=== PATIENT | male | born 1950 | race Caucasian/White ===

== ENCOUNTER 2016-06-07 09:53 | Day surgery (SDC) | payer MEDICARE ==
[~2016-06-07 09:53] MED LIST: PROPOFOL INJ 200 MG/20 ML VIAL IV ONE
--- NOTE | 2016-06-07 12:15 | Operative Report ---
Operative Report DATE OF SURGERY: 06/07/16 Operative Report: The risks, benefits and alternatives of the procedure including risks of bleeding, perforation requiring surgery are explained to the patient in detail and informed consent is obtained. Patient is taken back to the endoscopy suite and propofol is administered. Timeout is called. A rectal examination was done which did not reveal any masses, tears or fissures. An Olympus videoscope was inserted into the patient's rectum. Keeping the lumen in site at all times the scope was then gradually advanced all the way to the cecum. The cecum was identified by the usual anatomical landmarks of the ileocecal valve as well as the appendiceal office. Prep was reasonably good. Photo documentations obtained. The scope was then sequentially pulled back via the rest segments of the colon including the ascending colon, hepatic flexure, transverse colon, splenic flexure, descending colon and finally into the rectosigmoid colon. Retroflexion maneuvers performed. PREOPERATIVE DIAGNOSIS: Change of bowel habits, abdominal distention. POSTOPERATIVE DIAGNOSIS: Diverticulosis. Mild right-sided inflammation status post biopsy. Redundant, atonic colon. OPERATION: Colonoscopy with biopsy SURGEON: XIANG GRESHAM ANESTHESIA: LMAC TISSUE REMOVED OR ALTERED: Right colon specimens obtained. COMPLICATIONS: None. ESTIMATED BLOOD LOSS: none. INTRAOPERATIVE FINDINGS: No masses AVMs polyps are noted. Diverticulosis is noted. Internal hemorrhoids are noted. Long redundant, atonic colon. PROCEDURE: Patient tolerated the procedure well. No immediate postprocedure complications are noted. Patient is discharged in good condition. He does have a 2-3 week follow-up to discuss findings. He is instructed to go the emergency room after any further problems or questions. Discharge date 06/07/2016. Discharge diet: Regular. Discharge activity: Regular.
[2016-06-07 12:47] VITALS: BP 148/91
== END 2016-06-07 12:50 | disposition home or self-care (01) ==
LOC: END 09:53
PROVIDERS: ATTEND Internal Medicine Gastroenterology
PROC: 0DBF8ZX Excision of Right Large Intestine, Via Natural or Artificial Opening Endoscopic, Diagnostic (ICD-10-PCS; principal; 2016-06-07 11:00)
DX: K57.30 Diverticulosis of large intestine without perforation or abscess without bleeding (principal); K52.9 Noninfective gastroenteritis and colitis, unspecified; I10 Essential (primary) hypertension; J44.9 Chronic obstructive pulmonary disease, unspecified; M19.90 Unspecified osteoarthritis, unspecified site; I25.10 Atherosclerotic heart disease of native coronary artery without angina pectoris; E78.5 Hyperlipidemia, unspecified; G20 Parkinson's disease; G81.90 Hemiplegia, unspecified affecting unspecified side; Z79.51 Long term (current) use of inhaled steroids; Z79.899 Other long term (current) drug therapy
CPT/HCPCS: 45380; 88305 ×2; J2704; 810

== ENCOUNTER → 2016-07-13 | Outpatient (CLI) | payer MEDICARE | LOC: RAD 10:32 | PROVIDERS: ATTEND Internal Medicine Critical Care Medicine | DX: J45.909 Unspecified asthma, uncomplicated (principal); J44.9 Chronic obstructive pulmonary disease, unspecified; I69.30 Unspecified sequelae of cerebral infarction; G47.33 Obstructive sleep apnea (adult) (pediatric); M19.90 Unspecified osteoarthritis, unspecified site; R05 Cough; Z87.09 Personal history of other diseases of the respiratory system; Z87.898 Personal history of other specified conditions | CPT/HCPCS: 71020 ==

== ENCOUNTER → 2016-07-14 | Outpatient (CLI) | payer MEDICARE ==
[2016-07-14 11:27] LABS: ABSOLUTE BASOPHILS # (AUTO) 0.1 10^3/uL (0.0-0.2); ABSOLUTE EOSINOPHILS # (AUTO) 0.2 10^3/uL (0.0-0.6); ABSOLUTE LYMPHOCYTES (AUTO) 0.7 10^3/uL (0.5-4.7); ABSOLUTE MONOCYTES (AUTO) 0.5 10^3/uL (0.1-1.4); ABSOLUTE NEUT (AUTO) 5.8 10^3/uL (1.7-8.2); BASOPHILS % (AUTO) 0.7 % (0-2); EOSINOPHILS % (AUTO) 2.8 % (0-6); HEMOGLOBIN 11.6 g/dL (13.5-17.0); HGB HCT DIFFERENCE -0.2; LYMPHOCYTES % (AUTO) 9.9 % (13-45); MEAN CORPUSCULAR HGB CONC 33.1 g/dL (32.0-36.0); MEAN CORPUSCULAR VOLUME 88 fl (80-97); MONOCYTES % (AUTO) 6.7 % (3-13); RED BLOOD COUNT 3.99 10^6/uL (4.35-5.55); RED CELL DISTRIBUTION WIDTH 16.6 % (11.5-14.0); SEGMENTED NEUTROPHILS % (AUTO) 79.9 % (42-78); WHITE BLOOD COUNT 7.2 10^3/uL (4.0-10.5)
[2016-07-14 11:54] LABS: ALANINE AMINOTRANSFERASE 19 U/L (21-72); ALBUMIN 3.8 g/dL (3.5-5.0); ALKALINE PHOSPHATASE 149 U/L (38-126); ANION GAP 10 (5-19); ASPARTATE AMINO TRANSFERASE 19 U/L (17-59); BILIRUBIN,TOTAL 0.6 mg/dL (0.2-1.3); BLOOD UREA NITROGEN 11 mg/dL (7-20); CALCIUM 9.1 mg/dL (8.4-10.2); CARBON DIOXIDE 27 mmol/L (22-30); CHLORIDE 101 mmol/L (98-107); GLUCOSE 134 mg/dL (75-110); POTASSIUM 4.4 mmol/L (3.6-5.0); SODIUM 137.5 mmol/L (137-145); TOTAL PROTEIN 6.7 g/dL (6.3-8.2)
== END ==
LOC: LAB 10:51
PROVIDERS: ATTEND Internal Medicine Critical Care Medicine
DX: J45.909 Unspecified asthma, uncomplicated (principal); J98.11 Atelectasis; R05 Cough; J94.1 Fibrothorax; J90 Pleural effusion, not elsewhere classified; I10 Essential (primary) hypertension; Z86.79 Personal history of other diseases of the circulatory system
CPT/HCPCS: 36415; 80053; 85025

== ENCOUNTER → 2016-08-04 | Outpatient (CLI) | payer MEDICARE ==
[2016-08-04 14:37] LABS: ALANINE AMINOTRANSFERASE 13 U/L (21-72); ALBUMIN 3.9 g/dL (3.5-5.0); ALKALINE PHOSPHATASE 147 U/L (38-126); ANION GAP 12 (5-19); ASPARTATE AMINO TRANSFERASE 17 U/L (17-59); BILIRUBIN,TOTAL 0.7 mg/dL (0.2-1.3); BLOOD UREA NITROGEN 12 mg/dL (7-20); CALCIUM 9.2 mg/dL (8.4-10.2); CARBON DIOXIDE 30 mmol/L (22-30); CHLORIDE 97 mmol/L (98-107); CREATININE RESULT 1.11 mg/dL (0.52-1.25); GLUCOSE 139 mg/dL (75-110); POTASSIUM 3.9 mmol/L (3.6-5.0); SODIUM 139.2 mmol/L (137-145); TOTAL PROTEIN 7.1 g/dL (6.3-8.2)
== END ==
LOC: OD 13:07
PROVIDERS: ATTEND Physician Assistant Medical
DX: R06.02 Shortness of breath (principal)
CPT/HCPCS: 36415; 80053; 83880

== ENCOUNTER → 2016-11-15 | Outpatient (CLI) | payer MEDICARE ==
--- NOTE | 2016-11-15 15:24 | RADIOLOGY REPORT (SQ) ---
EXAM DESCRIPTION: CHEST PA/LATERAL COMPLETED DATE/TIME: 11/15/2016 2:59 pm REASON FOR STUDY: SHORTNESS OF BREATH COMPARISON: 07/13/2016 EXAM PARAMETERS: NUMBER OF VIEWS: two views TECHNIQUE: Digital Frontal and Lateral radiographic views of the chest acquired. RADIATION DOSE: NA LIMITATIONS: none FINDINGS: LUNGS AND PLEURA: There is large right retro hilar mass that shows no significant improvem ent compared to the earlier study. There is a small right pleural effusion. MEDIASTINUM AND HILAR STRUCTURES: No masses or contour abnormalities. HEART AND VASCULAR STRUCTURES: Heart normal size. No evidence for failure. BONES: No acute findings. HARDWARE: None in the chest. OTHER: No other significant finding. IMPRESSION: Large mass in the right retro hilar area. Persistent small right pleural effusion. TECHNICAL DOCUMENTATION: JOB ID: [id number] [employer]- All Rights Reserved
[2016-11-15 17:48] LABS: ABSOLUTE EOSINOPHILS # (AUTO) 0.2 10^3/uL (0.0-0.6); ABSOLUTE LYMPHOCYTES (AUTO) 0.8 10^3/uL (0.5-4.7); ABSOLUTE MONOCYTES (AUTO) 0.5 10^3/uL (0.1-1.4); ABSOLUTE NEUT (AUTO) 4.7 10^3/uL (1.7-8.2); BASOPHILS % (AUTO) 0.6 % (0-2); EOSINOPHILS % (AUTO) 2.8 % (0-6); HEMATOCRIT 37.5 % (37.9-51.0); HEMOGLOBIN 12.1 g/dL (13.5-17.0); HGB HCT DIFFERENCE -1.2; LYMPHOCYTES % (AUTO) 13.2 % (13-45); MEAN CORPUSCULAR HEMOGLOBIN 29.9 pg (27.0-33.4); MEAN CORPUSCULAR HGB CONC 32.1 g/dL (32.0-36.0); MEAN CORPUSCULAR VOLUME 93 fl (80-97); MONOCYTES % (AUTO) 7.8 % (3-13); RED BLOOD COUNT 4.04 10^6/uL (4.35-5.55); RED CELL DISTRIBUTION WIDTH 18.1 % (11.5-14.0); SEGMENTED NEUTROPHILS % (AUTO) 75.6 % (42-78); WHITE BLOOD COUNT 6.2 10^3/uL (4.0-10.5)
[2016-11-15 18:01] LABS: ALANINE AMINOTRANSFERASE 22 U/L (21-72); ALBUMIN 4.2 g/dL (3.5-5.0); ALKALINE PHOSPHATASE 158 U/L (38-126); ANION GAP 14 (5-19); ASPARTATE AMINO TRANSFERASE 29 U/L (17-59); BILIRUBIN,DIRECT 0.5 mg/dL (0.0-0.4); BILIRUBIN,TOTAL 0.6 mg/dL (0.2-1.3); BLOOD UREA NITROGEN 19 mg/dL (7-20); CALCIUM 9.1 mg/dL (8.4-10.2); CARBON DIOXIDE 27 mmol/L (22-30); CHLORIDE 98 mmol/L (98-107); CREATININE RESULT 1.15 mg/dL (0.52-1.25); GLUCOSE 156 mg/dL (75-110); POTASSIUM 4.6 mmol/L (3.6-5.0); SODIUM 138.5 mmol/L (137-145); TOTAL PROTEIN 7.5 g/dL (6.3-8.2)
== END ==
LOC: OD 14:30
PROVIDERS: ATTEND Physician Assistant Medical
DX: R06.02 Shortness of breath (principal); R53.83 Other fatigue; J90 Pleural effusion, not elsewhere classified
CPT/HCPCS: 36415; 71020; 80053; 85025

== ENCOUNTER 2017-02-28 21:30 | Emergency (ER) | payer MEDICARE ==
--- NOTE | 2017-02-28 22:57 | RADIOLOGY REPORT (SQ) ---
EXAM DESCRIPTION: KNEE RIGHT 2 VIEWS COMPLETED DATE/TIME: 02/28/2017 10:33 pm REASON FOR STUDY: rt knee/leg pain COMPARISON: 02/05/2014 NUMBER OF VIEWS: Two views. TECHNIQUE: AP and lateral radiographic images acquired of the right knee. LIMITATIONS: None. FINDINGS: MINERALIZATION: Osteopenia. BONES: Comminuted fracture of the proximal tibia. Predominantly transverse but there is a vertical f racture line which appears to extend into the knee joint. Fracture of the proximal fibula. No signi ficant displacement. JOINT: Small effusion. SOFT TISSUES: No soft tissue swelling. No radio-opaque foreign body. OTHER: No other significant finding. IMPRESSION: Comminuted fracture of the proximal tibia with intra-articular extension. Proximal fibu lar fracture. TECHNICAL DOCUMENTATION: JOB ID: [id number] [employer]- All Rights Reserved
--- NOTE | 2017-02-28 23:00 | RADIOLOGY REPORT (SQ) ---
EXAM DESCRIPTION: TIBIA FIBULA RIGHT COMPLETED DATE/TIME: 02/28/2017 10:33 pm REASON FOR STUDY: rt knee/leg pain COMPARISON: None. NUMBER OF VIEWS: Two views. TECHNIQUE: Two radiographic images acquired of the right tibia and fibula to include the knee and an kle in at least one projection. LIMITATIONS: None. FINDINGS: MINERALIZATION: Severe osteopenia. BONES: Fractures of the proximal tibia and fibula previously described. Healed fracture of the dista l tibia and fibula. SOFT TISSUES: No obvious swelling or foreign body. OTHER: No other significant finding. IMPRESSION: Acute fractures of the proximal tibia and fibula. Healed fracture of the distal tibia a nd fibula. TECHNICAL DOCUMENTATION: JOB ID: [id number] [employer]- All Rights Reserved
[2017-02-28] MEDS ORDERED: MORPHINE SULFATE 10 MG/ML INJ IV ONE (23:05)
--- NOTE | 2017-02-28 23:40 | ER Document Report ---
ED General - General Chief Complaint: Leg Injury Stated Complaint: LEG/KNEE INJURY Time Seen by Provider: 02/28/17 22:13 Notes: Patient is a 66-year-old male with a past medical history of a prior CVA and residual right-sided hemiparesis and associated expressive aphasia who presents after having a mechanical fall when trying to stand from his wheelchair. His was trying to assist him in standing and he did fall, "crumpling" his right leg. The patient is normally completely nonambulatory but is able to bear weight on the right lower extremity. He has no history of similar injury in the past. He did not injure any other part of his body during the fall today. He arrives via EMS. Patient is insensate on the right side of his body so he denies any active pain at this time. Nothing improves or worsens his symptoms. TRAVEL OUTSIDE OF THE [place] IN LAST 30 DAYS: No - Related Data Allergies/Adverse Reactions: Iodinated Contrast- Oral and IV Dye Allergy (Verified 06/06/16 15:53) Past Medical History - General Information source: Patient - Social History Smoking Status: Never Smoker Frequency of alcohol use: None Drug Abuse: None Lives with: Spouse/Significant other Family History: Reviewed & Not Pertinent Patient has suicidal ideation: No Patient has homicidal ideation: No - Past Medical History Cardiac Medical History: Reports: Hx Hypercholesterolemia, Hx Hypertension Denies: Hx Coronary Artery Disease, Hx Heart Attack, Hx Heart Murmur Pulmonary Medical History: Reports: Hx COPD, Hx Pneumonia, Hx Sleep Apnea Denies: Hx Asthma, Hx Bronchitis, Hx Respiratory Failure, Hx Tuberculosis Neurological Medical History: Reports: Hx Cerebrovascular Accident - 2005 WEAKER ON RIGHT SIDE, Hx Seizures - LAST ONE 6 MONTHS AGO Endocrine Medical History: Reports: Hx Diabetes Mellitus Type 2 Renal/ Medical History: Reports: Hx Kidney Stones. Denies: Hx Peritoneal Dialysis GI Medical History: Reports: Hx Gastroesophageal Reflux Disease - aspiration. Denies: Hx Hepatitis, Hx Hiatal Hernia, Hx Ulcer Musculoskeltal Medical History: Reports Hx Arthritis Psychiatric Medical History: Reports: Hx Depression Traumatic Medical History: Reports: Hx Fractures - right foot Infectious Medical History: Denies: Hx Hepatitis Past Surgical History: Reports: Hx Abdominal Surgery - PEG tube, Hx Bowel Surgery - cyst on bladder, Hx Orthopedic Surgery - right shoulder. Denies: Hx Open Heart Surgery, Hx Pacemaker - Immunizations Hx Diphtheria, Pertussis, Tetanus Vaccination: Yes Hx Pneumococcal Vaccination: 06/04/11 Review of Systems - Review of Systems Notes: Constitutional: Negative for fever. Eyes: Negative for visual changes. ENT: Negative for facial injury Cardiovascular: Negative for chest injury. Respiratory: Negative for shortness of breath. Gastrointestinal: Negative for abdominal injury. Genitourinary: Negative for genital injury Musculoskeletal: Positive right lower extremity injury Skin: Positive for ecchymosis of the right lower extremity Neurological: Negative for head injury. Physical Exam - Vital signs Vitals: Temp Pulse Resp BP Pulse Ox 98.2 F 127 H 18 143/85 H 100 02/28/17 21:32 02/28/17 21:32 02/28/17 21:32 02/28/17 21:32 02/28/17 21:32 Notes: PHYSICAL EXAMINATION: GENERAL: Appears slightly older than stated age but in no acute distress HEAD: Atraumatic, normocephalic. EYES: Pupils equal round and reactive to light, extraocular movements intact, sclera anicteric, conjunctiva are normal. ENT: nares patent, oropharynx clear without exudates. Moist mucous membranes. NECK: Normal range of motion, supple without lymphadenopathy LUNGS: Breath sounds clear to auscultation bilaterally and equal. No wheezes rales or rhonchi. HEART: Regular tachycardia without murmurs. Strong 2+ DP pulses bilaterally. ABDOMEN: Soft, nontender, normoactive bowel sounds. No guarding, no rebound. No masses appreciated. EXTREMITIES: There is extensive bruising and swelling to the proximal aspect of the distal right lower extremity just below the level of the knee. There are 2 serous filled bulla overlying the area. There is no evidence of skin tenting. The bilateral lower extremity's are the bilateral feet are warm to touch bilaterally NEUROLOGICAL: Right-sided hemiparesis which is baseline. Full range of motion and 5 out of 5 strength both in the upper and lower extremities of the left side. Expressive aphasia. PSYCH: Normal mood, normal affect. SKIN: Warm, Dry, normal turgor, no rashes or lesions noted. Course - Re-evaluation Re-evalutation: 02/28/17 23:39 Patient presents with a proximal tib-fib fracture on the right lower extremity. Patient does not ambulate on this extremity as he is hemiparetic on the right from a stroke in 2004. He did not sustain any additional injuries during today' s fall as it was apparently after attempting to have an assisted stand from the chair he directly "slumped" onto the floor landing directly on the right leg and not hitting anything else. There is obvious ecchymosis and bulla formed over the skin of the proximal right lower extremity without any evidence of skin tenting or tears. Patient has no sensation to the right lower extremity so denies any pain at this time. At this point we do not have any orthopedic surgery available in the emergency department at this hospital so I will consult with an orthopedic surgeon at [place] to see if this patient will require transfer tonight versus outpatient management and posterior splint placement as he is non-ambulatory on this extremity. 03/01/17 00:16 I have discussed this case with the orthopedic surgeon on-call at [facility] Dr. Ponce who recommends based on the absence of significant lateral displacement and that the patient is normally nonweightbearing on this extremity that the patient can be placed in a posterior splint and followed up as an outpatient. I have reviewed extensively the signs and symptoms to suggest compartment syndrome with the patient and his at the bedside and the need for them to return the emergency department immediately should any of these occur. - Vital Signs Vital signs: Temp Pulse Resp BP Pulse Ox 98.2 F 100 20 140/80 H 100 02/28/17 21:32 03/01/17 02:11 03/01/17 02:11 03/01/17 02:11 02/28/17 21:32 - Diagnostic Test Radiology reviewed: Image reviewed, Reports reviewed Radiology results interpreted by me: 03/01/17 03:44 Right tib-fib x-ray: Proximal comminuted tibial and fibular fractures Procedures - Immobilization Right Leg Pre-Proc Neuro Vasc Exam: Normal Immobilizer type: Long leg posterior Performed by: Provider assisted Post-Proc Neuro Vasc Exam: Normal Alignment checked and good: Yes Discharge - Discharge Clinical Impression: Fracture of right tibia and fibula Qualifiers: Encounter type: initial encounter Fracture type: closed Qualified Code(s): S82.201A - Unspecified fracture of shaft of right tibia, initial encounter for closed fracture Condition: Stable Disposition: HOME, SELF-CARE Additional Instructions: Please follow-up with the orthopedic surgeon at your earliest ability. Keep the splint on until you are seen. Return to the emergency department immediately if you develop any other signs that we discussed at the bedside that would suggest that your developing a syndrome called compartment syndrome. This would include discoloration of the foot, loss of warmth of the leg, inability to feel a pulse in the foot, or significant increase in swelling of the leg. If you develop any of these symptoms please return to the emergency department immediately. Prescriptions: Morphine Sulfate [Morphine Ir 15 mg Tablet] 15 mg PO Q4HP PRN #12 tablet PRN Reason: Referrals: CAMILO SALDIVAR MD [Primary Care Provider] - Follow up as needed SUAD RICH MD [ACTIVE STAFF] - Follow up in 3-5 days
[2017-03-01 02:15] VITALS: BP 140/80
== END 2017-03-01 01:43 | disposition home or self-care (01) ==
LOC: ER 21:30
PROC: 2W3LX1Z Immobilization of Right Lower Extremity using Splint (ICD-10-PCS; principal; 2017-02-28)
DX: S82.191A Other fracture of upper end of right tibia, initial encounter for closed fracture (principal); S82.831A Other fracture of upper and lower end of right fibula, initial encounter for closed fracture; W18.39XA Other fall on same level, initial encounter; Y93.89 Activity, other specified; I69.320 Aphasia following cerebral infarction; I69.351 Hemiplegia and hemiparesis following cerebral infarction affecting right dominant side; I10 Essential (primary) hypertension; J44.9 Chronic obstructive pulmonary disease, unspecified; E11.9 Type 2 diabetes mellitus without complications; Z99.3 Dependence on wheelchair; Z91.041 Radiographic dye allergy status
CPT/HCPCS: 99284

== ENCOUNTER → 2017-03-14 | Outpatient (CLI) | payer MEDICAID, MEDICARE ==
--- NOTE | 2017-03-14 16:32 | RADIOLOGY REPORT (SQ) ---
EXAM DESCRIPTION: U/S RETROPERITON (RENAL/AORTA) COMPLETED DATE/TIME: 03/14/2017 3:57 pm REASON FOR STUDY: CKD, UNSPECIFIED N18.9 CHRONIC KIDNEY DISEASE, UNSPECIFIED COMPARISON: 08/17/2015 TECHNIQUE: Dynamic and static grayscale images acquired of the kidneys and bladder and recorded on P ACS. Additional selected color Doppler and spectral images recorded. LIMITATIONS: Patient was in motorized wheelchair. FINDINGS: RIGHT KIDNEY: Normal size, 10.9 cm. Normal echogenicity. No solid or suspicious masses. T here is a 15 mm cyst. There is thinning of cortex. No hydronephrosis. No calcifications. LEFT KIDNEY: Normal size 10.5 cm. Normal echogenicity. No solid or suspicious masses. No hydronephro sis. No calcifications. BLADDER: No masses. OTHER FINDINGS: Note: The contour both kidneys is somewhat lobulated. IMPRESSION: There are chronic changes in the kidneys with no acute abnormality. TECHNICAL DOCUMENTATION: JOB ID: [id number] [employer]- All Rights Reserved
== END ==
LOC: RAD 14:59
PROVIDERS: ATTEND Family Medicine
DX: N18.9 Chronic kidney disease, unspecified (principal)
CPT/HCPCS: 76770

== ENCOUNTER 2017-07-24 15:37 | Day surgery (SDC) | payer MEDICARE ==
[2017-07-24] MEDS ORDERED: NALOXONE HCL INJ/PF 0.4 MG/1 ML SDV ONE (15:57)
[2017-07-24] MEDS ORDERED: MIDAZOLAM 2 MG/2 ML INJ ONE (15:57)
[2017-07-24] MEDS ORDERED: FLUMAZENIL INJ 0.5 MG/5 ML VIAL ONE (15:58)
[2017-07-24] MEDS ORDERED: EPINEPHRINE INJ 1 MG/10 ML DISP.SYRIN ONE (15:58)
[2017-07-24] MEDS ORDERED: GLUCAGON,HUMAN RECOMB 1 MG INJ ONE (15:58)
[2017-07-24] MEDS: FENTANYL CITRATE INJ/PF 100 MCG/2 ML AMPUL ONE ×2 (17:01→17:05)
--- NOTE | 2017-07-24 17:49 | Operative Report ---
Operative Report DATE OF SURGERY: 07/24/17 Operative Report: Pre-op diagnosis: History of colon polyps Post-op diagnosis: 1. Transverse colon polyp 2. Scattered diverticulosis 3. Very redundant colon Surgery: Colonoscopy with polypectomy Medications: Versed 2mg, Fentanyl 100mcg IV push Tissue removed: Colon polyp Procedure: After informed consent obtained from patient, conscious sedation was achieved. A digital rectal examination was performed and this was unremarkable. The colonoscope was inserted into the rectum and advanced to the cecum. The appendiceal orifice and the terminal ileum were both identified. The mucosa was examined into details as the colonoscope was slowly pulled out of the patient. The endoscope was retroflexed in the rectum. Patient tolerated the procedure well. Findings Cecum: Normal Ascending colon: Few diverticuli Transverse colon: 5 mm polyp removed with a cold snare Descending colon: Redundant colon Sigmoid colon: Redundant colon and few diverticuli Rectum: Normal except for internal hemorrhoids Plan: Await pathology OPERATION: .
[2017-07-24 19:03] VITALS: BP 130/82
== END 2017-07-24 19:00 | disposition home or self-care (01) ==
LOC: END 15:37
PROVIDERS: ATTEND Internal Medicine Gastroenterology
DX: Z12.11 Encounter for screening for malignant neoplasm of colon (principal); D12.3 Benign neoplasm of transverse colon; K57.30 Diverticulosis of large intestine without perforation or abscess without bleeding; K64.8 Other hemorrhoids; E11.9 Type 2 diabetes mellitus without complications; D64.9 Anemia, unspecified; I48.91 Unspecified atrial fibrillation; Z86.73 Personal history of transient ischemic attack (TIA), and cerebral infarction without residual deficits
CPT/HCPCS: 45385; 82962; 88305 ×2; J2250; J3010; J0171; J1610; J2310; J3490

== ENCOUNTER 2017-10-18 10:40 | Inpatient (IN) | payer MEDICARE ==
--- NOTE | 2017-10-18 11:12 | ER Document Report ---
ED General - General Chief Complaint: Headache Stated Complaint: HEAD PAIN Time Seen by Provider: 10/18/17 10:59 Mode of Arrival: Wheelchair Information source: Patient, Relative, [facility] Records, Outside Facility Records Cannot obtain history due to: Other Notes: 66-year-old male history of CVA aphasia right-sided paralysis presents from urologist office where she had an episode where he he turned pale got sweaty and passed out. The episode lasts only a few seconds. says that he came back to and he was acting at his baseline. Patient himself denies any complaints shakes yes when asked if he is acting at his baseline and feels okay TRAVEL OUTSIDE OF THE [place] IN LAST 30 DAYS: No - HPI Onset: Just prior to arrival Onset/Duration: Sudden Quality of pain: No pain Severity: Mild Pain Level: Denies Associated symptoms: Other - pt became pale, sweaty, passed out Exacerbated by: Denies Relieved by: Denies Similar symptoms previously: Yes - passed out in the past lasting 15 minutes Recently seen / treated by doctor: Yes - Related Data Allergies/Adverse Reactions: Iodinated Contrast- Oral and IV Dye Allergy (Mild, Verified 10/18/17 11:19) Generalized rash Past Medical History - Social History Smoking Status: Never Smoker Cigarette use (# per day): No Chew tobacco use (# tins/day): No Smoking Education Provided: No Family History: Reviewed & Not Pertinent - Past Medical History Cardiac Medical History: Reports: Hx Hypercholesterolemia, Hx Hypertension Denies: Hx Coronary Artery Disease, Hx Heart Attack, Hx Heart Murmur Pulmonary Medical History: Reports: Hx COPD, Hx Pneumonia, Hx Sleep Apnea Denies: Hx Asthma, Hx Bronchitis, Hx Respiratory Failure, Hx Tuberculosis Neurological Medical History: Reports: Hx Cerebrovascular Accident - 2005 WEAKER ON RIGHT SIDE, Hx Seizures - LAST ONE OVER 1 YR. AGO. Endocrine Medical History: Reports: Hx Diabetes Mellitus Type 2 Renal/ Medical History: Reports: Hx Kidney Stones. Denies: Hx Peritoneal Dialysis GI Medical History: Reports: Hx Gastroesophageal Reflux Disease - aspiration. Denies: Hx Hepatitis, Hx Hiatal Hernia, Hx Pancreatitis, Hx Ulcer Musculoskeltal Medical History: Reports Hx Arthritis Psychiatric Medical History: Reports: Hx Depression Traumatic Medical History: Reports: Hx Fractures - right foot Infectious Medical History: Denies: Hx Hepatitis Past Surgical History: Reports: Hx Abdominal Surgery - PEG tube, Hx Bowel Surgery - cyst on bladder, Hx Orthopedic Surgery - right shoulder. Denies: Hx Open Heart Surgery, Hx Pacemaker - Immunizations Hx Diphtheria, Pertussis, Tetanus Vaccination: Yes Hx Pneumococcal Vaccination: 06/04/11 Review of Systems - Review of Systems Notes: REVIEW OF SYSTEMS: CONSTITUTIONAL : Denies fever, chills, or sweats. Denies recent illness. EENT: Denies eye, ear, throat, or mouth pain or symptoms. Denies nasal or sinus congestion or discharge. Denies throat, tongue, or mouth swelling or difficulty swallowing. CARDIOVASCULAR: Denies chest pain. Denies palpitations or racing or irregular heart beat. Denies ankle edema. RESPIRATORY: Denies cough, cold, or chest congestion. Denies shortness of breath, difficulty breathing, or wheezing. GASTROINTESTINAL: Denies abdominal pain or distention. Denies nausea, vomiting , or diarrhea. Denies blood in vomitus, stools, or per rectum. Denies black, tarry stools. Denies constipation. GENITOURINARY: Denies difficulty urinating, painful urination, burning, frequency, blood in urine, or discharge. MUSCULOSKELETAL: chronic defectis SKIN: Denies rash, lesions or sores. HEMATOLOGIC : Denies easy bruising or bleeding. LYMPHATIC: Denies swollen, enlarged glands. NEUROLOGICAL: hx paralysis PSYCHIATRIC: Denies anxiety or stress. Denies depression, suicidal ideation, or homicidal ideation. ALL OTHER SYSTEMS REVIEWED AND NEGATIVE. Dictation was performed using [employer] voice recognition software PHYSICAL EXAMINATION: GENERAL: Well-appearing, well-nourished and in no acute distress. HEAD: Atraumatic, normocephalic. EYES: Pupils equal round and reactive to light, extraocular movements intact, sclera anicteric, conjunctiva are normal. ENT: Nares patent, oropharynx clear without exudates. Moist mucous membranes. NECK: Normal range of motion, supple without lymphadenopathy LUNGS: Breath sounds clear to auscultation bilaterally and equal. No wheezes rales or rhonchi. HEART: Regular rate and rhythm without murmurs ABDOMEN: Soft, nontender, nondistended abdomen. No guarding, no rebound. No masses appreciated. Musculoskeletal: Normal range of motion, no pitting or edema. No cyanosis. NEUROLOGICAL: chronic right sided deficits PSYCH: Normal mood, normal affect. SKIN: Warm, Dry, normal turgor, no rashes or lesions noted. Physical Exam - Vital signs Vitals: Temp Resp Pulse Ox 98.3 F 14 97 10/18/17 11:02 10/18/17 11:02 10/18/17 11:02 Course - Re-evaluation Re-evalutation: 10/18/17 14:50 Patient had another such episode in the emergency department he did not syncopized but he did become pale diaphoretic, patient appeared to be A. fib and RVR that time but this resolved, Dr. Price was notified, Dr. banks evaluate the patient as well, I will admit to his primary care physician 10/18/17 14:50 - Vital Signs Vital signs: Temp Pulse Resp BP Pulse Ox 98.4 F 20 116/75 95 10/18/17 13:14 10/18/17 13:14 10/18/17 12:31 10/18/17 13:14 - Laboratory Result Diagrams: 10/18/17 11:00 10/18/17 11:00 Laboratory results interpreted by me: 10/18/17 10/18/17 11:00 11:00 WBC 11.7 H RBC 3.93 L Hgb 11.8 L Hct 35.9 L RDW 15.5 H Plt Count 146 L Seg Neuts % (Manual) 83 H Band Neutrophils % 1 L Lymphocytes % (Manual) 8 L Metamyelocytes % 1 H Abs Neuts (Manual) 9.9 H Chloride 97 L BUN 30 H Creatinine 1.65 H Est GFR ( Amer) 51 L Est GFR (Non-Af Amer) 42 L Glucose 153 H Direct Bilirubin 0.6 H ALT 19 L Alkaline Phosphatase 171 H Creatine Kinase 53 L - Diagnostic Test Radiology reviewed: Image reviewed, Reports reviewed Discharge - Discharge Clinical Impression: Syncope and collapse, Atrial fibrillation with rapid ventricular response Condition: Stable Disposition: ADMITTED OBSERVATION Admitting Provider: Albert Unit Admitted: Telemetry
[2017-10-18] MEDS ORDERED: ASPIRIN 81 MG TABLET, CHEWABLE PO ONE (11:14)
--- NOTE | 2017-10-18 11:19 | RADIOLOGY REPORT (SQ) ---
EXAM DESCRIPTION: CT HEAD WITHOUT COMPLETED DATE/TIME: 10/18/2017 11:01 am REASON FOR STUDY: headache, hx of strokes COMPARISON: CT brain 02/16/2014, 03/03/2013 TECHNIQUE: Axial images acquired through the brain without intravenous contrast. Images reviewed wi th bone, brain and subdural windows. Additional sagittal and coronal reconstructions were generated. Images stored on PACS. All CT scanners at this facility use dose modulation, iterative reconstruction, and/or weight based d osing when appropriate to reduce radiation dose to as low as reasonably achievable (ALARA). [facility]: Dose Right [facility]: CareDose [facility]: Dose Right [facility]: Teradose 4D [facility]: [employer] RADIATION DOSE: CT Rad equipment meets quality standard of care and radiation dose reduction techniq ues were employed. CTDIvol: 23.1 mGy. DLP: 522 mGy-cm. mGy. LIMITATIONS: Motion artifact FINDINGS: VENTRICLES: Normal size and contour. CEREBRUM: No CT evidence of acute intracranial hemorrhage, large territory acute ischemic change, mas s effect or midline shift. Patient has a old left frontal craniotomy with encephalomalacia throughout the left frontal lobe. Dy strophic calcification in the left frontal deep periventricular white matter is unchanged from studie s dating back to 2012. Low attenuation is present in the right frontal deep periventricular white matter from chronic small vessel ischemic change, stable. Old lacunar infarct right medial basal ganglia, unchanged. CEREBELLUM: No masses. No hemorrhage. No alteration of density. No evidence for acute infarction. EXTRAAXIAL SPACES: No fluid collections. No masses. ORBITS AND GLOBE: No intra- or extraconal masses. Normal contour of globe without masses. CALVARIUM: Old left frontal craniotomy PARANASAL SINUSES: No fluid or mucosal thickening. SOFT TISSUES: No mass or hematoma. OTHER: No other significant finding. IMPRESSION: No acute findings Old left frontal craniotomy with diffuse encephalomalacia throughout the left frontal lobe. Old lacu halina infarct right medial basal ganglia. Right frontal de periventricular small vessel white matter d isease. EVIDENCE OF ACUTE STROKE: NO. COMMENT: Pertinent findings on the imaging study reported as a CRITICAL RESULT to GEORGETTE HAMM DO at11:03 on 10/18/2017. Category of Critical Result: CT stroke alert Quality ID # [id number]: Final reports with documentation of one or more dose reduction techniques (e.g., Au tomated exposure control, adjustment of the mA and/or kV according to patient size, use of iterative reconstruction technique) TECHNICAL DOCUMENTATION: JOB ID: [id number] [employer]- All Rights Reserved Reading location - IP/workstation name: [facility]
[2017-10-18 11:28] LABS: HEMATOCRIT 35.9 % (37.9-51.0); HEMOGLOBIN 11.8 g/dL (13.5-17.0); MEAN CORPUSCULAR HEMOGLOBIN 30.1 pg (27.0-33.4); MEAN CORPUSCULAR HGB CONC 32.9 g/dL (32.0-36.0); MEAN CORPUSCULAR VOLUME 92 fl (80-97); PLATELET COUNT 146 10^3/uL (150-450); RED BLOOD COUNT 3.93 10^6/uL (4.35-5.55); RED CELL DISTRIBUTION WIDTH 15.5 % (11.5-14.0); WHITE BLOOD COUNT 11.7 10^3/uL (4.0-10.5)
[2017-10-18 11:53] LABS: ABSOLUTE LYMPHOCYTES# (MANUAL) 0.9 10^3/uL (0.5-4.7); ABSOLUTE MONOCYTES # (MANUAL) 0.8 10^3/uL (0.1-1.4); ABSOLUTE NEUTROPHILS# (MANUAL) 9.9 10^3/uL (1.7-8.2); ALANINE AMINOTRANSFERASE 19 U/L (21-72); ALBUMIN 4.1 g/dL (3.5-5.0); ALKALINE PHOSPHATASE 171 U/L (38-126); ANION GAP 16 (5-19); ASPARTATE AMINO TRANSFERASE 20 U/L (17-59); BAND NEUTROPHILS % (MANUAL) 1 % (3-5); BASOPHILS % (MANUAL) 0 % (0-2); BILIRUBIN,DIRECT 0.6 mg/dL (0.0-0.4); BILIRUBIN,TOTAL 0.7 mg/dL (0.2-1.3); BLOOD UREA NITROGEN 30 mg/dL (7-20); CALCIUM 9.1 mg/dL (8.4-10.2); CARBON DIOXIDE 26 mmol/L (22-30); CHLORIDE 97 mmol/L (98-107); CREATINE KINASE 53 U/L (55-170); EOSINOPHILS % (MANUAL) 0 % (0-6); GLUCOSE 153 mg/dL (75-110); LYMPHOCYTES % (MANUAL) 8 % (13-45); METAMYELOCYTES % (MANUAL) 1 % (0); MONOCYTES % (MANUAL) 7 % (3-13); POTASSIUM 3.8 mmol/L (3.6-5.0); SEGMENTED NEUTROPHILS % (MAN) 83 % (42-78); SODIUM 138.7 mmol/L (137-145); TOTAL CELLS COUNTED 100; TOTAL PROTEIN 7.2 g/dL (6.3-8.2)
[2017-10-18 11:54] LABS: ANISOCYTOSIS SLIGHT; OVALOCYTES 1+; PLATELET COMMENT DECREASED; POIKILOCYTOSIS 1+
[2017-10-18 12:05] LABS: CREATINE KINASE MB 0.39 ng/mL (<4.55); TROPONIN I < 0.012 ng/mL
--- NOTE | 2017-10-18 12:14 | RADIOLOGY REPORT (SQ) ---
EXAM DESCRIPTION: CHEST SINGLE VIEW COMPLETED DATE/TIME: 10/18/2017 11:56 am REASON FOR STUDY: syncope COMPARISON: Chest films 05/03/2015, 07/13/2016, 11/15/2016 CT chest 10/06/2011, 11/07/2012, 11/06/2013, 05/18/2015 EXAM PARAMETERS: NUMBER OF VIEWS: One view. TECHNIQUE: Single frontal radiographic view of the chest acquired. RADIATION DOSE: NA LIMITATIONS: None. FINDINGS: LUNGS AND PLEURA: Chronic appearing round atelectasis in the right lower lobe projected ov er the lower right hilum. This is unchanged compared to CT chest exams dating back to 10/06/2011. Chronic blunting right lateral costophrenic sulcus from scarring is stable. Minimal left lateral cos tophrenic sulcus scarring or atelectasis. No acute infiltrates. No new pleural effusions. MEDIASTINUM AND HILAR STRUCTURES: No masses. Contour normal. HEART AND VASCULAR STRUCTURES: Heart normal in size. Normal vasculature. BONES: No acute findings. HARDWARE: None in the chest. OTHER: No other significant finding. IMPRESSION: No acute findings. Stable round atelectasis in the right lower lobe and chronic right pleural thickening. TECHNICAL DOCUMENTATION: JOB ID: [id number] [employer]- All Rights Reserved Reading location - IP/workstation name: [email or web address]
[2017-10-18] MEDS ORDERED: CEFTRIAXONE INJ 1000 MG VIAL IV ONE (12:31)
[2017-10-18] MEDS ORDERED: ONDANSETRON HCL INJ/PF 4 MG/2 ML SDV IV ONE (13:03)
[2017-10-18] MEDS ORDERED: ACETAMINOPHEN 325 MG TABLET PO PRN (13:04)
[2017-10-18] MEDS ORDERED: LEVALBUTEROL HCL NEB 0.63 MG/3 ML AMPUL NEB PRN (13:04)
--- NOTE | 2017-10-18 13:41 | PDOC H&P ---
History of Present Illness Admission Date/PCP: 10/18/17 12:42 CAMILO SALDIVAR MD Patient complains of: Syncopal episode History of Present Illness: MILANA FRANCO is a 66 year old male This is a 66-year-old male with a significant history of the hypertension history of the hyperlipidemia type 2 diabetes mellitus if history of a cerebrovascular accident status post residual weakness with the history of the Parkinson's disorder and a history of seizures disordersAnd a history of the chronic A. fib and chronic urinary tract infections with the history of the urethral stricture went to the urologist office this morningAnd the patient's have a blackout episode according to the patient suddenly looking pale and patient's basically a phasic but according to the looks like his eyes rolled over and he just most likely passing out and for a few seconds and the patient's come back to the normal and the same episode happened again in the emergency department witnessed by the ER physiciansAnd ER physicians thought patients dementia diaphoretic and the patient's heart rate goes up and the patient did not pass out on that episodes in patients was in A. fib with a rapid ventricular response Patient also have a history of nausea and vomiting going on for the last several days and according to the is not eating much for last several days and patient's abdomen is distended compatible normally But I saw the patient in the emergency room patient was alert awake a phasic from the old strokes denied any complain denied any chest pain denied any nausea vomiting but after I left the ER the ER physicians noticed that another episode and when the paster hat lining at 10 the patient then noticed the patient's complaining of nausea at that point Patient's otherwise at this point order the MRI of the brain to rule out any acute strokes which patient have initial CT of the head was negative and the patient have a history of the subarachnoid hemorrhage status post surgery in the past Have a history of the chronic A. fib unable to take the Eliquis due to the high risk for the bleeding and a high risk for the fall and injury Also have a chronic history of the Parkinson's disorder and a seizures and currently follow the neurology as outpatient upcoming appointment on a Sunday As per discussed with the paster hat lining patient have a recently ultrasound for the carotid was done was all normal Patient also have a events monitor was done cardiology office not sure with the result This point we admit the patient in IMCU for further evaluations discussed with the regarding the patient's current condition and all the test reports patients have elevated white counts and elevated kidney functions underlying coronary tract infections we will treat with IV antibiotic Past Medical History Cardiac Medical History: Reports: Atrial Fibrillation, Hyperlipidema, Hypertension Denies: Coronary Artery Disease, Myocardial Infarction, Heart Murmur Pulmonary Medical History: Reports: Chronic Obstructive Pulmonary Disease (COPD) , Pneumonia, Sleep Apnea Denies: Asthma, Bronchitis, Respiratory Failure, Tuberculosis Neurological Medical History: Reports: Ischemic CVA, Seizures - LAST ONE OVER 1 YR. AGO. Neurological History Note: History of the subarachnoid hemorrhage status post surgery Endocrine Medical History: Reports: Diabetes Mellitus Type 2 Renal/ Medical History: Reports: Chronic Kidney Disease GI Medical History: Reports: Gastroesophageal Reflux Disease - aspiration Denies: Hepatitis, Hiatal Hernia Musculoskeltal Medical History: Reports: Arthritis Psychiatric Medical History: Reports: Depression Hematology: Denies: Anemia, Hemophilia, Sickle Cell Disease Past Surgical History Past Surgical History: Reports: Orthopedic Surgery - right shoulder Denies: Pacemaker Social History Information Source: Relative Smoking Status: Never Smoker Frequency of Alcohol Use: None Hx Recreational Drug Use: No Hx Prescription Drug Abuse: No Family History Family History: Reviewed & Not Pertinent Parental Family History Reviewed: Yes Children Family History Reviewed: Yes Sibling(s) Family History Reviewed.: Yes Medication/Allergy Home Medications: Carbidopa/Levodopa [Sinemet 25-100 Mg Tablet] 1 each PO TID 06/12/11 Clonazepam [Klonopin] 0.5 mg PO BID 06/12/11 Metoprolol Tartrate [Lopressor 50 mg Tablet] 25 mg PO BID 06/12/11 Ropinirole HCl [Requip 1 Mg Tablet] 1 mg PO QHS 06/12/11 Doxazosin Mesylate [Cardura Xl] 8 mg PO QHS 08/27/11 Docusate Sodium [Colace 100 mg Capsule] 100 mg PO BID 09/08/11 Cholecalciferol (Vitamin D3) [Vitamin D3 5000 unit Capsule] 50,000 unit PO Q7D 09/27/12 Albuterol Sulfate [Albuterol Sulfate 2.5mg/3 mL] 2.5 mg NEB Q6 PRN 06/10/14 Amlodipine Besylate [Norvasc 5 mg Tablet] 5 mg PO DAILY 06/10/14 Diclofenac Sodium [Voltaren] 100 gm TP QID 06/10/14 Fluticasone Propionate [Flonase Nasal [place] 50 Mcg/[place] 16 gm] 1 spray NASL Q12 06/10/14 Montelukast Sodium [Singulair 10 mg Tablet] 10 mg PO QHS 06/10/14 Oxcarbazepine [Trileptal] 900 mg PO BID 12/25/14 Furosemide [Lasix 40 mg Tablet] 40 mg PO DAILY 07/23/17 Losartan Potassium 25 mg PO DAILY 07/23/17 Lubiprostone [Amitiza 8 Mcg Capsule] 8 mcg PO DAILY 07/23/17 Allergies/Adverse Reactions: Iodinated Contrast- Oral and IV Dye Allergy (Mild, Verified 10/18/17 11:19) Generalized rash Review of Systems All systems: reviewed and no additional remarkable complaints except as stated Physical Exam Vital Signs: Temp Pulse Resp BP Pulse Ox 98.3 F 16 116/75 99 10/18/17 11:02 10/18/17 12:31 10/18/17 12:31 10/18/17 12:31 General appearance: PRESENT: no acute distress Eye exam: PRESENT: PERRLA Mouth exam: PRESENT: dry mucosa Respiratory exam: PRESENT: clear to auscultation анна Cardiovascular exam: PRESENT: +S1, +S2 GI/Abdominal exam: PRESENT: distended, normal bowel sounds, soft Extremities exam: ABSENT: pedal edema Neurological exam: PRESENT: alert, awake, oriented to person, oriented to place , oriented to time, oriented to situation, motor sensory deficit, aphasic Skin exam: PRESENT: dry Results Impressions: Head CT 10/18/17 00:00 IMPRESSION: No acute findings Old left frontal craniotomy with diffuse encephalomalacia throughout the left frontal lobe. Old lacunar infarct right medial basal ganglia. Right frontal de periventricular small vessel white matter disease. EVIDENCE OF ACUTE STROKE: NO. Chest X-Ray 10/18/17 11:14 IMPRESSION: No acute findings. Stable round atelectasis in the right lower lobe and chronic right pleural thickening. Assessment & Plan - Diagnosis (1) Syncope and collapse Is this a current diagnosis for this admission?: Yes Plan: Unclear etiology Patient initial CT head was negative for any acute finding Will get the MRI of the head Also consult the cardiology to rule out any cardiac arrhythmia (2) Urinary tract infection Qualifiers: Urinary tract infection type: catheter-associated UTI Encounter type: initial encounter Is this a current diagnosis for this admission?: Yes Plan: Patient have a chronic catheterize problems due to the urethral stricture and currently see the urologist start the patient on IV antibiotics in the urine for the culture (3) Atrial fibrillation with rapid ventricular response Is this a current diagnosis for this admission?: Yes Plan: Start the patient on a Cardizem follow with the cardiology Patient is a not a candidate for an anticoagulations due to the multiple risk factor bleedings history of the hemorrhage in the past and also history of the frequent fall that all are discussed by the cardiology and myself to the patient 's and understand and do not want to go for that route (4) Seizure disorder Is this a current diagnosis for this admission?: Yes Plan: Continues to current seizures medications patient's currently see outpatients neurology appointment in a Sunday (5) Cerebrovascular disease Is this a current diagnosis for this admission?: Yes Plan: Patient have residual weakness from the old strokes get the MRI of the head for further evaluations (6) Hypertension Qualifiers: Hypertension type: essential hypertension Qualified Code(s): I10 - Essential (primary) hypertension Is this a current diagnosis for this admission?: Yes Plan: Continues to current medications (7) Type 2 diabetes mellitus Qualifiers: Diabetes mellitus retirement insulin use: without retirement use Is this a current diagnosis for this admission?: Yes Plan: Continues a sliding scale (8) Chronic kidney disease Qualifiers: Chronic kidney disease stage: stage 2 (mild) Qualified Code(s): N18.2 - Chronic kidney disease, stage 2 (mild) Is this a current diagnosis for this admission?: Yes Plan: Last creatinine was 1.41 in my office currently to be dehydrated patient also see her Dr. 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 Is this a current diagnosis for this admission?: Yes Plan: Currently patient on carbidopa (11) Nausea & vomiting Qualifiers: Vomiting type: unspecified Vomiting Intractability: non-intractable Qualified Code(s): R11.2 - Nausea with vomiting, unspecified Is this a current diagnosis for this admission?: Yes Plan: Possible underlying gastritis versus ileus with the abdominal distention's will get the CT abdomen and pelvis Consult the GI for further evaluations and put the patient on a Protonix - Time Time Spent: 50 to 70 Minutes Medications reviewed and adjusted accordingly: Yes Anticipated discharge: Home Within: Other - Inpatient Certification Medical Necessity: Need Close Monitoring Due to Risk of Patient Decompensation, Need For IV Fluids, Need for IV Antibiotics Post Hospital Care: D/C Shop Director Documentation - Plan Summary Plan Summary: Admit the patient in IMCU see other MD orders with extensive discussed with the patient's regarding the patient's current condition other coordinate consult
[2017-10-18] MEDS ORDERED: GLUCAGON,HUMAN RECOMB 1 MG INJ IM PRN (14:04)
[2017-10-18] MEDS ORDERED: DEXTROSE 40% GEL 15 GM TUBE PO PRN ×2 (14:04)
[2017-10-18] MEDS ORDERED: DEXTROSE 50%-WATER 25 GM/50 ML DISP.SYRIN IV PRN ×2 (14:04)
[2017-10-18] MEDS ORDERED: INSULIN LISPRO 100 UNIT/ML 3 ML VIAL SUBCUT PRN (14:04)
[2017-10-18] MEDS ORDERED: ZINC GLUCONATE 100 MG PO SCH (15:00)
[2017-10-18] MEDS ORDERED: DOXAZOSIN MESYLATE 8 MG PO SCH (15:00)
--- NOTE | 2017-10-18 15:09 | RADIOLOGY REPORT (SQ) ---
EXAM DESCRIPTION: MRI HEAD WITHOUT COMPLETED DATE/TIME: 10/18/2017 2:31 pm REASON FOR STUDY: tia cva ruleout E03.9 HYPOTHYROIDISM, UNSPECIFIED N39.0 URINARY TRACT INFECTION, SITE NOT SPECIFIED R55 SYNCOPE AND COLLAPSE COMPARISON: CT brain 10/18/2017 TECHNIQUE: Multiplanar imaging includes non-contrasted T1, T2, FLAIR, and diffusion with ADC map seq uences. Images stored on PACS. LIMITATIONS: Patient is kyphotic, some signal dropout over the vertex related to patient positioning . Some pulse sequences are degraded by patient motion artifact FINDINGS: On images without motion artifact, no MR evidence of acute ischemic change, acute intracra nial hemorrhage, mass effect, or midline shift is seen. Old left frontal craniotomy with broad area of left frontal parietal encephalomalacia similar compare d to prior CT exam. Old lacunar infarcts in the right medial basal ganglia, right thalamus, left stephanie. Globes are post cataract surgery. Paranasal sinuses are clear. IMPRESSION: No MR evidence of acute ischemic change, acute intracranial hemorrhage, mass effect or m idline shift. Old left frontal craniotomy with broad area of left frontoparietal encephalomalacia. Small lacunar i nfarcts, chronic appearance in the right medial basal ganglia, right thalamus, and left stephanie. EVIDENCE OF ACUTE STROKE: NO. TECHNICAL DOCUMENTATION: JOB ID: [id number] [employer]- All Rights Reserved Reading location - IP/workstation name: [email or web address]
[2017-10-18] MEDS: NORMAL SALINE 1000 ML 1,000 ML IV PRN (15:52)
[2017-10-18] MEDS: HEPARIN SOD (PORCINE) 5,000 UNIT/ML 1 ML SYRINGE SUBCUT SCH ×2 (15:52→21:27)
--- NOTE | 2017-10-18 16:50 | RADIOLOGY REPORT (SQ) ---
EXAM DESCRIPTION: CT ABD/PELVIS NO ORAL OR IV COMPLETED DATE/TIME: 10/18/2017 4:34 pm REASON FOR STUDY: n/v/uti/renal faiure E03.9 HYPOTHYROIDISM, UNSPECIFIED N39.0 URINARY TRACT INFEC TION, SITE NOT SPECIFIED R55 SYNCOPE AND COLLAPSE COMPARISON: CT chest 10/06/2011 CT abdomen pelvis 06/12/2011, 03/13/2012 Bilateral renal ultrasound 03/14/2017, 08/17/2015 TECHNIQUE: CT scan of the abdomen and pelvis performed without intravenous or oral contrast. Images reviewed with lung, soft tissue, and bone windows. Reconstructed coronal and sagittal MPR images revi ewed. All images stored on PACS. All CT scanners at this facility use dose modulation, iterative reconstruction, and/or weight based d osing when appropriate to reduce radiation dose to as low as reasonably achievable (ALARA). [facility]: Dose Right [facility]: CareDose [facility]: Dose Right [facility]: Teradose 4D [facility]: [employer] RADIATION DOSE: CT Rad equipment meets quality standard of care and radiation dose reduction techniq ues were employed. CTDIvol: 19.0 mGy. DLP: 1105 mGy-cm.mGy. LIMITATIONS: None. FINDINGS: LOWER CHEST: Rounded atelectasis in the right lower lobe with chronic right posterior cost ophrenic sulcus pleural thickening is unchanged from studies dating back to CT chest 10/06/2011. NON-CONTRASTED LIVER, SPLEEN, ADRENALS: Evaluation limited by lack of IV contrast. No identified sign ificant masses. PANCREAS: No masses. No peripancreatic inflammatory changes. GALLBLADDER: No identified stones by CT criteria. No inflammatory changes to suggest cholecystitis. RIGHT KIDNEY AND URETER: 2 cm hemorrhagic cyst right mid-pole kidney similar compared to ultrasound f rom 03/14/2017. Multifocal right renal cortical scarring. No significant calcifications. No hydr onephrosis or hydroureter. LEFT KIDNEY AND URETER: No suspicious masses. Assessment limited by lack of IV contrast. Multifocal left renal cortical scarring. No significant calcifications. No hydronephrosis or hydroureter. AORTA AND RETROPERITONEUM: No aneurysm. No retroperitoneal masses or adenopathy. BOWEL AND PERITONEAL CAVITY: No obvious masses or inflammatory changes. No free fluid. APPENDIX: Not identified. No right lower quadrant inflammatory change PELVIS, BLADDER, AND ABDOMINAL WALL:Mariano catheter drains the bladder. Bilateral fat containing ingu inal hernias. No adenopathy. No free fluid. BONES: Diffuse degenerative changes lumbar spine. Diffuse ankylosis throughout the visualized thorac ic and lumbar spine OTHER: No other significant finding. IMPRESSION: No acute findings COMMENT: Quality ID # [id number]: Final reports with documentation of one or more dose reduction techniques (e.g., Automated exposure control, adjustment of the mA and/or kV according to patient size, use of iterative reconstruction technique) TECHNICAL DOCUMENTATION: JOB ID: [id number] [employer]- All Rights Reserved Reading location - IP/workstation name: [email or web address] [facility]
[2017-10-18 17:01] LABS: CREATINE KINASE MB 0.49 ng/mL (<4.55)
[2017-10-18 17:02] LABS: TROPONIN I < 0.012 ng/mL
--- NOTE | 2017-10-18 17:23 | XCELERA REPORT ---
[address] [address] Transthoracic Echocardiogram Report Name: MILANA FRANCO Age: 66 yrs Gender: Male : 1950 Patient Status: Inpatient Patient Location: [place] [address]^A Study Date: 10/18/2017 02:52 PM Height: 72 in Weight: 219 lb BSA: 2.2 m2 Procedure: A two-dimensional transthoracic echocardiogram with color flow and Doppler was performed. The study was technically difficult with many images being suboptimal in quality. Reason For Study: syncoapl episode / Atrial Fibrillation History: syncoapl episode / Atrial Fibrillation. Ordering Physician: CAMILO SALDIVAR Performed By: Prince Still Interpretation Summary The left ventricle is normal in size. There is normal left ventricular wall thickness. LV EF is 60% Left ventricular systolic function is normal. The left ventricular wall motion is normal. There is no thrombus. There is no ventricular septal defect visualized. The right ventricle is grossly normal size. The left atrial size is normal. The interatrial septum is intact with no evidence for an atrial septal defect. There is no evidence of mitral valve prolapse. There is no vegetation seen on the mitral valve. There is no mitral valve stenosis. There is a mild amount of mitral regurgitation There is no aortic valve stenosis There is no LVOT obstruction. No aortic regurgitation is present. There is no tricuspid stenosis. There is a trace to mild amount of tricuspid regurgitation Right ventricular systolic pressure is normal. RVSP is normal at 25 mm of Hg , with RA mean of 5. There is no pericardial effusion. MMode/2D Measurements & Calculations RVDd: 3.1 cm LVIDd: 4.9 cm FS: 32.6 % Ao root diam: 3.3 cm IVSd: 1.1 cm LVIDs: 3.3 cm EDV(Teich): 112.6 ml LVPWd: 1.1 cm ESV(Teich): 44.1 ml Ao root area: 8.6 cm2 EF(Teich): 60.8 % LA dimension: 3.8 cm Doppler Measurements & Calculations MV E max crissy: MV P1/2t max crissy: Ao V2 max: LV V1 max P.8 cm/sec 130.3 cm/sec 112.1 cm/sec 3.0 mmHg MV P1/2t: 79.2 msec Ao max PG: LV V1 max: 5.0 mmHg 86.8 cm/sec MVA(P1/2t): 2.8 cm2 MV dec slope: 481.9 cm/sec2 MV dec time: 0.14 sec PA V2 max: TR max crissy: 83.9 cm/sec 223.3 cm/sec PA max PG: TR max P.9 mmHg 2.8 mmHg Left Ventricle The left ventricle is normal in size. There is normal left ventricular wall thickness. LV EF is 60%. Left ventricular systolic function is normal. LV diastolic function could not be adequately assessed due to atrial fibrilation. The left ventricular wall motion is normal. There is no thrombus. There is no ventricular septal defect visualized. Right Ventricle The right ventricle is grossly normal size. Atria The right atrium is normal. The left atrial size is normal. The interatrial septum is intact with no evidence for an atrial septal defect. Mitral Valve There is no evidence of mitral valve prolapse. There is no vegetation seen on the mitral valve. There is no mitral valve stenosis. There is a mild amount of mitral regurgitation. Aortic Valve The aortic valve is trileaflet. The aortic valve opens well. There is no aortic valvular vegetation. There is no aortic valve stenosis. There is no LVOT obstruction. No aortic regurgitation is present. Tricuspid Valve There is no tricuspid stenosis. There is a trace to mild amount of tricuspid regurgitation. Right ventricular systolic pressure is normal. RVSP is normal at 25 mm of Hg , with RA mean of 5. Pulmonic Valve There is no pulmonic valvular stenosis. There is no pulmonic valvular regurgitation. Great Vessels The aortic root is normal size. Effusions There is no pericardial effusion. : CAMILO SALDIVAR > Coleen Holden
[2017-10-18] MEDS ORDERED: (PENDING PHARMACY ID) (Clonazepam [Klonopin 0.5 Mg Tablet Rapid Dissolve] 0.5 MG) PO SCH (18:00)
[2017-10-18] MEDS ORDERED: OXCARBAZEPINE 900 MG PO SCH (18:00)
[2017-10-18] MEDS ORDERED: METOPROLOL TARTRATE 50 MG TABLET PO SCH (18:00)
[2017-10-18] MEDS: CARBIDOPA/LEVODOPA 25-100 MG TABLET PO SCH (18:21)
[2017-10-18] MEDS: CLONAZEPAM 1 MG TABLET PO SCH (18:22)
[2017-10-18] MEDS: DOCUSATE SODIUM 100 MG CAPSULE PO SCH (19:24)
--- NOTE | 2017-10-18 19:25 | EKG REPORT ---
SEVERITY:- ABNORMAL ECG - ATRIAL FIBRILLATION NONSPECIFIC INTRAVENTRICULAR CONDUCTION DELAY : Confirmed by: Boby Henley 18-Oct-2017 19:24:29
--- NOTE | 2017-10-18 19:55 | PDOC CONSULTATION ---
Consultation Consult Date: 10/18/17 Attending physician:: CAMILO SALDIVAR Consult reason:: Syncope History of Present Illness Admission Date/PCP: 10/18/17 13:04 CAMILO SALDIVAR MD Patient complains of: Syncope History of Present Illness: Patient is a elderly gentleman with multiple medical problems which are quite significant. Patient has history of chronic right-sided hemiplegia with aphasia and limited mobility. Patient has had syncopal spells. Today he came to the ER because of syncopal spell. Initially he wanted to come to my office but just could not be taken into the office and therefore was directed to the ER. Patient claims that his syncopal spells are preceded by nausea vomiting and some diaphoresis. Apparently he had a similar spell in the ER which was observed by the ER physician. Patient did complete a event monitor which had shown no significant tachycardia but did show a transient bradycardic episode with heart rate of 34 but there was no symptom correlation. Patient was seen in the ER where he looked unwell. He was noted to have a distended stomach and was noted to be vomiting. It was noted that his vitals were okay except for atrial fibrillation with slightly increased heart rate response. I did talk with the ER physician and recommended that the NG tube is putting to decompress the abdomen as patient is at high risk for aspiration. I also talked with Dr. Saldivar. It was felt that patient would be a poor candidate for chronic anticoagulation as benefits are low and risks are high. Past Medical History Cardiac Medical History: Reports: Atrial Fibrillation, Hyperlipidema, Hypertension Denies: Coronary Artery Disease, Myocardial Infarction, Heart Murmur Pulmonary Medical History: Reports: Chronic Obstructive Pulmonary Disease (COPD) , Pneumonia, Sleep Apnea Denies: Asthma, Bronchitis, Respiratory Failure, Tuberculosis Neurological Medical History: Reports: Ischemic CVA, Seizures - LAST ONE OVER 1 YR. AGO. Endocrine Medical History: Reports: Diabetes Mellitus Type 2 Renal/ Medical History: Reports: Chronic Kidney Disease GI Medical History: Reports: Gastroesophageal Reflux Disease - aspiration Denies: Hepatitis, Hiatal Hernia Musculoskeltal Medical History: Reports: Arthritis Psychiatric Medical History: Reports: Depression Hematology: Denies: Anemia, Hemophilia, Sickle Cell Disease Past Surgical History Past Surgical History: Reports: Orthopedic Surgery - right shoulder Denies: Pacemaker Social History Information Source: Patient Smoking Status: Never Smoker Frequency of Alcohol Use: None Hx Recreational Drug Use: No Hx Prescription Drug Abuse: No - Advance Directive Resuscitation Status: Full Code Surrogate healthcare decision maker:: Patient's is the surrogate decision-maker Family History Family History: CAD, Hypertension Parental Family History Reviewed: Yes Children Family History Reviewed: Yes Sibling(s) Family History Reviewed.: Yes Medication/Allergy Home Medications: Carbidopa/Levodopa [Sinemet 25-100 Mg Tablet] 1.5 tab PO BID 06/12/11 Clonazepam [Klonopin] 0.5 mg PO BID 06/12/11 Metoprolol Tartrate [Lopressor 50 mg Tablet] 25 mg PO BID 06/12/11 Ropinirole HCl [Requip 1 Mg Tablet] 1 mg PO QHS 06/12/11 Doxazosin Mesylate [Cardura Xl] 8 mg PO DAILY 08/27/11 Docusate Sodium [Colace 100 mg Capsule] 100 mg PO BID 09/08/11 Albuterol Sulfate [Albuterol Sulfate 2.5mg/3 mL] 1 vial NEB BIDP PRN 06/10/14 Amlodipine Besylate [Norvasc 5 mg Tablet] 5 mg PO DAILY 06/10/14 Montelukast Sodium [Singulair 10 mg Tablet] 10 mg PO QHS 06/10/14 Oxcarbazepine [Trileptal] 900 mg PO BID 12/25/14 Furosemide [Lasix 40 mg Tablet] 40 mg PO DAILY 07/23/17 Losartan Potassium 25 mg PO DAILY 07/23/17 Lubiprostone [Amitiza 8 Mcg Capsule] 8 mcg PO DAILY 07/23/17 Ascorbic Acid [Vitamin C 500 mg Tablet] 500 mg PO DAILY 10/18/17 Furosemide [Lasix 20 mg Tablet] 20 mg PO QAM 10/18/17 Tramadol HCl [Ultram 50 mg Tablet] 50 mg PO BID 10/18/17 Zinc Gluconate [Zinc] 100 mg PO DAILY 10/18/17 Allergies/Adverse Reactions: Iodinated Contrast- Oral and IV Dye Allergy (Mild, Verified 10/18/17 11:19) Generalized rash Review of Systems ROS unobtainable: Due to mental status, Other - Due to patient's aphasia but on direct questioning denies any chest pains. He denies any significant shortness of breath. Patient was noted to have fever with chills about 2 days ago. Physical Exam Vital Signs: Temp Pulse Resp BP Pulse Ox 97.7 F 97 16 153/99 H 100 10/18/17 17:24 10/18/17 17:24 10/18/17 17:24 10/18/17 17:24 10/18/17 17:24 Intake & Output 10/17/17 10/18/17 10/19/17 06:59 06:59 06:59 Intake Total 180 Output Total 700 Balance -520 Weight 115.4 kg Exam: GENERAL: well-nourished and in no acute distress. Patient orientation cannot be checked because of aphasia.. HEAD: Atraumatic, normocephalic. EYES: Pupils equal round and reactive to light, extraocular movements intact, sclera anicteric, conjunctiva are normal. ENT: TMs normal, nares patent, oropharynx clear without exudates. Moist mucous membranes. No oral ulcerations or bleeding gums noted NECK: supple without lymphadenopathy or JVD. Trachea is central. No cervical or axillary lymphadenopathy noted. Carotids are 2+ LUNGS: Breath sounds bibasilar fine crackles at bases. No significant dullness noted. CHEST: Palpation of chest wall shows no significant chest wall tenderness. 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 ABDOMEN: Soft, no significant tenderness appreciated, normoactive bowel sounds. No guarding, no rebound. No rigidity noted . No masses appreciated. EXTREMITIES: Pedal pulses are 1-2+, no calf tenderness noted, 1+ pedal edema noted. No clubbing or cyanosis. NEUROLOGICAL: Patient is alert he is noted to have chronic right-sided hemiparesis with limited speech. PSYCH: Mood and judgment not checked because of aphasia. SKIN: No significant ecchymosis, rash, ulcerations or signs of pruritus noted. MUSCULOSKELETAL EXAM: No significant joint swelling noted. Results Laboratory Results: 10/18/17 10/18/17 16:00 16:00 Creatine Kinase 45 L CK-MB (CK-2) 0.49 Troponin I < 0.012 EKG Comments: Atrial fibrillation with controlled ventricular response. No acute ST-T wave changes are noted. Impressions: Abdomen/Pelvis CT 10/18/17 00:00 IMPRESSION: No acute findings Head CT 10/18/17 00:00 IMPRESSION: No acute findings Old left frontal craniotomy with diffuse encephalomalacia throughout the left frontal lobe. Old lacunar infarct right medial basal ganglia. Right frontal de periventricular small vessel white matter disease. EVIDENCE OF ACUTE STROKE: NO. Chest X-Ray 10/18/17 11:14 IMPRESSION: No acute findings. Stable round atelectasis in the right lower lobe and chronic right pleural thickening. Head MRI 10/18/17 12:50 IMPRESSION: No MR evidence of acute ischemic change, acute intracranial hemorrhage, mass effect or midline shift. Old left frontal craniotomy with broad area of left frontoparietal encephalomalacia. Small lacunar infarcts, chronic appearance in the right medial basal ganglia, right thalamus, and left stephanie. EVIDENCE OF ACUTE STROKE: NO. Assessment & Plan - Diagnosis (1) Atrial fibrillation with rapid ventricular response Is this a current diagnosis for this admission?: Yes (2) Cerebrovascular disease Is this a current diagnosis for this admission?: Yes (3) Chronic kidney disease Qualifiers: Chronic kidney disease stage: stage 2 (mild) Qualified Code(s): N18.2 - Chronic kidney disease, stage 2 (mild) Is this a current diagnosis for this admission?: Yes (4) Hypertension Qualifiers: Hypertension type: essential hypertension Qualified Code(s): I10 - Essential (primary) hypertension Is this a current diagnosis for this admission?: Yes (5) Seizure disorder Is this a current diagnosis for this admission?: Yes (6) Syncope and collapse Is this a current diagnosis for this admission?: Yes (7) Type 2 diabetes mellitus Qualifiers: Diabetes mellitus alf insulin use: without medical office professional instructor use Is this a current diagnosis for this admission?: Yes (8) Urinary tract infection Qualifiers: Urinary tract infection type: catheter-associated UTI Encounter type: initial encounter Is this a current diagnosis for this admission?: Yes - Notes Notes: Patient has numerous medical problems however his presentation is with syncopal spell. He was noted to have episodes of nausea vomiting and diaphoresis. It seems patient could be having vagal episodes leading to transient hypotension and syncope. Heart rate was noted to be satisfactory. A previous event monitor did show some bradycardia, but no symptom correlation was noted. Atrial fibrillation chronic, felt not a candidate for chronic anticoagulation. Hypertension: Would recommend liberal control in this patient. History of cerebrovascular accident: Patient had subarachnoid hemorrhage. Patient not a candidate for chronic anticoagulation. Diabetes: Being adequately managed by ceramic tile installation helper. Chronic kidney disease stable. Urinary tract infection: Continue antibiotic therapy. At this point plan would be to just monitor him for any significant cardiac dysrhythmia. At this point recommend conservative management. Should patient have symptomatic bradycardia then pacemaker placement can be considered. Patient currently being started on low-dose Cardizem drip at 5 mg/h. for episodes of atrial fibrillation with RVR. - Time Time Spent: 30 to 50 Minutes Medications reviewed and adjusted accordingly: Yes
--- NOTE | 2017-10-18 19:56 | Progress Note ---
Provider Note Provider Note: Patient seen in the ER at around 1245. A full consultation note will be dictated. Case discussed with ER physician Dr. Veliz and also Dr. Price
[2017-10-18] MEDS: OXCARBAZEPINE 150 MG TABLET PO SCH (21:25)
[2017-10-18] MEDS: MONTELUKAST SODIUM 10 MG TABLET PO SCH (21:26)
[2017-10-18] MEDS: METOPROLOL TARTRATE 25 MG TABLET PO SCH (21:26)
[2017-10-18] MEDS: PANTOPRAZOLE SODIUM 40 MG VIAL IV SCH (21:27)
[2017-10-18] MEDS: ROPINIROLE HCL 1 MG TABLET PO SCH (21:27)
[2017-10-18 23:50] LABS: CREATINE KINASE MB 0.65 ng/mL (<4.55)
[2017-10-18 23:53] LABS: TROPONIN I < 0.012 ng/mL
[2017-10-19] MEDS: HEPARIN SOD (PORCINE) 5,000 UNIT/ML 1 ML SYRINGE SUBCUT SCH ×3 (05:06→22:14)
[2017-10-19 05:23] LABS: ABSOLUTE EOSINOPHILS # (AUTO) 0.1 10^3/uL (0.0-0.6); ABSOLUTE LYMPHOCYTES (AUTO) 0.7 10^3/uL (0.5-4.7); ABSOLUTE MONOCYTES (AUTO) 0.7 10^3/uL (0.1-1.4); ABSOLUTE NEUT (AUTO) 6.9 10^3/uL (1.7-8.2); BASOPHILS % (AUTO) 0.4 % (0-2); EOSINOPHILS % (AUTO) 1.2 % (0-6); HEMATOCRIT 32.8 % (37.9-51.0); HEMOGLOBIN 11.2 g/dL (13.5-17.0); LYMPHOCYTES % (AUTO) 8.5 % (13-45); MEAN CORPUSCULAR HEMOGLOBIN 30.6 pg (27.0-33.4); MEAN CORPUSCULAR VOLUME 90 fl (80-97); MONOCYTES % (AUTO) 7.8 % (3-13); PLATELET COUNT 152 10^3/uL (150-450); RED BLOOD COUNT 3.64 10^6/uL (4.35-5.55); RED CELL DISTRIBUTION WIDTH 15.1 % (11.5-14.0); SEGMENTED NEUTROPHILS % (AUTO) 82.1 % (42-78); TOTAL CELLS COUNTED % (AUTO) 100 %; WHITE BLOOD COUNT 8.4 10^3/uL (4.0-10.5)
[2017-10-19 05:48] LABS: ALANINE AMINOTRANSFERASE 20 U/L (21-72); ALBUMIN 3.6 g/dL (3.5-5.0); ALKALINE PHOSPHATASE 148 U/L (38-126); ANION GAP 18 (5-19); ASPARTATE AMINO TRANSFERASE 19 U/L (17-59); BILIRUBIN,DIRECT 0.5 mg/dL (0.0-0.4); BILIRUBIN,TOTAL 0.5 mg/dL (0.2-1.3); BLOOD UREA NITROGEN 28 mg/dL (7-20); CALCIUM 8.8 mg/dL (8.4-10.2); CARBON DIOXIDE 24 mmol/L (22-30); CHLORIDE 99 mmol/L (98-107); CREATINE KINASE 33 U/L (55-170); GLUCOSE 132 mg/dL (75-110); POTASSIUM 3.9 mmol/L (3.6-5.0); SODIUM 140.8 mmol/L (137-145); TOTAL PROTEIN 6.7 g/dL (6.3-8.2)
[2017-10-19 05:55] LABS: CREATINE KINASE MB 0.49 ng/mL (<4.55)
[2017-10-19 06:02] LABS: TROPONIN I < 0.012 ng/mL
[2017-10-19] MEDS: NORMAL SALINE 1000 ML 1,000 ML IV PRN ×2 (06:25→22:12)
--- NOTE | 2017-10-19 08:44 | PDOC PROGRESS REPORT ---
Subjective Progress Note for:: 10/19/17 Subjective:: Patient is currently doing much better this morning Since denied any chest pain denied any shortness of the breath Should have no further episodes since yesterday Patient had MRI of the brain was done was all stable no acute findings CT abdomen and pelvis was done was all stable Since seen by the university manager and think possible may be a vasovagal syncopal episode or may be related to some kind of underlying bradycardia but no need for any further intervention at this point Faith scheduled for EGD today Since denied any nausea no vomiting no abdominal pain and no seizures activity overnight Patient's on the bedside discussed with the regarding the all the patient's test reports and the plan Reason For Visit: SYNCOPAL EPISODE Physical Exam Vital Signs: Temp Pulse Resp BP Pulse Ox 98.4 F 58 L 20 128/68 H 99 10/19/17 03:38 10/19/17 03:38 10/19/17 03:38 10/19/17 03:38 10/19/17 03:38 Intake & Output 10/18/17 10/19/17 10/20/17 06:59 06:59 06:59 Intake Total 930 Output Total 1800 Balance -870 Weight 101.9 kg General appearance: PRESENT: no acute distress, well-developed, well-nourished Head exam: PRESENT: atraumatic, normocephalic Eye exam: PRESENT: conjunctiva pink, EOMI, PERRLA. ABSENT: scleral icterus Ear exam: PRESENT: normal external ear exam Mouth exam: PRESENT: moist, tongue midline Neck exam: PRESENT: full ROM. ABSENT: carotid bruit, JVD, lymphadenopathy, thyromegaly Respiratory exam: PRESENT: clear to auscultation анна Cardiovascular exam: PRESENT: RRR. ABSENT: diastolic murmur, rubs, systolic murmur Pulses: PRESENT: normal dorsalis pedis pul, +2 pedal pulses bilateral Vascular exam: PRESENT: normal capillary refill GI/Abdominal exam: PRESENT: normal bowel sounds, soft. ABSENT: distended, guarding, mass, organolmegaly, rebound, tenderness Rectal exam: PRESENT: deferred Extremities exam: ABSENT: pedal edema Neurological exam: PRESENT: alert, awake, oriented to person, oriented to place , oriented to time, oriented to situation, CN II-XII grossly intact, motor sensory deficit Additional comments: From the old stroke with right-sided weaknessPatient is a phasic from the old strokes Psychiatric exam: PRESENT: appropriate affect, normal mood. ABSENT: homicidal ideation, suicidal ideation Skin exam: PRESENT: dry, intact, warm. ABSENT: cyanosis, rash Results Laboratory Results: 10/19/17 05:04 10/19/17 05:04 10/19/17 10/19/17 05:04 05:04 WBC 8.4 RBC 3.64 L Hgb 11.2 L Hct 32.8 L MCV 90 MCH 30.6 MCHC 34.0 RDW 15.1 H Plt Count 152 Seg Neutrophils % 82.1 H Lymphocytes % 8.5 L Monocytes % 7.8 Eosinophils % 1.2 Basophils % 0.4 Absolute Neutrophils 6.9 Absolute Lymphocytes 0.7 Absolute Monocytes 0.7 Absolute Eosinophils 0.1 Absolute Basophils 0.0 Sodium 140.8 Potassium 3.9 Chloride 99 Carbon Dioxide 24 Anion Gap 18 BUN 28 H Creatinine 1.36 H Est GFR ( Amer) > 60 Est GFR (Non-Af Amer) 52 L Glucose 132 H Calcium 8.8 Magnesium 1.8 Total Bilirubin 0.5 AST 19 ALT 20 L Alkaline Phosphatase 148 H Total Protein 6.7 Albumin 3.6 10/18/17 10/18/17 10/18/17 16:00 16:00 22:55 Creatine Kinase 45 L 42 L CK-MB (CK-2) 0.49 Troponin I < 0.012 10/18/17 10/19/17 10/19/17 22:55 05:04 05:04 Creatine Kinase 33 L CK-MB (CK-2) 0.65 0.49 Troponin I < 0.012 < 0.012 Impressions: Abdomen/Pelvis CT 10/18/17 00:00 IMPRESSION: No acute findings Head CT 10/18/17 00:00 IMPRESSION: No acute findings Old left frontal craniotomy with diffuse encephalomalacia throughout the left frontal lobe. Old lacunar infarct right medial basal ganglia. Right frontal de periventricular small vessel white matter disease. EVIDENCE OF ACUTE STROKE: NO. Chest X-Ray 10/18/17 11:14 IMPRESSION: No acute findings. Stable round atelectasis in the right lower lobe and chronic right pleural thickening. Head MRI 10/18/17 12:50 IMPRESSION: No MR evidence of acute ischemic change, acute intracranial hemorrhage, mass effect or midline shift. Old left frontal craniotomy with broad area of left frontoparietal encephalomalacia. Small lacunar infarcts, chronic appearance in the right medial basal ganglia, right thalamus, and left stephanie. EVIDENCE OF ACUTE STROKE: NO. Assessment & Plan - Diagnosis (1) Syncope and collapse Is this a current diagnosis for this admission?: Yes Plan: With unclear etiology possible may be a vasovagal syncopal episode versus nonconvulsive seizures versus underlying some cardiac arrhythmia but currently all stable and no further episodes (2) Urinary tract infection Qualifiers: Urinary tract infection type: catheter-associated UTI Encounter type: initial encounter Is this a current diagnosis for this admission?: Yes Plan: Continues to IV antibiotic will wait for the culture and sensitivity (3) Atrial fibrillation with rapid ventricular response Is this a current diagnosis for this admission?: Yes Plan: Start the patient on a Cardizem follow with the cardiology Patient is a not a candidate for an anticoagulations due to the multiple risk factor bleedings history of the hemorrhage in the past and also history of the frequent fall that all are discussed by the cardiology and myself to the patient 's and understand and do not want to go for that route (4) Seizure disorder Is this a current diagnosis for this admission?: Yes Plan: Continues to current seizures medications patient's currently see outpatients neurology appointment in a Sunday (5) Cerebrovascular disease Is this a current diagnosis for this admission?: Yes Plan: There is no acute sign of any stroke and this admissions with the MRI is negative (6) Hypertension Qualifiers: Hypertension type: essential hypertension Qualified Code(s): I10 - Essential (primary) hypertension Is this a current diagnosis for this admission?: Yes Plan: Continues to current medications (7) Type 2 diabetes mellitus Qualifiers: Diabetes mellitus custodial insulin use: without custodial use Is this a current diagnosis for this admission?: Yes Plan: Continues a sliding scale (8) Chronic kidney disease Qualifiers: Chronic kidney disease stage: stage 2 (mild) Qualified Code(s): N18.2 - Chronic kidney disease, stage 2 (mild) Is this a current diagnosis for this admission?: Yes Plan: Continues IV fluid and currently improving the kidney function (9) History of spontaneous subarachnoid intracranial hemorrhage Is this a current diagnosis for this admission?: Yes (10) 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 Is this a current diagnosis for this admission?: Yes Plan: Currently patient on carbidopa (11) Nausea & vomiting Qualifiers: Vomiting type: unspecified Vomiting Intractability: non-intractable Qualified Code(s): R11.2 - Nausea with vomiting, unspecified Is this a current diagnosis for this admission?: Yes - Time Time Spent with patient: 15-24 minutes Medications reviewed and adjusted accordingly: Yes Anticipated discharge: Home Within: within 24 hours - Inpatient Certification Medical Necessity: Need Close Monitoring Due to Risk of Patient Decompensation, Need For IV Fluids, Need for IV Antibiotics Post Hospital Care: D/C Costume Mistress Documentation - Plan Summary Plan Summary: Patient's currently doing much better discussed with the and the bedside regarding the patient's current conditions all the test reports and the plan and if the patient remains stable hopefully discharge in the next 24 hours
[2017-10-19] MEDS ORDERED: ZINC GLUCONATE 100 MG PO SCH ×2 (10:00)
[2017-10-19] MEDS ORDERED: CEFTRIAXONE 2 GM/D5W RTU 2 GM/50 ML RTUPB IV SCH (10:00)
[2017-10-19] MEDS ORDERED: DOXAZOSIN MESYLATE 8 MG PO SCH (10:00)
[2017-10-19] MEDS: METOPROLOL TARTRATE 25 MG TABLET PO SCH ×2 (10:46→22:14)
[2017-10-19] MEDS: DOCUSATE SODIUM 100 MG CAPSULE PO SCH ×2 (10:46→17:46)
[2017-10-19] MEDS: FUROSEMIDE 40 MG TABLET PO SCH (10:46)
[2017-10-19] MEDS: LUBIPROSTONE 8 MCG CAPSULE PO SCH (10:46)
[2017-10-19] MEDS: ASCORBIC ACID 500 MG TABLET PO SCH (10:46)
[2017-10-19] MEDS: LOSARTAN POTASSIUM 25 MG TABLET PO SCH (10:46)
[2017-10-19] MEDS: AMLODIPINE BESYLATE 5 MG TABLET PO SCH (10:47)
[2017-10-19] MEDS: OXCARBAZEPINE 150 MG TABLET PO SCH ×2 (10:47→22:13)
[2017-10-19] MEDS: CLONAZEPAM 1 MG TABLET PO SCH ×2 (10:48→17:46)
[2017-10-19] MEDS: PANTOPRAZOLE SODIUM 40 MG VIAL IV SCH (10:48)
[2017-10-19] MEDS: CEFTRIAXONE 2 GM/D5W RTU 2 GM/50 ML RTUPB IV SCH (10:48)
[2017-10-19] MEDS: CARBIDOPA/LEVODOPA 25-100 MG TABLET PO SCH ×2 (10:48→17:46)
[2017-10-19] MEDS ORDERED: NALOXONE HCL INJ/PF 0.4 MG/1 ML SDV ONE (15:11)
[2017-10-19] MEDS ORDERED: DIPHENHYDRAMINE HCL 50 MG/ML VIAL ONE (15:11)
[2017-10-19] MEDS ORDERED: ONDANSETRON HCL INJ/PF 4 MG/2 ML SDV ONE (15:11)
[2017-10-19] MEDS ORDERED: GLUCAGON,HUMAN RECOMB 1 MG INJ ONE (15:12)
[2017-10-19] MEDS ORDERED: EPINEPHRINE INJ 1 MG/10 ML DISP.SYRIN ONE (15:12)
[2017-10-19] MEDS ORDERED: FLUMAZENIL INJ 0.5 MG/5 ML VIAL ONE (15:12)
[2017-10-19] MEDS: MIDAZOLAM 2 MG/2 ML INJ ONE ×2 (16:20→16:25)
[2017-10-19] MEDS: FENTANYL CITRATE INJ/PF 100 MCG/2 ML AMPUL ONE ×2 (16:22→16:28)
--- NOTE | 2017-10-19 16:36 | PDOC CONSULTATION ---
Consultation Consult Date: 10/18/17 History of Present Illness Admission Date/PCP: 10/18/17 13:04 CAMILO SALDIVAR MD History of Present Illness: MILANA FRANCO is a 66 year old male patient admitted by Dr. Saldivar on 2017 with change in mental status, nausea, and vomiting. He has been having a poor appetite with some abdominal distention 4 days before the onset of nausea and vomiting. He was evaluated for the change in mental status and nothing significant has been identified. His nausea and vomiting has also improved. According to the he has a bowel movement every day using Amitiza and a stool softener. He had a CAT scan of the abdomen that was unremarkable. His CT of the head was also unremarkable. He does not take any PPI at home and denies heartburn Past Medical History Cardiac Medical History: Reports: Atrial Fibrillation, Hyperlipidema, Hypertension Denies: Coronary Artery Disease, Myocardial Infarction, Heart Murmur Pulmonary Medical History: Reports: Chronic Obstructive Pulmonary Disease (COPD) , Pneumonia, Sleep Apnea Denies: Asthma, Bronchitis, Respiratory Failure, Tuberculosis Neurological Medical History: Reports: Ischemic CVA, Seizures - LAST ONE OVER 1 YR. AGO. Endocrine Medical History: Reports: Diabetes Mellitus Type 2 Renal/ Medical History: Reports: Chronic Kidney Disease GI Medical History: Reports: Gastroesophageal Reflux Disease - aspiration Denies: Hepatitis, Hiatal Hernia Musculoskeltal Medical History: Reports: Arthritis Psychiatric Medical History: Reports: Depression Hematology: Denies: Anemia, Hemophilia, Sickle Cell Disease Past Surgical History Past Surgical History: Reports: Orthopedic Surgery - right shoulder Denies: Pacemaker Social History Smoking Status: Never Smoker Frequency of Alcohol Use: None Hx Recreational Drug Use: No Hx Prescription Drug Abuse: No - Advance Directive Resuscitation Status: Full Code Family History Family History: CAD, Hypertension Parental Family History Reviewed: No Children Family History Reviewed: NA Sibling(s) Family History Reviewed.: NA Medication/Allergy Home Medications: Carbidopa/Levodopa [Sinemet 25-100 Mg Tablet] 1.5 tab PO BID 06/12/11 Clonazepam [Klonopin] 0.5 mg PO BID 06/12/11 Metoprolol Tartrate [Lopressor 50 mg Tablet] 25 mg PO BID 06/12/11 Ropinirole HCl [Requip 1 Mg Tablet] 1 mg PO QHS 06/12/11 Doxazosin Mesylate [Cardura Xl] 8 mg PO DAILY 08/27/11 Docusate Sodium [Colace 100 mg Capsule] 100 mg PO BID 09/08/11 Albuterol Sulfate [Albuterol Sulfate 2.5mg/3 mL] 1 vial NEB BIDP PRN 06/10/14 Amlodipine Besylate [Norvasc 5 mg Tablet] 5 mg PO DAILY 06/10/14 Montelukast Sodium [Singulair 10 mg Tablet] 10 mg PO QHS 06/10/14 Oxcarbazepine [Trileptal] 900 mg PO BID 12/25/14 Furosemide [Lasix 40 mg Tablet] 40 mg PO DAILY 07/23/17 Losartan Potassium 25 mg PO DAILY 07/23/17 Lubiprostone [Amitiza 8 Mcg Capsule] 8 mcg PO DAILY 07/23/17 Ascorbic Acid [Vitamin C 500 mg Tablet] 500 mg PO DAILY 10/18/17 Furosemide [Lasix 20 mg Tablet] 20 mg PO QAM 10/18/17 Tramadol HCl [Ultram 50 mg Tablet] 50 mg PO BID 10/18/17 Zinc Gluconate [Zinc] 100 mg PO DAILY 10/18/17 Allergies/Adverse Reactions: Iodinated Contrast- Oral and IV Dye Allergy (Mild, Verified 10/18/17 11:19) Generalized rash Review of Systems All systems: reviewed and no additional remarkable complaints except as stated Physical Exam Vital Signs: Temp Pulse Resp BP Pulse Ox 98.0 F 87 14 158/97 H 99 10/19/17 12:06 10/19/17 16:25 10/19/17 16:25 10/19/17 16:25 10/19/17 16:25 Intake & Output 10/18/17 10/19/17 10/20/17 06:59 06:59 06:59 Intake Total 930 Output Total 1800 Balance -870 Weight 101.9 kg Exam: General: Patient is alert and looks well. He is obese HEENT: There is no pallor or jaundice. PERRLA. Oropharynx normal Respiratory: No chest deformity. No respiratory distress. Chest wall palpitation was unremarkable. Breath sounds were normal Cardiovascular: Heart sounds 1 and 2 normal with no murmurs. Abdominal: Not distended and obese. Soft and nontender. Liver and spleen not palpable. No ascites demonstrated. Bowel sounds active. Rectal examination was deferred. Extremities: No edema Neurological: Alert and oriented. He has a slow speech. He is normally in a wheelchair Skin: No significant rash Results Laboratory Results: 10/19/17 05:04 10/19/17 05:04 10/19/17 10/19/17 05:04 05:04 WBC 8.4 RBC 3.64 L Hgb 11.2 L Hct 32.8 L MCV 90 MCH 30.6 MCHC 34.0 RDW 15.1 H Plt Count 152 Seg Neutrophils % 82.1 H Lymphocytes % 8.5 L Monocytes % 7.8 Eosinophils % 1.2 Basophils % 0.4 Absolute Neutrophils 6.9 Absolute Lymphocytes 0.7 Absolute Monocytes 0.7 Absolute Eosinophils 0.1 Absolute Basophils 0.0 Sodium 140.8 Potassium 3.9 Chloride 99 Carbon Dioxide 24 Anion Gap 18 BUN 28 H Creatinine 1.36 H Est GFR ( Amer) > 60 Est GFR (Non-Af Amer) 52 L Glucose 132 H Calcium 8.8 Magnesium 1.8 Total Bilirubin 0.5 AST 19 ALT 20 L Alkaline Phosphatase 148 H Total Protein 6.7 Albumin 3.6 10/18/17 10/18/17 10/18/17 16:00 16:00 22:55 Creatine Kinase 45 L 42 L CK-MB (CK-2) 0.49 Troponin I < 0.012 10/18/17 10/19/17 10/19/17 22:55 05:04 05:04 Creatine Kinase 33 L CK-MB (CK-2) 0.65 0.49 Troponin I < 0.012 < 0.012 Impressions: Abdomen/Pelvis CT 10/18/17 00:00 IMPRESSION: No acute findings Head CT 10/18/17 00:00 IMPRESSION: No acute findings Old left frontal craniotomy with diffuse encephalomalacia throughout the left frontal lobe. Old lacunar infarct right medial basal ganglia. Right frontal de periventricular small vessel white matter disease. EVIDENCE OF ACUTE STROKE: NO. Chest X-Ray 10/18/17 11:14 IMPRESSION: No acute findings. Stable round atelectasis in the right lower lobe and chronic right pleural thickening. Head MRI 10/18/17 12:50 IMPRESSION: No MR evidence of acute ischemic change, acute intracranial hemorrhage, mass effect or midline shift. Old left frontal craniotomy with broad area of left frontoparietal encephalomalacia. Small lacunar infarcts, chronic appearance in the right medial basal ganglia, right thalamus, and left stephanie. EVIDENCE OF ACUTE STROKE: NO. Assessment & Plan - Diagnosis (1) Nausea & vomiting Qualifiers: Vomiting type: unspecified Vomiting Intractability: non-intractable Qualified Code(s): R11.2 - Nausea with vomiting, unspecified Is this a current diagnosis for this admission?: Yes Plan: He presented with nausea and vomiting and some bloating. This may all be related to his change in mental status. His LFTs and lipase were normal. His mental status is back to normal and his initial evaluation was unremarkable. He will undergo an EGD to rule out esophagitis, gastritis, or peptic ulcers. (2) Hypertension Qualifiers: Hypertension type: essential hypertension Qualified Code(s): I10 - Essential (primary) hypertension Is this a current diagnosis for this admission?: Yes (3) Syncope and collapse Is this a current diagnosis for this admission?: Yes (4) Type 2 diabetes mellitus Qualifiers: Diabetes mellitus custodial insulin use: without termite control technician use Is this a current diagnosis for this admission?: Yes
--- NOTE | 2017-10-19 16:37 | Operative Report ---
Operative Report DATE OF SURGERY: 10/19/17 Operative Report: Pre-op diagnosis: Nausea and vomiting Post-op diagnosis: Normal EGD Surgery: Esophagogastroduodenoscopy with biopsy Medications: Versed 2mg Fentanyl 100mcg IV push Tissue removed: Antral and gastric body biopsy for pathology Procedure: After informed consent obtained from patient, the throat was sprayed with Hurricane and conscious sedation was achieved. The upper endoscope was inserted into the esophagus under direct vision and advanced into the stomach. The duodenum was entered and examined to the second part. Endoscope was then slowly pulled out of the patient as the mucosa was examined into details. Patient tolerated procedure well. Findings Esophagus: Normal Z-line at: 40 cm Antrum: Normal Body: Normal Fundus: Normal Duodenum first part: Normal Duodenum second part: Normal Plan: Await pathology. OPERATION: .
--- NOTE | 2017-10-19 20:39 | PROGRESS NOTE E ---
Progress Note NAME: MILANA FRANCO : 1950 AGE: 66Y DATE: 10/19/2017 ROOM: 320 SUBJECTIVE: Note that the patient was seen on consult by Dr. Henley at the family request on 10/18/2017. At present the patient is on the monitor. States that he feels much better. Denies any chest pain or discomfort. There is no PND, orthopnea. There is no recurrence of seizures. There is no syncopal episode. There is no dizziness. The monitor shows atrial flutter with chronic ventricular response. As per consultation which I have reviewed it seems that the patient had episodes of bradycardia on his event monitor but there was no clinical correlation with symptoms. Hence the patient's syncope is thought related to vasovagal episode versus bradycardic ventricular response to atrial fibrillation causing syncope. The other diagnosis is possibly seizures. There is no PND, orthopnea. There is no chest pain or discomfort. There is no shortness of breath. There are no new CVA or TIA symptoms. OBJECTIVE: GENERAL: On examination the patient appears to be well-built, but chronically ill. VITAL SIGNS: He is afebrile with a temperature of 98 degrees Fahrenheit, pulse is 95 beats per minute, blood pressure 127/68, respirations 16 per minute, O2 saturations are 97% on room air. HEENT: Head is atraumatic, normocephalic. Eyes: Pupils are equal, round and regular, reactive to light and accommodation. Extraocular movements are normal. ENT is negative. NECK: Supple. There is no JVD. There is no lymphadenopathy. Carotids are equal. There is no bruit. Trachea is central. LUNGS: Clear to auscultation and percussion. HEART: S1, S2 is heard. There is no S3 gallop. There is no S4 gallop. There is a systolic ejection murmur in the aortic area and a pansystolic murmur of mild mitral regurgitation in the mitral area. ABDOMEN: Soft, nontender. There is no hepatosplenomegaly. Bowel sounds are well heard. EXTREMITIES: Pedal pulses are diminished. Femorals are diminished. There are no femoral bruits. There is trace pedal edema bilaterally. There is no cyanosis or clubbing. CENTRAL NERVOUS SYSTEM: The patient has old right-sided hemiparesis and also has some dysarthria. PSYCHIATRIC: The patient's judgment and mood could not be checked because of his speech problem, but he does not appear to be agitated. DIAGNOSTICS: The patient's white count is 8400, hemoglobin is 11.2, hematocrit is 32.8, and the patient's platelet count is 152,000. The patient's sodium is 140.8, potassium 3.9, chloride is 99, CO2 is 24. His BUN is 28, creatinine is 1.36, GFR is reduced at 52 mL. Glucose is 132. Liver function test show low AST of 19, low ALT of 20, slightly elevated alk-phos of 148. His troponin I is negative x2. His albumin is 3.6, total protein is 6.7. IMPRESSION: 1. SYNCOPE, MOST LIKELY SECONDARY TO VAGAL VERSUS BRADYCARDIC RESPONSE VERSUS SEIZURES. 2. ATRIAL FIBRILLATION WITH RAPID VENTRICULAR RESPONSE. At present ventricular response much improved. Note that the patient has severe risk for bleeding from anticoagulation, and hence not a candidate for long-term chronic anticoagulation. 3. 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 HISTORY of HEMORRHAGIC CVA. 4. CHRONIC KIDNEY DISEASE, MILD STAGE 2. 5. HYPERTENSION. 6. SEIZURE DISORDER. 7. TYPE 2 DIABETES MELLITUS. 8. URINARY TRACT INFECTION. RECOMMENDATION: Continue current treatment. Would recommend discontinuing the patient's Cardizem drip. Continue his other current medications which I have reviewed. Discussed with the patient and the patient's . Discussed with the attending physician on the case. TIME SPENT: Note 30 minutes spent on this patient with more than 50% of the time spent on direct patient care. Medical decision making is of moderate complexity. We will sign off since the patient is stable from cardiac point of view. Patient's and patient advised to follow with his airplane inspector, after being discharged DICTATING PHYSICIAN: ERIK JOSEPH M.D. [id number] MIKAELA#: [id number] ID: [id number] JOB#: [id number] ACCT: [id number] cc: > [facility]
[2017-10-19] MEDS: MONTELUKAST SODIUM 10 MG TABLET PO SCH (22:13)
[2017-10-19] MEDS: ROPINIROLE HCL 1 MG TABLET PO SCH (22:14)
[2017-10-20 05:58] LABS: ABSOLUTE EOSINOPHILS # (AUTO) 0.1 10^3/uL (0.0-0.6); ABSOLUTE LYMPHOCYTES (AUTO) 0.9 10^3/uL (0.5-4.7); ABSOLUTE MONOCYTES (AUTO) 0.6 10^3/uL (0.1-1.4); ABSOLUTE NEUT (AUTO) 4.7 10^3/uL (1.7-8.2); BASOPHILS % (AUTO) 0.5 % (0-2); EOSINOPHILS % (AUTO) 1.9 % (0-6); HEMATOCRIT 32.3 % (37.9-51.0); HEMOGLOBIN 10.8 g/dL (13.5-17.0); LYMPHOCYTES % (AUTO) 13.6 % (13-45); MEAN CORPUSCULAR HEMOGLOBIN 30.4 pg (27.0-33.4); MEAN CORPUSCULAR HGB CONC 33.5 g/dL (32.0-36.0); MEAN CORPUSCULAR VOLUME 91 fl (80-97); MONOCYTES % (AUTO) 9.6 % (3-13); PLATELET COUNT 161 10^3/uL (150-450); RED BLOOD COUNT 3.55 10^6/uL (4.35-5.55); RED CELL DISTRIBUTION WIDTH 15.3 % (11.5-14.0); SEGMENTED NEUTROPHILS % (AUTO) 74.4 % (42-78); TOTAL CELLS COUNTED % (AUTO) 100 %; WHITE BLOOD COUNT 6.3 10^3/uL (4.0-10.5)
[2017-10-20] MEDS: HEPARIN SOD (PORCINE) 5,000 UNIT/ML 1 ML SYRINGE SUBCUT SCH (06:08)
[2017-10-20] MEDS: METOPROLOL TARTRATE 25 MG TABLET PO SCH (09:40)
[2017-10-20] MEDS: CLONAZEPAM 1 MG TABLET PO SCH (09:40)
[2017-10-20] MEDS: CARBIDOPA/LEVODOPA 25-100 MG TABLET PO SCH (09:41)
[2017-10-20] MEDS: ASCORBIC ACID 500 MG TABLET PO SCH (09:41)
[2017-10-20] MEDS: LOSARTAN POTASSIUM 25 MG TABLET PO SCH (09:41)
[2017-10-20] MEDS: FUROSEMIDE 40 MG TABLET PO SCH (09:42)
[2017-10-20] MEDS: AMLODIPINE BESYLATE 5 MG TABLET PO SCH (09:42)
[2017-10-20] MEDS: LUBIPROSTONE 8 MCG CAPSULE PO SCH (09:42)
[2017-10-20] MEDS: DOCUSATE SODIUM 100 MG CAPSULE PO SCH (09:42)
[2017-10-20] MEDS: CEFTRIAXONE 2 GM/D5W RTU 2 GM/50 ML RTUPB IV SCH (09:43)
[2017-10-20] MEDS: OXCARBAZEPINE 150 MG TABLET PO SCH (09:43)
--- NOTE | 2017-10-20 10:05 | PDOC DISCHARGE SUMMARY ---
General - Admit/Disc Date/PCP Admission Date/Primary Care Provider: 10/18/17 13:04 CAMILO SALDIVAR MD Discharge Date: 10/20/17 - Discharge Diagnosis (1) Syncope and collapse Is this a current diagnosis for this admission?: Yes Summary: Currently all resolved Unclear etiology May be a possible vasovagal syncopal episode versus nonconvulsive seizures Follow with the cardiology outpatient Have an appointment to see a neurology on Sunday His MRI of the head and all cardiac workup is stable (2) Urinary tract infection Is this a current diagnosis for this admission?: Yes Summary: Continues the p.o. antibiotic the urology next week for the catheter issues (3) Atrial fibrillation with rapid ventricular response Is this a current diagnosis for this admission?: Yes Summary: Patient is a not a candidate for the anticoagulation due to the history of the subarachnoid hemorrhage and a history of the high risk for the fall (4) Seizure disorder Is this a current diagnosis for this admission?: Yes Summary: Currently stable patient of appointment to see a neurology in a Sunday (5) Cerebrovascular disease Is this a current diagnosis for this admission?: Yes Summary: Continues to current medications (6) Hypertension Is this a current diagnosis for this admission?: Yes Summary: Clear all stable (7) Type 2 diabetes mellitus Is this a current diagnosis for this admission?: Yes Summary: Currently on a diet controlled (8) Chronic kidney disease Is this a current diagnosis for this admission?: Yes Summary: Stable patients follow with the Dr. 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 Is this a current diagnosis for this admission?: Yes (11) Nausea & vomiting Is this a current diagnosis for this admission?: Yes Summary: Currently all resolved patient underwent for the endoscopy and all stable - Additional Information Resuscitation Status: Full Code Discharge Diet: Diabetic Discharge Activity: Activity As Tolerated Prescriptions: Cefdinir [Omnicef 300 mg Capsule] 1 cap PO BID #14 capsule Home Medications: Carbidopa/Levodopa [Sinemet 25-100 mg Tablet] 1.5 tab PO BID 06/12/11 Clonazepam [Klonopin 0.5 mg Tablet Rapid Dissolve] 0.5 mg PO BID 06/12/11 Metoprolol Tartrate [Lopressor 50 mg Tablet] 25 mg PO BID 06/12/11 Ropinirole HCl [Requip 1 mg Tablet] 1 mg PO QHS 06/12/11 Doxazosin Mesylate [Cardura Xl] 8 mg PO DAILY 08/27/11 Docusate Sodium [Colace 100 mg Capsule] 100 mg PO BID 09/08/11 Albuterol Sulfate [Albuterol Sulfate 2.5mg/3 mL] 1 vial NEB BIDP PRN 06/10/14 Amlodipine Besylate [Norvasc 5 mg Tablet] 5 mg PO DAILY 06/10/14 Montelukast Sodium [Singulair 10 mg Tablet] 10 mg PO QHS 06/10/14 Oxcarbazepine [Trileptal] 900 mg PO BID 12/25/14 Furosemide [Lasix 40 mg Tablet] 40 mg PO DAILY 07/23/17 Losartan Potassium 25 mg PO DAILY 07/23/17 Lubiprostone [Amitiza 8 Mcg Capsule] 8 mcg PO DAILY 07/23/17 Ascorbic Acid [Vitamin C 500 mg Tablet] 500 mg PO DAILY 10/18/17 Furosemide [Lasix 20 mg Tablet] 20 mg PO QAM 10/18/17 Tramadol HCl [Ultram 50 mg Tablet] 50 mg PO BID 10/18/17 Zinc Gluconate [Zinc] 100 mg PO DAILY 10/18/17 Cefdinir [Omnicef 300 mg Capsule] 1 cap PO BID #14 capsule 10/20/17 History of Present Illness History of Present Illness: MILANA FRANCO is a 66 year old male This is a 66-year-old male with a significant history of the hypertension history of the hyperlipidemia type 2 diabetes mellitus if history of a cerebrovascular accident status post residual weakness with the history of the Parkinson's disorder and a history of seizures disordersAnd a history of the chronic A. fib and chronic urinary tract infections with the history of the urethral stricture went to the urologist office this morningAnd the patient's have a blackout episode according to the patient suddenly looking pale and patient's basically a phasic but according to the looks like his eyes rolled over and he just most likely passing out and for a few seconds and the patient's come back to the normal and the same episode happened again in the emergency department witnessed by the ER physiciansAnd ER physicians thought patients dementia diaphoretic and the patient's heart rate goes up and the patient did not pass out on that episodes in patients was in A. fib with a rapid ventricular response Patient also have a history of nausea and vomiting going on for the last several days and according to the is not eating much for last several days and patient's abdomen is distended compatible normally But I saw the patient in the emergency room patient was alert awake a phasic from the old strokes denied any complain denied any chest pain denied any nausea vomiting but after I left the ER the ER physicians noticed that another episode and when the field service analyst at 10 the patient then noticed the patient's complaining of nausea at that point Patient's otherwise at this point order the MRI of the brain to rule out any acute strokes which patient have initial CT of the head was negative and the patient have a history of the subarachnoid hemorrhage status post surgery in the past Have a history of the chronic A. fib unable to take the Eliquis due to the high risk for the bleeding and a high risk for the fall and injury Also have a chronic history of the Parkinson's disorder and a seizures and currently follow the neurology as outpatient upcoming appointment on a Sunday As per discussed with the field service analyst patient have a recently ultrasound for the carotid was done was all normal Patient also have a events monitor was done cardiology office not sure with the result This point we admit the patient in [facility] for further evaluations discussed with the regarding the patient's current condition and all the test reports patients have elevated white counts and elevated kidney functions underlying coronary tract infections we will treat with IV antibiotic Hospital Course Hospital Course: This is a 66-year-old male's as medical problem about came with a syncopal episode and patient was admitting in the hospital For the MRI of the head which is negative for any acute finding Patient also have a some nausea vomiting and underwent for the endoscopy which is negative for any acute finding Since seen by the cardiology and seen by the lead assistant manager Patients also found urinary tract infections with the treated with IV antibiotic and discharged with the p.o. antibiotic Patient's otherwise remained stable throughout the hospitalizations no more further episodes His p.o. intake is good Back to the baseline's Patient have a indwelling catheter and patients require self catheterizations so we will keep the catheter in patients follow the urologist on Sunday Patient's expressed to take him home which patients usually stay home and his taking care of him for long time Patient have upcoming appointment to see the neurology in a Sunday to further evaluations for underlying nonconvulsive seizures which patient already and a seizures medications Since follow outpatients cardiology for any heart rate issue and if it continues to be a more episodes possible further evaluate about the pacemaker Physical Exam Vital Signs: Temp Pulse Resp BP Pulse Ox 97.2 F 79 13 150/79 H 100 10/20/17 07:23 10/20/17 07:23 10/20/17 07:23 10/20/17 07:23 10/20/17 07:23 Intake & Output 10/19/17 10/20/17 10/21/17 06:59 06:59 06:59 Intake Total 930 1365 Output Total 1800 1950 Balance -870 -585 Weight 101.9 kg 101.8 kg Physical Exam: pt is a phasic and in the right-sided weakness from the old strokes General appearance: PRESENT: no acute distress, well-developed, well-nourished Head exam: PRESENT: atraumatic, normocephalic Eye exam: PRESENT: conjunctiva pink, EOMI, PERRLA. ABSENT: scleral icterus Ear exam: PRESENT: normal external ear exam Mouth exam: PRESENT: moist, tongue midline Neck exam: PRESENT: full ROM. ABSENT: carotid bruit, JVD, lymphadenopathy, thyromegaly Respiratory exam: PRESENT: clear to auscultation анна Cardiovascular exam: PRESENT: RRR. ABSENT: diastolic murmur, rubs, systolic murmur Pulses: PRESENT: normal dorsalis pedis pul, +2 pedal pulses bilateral Vascular exam: PRESENT: normal capillary refill GI/Abdominal exam: PRESENT: normal bowel sounds, soft. ABSENT: distended, guarding, mass, organolmegaly, rebound, tenderness Rectal exam: PRESENT: deferred Extremities exam: ABSENT: pedal edema Neurological exam: PRESENT: alert, awake, oriented to person, oriented to place , oriented to time, oriented to situation. ABSENT: motor sensory deficit Psychiatric exam: PRESENT: appropriate affect, normal mood. ABSENT: homicidal ideation, suicidal ideation Skin exam: PRESENT: dry, intact, warm. ABSENT: cyanosis, rash Results Laboratory Results: 10/20/17 05:10 10/19/17 05:04 10/20/17 10/20/17 05:10 05:10 WBC 6.3 RBC 3.55 L Hgb 10.8 L Hct 32.3 L MCV 91 MCH 30.4 MCHC 33.5 RDW 15.3 H Plt Count 161 Seg Neutrophils % 74.4 Lymphocytes % 13.6 Monocytes % 9.6 Eosinophils % 1.9 Basophils % 0.5 Absolute Neutrophils 4.7 Absolute Lymphocytes 0.9 Absolute Monocytes 0.6 Absolute Eosinophils 0.1 Absolute Basophils 0.0 Magnesium 1.6 10/18/17 10/18/17 10/18/17 16:00 16:00 22:55 Creatine Kinase 45 L 42 L CK-MB (CK-2) 0.49 Troponin I < 0.012 10/18/17 10/19/17 10/19/17 22:55 05:04 05:04 Creatine Kinase 33 L CK-MB (CK-2) 0.65 0.49 Troponin I < 0.012 < 0.012 Impressions: Abdomen/Pelvis CT 10/18/17 00:00 IMPRESSION: No acute findings Head CT 10/18/17 00:00 IMPRESSION: No acute findings Old left frontal craniotomy with diffuse encephalomalacia throughout the left frontal lobe. Old lacunar infarct right medial basal ganglia. Right frontal de periventricular small vessel white matter disease. EVIDENCE OF ACUTE STROKE: NO. Chest X-Ray 10/18/17 11:14 IMPRESSION: No acute findings. Stable round atelectasis in the right lower lobe and chronic right pleural thickening. Head MRI 10/18/17 12:50 IMPRESSION: No MR evidence of acute ischemic change, acute intracranial hemorrhage, mass effect or midline shift. Old left frontal craniotomy with broad area of left frontoparietal encephalomalacia. Small lacunar infarcts, chronic appearance in the right medial basal ganglia, right thalamus, and left stephanie. EVIDENCE OF ACUTE STROKE: NO. Qualifiers - * PATIENT BEING DISCHARGED WITH ANY OF THE FOLLOWING DIAGNOSIS: No VTE patient discharged on overlapping Therapy?: Yes Plan Time Spent: Greater than 30 Minutes - Patient's discharge home with the stable conditions In office in 1 week Repeat the Chem-7 Follow neurology and cardiology
[2017-10-20 11:44] VITALS: BP 153/99
== END 2017-10-20 12:25 | disposition home or self-care (01) | DRG 312 ==
LOC: ER 10:40 → EH 12:42 → OBSVTOIN 13:04 → 3W 17:08
PROVIDERS: ADMIT Family Medicine; ATTEND Family Medicine
PROC: 0DD68ZX Extraction of Stomach, Via Natural or Artificial Opening Endoscopic, Diagnostic (ICD-10-PCS; principal; 2017-10-19 15:30)
DX: R55 Syncope and collapse (principal); N39.0 Urinary tract infection, site not specified; I69.351 Hemiplegia and hemiparesis following cerebral infarction affecting right dominant side; G40.909 Epilepsy, unspecified, not intractable, without status epilepticus; R51 Headache; E11.22 Type 2 diabetes mellitus with diabetic chronic kidney disease; I12.9 Hypertensive chronic kidney disease with stage 1 through stage 4 chronic kidney disease, or unspecified chronic kidney disease; N18.2 Chronic kidney disease, stage 2 (mild); I69.320 Aphasia following cerebral infarction; E78.00 Pure hypercholesterolemia, unspecified; J44.9 Chronic obstructive pulmonary disease, unspecified; K21.9 Gastro-esophageal reflux disease without esophagitis; I48.2 Chronic atrial fibrillation; G20 Parkinson's disease; Z93.1 Gastrostomy status; Z79.51 Long term (current) use of inhaled steroids; Z79.52 Long term (current) use of systemic steroids; Z79.899 Other long term (current) drug therapy
CPT/HCPCS: 36415; 43239; 51702; 70450; 70551; 71045; 74176; 80053; 82550; 82553; 82962; 83690; 83735; 84443; 84484; 85025; 87040; 87086; 87088; 87186; 88305; 88342; 93005; 93010; 93306; 96361; 96365; 96372; 96375; 99285; A9270 GY; J0171; J0696; J1200; J1610; J1644; J2250; J2310; J2405; J3010; J3490; J7030; S0164

== ENCOUNTER 2017-11-11 11:51 | Inpatient (IN) | payer MEDICARE ==
[2017-11-11] MEDS ORDERED: ASPIRIN 81 MG TABLET, CHEWABLE PO ONE ×3 (12:25→13:21)
[2017-11-11 12:30] LABS: ABSOLUTE EOSINOPHILS # (AUTO) 0.2 10^3/uL (0.0-0.6); ABSOLUTE LYMPHOCYTES (AUTO) 0.9 10^3/uL (0.5-4.7); ABSOLUTE MONOCYTES (AUTO) 0.7 10^3/uL (0.1-1.4); ABSOLUTE NEUT (AUTO) 6.3 10^3/uL (1.7-8.2); BASOPHILS % (AUTO) 0.3 % (0-2); EOSINOPHILS % (AUTO) 2.1 % (0-6); HEMATOCRIT 27.9 % (37.9-51.0); HEMOGLOBIN 9.5 g/dL (13.5-17.0); MEAN CORPUSCULAR HEMOGLOBIN 30.8 pg (27.0-33.4); MEAN CORPUSCULAR HGB CONC 33.9 g/dL (32.0-36.0); MEAN CORPUSCULAR VOLUME 91 fl (80-97); MONOCYTES % (AUTO) 8.3 % (3-13); PLATELET COUNT 137 10^3/uL (150-450); RED BLOOD COUNT 3.07 10^6/uL (4.35-5.55); RED CELL DISTRIBUTION WIDTH 15.9 % (11.5-14.0); SEGMENTED NEUTROPHILS % (AUTO) 78.3 % (42-78); TOTAL CELLS COUNTED % (AUTO) 100 %; WHITE BLOOD COUNT 8.1 10^3/uL (4.0-10.5)
[2017-11-11 12:40] LABS: ALANINE AMINOTRANSFERASE 13 U/L (21-72); ALBUMIN 3.2 g/dL (3.5-5.0); ALKALINE PHOSPHATASE 106 U/L (38-126); ANION GAP 12 (5-19); ASPARTATE AMINO TRANSFERASE 16 U/L (17-59); BILIRUBIN,DIRECT 0.5 mg/dL (0.0-0.4); BILIRUBIN,TOTAL 0.6 mg/dL (0.2-1.3); BLOOD UREA NITROGEN 20 mg/dL (7-20); CALCIUM 8.5 mg/dL (8.4-10.2); CARBON DIOXIDE 26 mmol/L (22-30); CHLORIDE 100 mmol/L (98-107); CREATINE KINASE 33 U/L (55-170); GLUCOSE 138 mg/dL (75-110); POTASSIUM 4.1 mmol/L (3.6-5.0); SODIUM 138.4 mmol/L (137-145)
[2017-11-11 12:49] LABS: CREATINE KINASE MB 0.45 ng/mL (<4.55)
[2017-11-11 12:53] LABS: C-REACTIVE PROTEIN 148.4 mg/L (<10.0)
[2017-11-11 12:55] LABS: TROPONIN I 0.159 ng/mL
--- NOTE | 2017-11-11 13:13 | ER Document Report ---
ED General - General Chief Complaint: Syncope Stated Complaint: POSSIBLE SEIZURE Mode of Arrival: Medic Information source: Patient, POA - Power of Client Support Consultant, [facility] Records TRAVEL OUTSIDE OF THE [place] IN LAST 30 DAYS: No - HPI Notes: 75-year-old male with a past medical history of a fib CVA, aphasia, right-sided paralysis presents today for evaluation of a syncopal event while he was at [employer] approximately 2 hours ago. Per his , the episode only lasted for a few seconds, patient was completely passed out per setting while sitting in. Denies hitting head or any other area of injury. called 911. He returned to baseline after approximately 25 seconds. Patient did eat breakfast this morning without any difficulty. Patient was discharged from the hospital approximately 3 weeks ago for similar event. Dr. Henley from cardiology did evaluate patient per stated that he may need a pacemaker placed at some time in the future but some results from his ECG monitoring is pending with Dr. Henley's office. Is followed by Dr. Vazquez, urologist, for history of urinary retention, recently had Mariano catheter removed 3 days ago. Patient has not been placed on anticoagulant therapy for his A. fib due to his past medical history of a CVA. Denies any nausea or vomiting. Pt just started taking a baby aspirin a couple weeks ago. - Related Data Allergies/Adverse Reactions: Iodinated Contrast- Oral and IV Dye Allergy (Mild, Verified 10/18/17 11:19) Generalized rash Past Medical History - General Information source: Relative, POA - Power of Client Support Consultant, [facility] Records - Social History Smoking Status: Unknown if Ever Smoked Chew tobacco use (# tins/day): No Frequency of alcohol use: None Drug Abuse: None Family History: CAD, Hypertension Patient has suicidal ideation: No Patient has homicidal ideation: No - Past Medical History Cardiac Medical History: Reports: Hx Atrial Fibrillation, Hx Hypercholesterolemia, Hx Hypertension Denies: Hx Coronary Artery Disease, Hx Heart Attack, Hx Heart Murmur Pulmonary Medical History: Reports: Hx COPD, Hx Pneumonia, Hx Sleep Apnea Denies: Hx Asthma, Hx Bronchitis, Hx Respiratory Failure, Hx Tuberculosis Neurological Medical History: Reports: Hx Cerebrovascular Accident - 2005 WEAKER ON RIGHT SIDE, Hx Seizures - LAST ONE OVER 1 YR. AGO. Endocrine Medical History: Reports: Hx Diabetes Mellitus Type 2 Renal/ Medical History: Reports: Hx Kidney Stones. Denies: Hx Peritoneal Dialysis GI Medical History: Reports: Hx Gastroesophageal Reflux Disease - aspiration. Denies: Hx Hepatitis, Hx Hiatal Hernia, Hx Pancreatitis, Hx Ulcer Musculoskeltal Medical History: Reports Hx Arthritis Psychiatric Medical History: Reports: Hx Depression Traumatic Medical History: Reports: Hx Fractures - right foot Infectious Medical History: Denies: Hx Hepatitis Past Surgical History: Reports: Hx Abdominal Surgery - PEG tube, Hx Bowel Surgery - cyst on bladder, Hx Orthopedic Surgery - right shoulder. Denies: Hx Open Heart Surgery, Hx Pacemaker - Immunizations Hx Diphtheria, Pertussis, Tetanus Vaccination: Yes Hx Pneumococcal Vaccination: 06/04/11 Review of Systems - Review of Systems Constitutional: See HPI EENT: No symptoms reported Cardiovascular: See HPI Respiratory: No symptoms reported Gastrointestinal: No symptoms reported Genitourinary: No symptoms reported Male Genitourinary: No symptoms reported Musculoskeletal: No symptoms reported Skin: No symptoms reported Hematologic/Lymphatic: No symptoms reported Neurological/Psychological: See HPI -: Yes All other systems reviewed and negative Physical Exam - Vital signs Vitals: Temp Pulse Resp BP Pulse Ox 98.7 F 95 16 118/75 96 11/11/17 12:00 11/11/17 12:00 11/11/17 12:00 11/11/17 12:00 11/11/17 12:00 - Notes Notes: PHYSICAL EXAMINATION: GENERAL: Well-appearing, well-nourished and in no acute distress. HEAD: Atraumatic, normocephalic. EYES: Pupils equal round and reactive to light, extraocular movements intact, sclera anicteric, conjunctiva are normal. ENT: Nares patent, oropharynx clear without exudates. Moist mucous membranes. NECK: Normal range of motion, supple without lymphadenopathy LUNGS: Breath sounds clear to auscultation bilaterally and equal. No wheezes rales or rhonchi. HEART: Regular rate and rhythm without murmurs ABDOMEN: Soft, nontender, nondistended abdomen. No guarding, no rebound. No masses appreciated. Musculoskeletal: Normal range of motion, no pitting or edema. No cyanosis. NEUROLOGICAL: Chronic right-sided paralysis. Patient able to indicate answer questions by shaking his head yes or now in same the words yes and no. Follows commands. Alert and awake. PERRLA. PSYCH: Normal mood, normal affect. SKIN: Warm, Dry, normal turgor, no rashes or lesions noted. Course - Re-evaluation Re-evalutation: 11/11/17 13:47 66-year-old male presents to the ED via and neck for evaluation of syncope, is at bedside who is his healthcare proxy. Patient appears to be in no distress, is slightly tachycardic, A. fib with intermittent RVR., Heart rates ranging between 98 and 106. Patient is not complaining of any shortness of breath or chest pain. Initial set of troponin came back at 0.159, CMP 2620. Is elevated from 1 month ago and patient's troponin was less than 0.012 when he was admitted. Consulted with Dr. Ravindra Richter, neurologist at [facility] at 1325 regarding patient's troponin. EKG does not have any ST segment elevations or changes from previous EKG, patient is asymptomatic for chest pain , with a history of a subarachnoid stroke that patient is not a candidate for anticoagulation. We will repeat troponin to see if there is an elevation in his troponin since patient is asymptomatic. Consulted with Dr. Richter consulted regarding repeat troponin of 0.138, patient remains asymptomatic, no shortness of breath, vitals are stable. Patient does have a UTI seen on urinalysis. Creatinine 1.38, which is stable from a month ago when patient was admitted. Dr. Anderson advised that patient likely is not having acute myocardial infarct, Dr. Richter felt that tropinion elevation is likely due to the urinary tract infection. We will continue to monitor troponins, advised that there is any elevation to call her back and will accept patient for non- STEMI. Dr. Rocha, covering for Dr. Price, accepted patient to be admitted to medical floor for evaluation further evaluation of elevated troponins, UTI's CHF, and syncopal events to the medical service. - Vital Signs Vital signs: Temp Pulse Resp BP Pulse Ox 98.1 F 104 H 17 157/88 H 100 11/11/17 17:57 11/11/17 17:57 11/11/17 17:57 11/11/17 17:57 11/11/17 17:57 - Laboratory Result Diagrams: 11/11/17 11:25 11/11/17 11:25 Laboratory results interpreted by me: 11/11/17 11/11/17 11/11/17 11:25 11:25 11:25 RBC 3.07 L Hgb 9.5 L Hct 27.9 L RDW 15.9 H Plt Count 137 L Seg Neutrophils % 78.3 H Lymphocytes % 11.0 L Creatinine 1.38 H Est GFR (Non-Af Amer) 51 L Glucose 138 H Direct Bilirubin 0.5 H AST 16 L ALT 13 L Creatine Kinase 33 L C-Reactive Protein 148.4 H NT-Pro-B Natriuret Pep 2620 H Total Protein 6.0 L Albumin 3.2 L Urine Protein Urine Blood Ur Leukocyte Esterase 11/11/17 13:47 RBC Hgb Hct RDW Plt Count Seg Neutrophils % Lymphocytes % Creatinine Est GFR (Non-Af Amer) Glucose Direct Bilirubin AST ALT Creatine Kinase C-Reactive Protein NT-Pro-B Natriuret Pep Total Protein Albumin Urine Protein 100 H Urine Blood MODERATE H Ur Leukocyte Esterase LARGE H Discharge - Discharge Clinical Impression: UTI (urinary tract infection), Syncope and collapse, Atrial fibrillation with rapid ventricular response, Hypertension, Cerebrovascular disease Condition: Stable Disposition: ADMITTED INPATIENT Admitting Provider: Josefina Unit Admitted: Telemetry
--- NOTE | 2017-11-11 13:17 | RADIOLOGY REPORT (SQ) ---
EXAM DESCRIPTION: CHEST SINGLE VIEW COMPLETED DATE/TIME: 11/11/2017 12:43 pm REASON FOR STUDY: syncope, a fib COMPARISON: 10/18/2017. FINDINGS: Single-view chest AP portable upright. Chronic scar and blunting in the right costophrenic angle. Masslike abnormal tissue in the right lower lobe medially. This has previously been described as rou nd atelectasis and looks chronic. No new infiltrates are detected. Stable cardiomediastinal silhouette. IMPRESSION: Stable chest. TECHNICAL DOCUMENTATION: JOB ID: [id number] Reading location - IP/workstation name: [email or web address]
[2017-11-11 14:08] LABS: AMORPHOUS SEDIMENT,URINE TRACE /HPF; APPEARANCE,URINE CLOUDY; BILIRUBIN,URINE NEGATIVE (NEGATIVE); COLOR,URINE YELLOW; GLUCOSE, URINE NEGATIVE (NEGATIVE); KETONES,URINE NEGATIVE (NEGATIVE); LEUKOCYTE ESTERASE,URINE LARGE (NEGATIVE); NITRITE,URINE NEGATIVE (NEGATIVE); PROTEIN,URINE 100 mg/dL (NEGATIVE); URINE SPECIFIC GRAVITY 1.009; UROBILINOGEN,URINE NEGATIVE mg/dL (<2.0)
[2017-11-11] MEDS ORDERED: VANCOMYCIN HCL INJ 1000 MG VIAL IV ONE (15:40)
[2017-11-11] MEDS ORDERED: ALBUTEROL SULFATE HFA (90 MCG/PUFF) 200 PUFF/8.5 GM MDI IH PRN (17:26)
[2017-11-11] MEDS ORDERED: CLONAZEPAM 1 MG TABLET PO ONE (18:30)
[2017-11-11] MEDS ORDERED: DOXAZOSIN MESYLATE 4 MG TABLET PO ONE (18:30)
[2017-11-11] MEDS ORDERED: ROPINIROLE HCL 1 MG TABLET PO ONE (19:00)
[2017-11-11] MEDS ORDERED: LOSARTAN POTASSIUM 25 MG TABLET PO ONE (19:00)
[2017-11-11] MEDS ORDERED: LUBIPROSTONE 8 MCG CAPSULE PO ONE (19:00)
[2017-11-11] MEDS ORDERED: FUROSEMIDE 40 MG TABLET PO ONE (19:00)
[2017-11-11] MEDS ORDERED: CARBIDOPA/LEVODOPA 25-100 MG TABLET PO ONE (19:00)
[2017-11-11] MEDS ORDERED: ASCORBIC ACID 500 MG TABLET PO ONE (19:00)
[2017-11-11] MEDS ORDERED: METOPROLOL TARTRATE 25 MG TABLET PO ONE (19:00)
[2017-11-11] MEDS ORDERED: TRAMADOL HCL 50 MG TABLET PO ONE (19:00)
[2017-11-11] MEDS ORDERED: OXCARBAZEPINE 150 MG TABLET PO ONE (19:00)
[2017-11-11] MEDS ORDERED: DOCUSATE SODIUM 100 MG CAPSULE PO ONE (19:00)
[2017-11-11] MEDS: MONTELUKAST SODIUM 10 MG TABLET PO SCH (20:57)
[2017-11-12 05:59] LABS: HEMATOCRIT 24.8 % (37.9-51.0); HEMOGLOBIN 8.5 g/dL (13.5-17.0); MEAN CORPUSCULAR HEMOGLOBIN 30.9 pg (27.0-33.4); MEAN CORPUSCULAR HGB CONC 34.2 g/dL (32.0-36.0); MEAN CORPUSCULAR VOLUME 90 fl (80-97); PLATELET COUNT 114 10^3/uL (150-450); RED BLOOD COUNT 2.75 10^6/uL (4.35-5.55); RED CELL DISTRIBUTION WIDTH 15.8 % (11.5-14.0)
[2017-11-12 06:18] LABS: ANION GAP 12 (5-19); BLOOD UREA NITROGEN 21 mg/dL (7-20); CALCIUM 8.3 mg/dL (8.4-10.2); CARBON DIOXIDE 26 mmol/L (22-30); CHLORIDE 100 mmol/L (98-107); CREATINE KINASE 25 U/L (55-170); GLUCOSE 129 mg/dL (75-110); POTASSIUM 3.8 mmol/L (3.6-5.0); SODIUM 137.5 mmol/L (137-145)
--- NOTE | 2017-11-12 07:28 | EKG REPORT ---
SEVERITY:- ABNORMAL ECG - ATRIAL FIBRILLATION NONSPECIFIC INTRAVENTRICULAR CONDUCTION DELAY : Confirmed by: Tomasz Whitaker MD 12-Nov-2017 07:27:29
[2017-11-12] MEDS: FUROSEMIDE 40 MG TABLET PO SCH (09:13)
[2017-11-12] MEDS: METOPROLOL TARTRATE 25 MG TABLET PO SCH ×2 (09:13→21:05)
[2017-11-12] MEDS: ASCORBIC ACID 500 MG TABLET PO SCH (09:13)
[2017-11-12] MEDS: CLONAZEPAM 1 MG TABLET PO SCH ×2 (09:14→21:05)
[2017-11-12] MEDS: TRAMADOL HCL 50 MG TABLET PO SCH ×2 (09:14→21:05)
[2017-11-12] MEDS: LOSARTAN POTASSIUM 25 MG TABLET PO SCH (09:14)
[2017-11-12] MEDS: DOXAZOSIN MESYLATE 4 MG TABLET PO SCH (09:14)
[2017-11-12] MEDS: DOCUSATE SODIUM 100 MG CAPSULE PO SCH (09:15)
[2017-11-12] MEDS: ROPINIROLE HCL 1 MG TABLET PO SCH (09:15)
[2017-11-12] MEDS: CARBIDOPA/LEVODOPA 25-100 MG TABLET PO SCH ×2 (09:15→21:05)
[2017-11-12] MEDS: OXCARBAZEPINE 150 MG TABLET PO SCH ×2 (09:16→21:05)
[2017-11-12] MEDS: LUBIPROSTONE 8 MCG CAPSULE PO SCH (09:16)
--- NOTE | 2017-11-12 18:24 | RADIOLOGY REPORT (SQ) ---
EXAM DESCRIPTION: KNEE RIGHT 2 VIEWS COMPLETED DATE/TIME: 11/12/2017 6:13 pm REASON FOR STUDY: right knee swelling COMPARISON: 02/28/2017 NUMBER OF VIEWS: Four views. TECHNIQUE: AP, lateral, and both oblique radiographic images acquired of the right knee. LIMITATIONS: None. FINDINGS: MINERALIZATION: Normal. BONES: There is an oblique comminuted fracture of the distal femur. There appears to be a fracture c omponent extending obliquely through the lateral femoral condyle to the intercondylar notch. There i s an old fracture of the proximal tibia. JOINT: No effusion. SOFT TISSUES: No soft tissue swelling. No radio-opaque foreign body. OTHER: No other significant finding. IMPRESSION: Comminuted fracture of the proximal femur with the lateral condyle has a definable fragm ent. TECHNICAL DOCUMENTATION: JOB ID: [id number] CSR- All Rights Reserved Reading location - IP/workstation name: [email or web address]
[2017-11-12] MEDS ORDERED: LEVOFLOXACIN 500 MG TABLET PO SCH (19:00)
--- NOTE | 2017-11-12 20:47 | PDOC H&P ---
History of Present Illness Admission Date/PCP: 11/12/17 13:21 CAMILO SALDIVAR MD History of Present Illness: MILANA FRANCO is a 66 year old male,He was brought to the emergency room by his for evaluation of his syncope episode while at [employer]. He has a history of CVA with residual right-sided paralysis, history of subarachnoid hemorrhage, chronic atrial fibrillation not a candidate for anticoagulation because of history of subarachnoid hemorrhage. He was recently admitted and discharged from this hospital on 10/20/2017 for evaluation of syncope spells. The stated that he has had this episode multiple times since the last few months, he also have swelling of the right knee. Initially knee was done and it showed comminuted fracture of distal femur of the right knee, consultation will be requested orthopedic. In the emergency room he was found to have elevated troponin, this has been trending down not sure if this represent non- ST NC or just a leak from cardiac muscles. He also follow with Dr. Henley, cardiology, patient poor historian he has expressive dysphasia most of the history is from the spouse Past Medical History Cardiac Medical History: Reports: Atrial Fibrillation, Hyperlipidema, Hypertension Pulmonary Medical History: Reports: Chronic Obstructive Pulmonary Disease (COPD) , Pneumonia, Sleep Apnea Neurological Medical History: Reports: Seizures - LAST ONE OVER 1 YR. AGO. Endocrine Medical History: Reports: Diabetes Mellitus Type 2 Renal/ Medical History: Reports: Chronic Kidney Disease GI Medical History: Reports: Gastroesophageal Reflux Disease - aspiration Musculoskeltal Medical History: Reports: Arthritis Psychiatric Medical History: Reports: Depression Traumatic Medical History: Denies: None, Gunshot Wound, Pneumothorax, Stab Wound, Traumatic Brain Injury , Other Past Surgical History Past Surgical History: Reports: Orthopedic Surgery - right shoulder Social History Smoking Status: Unknown if Ever Smoked Frequency of Alcohol Use: None Hx Recreational Drug Use: No Hx Prescription Drug Abuse: No - Advance Directive Resuscitation Status: Do Not Resuscitate Family History Family History: CAD, Hypertension Parental Family History Reviewed: Yes Children Family History Reviewed: Yes Sibling(s) Family History Reviewed.: Yes Medication/Allergy Home Medications: Albuterol Sulfate [Proair HFA Inhalation Aerosol 8.5 gm MDI] 2 puff IH Q4HP PRN 11/11/17 Ascorbic Acid [Vitamin C 500 mg Tablet] 500 mg PO DAILY 11/11/17 Carbidopa/Levodopa [Sinemet 25-100 mg Tablet] 1.5 tab PO Q12 11/11/17 Clonazepam [Klonopin] 0.5 mg PO Q12 11/11/17 Docusate Sodium [Colace 100 mg Capsule] 100 mg PO DAILY 11/11/17 Doxazosin Mesylate [Cardura] 8 mg PO DAILY 11/11/17 Ergocalciferol (Vitamin D2) [Drisdol 50,000 unit (1.25MG) Capsule] 50,000 unit PO WE@1000 11/11/17 Furosemide [Lasix 40 mg Tablet] 40 mg PO QAM 11/11/17 Losartan Potassium [Cozaar 25 mg Tablet] 25 mg PO DAILY 11/11/17 Lubiprostone [Amitiza 8 Mcg Capsule] 8 mcg PO DAILY 11/11/17 Metoprolol Tartrate [Lopressor 25 mg Tablet] 25 mg PO Q12 11/11/17 Montelukast Sodium [Singulair 10 mg Tablet] 10 mg PO QPM 11/11/17 Oxcarbazepine [Trileptal] 900 mg PO Q12 11/11/17 Ropinirole HCl [Requip] 1 mg PO DAILY 11/11/17 Tramadol HCl [Ultram 50 mg Tablet] 50 mg PO Q12 11/11/17 Allergies/Adverse Reactions: Iodinated Contrast- Oral and IV Dye Allergy (Mild, Verified 10/18/17 11:19) Generalized rash Review of Systems ROS unobtainable: Other - He has expressive dysphasia Physical Exam Vital Signs: Temp Pulse Resp BP Pulse Ox 98.0 F 130 H 18 106/55 L 96 11/12/17 19:24 11/12/17 19:00 11/12/17 19:24 11/12/17 19:24 11/12/17 19:24 Intake & Output 11/11/17 11/12/17 11/13/17 06:59 06:59 06:59 Intake Total 497 Output Total 100 Balance 397 General appearance: PRESENT: no acute distress Head exam: PRESENT: atraumatic, normocephalic Eye exam: PRESENT: conjunctiva pink, EOMI, PERRLA Ear exam: PRESENT: normal external ear exam Mouth exam: PRESENT: moist, tongue midline Neck exam: PRESENT: full ROM Cardiovascular exam: PRESENT: RRR, +S1, +S2 Vascular exam: PRESENT: normal capillary refill GI/Abdominal exam: PRESENT: normal bowel sounds, soft Rectal exam: PRESENT: deferred Extremities exam: PRESENT: joint swelling - There is swelling of the right knee tender to touch Neurological exam: PRESENT: alert, motor sensory deficit - There is right-sided paralysis/Hemiplegia Skin exam: PRESENT: dry, intact, warm Results Impressions: Chest X-Ray 11/11/17 12:19 IMPRESSION: Stable chest. Knee X-Ray 11/12/17 00:00 IMPRESSION: Comminuted fracture of the proximal femur with the lateral condyle has a definable fragment. Assessment & Plan - Diagnosis (1) Syncope and collapse Is this a current diagnosis for this admission?: Yes Plan: History of recurrent syncope, evaluated in the past (2) Closed comminuted supracondylar fracture of right femur Qualifiers: Encounter type: initial encounter Qualified Code(s): S72.451A - Displaced supracondylar fracture without intracondylar extension of lower end of right femur, initial encounter for closed fracture Is this a current diagnosis for this admission?: Yes (3) Hemiplegia affecting right dominant side Qualifiers: Hemiplegia type: unspecified type Hemiplegia etiology: late effect of cerebrovascular disease Cerebrovascular disease type: nontraumatic subarachnoid hemorrhage Qualified Code(s): I69.051 - Hemiplegia and hemiparesis following nontraumatic subarachnoid hemorrhage affecting right dominant side Is this a current diagnosis for this admission?: Yes (4) Chronic kidney disease, stage 3 Is this a current diagnosis for this admission?: Yes (5) Elevated troponin Is this a current diagnosis for this admission?: Yes Plan: The differential diagnosis includes non-ST NC, leak, noncardiac causes (6) History of spontaneous subarachnoid intracranial hemorrhage Is this a current diagnosis for this admission?: Yes
[2017-11-12] MEDS: MONTELUKAST SODIUM 10 MG TABLET PO SCH (21:05)
[2017-11-13 05:15] LABS: HEMATOCRIT 25.3 % (37.9-51.0); HEMOGLOBIN 8.8 g/dL (13.5-17.0); MEAN CORPUSCULAR HEMOGLOBIN 31.2 pg (27.0-33.4); MEAN CORPUSCULAR HGB CONC 34.9 g/dL (32.0-36.0); MEAN CORPUSCULAR VOLUME 90 fl (80-97); PLATELET COUNT 118 10^3/uL (150-450); RED BLOOD COUNT 2.83 10^6/uL (4.35-5.55); RED CELL DISTRIBUTION WIDTH 15.4 % (11.5-14.0); WHITE BLOOD COUNT 6.3 10^3/uL (4.0-10.5)
[2017-11-13 05:40] LABS: ANION GAP 8 (5-19); BLOOD UREA NITROGEN 19 mg/dL (7-20); CALCIUM 8.5 mg/dL (8.4-10.2); CARBON DIOXIDE 29 mmol/L (22-30); CHLORIDE 101 mmol/L (98-107); GLUCOSE 132 mg/dL (75-110); POTASSIUM 4.1 mmol/L (3.6-5.0); SODIUM 137.7 mmol/L (137-145)
[2017-11-13] MEDS ORDERED: HYDROCODONE/ACETAMINOPHEN 5-325 MG TABLET PO PRN (08:40)
[2017-11-13] MEDS: FUROSEMIDE 40 MG TABLET PO SCH (09:45)
[2017-11-13] MEDS: DOCUSATE SODIUM 100 MG CAPSULE PO SCH (09:46)
[2017-11-13] MEDS: TRAMADOL HCL 50 MG TABLET PO SCH ×2 (09:46→21:51)
[2017-11-13] MEDS: METOPROLOL TARTRATE 25 MG TABLET PO SCH ×2 (09:46→21:50)
[2017-11-13] MEDS: LOSARTAN POTASSIUM 25 MG TABLET PO SCH (09:46)
[2017-11-13] MEDS: DOXAZOSIN MESYLATE 4 MG TABLET PO SCH (09:46)
[2017-11-13] MEDS: ROPINIROLE HCL 1 MG TABLET PO SCH (09:47)
[2017-11-13] MEDS: ASCORBIC ACID 500 MG TABLET PO SCH (09:47)
[2017-11-13] MEDS: CARBIDOPA/LEVODOPA 25-100 MG TABLET PO SCH ×2 (09:47→21:51)
[2017-11-13] MEDS: LUBIPROSTONE 8 MCG CAPSULE PO SCH (09:48)
[2017-11-13] MEDS: OXCARBAZEPINE 150 MG TABLET PO SCH ×2 (09:48→21:50)
[2017-11-13] MEDS: CLONAZEPAM 1 MG TABLET PO SCH ×2 (09:50→21:51)
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
[2017-11-13] MEDS ORDERED: CEFTRIAXONE SODIUM 1,000 MG in DEXTROSE 5%-WATER 50 ML IV SCH (19:00)
[2017-11-13] MEDS ORDERED: CEFTRIAXONE 1 GM/D5W RTU 1 GM/50 ML RTUPB IV SCH (19:00)
--- NOTE | 2017-11-13 19:05 | PDOC CONSULTATION ---
Consultation Consult Date: 11/13/17 Attending physician:: QUINCY DAMON Consult reason:: Syncope History of Present Illness Admission Date/PCP: 11/12/17 13:21 CAIMLO SALDIVAR MD Patient complains of: Syncope History of Present Illness: MILANA FRANCO is a 66 year old male,He was brought to the emergency room by his for evaluation of his syncope episode while at [facility]. He has a history of CVA with residual right-sided paralysis, history of subarachnoid hemorrhage, chronic atrial fibrillation not a candidate for anticoagulation because of history of subarachnoid hemorrhage. He was recently admitted and discharged from this hospital on 10/20/2017 for evaluation of syncope spells. The stated that he has had this episode multiple times since the last few months, he also have swelling of the right knee. Initially knee was done and it showed comminuted fracture of distal femur of the right knee, consultation will be requested orthopedic. In the emergency room he was found to have elevated troponin, this has been trending down not sure if this represent non- [place] or just a leak from cardiac muscles. He also follow with Dr. Henley, cardiology, patient poor historian he has expressive dysphasia most of the history is from the spouse. This history obtained by the primary care attending/covering attending was reviewed and confirmed. The syncopal spell happened in [facility]. Patient was sitting in the [facility] with his legs stretched out. Patient's noted patient to be somewhat unresponsive. He was noted to be very pale and diaphoretic. EMS came in. Apparently he was passed out for approximately a few minutes. There was no loss of bladder or bowel activity this time. There was no evidence of seizure activity. Patient has history of chronic atrial fibrillation. Past Medical History Cardiac Medical History: Reports: Atrial Fibrillation, Hyperlipidema, Hypertension Denies: Coronary Artery Disease, Myocardial Infarction, Heart Murmur Pulmonary Medical History: Reports: Chronic Obstructive Pulmonary Disease (COPD) , Pneumonia, Sleep Apnea Denies: Asthma, Bronchitis, Respiratory Failure, Tuberculosis Neurological Medical History: Reports: Seizures - LAST ONE OVER 1 YR. AGO. Endocrine Medical History: Reports: Diabetes Mellitus Type 2 Renal/ Medical History: Reports: Chronic Kidney Disease GI Medical History: Reports: Gastroesophageal Reflux Disease - aspiration Denies: Hepatitis, Hiatal Hernia Musculoskeltal Medical History: Reports: Arthritis Psychiatric Medical History: Reports: Depression Traumatic Medical History: Denies: None, Gunshot Wound, Pneumothorax, Stab Wound, Traumatic Brain Injury , Other Hematology: Denies: Anemia, Sickle Cell Disease Past Surgical History Past Surgical History: Reports: Orthopedic Surgery - right shoulder Denies: Pacemaker Social History Information Source: Patient Smoking Status: Unknown if Ever Smoked Frequency of Alcohol Use: None Hx Recreational Drug Use: No Hx Prescription Drug Abuse: No - [facility] Directive Resuscitation Status: Do Not Resuscitate Family History Family History: CAD, Hypertension Parental Family History Reviewed: Yes Children Family History Reviewed: Yes Sibling(s) Family History Reviewed.: Yes Medication/Allergy Home Medications: Albuterol Sulfate [Proair HFA Inhalation Aerosol 8.5 gm MDI] 2 puff IH Q4HP PRN 11/11/17 Ascorbic Acid [Vitamin C 500 mg Tablet] 500 mg PO DAILY 11/11/17 Carbidopa/Levodopa [Sinemet 25-100 mg Tablet] 1.5 tab PO Q12 11/11/17 Clonazepam [Klonopin] 0.5 mg PO Q12 11/11/17 Docusate Sodium [Colace 100 mg Capsule] 100 mg PO DAILY 11/11/17 Doxazosin Mesylate [Cardura] 8 mg PO DAILY 11/11/17 Ergocalciferol (Vitamin D2) [Drisdol 50,000 unit (1.25MG) Capsule] 50,000 unit PO WE@1000 11/11/17 Furosemide [Lasix 40 mg Tablet] 40 mg PO QAM 11/11/17 Losartan Potassium [Cozaar 25 mg Tablet] 25 mg PO DAILY 11/11/17 Lubiprostone [Amitiza 8 Mcg Capsule] 8 mcg PO DAILY 11/11/17 Metoprolol Tartrate [Lopressor 25 mg Tablet] 25 mg PO Q12 11/11/17 Montelukast Sodium [Singulair 10 mg Tablet] 10 mg PO QPM 11/11/17 Oxcarbazepine [Trileptal] 900 mg PO Q12 11/11/17 Ropinirole HCl [Requip] 1 mg PO DAILY 11/11/17 Tramadol HCl [Ultram 50 mg Tablet] 50 mg PO Q12 11/11/17 Allergies/Adverse Reactions: Iodinated Contrast- Oral and IV Dye Allergy (Mild, Verified 10/18/17 11:19) Generalized rash Review of Systems ROS unobtainable: Other - History of prior stroke and aphasia Physical Exam Vital Signs: Temp Pulse Resp BP Pulse Ox 98.2 F 70 20 122/76 100 11/13/17 16:01 11/13/17 16:01 11/13/17 16:01 11/13/17 16:01 11/13/17 16:01 Intake & Output 11/12/17 11/13/17 11/14/17 06:59 06:59 06:59 Intake Total 754 705 Output Total 1100 500 Balance -346 205 Weight 104.2 kg Exam: GENERAL: well-nourished and in no acute distress. Patient orientation cannot be checked because of aphasia.. HEAD: Atraumatic, normocephalic. EYES: Pupils equal round and reactive to light, extraocular movements intact, sclera anicteric, conjunctiva are normal. ENT: TMs normal, nares patent, oropharynx clear without exudates. Moist mucous membranes. No oral ulcerations or bleeding gums noted NECK: supple without lymphadenopathy or JVD. Trachea is central. No cervical or axillary lymphadenopathy noted. Carotids are 2+ LUNGS: Breath sounds bibasilar fine crackles at bases. No significant dullness noted. CHEST: Palpation of chest wall shows no significant chest wall tenderness. 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 ABDOMEN: Soft, no significant tenderness appreciated, normoactive bowel sounds. No guarding, no rebound. No rigidity noted . No masses appreciated. EXTREMITIES: Pedal pulses are 1-2+, no calf tenderness noted, 1+ pedal edema noted. No clubbing or cyanosis. NEUROLOGICAL: Patient is alert he is noted to have chronic right-sided hemiparesis with limited speech. PSYCH: Mood and judgment not checked because of aphasia. SKIN: No significant ecchymosis, rash, ulcerations or signs of pruritus noted. MUSCULOSKELETAL EXAM: No significant joint swelling noted. Results Laboratory Results: 11/13/17 04:22 11/13/17 04:22 11/13/17 11/13/17 04:22 04:22 WBC 6.3 RBC 2.83 L Hgb 8.8 L Hct 25.3 L MCV 90 MCH 31.2 MCHC 34.9 RDW 15.4 H Plt Count 118 L Sodium 137.7 Potassium 4.1 Chloride 101 Carbon Dioxide 29 Anion Gap 8 BUN 19 Creatinine 1.30 H Est GFR ( Amer) > 60 Est GFR (Non-Af Amer) 55 L Glucose 132 H Calcium 8.5 EKG Comments: Telemetry strips reviewed shows atrial fibrillation with controlled ventricular response. Impressions: Chest X-Ray 11/11/17 12:19 IMPRESSION: Stable chest. Knee X-Ray 11/12/17 00:00 IMPRESSION: Comminuted fracture of the proximal femur with the lateral condyle has a definable fragment. Assessment & Plan - Diagnosis (1) Syncope and collapse Is this a current diagnosis for this admission?: Yes (2) Elevated troponin Is this a current diagnosis for this admission?: Yes (3) Atrial fibrillation with rapid ventricular response Is this a current diagnosis for this admission?: Yes (4) Cerebrovascular disease Is this a current diagnosis for this admission?: Yes (5) Chronic kidney disease, stage 3 Is this a current diagnosis for this admission?: Yes (6) Hypertension Qualifiers: Hypertension type: essential hypertension Is this a current diagnosis for this admission?: Yes (7) Urinary tract infection Qualifiers: Urinary tract infection type: site unspecified Is this a current diagnosis for this admission?: Yes (8) Seizure disorder Is this a current diagnosis for this admission?: Yes (9) Type 2 diabetes mellitus Qualifiers: Diabetes mellitus longterm insulin use: without longterm use Diabetes mellitus complication status: with unspecified complications Qualified Code(s) : E11.8 - Type 2 diabetes mellitus with unspecified complications Is this a current diagnosis for this admission?: Yes - Notes Notes: Syncope: The cause is undetermined at this time. There could be multiple differential diagnosis. This includes cardiac arrhythmia in this patient's age group, hypotension secondary to orthostasis, seizure disorder, hypoglycemia et cetera. Both marlys and tachyarrhythmias are possible. Patient will benefit from cardiac monitoring during this admission. May need to consider outpatient cardiac monitoring using mobile cardiac monitoring and evaluation advisor if clinically indicated. Based on history, most likely vasovagal however could well be seizure disorder. At this point will stop doxazosin and switch patient to Flomax. May consider adding finasteride. Also consider stopping carbidopa levodopa combination which can cause instability in blood pressure. Elevated troponin I: Most likely related to syncope. Patient had no significant EKG changes. Also because of patient's significant comorbid diagnosis, patient would not be a candidate for any aggressive ischemia evaluation in the absence of significant symptoms. Chronic kidney disease: Currently is stable. Hypertension: Blood pressure under satisfactory control. Urinary tract infection: Continue antibiotic therapy. Diabetes: This is under expectant management of Dr. Damon. Atrial fibrillation: Heart rate is reasonably well controlled. Continue to observe patient for any tachycardia or bradycardia. - Time Time Spent: 30 to 50 Minutes - CODE STATUS was discussed, patient remains DNR. Surrogate decision-maker patient's . Multiple medical problems were addressed. More than 50% of the time spent coordinating care, discussing management plans with involved caregivers. Management plans discussed with involved personnels. Medical decision making was of moderate to high complexity , patient's has multiple comorbidities. Medications reviewed and adjusted accordingly: Yes
[2017-11-13] MEDS ORDERED: TAMSULOSIN HCL 0.4 MG CAP.SR.24H PO ONE (19:30)
[2017-11-13] MEDS: MONTELUKAST SODIUM 10 MG TABLET PO SCH (21:50)
--- NOTE | 2017-11-13 22:47 | PDOC PROGRESS REPORT ---
Subjective Progress Note for:: 11/13/17 Subjective:: Patient seen by the bedside he has E. coli UTI, E. coli resistant to Levaquin, Levaquin discontinued, seen by cardiology today Reason For Visit: SYNCOPE,POSITIVE TROPONINS Physical Exam Vital Signs: Temp Pulse Resp BP Pulse Ox 98.5 F 69 20 124/74 100 11/13/17 19:39 11/13/17 19:39 11/13/17 19:39 11/13/17 19:39 11/13/17 19:39 Intake & Output 11/12/17 11/13/17 11/14/17 06:59 06:59 06:59 Intake Total 754 1142 Output Total 1100 700 Balance -346 442 Weight 104.2 kg General appearance: PRESENT: no acute distress Eye exam: PRESENT: PERRLA Respiratory exam: PRESENT: clear to auscultation анна Cardiovascular exam: PRESENT: +S1, +S2 GI/Abdominal exam: PRESENT: soft Neurological exam: PRESENT: alert, other - Right-sided paralysis Results Laboratory Results: 11/13/17 04:22 11/13/17 04:22 11/13/17 11/13/17 04:22 04:22 WBC 6.3 RBC 2.83 L Hgb 8.8 L Hct 25.3 L MCV 90 MCH 31.2 MCHC 34.9 RDW 15.4 H Plt Count 118 L Sodium 137.7 Potassium 4.1 Chloride 101 Carbon Dioxide 29 Anion Gap 8 BUN 19 Creatinine 1.30 H Est GFR ( Amer) > 60 Est GFR (Non-Af Amer) 55 L Glucose 132 H Calcium 8.5 Impressions: Chest X-Ray 11/11/17 12:19 IMPRESSION: Stable chest. Knee X-Ray 11/12/17 00:00 IMPRESSION: Comminuted fracture of the proximal femur with the lateral condyle has a definable fragment. Assessment & Plan - Diagnosis (1) Syncope and collapse Is this a current diagnosis for this admission?: Yes (2) Closed comminuted supracondylar fracture of right femur Qualifiers: Encounter type: initial encounter Qualified Code(s): S72.451A - Displaced supracondylar fracture without intracondylar extension of lower end of right femur, initial encounter for closed fracture Is this a current diagnosis for this admission?: Yes (3) Hemiplegia affecting right dominant side Qualifiers: Hemiplegia type: unspecified type Hemiplegia etiology: late effect of cerebrovascular disease Cerebrovascular disease type: nontraumatic subarachnoid hemorrhage Qualified Code(s): I69.051 - Hemiplegia and hemiparesis following nontraumatic subarachnoid hemorrhage affecting right dominant side Is this a current diagnosis for this admission?: Yes (4) Chronic kidney disease, stage 3 Is this a current diagnosis for this admission?: Yes (5) Elevated troponin Is this a current diagnosis for this admission?: Yes (6) History of spontaneous subarachnoid intracranial hemorrhage Is this a current diagnosis for this admission?: Yes (7) Urinary tract infection, E. coli Is this a current diagnosis for this admission?: Yes Plan: Discontinue Levaquin bacteria is resistant to the antibiotic start IV Rocephin
[2017-11-14 05:13] LABS: HEMATOCRIT 25.5 % (37.9-51.0); HEMOGLOBIN 8.7 g/dL (13.5-17.0); MEAN CORPUSCULAR HEMOGLOBIN 30.9 pg (27.0-33.4); MEAN CORPUSCULAR HGB CONC 34.3 g/dL (32.0-36.0); MEAN CORPUSCULAR VOLUME 90 fl (80-97); PLATELET COUNT 122 10^3/uL (150-450); RED BLOOD COUNT 2.83 10^6/uL (4.35-5.55); RED CELL DISTRIBUTION WIDTH 15.5 % (11.5-14.0); WHITE BLOOD COUNT 5.7 10^3/uL (4.0-10.5)
[2017-11-14 05:41] LABS: ANION GAP 14 (5-19); BLOOD UREA NITROGEN 18 mg/dL (7-20); CALCIUM 8.8 mg/dL (8.4-10.2); CARBON DIOXIDE 28 mmol/L (22-30); CHLORIDE 100 mmol/L (98-107); GLUCOSE 134 mg/dL (75-110); POTASSIUM 4.2 mmol/L (3.6-5.0); SODIUM 141.9 mmol/L (137-145)
--- NOTE | 2017-11-14 09:19 | PDOC PROGRESS REPORT ---
Subjective Progress Note for:: 11/14/17 Subjective:: Patient seems to be doing better with better. Pt is denying any chest arm or neck discomfort. Patient denying any PND, orthopnea. Patient denied any sustained palpitations, dizziness, syncope, near syncope. Patient denying any fever chills. Patient denying any other significant discomfort. Patient does have history of fractures in the right lower extremity and is in some constant discomfort from that. Patient is maintaining atrial fibrillation. Heart rate seems reasonably controlled. Review of systems: Rest review of systems negative. Medications: Medications have been reviewed. Reason For Visit: SYNCOPE,POSITIVE TROPONINS Physical Exam Vital Signs: Temp Pulse Resp BP Pulse Ox 97.7 F 80 20 124/79 97 11/14/17 07:25 11/14/17 07:25 11/14/17 07:25 11/14/17 07:25 11/14/17 07:25 Intake & Output 11/13/17 11/14/17 11/15/17 06:59 06:59 06:59 Intake Total 754 1389 Output Total 1100 1450 Balance -346 -61 Weight 104.2 kg 103.7 kg Exam: GENERAL: well-nourished and in no acute distress. Patient orientation cannot be checked because of aphasia.. HEAD: Atraumatic, normocephalic. EYES: Pupils equal round and reactive to light, extraocular movements intact, sclera anicteric, conjunctiva are normal. ENT: TMs normal, nares patent, oropharynx clear without exudates. Moist mucous membranes. No oral ulcerations or bleeding gums noted NECK: supple without lymphadenopathy or JVD. Trachea is central. No cervical or axillary lymphadenopathy noted. Carotids are 2+ LUNGS: Breath sounds bibasilar fine crackles at bases. No significant dullness noted. CHEST: Palpation of chest wall shows no significant chest wall tenderness. 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 ABDOMEN: Soft, no significant tenderness appreciated, normoactive bowel sounds. No guarding, no rebound. No rigidity noted . No masses appreciated. EXTREMITIES: Pedal pulses are 1-2+, no calf tenderness noted, 1+ pedal edema noted. No clubbing or cyanosis. NEUROLOGICAL: Patient is alert he is noted to have chronic right-sided hemiparesis with limited speech. PSYCH: Mood and judgment not checked because of aphasia. SKIN: No significant ecchymosis, rash, ulcerations or signs of pruritus noted. MUSCULOSKELETAL EXAM: No significant joint swelling noted. Results Laboratory Results: 11/14/17 04:15 11/14/17 04:15 11/14/17 11/14/17 04:15 04:15 WBC 5.7 RBC 2.83 L Hgb 8.7 L Hct 25.5 L MCV 90 MCH 30.9 MCHC 34.3 RDW 15.5 H Plt Count 122 L Sodium 141.9 Potassium 4.2 Chloride 100 Carbon Dioxide 28 Anion Gap 14 BUN 18 Creatinine 1.15 Est GFR ( Amer) > 60 Est GFR (Non-Af Amer) > 60 Glucose 134 H Calcium 8.8 EKG Comments: Shows atrial fibrillation with intermittent rapid ventricular response but reasonably well controlled Impressions: Chest X-Ray 11/11/17 12:19 IMPRESSION: Stable chest. Knee X-Ray 11/12/17 00:00 IMPRESSION: Comminuted fracture of the proximal femur with the lateral condyle has a definable fragment. Assessment & Plan - Diagnosis (1) Syncope and collapse Is this a current diagnosis for this admission?: Yes (2) Elevated troponin Is this a current diagnosis for this admission?: Yes (3) Atrial fibrillation with rapid ventricular response Is this a current diagnosis for this admission?: Yes (4) Cerebrovascular disease Is this a current diagnosis for this admission?: Yes (5) Chronic kidney disease, stage 3 Is this a current diagnosis for this admission?: Yes (6) Hypertension Qualifiers: Hypertension type: essential hypertension Qualified Code(s): I10 - Essential (primary) hypertension Is this a current diagnosis for this admission?: Yes (7) Urinary tract infection Qualifiers: Urinary tract infection type: site unspecified Is this a current diagnosis for this admission?: Yes (8) Seizure disorder Is this a current diagnosis for this admission?: Yes (9) Type 2 diabetes mellitus Qualifiers: Diabetes mellitus nursing home insulin use: without ad terminal makeup operator use Diabetes mellitus complication status: with unspecified complications Qualified Code(s) : E11.8 - Type 2 diabetes mellitus with unspecified complications Is this a current diagnosis for this admission?: Yes - Notes Notes: Syncope and collapse: Seems most consistent with vasovagal/neurocardiogenic syncope. Have switched patient from doxazosin to Flomax which might help. May consider Midodrin therapy if needed. Elevated troponin I: Most likely related to syncope with resultant hypotension rather than ACS. EKG is not showing any acute ST-T wave changes. Atrial fibrillation with rapid ventricular response: Could consider increasing metoprolol a slight bit and may be does it 3 times a day if tartrate is used. There are relative contraindication to chronic Coumadin therapy in this patient and chronic anticoagulation as well. Chronic kidney disease: Currently stable. Hypertension: Blood pressure under reasonable control UTI: This is being managed by hospitalist. Seizure disorder: In the differential diagnosis of syncope. Diabetes: Currently expertly managed by gas pit worker. CODE STATUS : was discussed , patient remains DO NOT RESUSCITATE. Surrogate decision-maker unchanged. Multiple medical problems were addressed. - Time Time with patient: Greater than 35 minutes - More than 50% of the time spent coordinating care, discussing management plans with involved caregivers. Management plans discussed with involved personnels. Medical decision making was of moderate to high complexity, patient's has multiple comorbidities. Medications reviewed and adjusted accordingly: Yes
[2017-11-14] MEDS: FUROSEMIDE 40 MG TABLET PO SCH (09:37)
[2017-11-14] MEDS: ASCORBIC ACID 500 MG TABLET PO SCH (09:38)
[2017-11-14] MEDS: CARBIDOPA/LEVODOPA 25-100 MG TABLET PO SCH (09:38)
[2017-11-14] MEDS: TRAMADOL HCL 50 MG TABLET PO SCH (09:39)
[2017-11-14] MEDS: LUBIPROSTONE 8 MCG CAPSULE PO SCH (09:39)
[2017-11-14] MEDS: METOPROLOL TARTRATE 25 MG TABLET PO SCH (09:39)
[2017-11-14] MEDS: ROPINIROLE HCL 1 MG TABLET PO SCH (09:39)
[2017-11-14] MEDS: CLONAZEPAM 1 MG TABLET PO SCH (09:39)
[2017-11-14] MEDS: DOCUSATE SODIUM 100 MG CAPSULE PO SCH (09:40)
[2017-11-14] MEDS: OXCARBAZEPINE 150 MG TABLET PO SCH (09:40)
[2017-11-14] MEDS: LOSARTAN POTASSIUM 25 MG TABLET PO SCH (09:40)
[2017-11-14] MEDS ORDERED: ERGOCALCIFEROL (VITAMIN D2) 50000 UNIT (1.25 MG) CAPSULE PO SCH (10:00)
--- NOTE | 2017-11-14 16:23 | PDOC DISCHARGE SUMMARY ---
General - Admit/Disc Date/PCP Admission Date/Primary Care Provider: 11/12/17 13:21 CAMILO SALDIVAR MD Discharge Date: 11/14/17 - Discharge Diagnosis (1) Syncope and collapse Is this a current diagnosis for this admission?: Yes (2) Closed comminuted supracondylar fracture of right femur Is this a current diagnosis for this admission?: Yes (3) Hemiplegia affecting right dominant side Is this a current diagnosis for this admission?: Yes (4) Chronic kidney disease, stage 3 Is this a current diagnosis for this admission?: Yes (5) Elevated troponin Is this a current diagnosis for this admission?: Yes (6) History of spontaneous subarachnoid intracranial hemorrhage Is this a current diagnosis for this admission?: Yes (7) Urinary tract infection, E. coli Is this a current diagnosis for this admission?: Yes - Additional Information Resuscitation Status: Do Not Resuscitate Prescriptions: Amox Tr/Potassium Clavulanate [Augmentin 875-125 mg Tablet] 1 tab PO BID #20 tablet Tamsulosin HCl [Flomax 0.4 mg Cap.sr] 0.4 mg PO PCSUPPER #90 cap.sr.24h Home Medications: Albuterol Sulfate [Proair HFA Inhalation Aerosol 8.5 gm MDI] 2 puff IH Q4HP PRN 11/11/17 Ascorbic Acid [Vitamin C 500 mg Tablet] 500 mg PO DAILY 11/11/17 Carbidopa/Levodopa [Sinemet 25-100 mg Tablet] 1.5 tab PO Q12 11/11/17 Clonazepam [Klonopin] 0.5 mg PO Q12 11/11/17 Docusate Sodium [Colace 100 mg Capsule] 100 mg PO DAILY 11/11/17 Ergocalciferol (Vitamin D2) [Drisdol 50,000 unit (1.25MG) Capsule] 50,000 unit PO WE@1000 11/11/17 Furosemide [Lasix 40 mg Tablet] 40 mg PO QAM 11/11/17 Losartan Potassium [Cozaar 25 mg Tablet] 25 mg PO DAILY 11/11/17 Lubiprostone [Amitiza 8 Mcg Capsule] 8 mcg PO DAILY 11/11/17 Metoprolol Tartrate [Lopressor 25 mg Tablet] 25 mg PO Q12 11/11/17 Montelukast Sodium [Singulair 10 mg Tablet] 10 mg PO QPM 11/11/17 Oxcarbazepine [Trileptal] 900 mg PO Q12 11/11/17 Ropinirole HCl [Requip] 1 mg PO DAILY 11/11/17 Tramadol HCl [Ultram 50 mg Tablet] 50 mg PO Q12 11/11/17 Amox Tr/Potassium Clavulanate [Augmentin 875-125 mg Tablet] 1 tab PO BID #20 tablet 11/14/17 Tamsulosin HCl [Flomax 0.4 mg Cap.sr] 0.4 mg PO PCSUPPER #90 cap.sr.24h History of Present Illness History of Present Illness: MILANA FRANCO is a 66 year old male,He was brought to the emergency room by his for evaluation of his syncope episode while at [employer]. He has a history of CVA with residual right-sided paralysis, history of subarachnoid hemorrhage, chronic atrial fibrillation not a candidate for anticoagulation because of history of subarachnoid hemorrhage. He was recently admitted and discharged from this hospital on 10/20/2017 for evaluation of syncope spells. The stated that he has had this episode multiple times since the last few months, he also have swelling of the right knee. Initially knee was done and it showed comminuted fracture of distal femur of the right knee, consultation will be requested orthopedic. In the emergency room he was found to have elevated troponin, this has been trending down not sure if this represent non- ST [place] or just a leak from cardiac muscles. He also follow with Dr. Henley, cardiology, patient poor historian he has expressive dysphasia most of the history is from the spouse Hospital Course Hospital Course: Patient was admitted for the management of syncope, is sustained fracture of the right distal femur in the supracondylar segment. He had elevated troponin, he was seen by Dr. Henley cardiology, it was felt that the elevated troponin is not from acute coronary syndrome most likely related to syncope and low blood pressure. He was seen by orthopedic the consensus was that he does not need surgical correction of the fracture femur, he has a history of CVA with right- sided paralysis, is not ambulatory, he has expressive dysphasia. Hospital course was complicated by UTI, he was initially empirically treated with IV Levaquin, the urine culture grew E. coli resistant to Levaquin but sensitive to cephalosporins and beta-lactam he was treated with IV Rocephin. He was seen today by Dr. Henley, it was felt that he could be discharged home today patient have some form of urologic abnormalities, he follows with urology from talking to his he has had multiple urologic procedures done including cystoscopy, the said she straight catheterizes him about twice a day, this may explain the reason for the recurrent UTI Physical Exam Vital Signs: Temp Pulse Resp BP Pulse Ox 97.7 F 80 20 124/79 97 11/14/17 07:25 11/14/17 07:25 11/14/17 07:25 11/14/17 07:25 11/14/17 07:25 Intake & Output 11/13/17 11/14/17 11/15/17 06:59 06:59 06:59 Intake Total 754 1389 459 Output Total 1100 1450 800 Balance -346 -61 -341 Weight 104.2 kg 103.7 kg General appearance: PRESENT: no acute distress Eye exam: PRESENT: PERRLA Cardiovascular exam: PRESENT: +S1, +S2 GI/Abdominal exam: PRESENT: soft Neurological exam: PRESENT: alert, motor sensory deficit - Right sided hemiplegia Results Laboratory Results: 11/14/17 04:15 11/14/17 04:15 11/14/17 11/14/17 04:15 04:15 WBC 5.7 RBC 2.83 L Hgb 8.7 L Hct 25.5 L MCV 90 MCH 30.9 MCHC 34.3 RDW 15.5 H Plt Count 122 L Sodium 141.9 Potassium 4.2 Chloride 100 Carbon Dioxide 28 Anion Gap 14 BUN 18 Creatinine 1.15 Est GFR ( Amer) > 60 Est GFR (Non-Af Amer) > 60 Glucose 134 H Calcium 8.8 Impressions: Chest X-Ray 11/11/17 12:19 IMPRESSION: Stable chest. Knee X-Ray 11/12/17 00:00 IMPRESSION: Comminuted fracture of the proximal femur with the lateral condyle has a definable fragment. Qualifiers - * PATIENT BEING DISCHARGED WITH ANY OF THE FOLLOWING DIAGNOSIS: No
[2017-11-14 16:52] VITALS: BP 118/75
[2017-11-14] MEDS ORDERED: TAMSULOSIN HCL 0.4 MG CAP.SR.24H PO SCH (18:00)
== END 2017-11-14 17:19 | disposition home or self-care (01) | DRG 312 ==
LOC: ER 11:51 → INTOOBSV 15:45 → EH 15:45 → 3N 17:20 → OBSVTOIN 11-12 13:21
PROVIDERS: ADMIT Internal Medicine; ATTEND Family Medicine
DX: R55 Syncope and collapse (principal); S72.451A Displaced supracondylar fracture without intracondylar extension of lower end of right femur, initial encounter for closed fracture; N39.0 Urinary tract infection, site not specified; I69.351 Hemiplegia and hemiparesis following cerebral infarction affecting right dominant side; I48.2 Chronic atrial fibrillation; E78.00 Pure hypercholesterolemia, unspecified; J44.9 Chronic obstructive pulmonary disease, unspecified; K21.9 Gastro-esophageal reflux disease without esophagitis; G40.909 Epilepsy, unspecified, not intractable, without status epilepticus; E11.22 Type 2 diabetes mellitus with diabetic chronic kidney disease; I12.9 Hypertensive chronic kidney disease with stage 1 through stage 4 chronic kidney disease, or unspecified chronic kidney disease; N18.3 Chronic kidney disease, stage 3 (moderate); R79.89 Other specified abnormal findings of blood chemistry; I69.321 Dysphasia following cerebral infarction; B96.20 Unspecified Escherichia coli [E. coli] as the cause of diseases classified elsewhere
CPT/HCPCS: 36415; 51702; 71045; 80048; 80053; 81001; 82550; 82553; 83735; 83880; 84484; 85025; 85027; 86140; 87040; 87077; 87086; 87088; 87186; 93005; 93010; 99285; A9270 GY; G0378; J0696; J3370; J3490; L1830

== ENCOUNTER → 2017-12-04 | Outpatient (CLI) | payer MEDICARE ==
[2017-12-04 14:17] LABS: ABSOLUTE EOSINOPHILS # (AUTO) 0.2 10^3/uL (0.0-0.6); ABSOLUTE LYMPHOCYTES (AUTO) 0.9 10^3/uL (0.5-4.7); ABSOLUTE MONOCYTES (AUTO) 0.4 10^3/uL (0.1-1.4); ABSOLUTE NEUT (AUTO) 5.2 10^3/uL (1.7-8.2); BASOPHILS % (AUTO) 0.6 % (0-2); EOSINOPHILS % (AUTO) 2.7 % (0-6); HEMOGLOBIN 10.9 g/dL (13.5-17.0); LYMPHOCYTES % (AUTO) 13.8 % (13-45); MEAN CORPUSCULAR HEMOGLOBIN 29.8 pg (27.0-33.4); MEAN CORPUSCULAR HGB CONC 33.2 g/dL (32.0-36.0); MEAN CORPUSCULAR VOLUME 90 fl (80-97); MONOCYTES % (AUTO) 5.8 % (3-13); PLATELET COUNT 226 10^3/uL (150-450); RED BLOOD COUNT 3.67 10^6/uL (4.35-5.55); RED CELL DISTRIBUTION WIDTH 15.8 % (11.5-14.0); SEGMENTED NEUTROPHILS % (AUTO) 77.1 % (42-78); TOTAL CELLS COUNTED % (AUTO) 100 %; WHITE BLOOD COUNT 6.8 10^3/uL (4.0-10.5)
[2017-12-04 14:36] LABS: ALANINE AMINOTRANSFERASE < 6 U/L (21-72); ALBUMIN 3.7 g/dL (3.5-5.0); ALKALINE PHOSPHATASE 180 U/L (38-126); ANION GAP 14 (5-19); ASPARTATE AMINO TRANSFERASE 15 U/L (17-59); BILIRUBIN,DIRECT 0.5 mg/dL (0.0-0.4); BILIRUBIN,TOTAL 0.5 mg/dL (0.2-1.3); BLOOD UREA NITROGEN 16 mg/dL (7-20); CALCIUM 8.9 mg/dL (8.4-10.2); CARBON DIOXIDE 30 mmol/L (22-30); CHLORIDE 99 mmol/L (98-107); GLUCOSE 142 mg/dL (75-110); POTASSIUM 3.8 mmol/L (3.6-5.0); SODIUM 142.5 mmol/L (137-145); TOTAL PROTEIN 6.7 g/dL (6.3-8.2)
[2017-12-06 10:35] LABS: APPEARANCE,URINE CLEAR; BILIRUBIN,URINE NEGATIVE (NEGATIVE); COLOR,URINE YELLOW; GLUCOSE, URINE NEGATIVE (NEGATIVE); KETONES,URINE NEGATIVE (NEGATIVE); LEUKOCYTE ESTERASE,URINE TRACE (NEGATIVE); NITRITE,URINE NEGATIVE (NEGATIVE); PROTEIN,URINE 100 mg/dL (NEGATIVE); URINE SPECIFIC GRAVITY 1.013
== END ==
LOC: OD 12:56
PROVIDERS: ATTEND Internal Medicine Nephrology
DX: I12.9 Hypertensive chronic kidney disease with stage 1 through stage 4 chronic kidney disease, or unspecified chronic kidney disease (principal); N18.3 Chronic kidney disease, stage 3 (moderate)
CPT/HCPCS: 36415; 80053; 81001; 85025

== ENCOUNTER → 2017-12-21 | Outpatient (CLI) | payer MEDICAID, MEDICARE ==
--- NOTE | 2017-12-21 14:50 | WOMENS IMAGING REPORT ---
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 TECHNIQUE: Dual-Energy X-ray Absorptiometry (DEXA) of the left Forearm. LIMITATIONS: None. FINDINGS: FOREARM: The bone mineral density (BMD) measured in the left forearm correlates with a T-score of -3.3 which i s osteoporotic as defined by the World Health Organization. IMPRESSION: Left Forearm bone density osteoporotic COMMENT: The World Health Organization defines low BMD as follows: T-score: Normal: Greater than -1.0 Osteopenia: Between -1.0 and -2.5 Osteoporosis: Less than -2.5 without fractures Established osteoporosis: Less than -2.5 with fractures In general, you may wish to consider: Diagnosis Treatment Follow-up DEXA Normal BMD Prevention 2-3 years Osteopenia Prevention/Therapy 1-2 years Osteoporosis Therapy Yearly TECHNICAL DOCUMENTATION: JOB ID: [id number] [employer]- All Rights Reserved Reading location - IP/workstation name: [facility]
== END ==
LOC: WI 13:11
PROVIDERS: ATTEND Orthopaedic Surgery
DX: M81.0 Age-related osteoporosis without current pathological fracture (principal)
CPT/HCPCS: 77080

== ENCOUNTER 2018-02-23 11:18 | Inpatient (IN) | payer MEDICARE ==
[2018-02-23 13:04] LABS: APPEARANCE,URINE CLOUDY; BILIRUBIN,URINE NEGATIVE (NEGATIVE); COLOR,URINE AMBER; GLUCOSE, URINE NEGATIVE (NEGATIVE); KETONES,URINE NEGATIVE (NEGATIVE); LEUKOCYTE ESTERASE,URINE LARGE (NEGATIVE); NITRITE,URINE NEGATIVE (NEGATIVE); PROTEIN,URINE 100 mg/dL (NEGATIVE); URINE SPECIFIC GRAVITY 1.011; UROBILINOGEN,URINE NEGATIVE mg/dL (<2.0)
--- NOTE | 2018-02-23 13:23 | RADIOLOGY REPORT (SQ) ---
EXAM DESCRIPTION: PELVIS AP COMPLETED DATE/TIME: 02/23/2018 1:13 pm REASON FOR STUDY: SUPRAPUBIC CATH REPLACEMENT COMPARISON: None. NUMBER OF VIEWS: One view TECHNIQUE: AP Pelvis image acquired after administration of 30 mL of diluted Omnipaque 300. LIMITATIONS: None. FINDINGS: Suprapubic catheter. There is contrast filling of the bladder with no evidence of extrava sation. No significant radiographic findings. IMPRESSION: SUPRAPUBIC CATHETER IN THE BLADDER. CONTRAST FILLS THE BLADDER WITH NO EVIDENCE OF EXTR AVASATION. TECHNICAL DOCUMENTATION: JOB ID: [id number] [employer]- All Rights Reserved Reading location - IP/workstation name: [email or web address]
[2018-02-23 13:29] LABS: ANION GAP 10 (5-19); BLOOD UREA NITROGEN 22 mg/dL (7-20); CALCIUM 8.9 mg/dL (8.4-10.2); CARBON DIOXIDE 33 mmol/L (22-30); CHLORIDE 95 mmol/L (98-107); GLUCOSE 145 mg/dL (75-110); SODIUM 137.6 mmol/L (137-145)
[2018-02-23] MEDS ORDERED: POTASSI CL 40 MEQ/NS 1L 1,000 ML IV ONE (13:43)
[2018-02-23] MEDS ORDERED: POTASSIUM CHLORIDE 10 MEQ CAPSULE.ER PO ONE (13:44)
[2018-02-23] MEDS ORDERED: CEFTRIAXONE 1 GM/D5W RTU 1 GM/50 ML RTUPB IV ONE (13:46)
[2018-02-23 13:51] LABS: POTASSIUM 2.4 mmol/L (3.6-5.0)
[2018-02-23 13:58] LABS: ABSOLUTE BASOPHILS # (AUTO) 0.1 10^3/uL (0.0-0.2); ABSOLUTE EOSINOPHILS # (AUTO) 0.2 10^3/uL (0.0-0.6); ABSOLUTE LYMPHOCYTES (AUTO) 0.8 10^3/uL (0.5-4.7); ABSOLUTE MONOCYTES (AUTO) 0.5 10^3/uL (0.1-1.4); ABSOLUTE NEUT (AUTO) 6.7 10^3/uL (1.7-8.2); BASOPHILS % (AUTO) 0.8 % (0-2); HEMATOCRIT 38.5 % (37.9-51.0); HEMOGLOBIN 13.1 g/dL (13.5-17.0); LYMPHOCYTES % (AUTO) 10.2 % (13-45); MEAN CORPUSCULAR HEMOGLOBIN 29.4 pg (27.0-33.4); MEAN CORPUSCULAR HGB CONC 34.1 g/dL (32.0-36.0); MEAN CORPUSCULAR VOLUME 86 fl (80-97); MONOCYTES % (AUTO) 5.9 % (3-13); PLATELET COUNT 179 10^3/uL (150-450); RED BLOOD COUNT 4.47 10^6/uL (4.35-5.55); RED CELL DISTRIBUTION WIDTH 16.1 % (11.5-14.0); SEGMENTED NEUTROPHILS % (AUTO) 81.1 % (42-78); TOTAL CELLS COUNTED % (AUTO) 100 %; WHITE BLOOD COUNT 8.2 10^3/uL (4.0-10.5)
[2018-02-23] MEDS ORDERED: CEFTRIAXONE INJ 1000 MG VIAL ONE (14:02)
[2018-02-23] MEDS ORDERED: POTASSI CL 20 MEQ/50 ML RIDER 20 MEQ/50 ML RTUPB IV SCH (14:15)
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
[2018-02-23] MEDS ORDERED: POTASSIUM CHLORIDE 20 MEQ/15 ML UDCUP PO ONE (14:28)
[2018-02-23] MEDS: POTASSI CL 20 MEQ/50 ML RIDER 20 MEQ/50 ML RTUPB IV SCH ×2 (14:38→17:13)
[2018-02-23] MEDS ORDERED: NORMAL SALINE 1000 ML 500 ML IV ONE (17:29)
[2018-02-23] MEDS ORDERED: POTASSI CL 20 MEQ/1/2NS 1L 20 MEQ/1,000 ML RTUINJ IV PRN (19:43)
[2018-02-23] MEDS ORDERED: ACETAMINOPHEN 325 MG TABLET PO PRN (19:43)
[2018-02-23] MEDS ORDERED: TAMSULOSIN HCL 0.4 MG CAP.SR.24H PO ONE (21:00)
[2018-02-23] MEDS ORDERED: MONTELUKAST SODIUM 10 MG TABLET PO ONE (21:00)
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
[2018-02-23] MEDS ORDERED: MONTELUKAST SODIUM 10 MG TABLET ONE (22:02)
[2018-02-23] MEDS ORDERED: CARBIDOPA/LEVODOPA 25-100 MG TABLET ONE (22:03)
[2018-02-23] MEDS: FAMOTIDINE 20 MG TABLET PO SCH (22:05)
[2018-02-23] MEDS: CLONAZEPAM 1 MG TABLET PO SCH (22:06)
[2018-02-23] MEDS: TRAMADOL HCL 50 MG TABLET PO SCH (22:06)
[2018-02-23] MEDS: METOPROLOL TARTRATE 25 MG TABLET PO SCH (22:07)
[2018-02-23] MEDS: HEPARIN SOD (PORCINE) 5,000 UNIT/ML 1 ML SYRINGE SUBCUT SCH (22:07)
[2018-02-23] MEDS: CARBIDOPA/LEVODOPA 25-100 MG TABLET PO SCH (22:30)
[2018-02-23] MEDS: OXCARBAZEPINE 150 MG TABLET PO SCH (22:31)
[2018-02-24] MEDS: HEPARIN SOD (PORCINE) 5,000 UNIT/ML 1 ML SYRINGE SUBCUT SCH ×2 (05:44→14:34)
[2018-02-24 07:38] LABS: ABSOLUTE BASOPHILS # (AUTO) 0.1 10^3/uL (0.0-0.2); ABSOLUTE EOSINOPHILS # (AUTO) 0.2 10^3/uL (0.0-0.6); ABSOLUTE LYMPHOCYTES (AUTO) 1.7 10^3/uL (0.5-4.7); ABSOLUTE MONOCYTES (AUTO) 0.5 10^3/uL (0.1-1.4); ABSOLUTE NEUT (AUTO) 5.9 10^3/uL (1.7-8.2); BASOPHILS % (AUTO) 0.7 % (0-2); EOSINOPHILS % (AUTO) 2.7 % (0-6); HEMATOCRIT 39.4 % (37.9-51.0); HEMOGLOBIN 13.3 g/dL (13.5-17.0); LYMPHOCYTES % (AUTO) 19.9 % (13-45); MEAN CORPUSCULAR HEMOGLOBIN 29.6 pg (27.0-33.4); MEAN CORPUSCULAR HGB CONC 33.7 g/dL (32.0-36.0); MEAN CORPUSCULAR VOLUME 88 fl (80-97); MONOCYTES % (AUTO) 6.3 % (3-13); PLATELET COUNT 157 10^3/uL (150-450); RED BLOOD COUNT 4.48 10^6/uL (4.35-5.55); RED CELL DISTRIBUTION WIDTH 16.1 % (11.5-14.0); SEGMENTED NEUTROPHILS % (AUTO) 70.4 % (42-78); TOTAL CELLS COUNTED % (AUTO) 100 %; WHITE BLOOD COUNT 8.5 10^3/uL (4.0-10.5)
[2018-02-24 08:00] LABS: ANION GAP 15 (5-19); BLOOD UREA NITROGEN 19 mg/dL (7-20); CARBON DIOXIDE 24 mmol/L (22-30); CHLORIDE 100 mmol/L (98-107); GLUCOSE 132 mg/dL (75-110); POTASSIUM 3.1 mmol/L (3.6-5.0); SODIUM 139.2 mmol/L (137-145)
[2018-02-24] MEDS ORDERED: ALBUTEROL SULFATE 0.083% NEB 2.5 MG/3 ML AMPUL NEB PRN (08:04)
[2018-02-24] MEDS ORDERED: DOCUSATE SODIUM 100 MG CAPSULE PO SCH ×2 (10:00)
[2018-02-24] MEDS ORDERED: LOSARTAN POTASSIUM 25 MG TABLET PO SCH (10:00)
[2018-02-24] MEDS ORDERED: ROPINIROLE HCL 1 MG TABLET PO SCH (10:00)
[2018-02-24] MEDS: CARBIDOPA/LEVODOPA 25-100 MG TABLET PO SCH (10:40)
[2018-02-24] MEDS: CLONAZEPAM 1 MG TABLET PO SCH (10:42)
[2018-02-24] MEDS: TRAMADOL HCL 50 MG TABLET PO SCH (10:43)
[2018-02-24] MEDS: METOPROLOL TARTRATE 25 MG TABLET PO SCH (10:44)
[2018-02-24] MEDS: FAMOTIDINE 20 MG TABLET PO SCH (10:44)
[2018-02-24] MEDS ORDERED: POTASSIUM CHLORIDE 10 MEQ CAPSULE.ER PO ONE (10:45)
[2018-02-24] MEDS: OXCARBAZEPINE 150 MG TABLET PO SCH (11:04)
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
[2018-02-24 15:15] VITALS: BP 117/73
[2018-02-24] MEDS ORDERED: POTASSIUM CHLORIDE 10 MEQ CAPSULE.ER PO SCH (17:00)
[2018-02-24] MEDS ORDERED: MONTELUKAST SODIUM 10 MG TABLET PO SCH (18:00)
[2018-02-24] MEDS ORDERED: TAMSULOSIN HCL 0.4 MG CAP.SR.24H PO SCH (18:00)
== END 2018-02-24 16:00 | disposition home or self-care (01) | DRG 699 ==
LOC: ER 11:18 → OBSVTOIN 18:30 → EH 18:30 → 4N 02-24 01:15
PROVIDERS: ADMIT Emergency Medicine; ATTEND Emergency Medicine
PROC: 0T2BX0Z Change Drainage Device in Bladder, External Approach (ICD-10-PCS; principal; 2018-02-23)
PROC: 3E0F73Z Introduction of Anti-inflammatory into Respiratory Tract, Via Natural or Artificial Opening (ICD-10-PCS; 2018-02-24)
DX: T83.010A Breakdown (mechanical) of cystostomy catheter, initial encounter (principal); N30.01 Acute cystitis with hematuria; E87.6 Hypokalemia; K52.9 Noninfective gastroenteritis and colitis, unspecified; I12.9 Hypertensive chronic kidney disease with stage 1 through stage 4 chronic kidney disease, or unspecified chronic kidney disease; N18.9 Chronic kidney disease, unspecified; G20 Parkinson's disease; Y84.6 Urinary catheterization as the cause of abnormal reaction of the patient, or of later complication, without mention of misadventure at the time of the procedure; I48.91 Unspecified atrial fibrillation; E78.00 Pure hypercholesterolemia, unspecified; G47.30 Sleep apnea, unspecified; K21.9 Gastro-esophageal reflux disease without esophagitis; M19.90 Unspecified osteoarthritis, unspecified site; F32.9 Major depressive disorder, single episode, unspecified; E11.22 Type 2 diabetes mellitus with diabetic chronic kidney disease; J44.9 Chronic obstructive pulmonary disease, unspecified; N28.9 Disorder of kidney and ureter, unspecified; I69.969 Other paralytic syndrome following unspecified cerebrovascular disease affecting unspecified side; Z99.3 Dependence on wheelchair; Z79.899 Other long term (current) drug therapy; Z87.891 Personal history of nicotine dependence; Z91.041 Radiographic dye allergy status; Z82.49 Family history of ischemic heart disease and other diseases of the circulatory system
CPT/HCPCS: 36415; 51702; 72170; 80048; 81001; 83735; 85025; 87040; 87070; 87077; 87086; 87088; 87186; 87205; 87493; 96361; 96365; 96366; 99285; C1758; J0696; J1644; J3480; J3490

== ENCOUNTER → 2018-03-01 | Outpatient (CLI) | payer MEDICARE ==
[2018-03-01 16:35] LABS: ABSOLUTE BASOPHILS # (AUTO) 0.1 10^3/uL (0.0-0.2); ABSOLUTE EOSINOPHILS # (AUTO) 0.2 10^3/uL (0.0-0.6); ABSOLUTE LYMPHOCYTES (AUTO) 1.1 10^3/uL (0.5-4.7); ABSOLUTE MONOCYTES (AUTO) 0.4 10^3/uL (0.1-1.4); ABSOLUTE NEUT (AUTO) 6.8 10^3/uL (1.7-8.2); BASOPHILS % (AUTO) 0.9 % (0-2); HEMATOCRIT 40.2 % (37.9-51.0); HEMOGLOBIN 13.7 g/dL (13.5-17.0); LYMPHOCYTES % (AUTO) 12.5 % (13-45); MEAN CORPUSCULAR HEMOGLOBIN 29.8 pg (27.0-33.4); MEAN CORPUSCULAR HGB CONC 34.1 g/dL (32.0-36.0); MEAN CORPUSCULAR VOLUME 87 fl (80-97); MONOCYTES % (AUTO) 5.1 % (3-13); PLATELET COUNT 202 10^3/uL (150-450); RED CELL DISTRIBUTION WIDTH 16.1 % (11.5-14.0); SEGMENTED NEUTROPHILS % (AUTO) 79.5 % (42-78); TOTAL CELLS COUNTED % (AUTO) 100 %; WHITE BLOOD COUNT 8.5 10^3/uL (4.0-10.5)
[2018-03-01 19:25] LABS: ANION GAP 12 (5-19); BLOOD UREA NITROGEN 13 mg/dL (7-20); CARBON DIOXIDE 26 mmol/L (22-30); CHLORIDE 101 mmol/L (98-107); GLUCOSE 145 mg/dL (75-110); POTASSIUM 3.9 mmol/L (3.6-5.0); SODIUM 138.6 mmol/L (137-145)
== END ==
LOC: OD 14:45
PROVIDERS: ATTEND Family Medicine
DX: R19.7 Diarrhea, unspecified (principal)
CPT/HCPCS: 36415; 80048; 85025

== ENCOUNTER 2018-03-08 18:32 | Emergency (ER) | payer MEDICARE ==
[2018-03-08 18:40] VITALS: BP 143/84
--- NOTE | 2018-03-08 19:30 | ER Document Report ---
ED Medical Screen (RME) - General Chief Complaint: Abnormal Lab Results Stated Complaint: ABNORMAL LABS Time Seen by Provider: 03/08/18 19:20 Notes: 67-year-old male patient had lab work done today showing a potassium of 5.6 and was told to come to the emergency room. He had potassium tablets this morning prior to lab work being done, but has had none since then. He has not eaten any bananas today. He was in the hospital last week and had low potassium, so potassium supplementation was started. He does continue to have the diarrhea that he had for the past week or more. He had a negative C. difficile test a few days ago. An EKG done today does not show tall or peaked T waves. I have greeted and performed a rapid initial assessment of this patient. A comprehensive ED assessment and evaluation of the patient, analysis of test results and completion of the medical decision making process will be conducted by additional ED providers. TRAVEL OUTSIDE OF THE [place] IN LAST 30 DAYS: No - Related Data Allergies/Adverse Reactions: Iodinated Contrast- Oral and IV Dye Allergy (Mild, Verified 02/23/18 11:20) Generalized rash Past Medical History - General Information source: Patient, [facility] Records - Social History Cigarette use (# per day): No Chew tobacco use (# tins/day): No Frequency of alcohol use: None Drug Abuse: None Lives with: Family Family history: Reviewed & Not Pertinent - Past Medical History Cardiac Medical History: Reports: Hx Atrial Fibrillation, Hx Hypercholesterolemia, Hx Hypertension Pulmonary Medical History: Reports: Hx COPD, Hx Pneumonia, Hx Sleep Apnea Neurological Medical History: Reports: Hx Cerebrovascular Accident - 2005 WEAKER ON RIGHT SIDE, Hx Seizures - LAST ONE OVER 1 YR. AGO. Endocrine Medical History: Reports: Hx Diabetes Mellitus Type 2 Renal/ Medical History: Reports: Hx Kidney Stones GI Medical History: Reports: Hx Gastroesophageal Reflux Disease - aspiration Musculoskeltal Medical History: Reports Hx Arthritis Psychiatric Medical History: Reports: Hx Depression Traumatic Medical History: Reports: Hx Fractures - right foot Past Surgical History: Reports: Hx Abdominal Surgery - PEG tube, Hx Bowel Surgery - cyst on bladder, Hx Orthopedic Surgery - right shoulder - Immunizations Hx Diphtheria, Pertussis, Tetanus Vaccination: Yes Influenza Administration Date for 03/2017 - 08/2017 Season: 04/04/17 Review of Systems - Review of Systems Constitutional: No symptoms reported EENT: No symptoms reported Cardiovascular: No symptoms reported Respiratory: No symptoms reported Gastrointestinal: Diarrhea Genitourinary: Other - Mariano catheter Musculoskeletal: No symptoms reported Skin: No symptoms reported Hematologic/Lymphatic: No symptoms reported Neurological/Psychological: Paralysis - Right-sided weakness following CVA Physical Exam - Vital signs Vitals: Temp Pulse Resp BP Pulse Ox 97.8 F 79 18 143/84 H 96 03/08/18 18:38 10 18:38 03/08/18 18:38 03/08/18 18:38 03/08/18 18:38 Interpretation: Normal - General General appearance: Appears well, Alert In distress: None - HEENT Head: Normocephalic, Atraumatic Eyes: Normal Pupils: PERRL - Respiratory Respiratory status: No respiratory distress - Cardiovascular Rhythm: Regular - Abdominal Inspection: Obese Bowel sounds: Normal Tenderness: Nontender - Back Back: Normal - Extremities General upper extremity: Other - Right-sided weakness General lower extremity: Other - Right-sided weakness - Neurological Neuro grossly intact: No - Right-sided weakness secondary to old CVA - Psychological Associated symptoms: Normal affect, Normal mood - Skin Skin Temperature: Warm Skin Moisture: Dry Skin Color: Normal Course - Vital Signs Vital signs: Temp Pulse Resp BP Pulse Ox 97.8 F 79 18 143/84 H 96 03/08/18 18:38 03/08/18 18:38 03/08/18 18:38 03/08/18 18:38 03/08/18 18:38 - Laboratory Result Diagrams: 03/08/18 19:49 Laboratory results interpreted by me: 03/08/18 19:49 Potassium 5.1 H BUN 23 H Creatinine 1.35 H Est GFR (Non-Af Amer) 53 L Glucose 147 H - EKG Interpretation by Wy EKG shows normal: [place], Intervals, QRS Complexes, ST-T Waves Rate: Tachycardia - 116 Rhythm: A.Fib [place]/QRS: IVCD Doctor's Discharge - Discharge Clinical Impression: Hyperkalemia, Dehydration Condition: Stable Disposition: HOME, SELF-CARE Additional Instructions: Stop taking your potassium supplements for now. Drink a lot more water when you get home. Follow-up with Dr. Saldivar on Sunday to repeat your lab work. RETURN TO THE EMERGENCY ROOM IF ANY NEW OR WORSENING SYMPTOMS. Referrals: CAMILO SALDIVAR MD [Primary Care Provider] - 03/11/18
[2018-03-08 20:11] LABS: ANION GAP 14 (5-19); BLOOD UREA NITROGEN 23 mg/dL (7-20); CALCIUM 9.3 mg/dL (8.4-10.2); CARBON DIOXIDE 23 mmol/L (22-30); CHLORIDE 101 mmol/L (98-107); GLUCOSE 147 mg/dL (75-110); POTASSIUM 5.1 mmol/L (3.6-5.0); SODIUM 137.6 mmol/L (137-145)
--- NOTE | 2018-03-08 20:33 | ER Document Report ---
ED Medical Screen (RME) - General Chief Complaint: Abnormal Lab Results Stated Complaint: ABNORMAL LABS Time Seen by Provider: 03/08/18 19:20 TRAVEL OUTSIDE OF THE [place] IN LAST 30 DAYS: No - Related Data Allergies/Adverse Reactions: Iodinated Contrast- Oral and IV Dye Allergy (Mild, Verified 02/23/18 11:20) Generalized rash Past Medical History - Past Medical History Cardiac Medical History: Reports: Hx Atrial Fibrillation, Hx Hypercholesterolemia, Hx Hypertension Denies: Hx Coronary Artery Disease, Hx Heart Attack, Hx Heart Murmur Pulmonary Medical History: Reports: Hx COPD, Hx Pneumonia, Hx Sleep Apnea Denies: Hx Asthma, Hx Bronchitis, Hx Respiratory Failure, Hx Tuberculosis Neurological Medical History: Reports: Hx Cerebrovascular Accident - 2005 WEAKER ON RIGHT SIDE, Hx Seizures - LAST ONE OVER 1 YR. AGO. Endocrine Medical History: Reports: Hx Diabetes Mellitus Type 2 Renal/ Medical History: Reports: Hx Kidney Stones. Denies: Hx Peritoneal Dialysis GI Medical History: Reports: Hx Gastroesophageal Reflux Disease - aspiration. Denies: Hx Hepatitis, Hx Hiatal Hernia, Hx Pancreatitis, Hx Ulcer Musculoskeltal Medical History: Reports Hx Arthritis Psychiatric Medical History: Reports: Hx Depression Traumatic Medical History: Reports: Hx Fractures - right foot. Denies: Hx Gunshot Wound, Hx Pneumothorax, Hx Traumatic Brain Injury Infectious Medical History: Denies: Hx Hepatitis Past Surgical History: Reports: Hx Abdominal Surgery - PEG tube, Hx Bowel Surgery - cyst on bladder, Hx Orthopedic Surgery - right shoulder. Denies: Hx Open Heart Surgery, Hx Pacemaker - Immunizations Hx Diphtheria, Pertussis, Tetanus Vaccination: Yes Influenza Administration Date for 03/2017 - 08/2017 Season: 04/04/17 Physical Exam - Vital signs Vitals: Temp Pulse Resp BP Pulse Ox 97.8 F 79 18 143/84 H 96 03/08/18 18:38 03/08/18 18:38 03/08/18 18:38 03/08/18 18:38 03/08/18 18:38 Course - Vital Signs Vital signs: Temp Pulse Resp BP Pulse Ox 97.8 F 79 18 143/84 H 96 03/08/18 18:38 03/08/18 18:38 03/08/18 18:38 03/08/18 18:38 03/08/18 18:38 - Laboratory Result Diagrams: 03/08/18 19:49 Laboratory results interpreted by me: 03/08/18 19:49 Potassium 5.1 H BUN 23 H Creatinine 1.35 H Est GFR (Non-Af Amer) 53 L Glucose 147 H Doctor's Discharge - Discharge Referrals: CAMILO SALDIVAR MD [Primary Care Provider] - Follow up as needed
--- NOTE | 2018-03-09 19:21 | EKG REPORT ---
SEVERITY:- ABNORMAL ECG - ATRIAL FIBRILLATION NONSPECIFIC INTRAVENTRICULAR CONDUCTION DELAY : Confirmed by: Boby Henley 09-Mar-2018 19:20:06
== END 2018-03-08 20:38 | disposition home or self-care (01) ==
LOC: ER 18:32
DX: E87.5 Hyperkalemia (principal); E86.0 Dehydration; R00.0 Tachycardia, unspecified; R19.7 Diarrhea, unspecified; I48.91 Unspecified atrial fibrillation; E11.9 Type 2 diabetes mellitus without complications; I10 Essential (primary) hypertension; J44.9 Chronic obstructive pulmonary disease, unspecified; I69.351 Hemiplegia and hemiparesis following cerebral infarction affecting right dominant side; Z91.041 Radiographic dye allergy status
CPT/HCPCS: 36415; 80048; 93005; 93010; 99283

== ENCOUNTER → 2018-03-08 | Outpatient (CLI) | payer MEDICARE ==
[2018-03-08 15:19] LABS: ANION GAP 12 (5-19); BLOOD UREA NITROGEN 21 mg/dL (7-20); CALCIUM 9.3 mg/dL (8.4-10.2); CARBON DIOXIDE 20 mmol/L (22-30); CHLORIDE 105 mmol/L (98-107); GLUCOSE 139 mg/dL (75-110); POTASSIUM 5.6 mmol/L (3.6-5.0); SODIUM 136.9 mmol/L (137-145)
== END ==
LOC: OD 12:45
PROVIDERS: ATTEND Family Medicine
DX: R19.7 Diarrhea, unspecified (principal)
CPT/HCPCS: 36415; 80048

== ENCOUNTER 2018-03-10 12:43 | Inpatient (IN) | payer MEDICARE ==
[2018-03-10 13:06] LABS: ABSOLUTE EOSINOPHILS # (AUTO) 0.3 10^3/uL (0.0-0.6); ABSOLUTE LYMPHOCYTES (AUTO) 2.7 10^3/uL (0.5-4.7); ABSOLUTE MONOCYTES (AUTO) 0.8 10^3/uL (0.1-1.4); BASOPHILS % (AUTO) 0.4 % (0-2); EOSINOPHILS % (AUTO) 2.2 % (0-6); HEMATOCRIT 37.9 % (37.9-51.0); HEMOGLOBIN 12.5 g/dL (13.5-17.0); LYMPHOCYTES % (AUTO) 21.1 % (13-45); MEAN CORPUSCULAR HEMOGLOBIN 29.2 pg (27.0-33.4); MEAN CORPUSCULAR HGB CONC 33.1 g/dL (32.0-36.0); MEAN CORPUSCULAR VOLUME 88 fl (80-97); PLATELET COUNT 232 10^3/uL (150-450); RED CELL DISTRIBUTION WIDTH 16.4 % (11.5-14.0); SEGMENTED NEUTROPHILS % (AUTO) 70.3 % (42-78); TOTAL CELLS COUNTED % (AUTO) 100 %; WHITE BLOOD COUNT 12.8 10^3/uL (4.0-10.5)
--- NOTE | 2018-03-10 13:17 | RADIOLOGY REPORT (SQ) ---
EXAM DESCRIPTION: CHEST SINGLE VIEW COMPLETED DATE/TIME: 03/10/2018 1:08 pm REASON FOR STUDY: Altered mental status COMPARISON: 11/11/2017 and earlier EXAM PARAMETERS: NUMBER OF VIEWS: One view. TECHNIQUE: Single frontal radiographic view of the chest acquired. RADIATION DOSE: NA LIMITATIONS: None. FINDINGS: LUNGS AND PLEURA: No opacities, masses or pneumothorax. No pleural effusion. MEDIASTINUM AND HILAR STRUCTURES: Unchanged right or deviation of the trachea. No masses. Contour n ormal. HEART AND VASCULAR STRUCTURES: Cardiac silhouette is unchanged in size. Normal vasculature. BONES: No acute findings. HARDWARE: None in the chest. OTHER: No other significant finding. IMPRESSION: NO ACUTE RADIOGRAPHIC FINDING IN THE CHEST. TECHNICAL DOCUMENTATION: JOB ID: [id number] [employer]- All Rights Reserved Reading location - IP/workstation name: [email or web address]
[2018-03-10 13:30] LABS: ALANINE AMINOTRANSFERASE < 6 U/L (21-72); ALBUMIN 3.9 g/dL (3.5-5.0); ALKALINE PHOSPHATASE 133 U/L (38-126); ANION GAP 11 (5-19); ASPARTATE AMINO TRANSFERASE 36 U/L (17-59); BILIRUBIN,DIRECT 0.6 mg/dL (0.0-0.4); BILIRUBIN,TOTAL 0.8 mg/dL (0.2-1.3); BLOOD UREA NITROGEN 24 mg/dL (7-20); CALCIUM 8.9 mg/dL (8.4-10.2); CARBON DIOXIDE 24 mmol/L (22-30); CHLORIDE 100 mmol/L (98-107); CREATINE KINASE 23 U/L (55-170); GLUCOSE 162 mg/dL (75-110); POTASSIUM 4.4 mmol/L (3.6-5.0); SODIUM 134.7 mmol/L (137-145); TOTAL PROTEIN 7.4 g/dL (6.3-8.2)
[2018-03-10 13:42] LABS: CREATINE KINASE MB 0.59 ng/mL (<4.55)
[2018-03-10 13:44] LABS: TROPONIN I < 0.012 ng/mL
[2018-03-10 15:10] LABS: AMORPHOUS SEDIMENT,URINE TRACE /HPF; APPEARANCE,URINE SLIGHTLY-CLOUDY; BILIRUBIN,URINE NEGATIVE (NEGATIVE); COLOR,URINE YELLOW; GLUCOSE, URINE NEGATIVE (NEGATIVE); KETONES,URINE NEGATIVE (NEGATIVE); LEUKOCYTE ESTERASE,URINE LARGE (NEGATIVE); NITRITE,URINE NEGATIVE (NEGATIVE); PROTEIN,URINE 30 mg/dL (NEGATIVE); URINE SPECIFIC GRAVITY 1.011; UROBILINOGEN,URINE NEGATIVE mg/dL (<2.0)
--- NOTE | 2018-03-10 15:59 | RADIOLOGY REPORT (SQ) ---
EXAM DESCRIPTION: CT HEAD WITHOUT COMPLETED DATE/TIME: 03/10/2018 3:30 pm REASON FOR STUDY: Altered mental status, Hx stroke, right arm weakness COMPARISON: 10/18/2017 and earlier TECHNIQUE: Axial images acquired through the brain without intravenous contrast. Images reviewed wi th bone, brain and subdural windows. Additional sagittal and coronal reconstructions were generated. Images stored on PACS. All CT scanners at this facility use dose modulation, iterative reconstruction, and/or weight based d osing when appropriate to reduce radiation dose to as low as reasonably achievable (ALARA). [facility]: Dose Right [facility]: CareDose [facility]: Dose Right [facility]: Teradose 4D [facility]: [employer] RADIATION DOSE: CT Rad equipment meets quality standard of care and radiation dose reduction techniq ues were employed. CTDIvol: 23.1 - 53.2 mGy. DLP: 1660 mGy-cm. mGy. LIMITATIONS: None. FINDINGS: VENTRICLES: Prominent ventricles secondary to involutional atrophy. Unchanged ex vacuo di latation of the frontal horn of the left lateral ventricle. CEREBRUM: No masses. No hemorrhage. No midline shift. No evidence for acute infarction. Unchanged appearance of encephalomalacia of the left frontal lobe with an internal focus of calcification. Ext ensive additional scattered supratentorial hypodensities. Chronic lacunar infarct of the right basal ganglia. CEREBELLUM: No masses. No hemorrhage. No alteration of density. No evidence for acute infarction. EXTRAAXIAL SPACES: No fluid collections. No masses. ORBITS AND GLOBE: No intra- or extraconal masses. Normal contour of globe without masses. CALVARIUM: Postsurgical changes of the anterior left calvarium. PARANASAL SINUSES: No fluid or mucosal thickening. SOFT TISSUES: No mass or hematoma. OTHER: No other significant finding. IMPRESSION: 1. No acute intracranial findings. 2. Unchanged chronic findings as above. EVIDENCE OF ACUTE STROKE: NO. COMMENT: Quality ID # [id number]: Final reports with documentation of one or more dose reduction techniques (e.g., Automated exposure control, adjustment of the mA and/or kV according to patient size, use of iterative reconstruction technique) TECHNICAL DOCUMENTATION: JOB ID: [id number] [employer]- All Rights Reserved Reading location - IP/workstation name: [email or web address]
--- NOTE | 2018-03-10 16:32 | ER Document Report ---
ED General - General Chief Complaint: Altered Mental Status Stated Complaint: ALTERED MENTAL STATUS Time Seen by Provider: 03/10/18 14:49 Notes: Patient was brought to the emergency department by his after having become unresponsive. Patient has a history of a severe stroke in 2004 which left him with right sided paralysis and limited speech ability. He has been running low and then high potassium level that his primary care doctor has been trying to address. Still, patient was his usual normal self this morning. They got ready and went to druze. While sitting in druze, patient's noted that he began to become pale and drooling and then on the way home, in the car, he became unresponsive. Instead of taking him inside, she came to the emergency department. Patient arrived here with his head slumped and not responding to stimuli. He was warm to the touch and had a pulse at the radial artery. says that he has been having diarrhea for the past 3 weeks. No nausea or vomiting. Has not had any fever. TRAVEL OUTSIDE OF THE [place] IN LAST 30 DAYS: No - Related Data Allergies/Adverse Reactions: Iodinated Contrast- Oral and IV Dye Allergy (Mild, Verified 02/23/18 11:20) Generalized rash Past Medical History - Social History Smoking Status: Unknown if Ever Smoked Family History: Reviewed & Not Pertinent, CAD, Hypertension Patient has suicidal ideation: No Patient has homicidal ideation: No - Past Medical History Cardiac Medical History: Reports: Hx Atrial Fibrillation, Hx Hypercholesterolemia, Hx Hypertension Pulmonary Medical History: Reports: Hx COPD, Hx Pneumonia, Hx Sleep Apnea Neurological Medical History: Reports: Hx Cerebrovascular Accident - 2004 WEAKER ON RIGHT SIDE, Hx Seizures - LAST ONE OVER 1 YR. AGO.. Denies: None, Hx Migraine, Other Endocrine Medical History: Reports: Hx Diabetes Mellitus Type 2 Renal/ Medical History: Reports: Hx Kidney Stones. Denies: Hx Peritoneal Dialysis GI Medical History: Reports: Hx Gastroesophageal Reflux Disease - aspiration. Denies: Hx Hepatitis, Hx Hiatal Hernia, Hx Pancreatitis, Hx Ulcer Musculoskeletal Medical History: Reports Hx Arthritis Psychiatric Medical History: Reports: Hx Depression Traumatic Medical History: Reports: Hx Fractures - right foot. Denies: Hx Gunshot Wound, Hx Pneumothorax, Hx Traumatic Brain Injury Infectious Medical History: Denies: Hx Hepatitis Past Surgical History: Reports: Hx Abdominal Surgery - PEG tube-past, Hx Bowel Surgery - cyst on bladder, Hx Orthopedic Surgery - right shoulder. Denies: Hx Open Heart Surgery, Hx Pacemaker - Immunizations Hx Diphtheria, Pertussis, Tetanus Vaccination: Yes Hx Pneumococcal Vaccination: 06/04/11 Review of Systems - Review of Systems Notes: REVIEW OF SYSTEMS: Per CONSTITUTIONAL : Denies fever. EENT: Denies eye, ear, nose or mouth or throat pain or other symptoms. CARDIOVASCULAR: Denies chest pain. RESPIRATORY: Denies cough, chest congestion, or shortness of breath. GASTROINTESTINAL: Denies abdominal pain or nausea, vomiting, or diarrhea. GENITOURINARY: Denies difficulty or painful urinating, urinary frequency, blood in urine. MUSCULOSKELETAL: Denies back or neck pain. Denies joint pain or swelling. SKIN: Denies rash or skin lesions. NEUROLOGICAL: See HPI. ALL OTHER SYSTEMS REVIEWED AND NEGATIVE. -: Yes ROS unobtainable due to patient's medical condition - Patient is unable to answer questions or follow commands. Physical Exam - Vital signs Vitals: Resp Pulse Ox 19 98 03/10/18 12:44 03/10/18 12:44 Interpretation: Normal Notes: PHYSICAL EXAMINATION: GENERAL: Initially, slumped in his wheelchair with his head down and not responsive. Skin is warm to the touch. Good radial pulse at the wrist. HEAD: Atraumatic, normocephalic. EYES: Pupils equal round and reactive to light, extraocular movements intact. ENT: oropharynx clear without exudates. Moist mucous membranes. NECK: Normal range of motion, supple. LUNGS: Breath sounds clear and equal bilaterally. HEART: Regular rate and rhythm without murmurs. ABDOMEN: Soft, nontender. No guarding or rebound. No masses. BACK: No tenderness throughout entire back. EXTREMITIES: Normal range of motion without pain. NEUROLOGICAL: Limited speech, wheelchair confined . Right-sided weakness. PSYCH: Normal mood, normal affect. SKIN: Warm, dry, no rashes. Course - Re-evaluation Re-evalutation: 03/10/18 16:33 Patient remains back to normal. He awakens when spoken to. does not have concerns of anything ongoing. I got a CT scan which does not show any evidence of any acute stroke, just chronic changes. 03/10/18 16:[address] Gupta, gas station cashier for this patient's primary care provider, and patient will be admitted for observation to telemetry. - Vital Signs Vital signs: Temp Pulse Resp BP Pulse Ox 97.4 F 15 138/77 H 99 03/10/18 13:00 03/10/18 16:01 03/10/18 16:01 03/10/18 16:01 - Laboratory Result Diagrams: 03/10/18 12:45 03/10/18 12:45 Laboratory results interpreted by me: 03/10/18 03/10/18 03/10/18 12:45 12:45 14:21 WBC 12.8 H RBC 4.30 L Hgb 12.5 L RDW 16.4 H Absolute Neutrophils 9.0 H Sodium 134.7 L BUN 24 H Creatinine 1.58 H Est GFR ( Amer) 53 L Est GFR (Non-Af Amer) 44 L Glucose 162 H Direct Bilirubin 0.6 H ALT < 6 L Alkaline Phosphatase 133 H Creatine Kinase 23 L Urine Protein 30 H Ur Leukocyte Esterase LARGE H Urine Ascorbic Acid 40 H - EKG Interpretation by Me Rate: Normal Rhythm: A.Fib Discharge - Discharge Clinical Impression: Syncope Condition: Stable Disposition: ADMITTED OBSERVATION Admitting Provider: [facility] Unit Admitted: Telemetry Referrals: CAMILO SALDIVAR MD [Primary Care Provider] - Follow up as needed
--- NOTE | 2018-03-10 18:49 | EKG REPORT ---
SEVERITY:- ABNORMAL ECG - ATRIAL FIBRILLATION NONSPECIFIC INTRAVENTRICULAR CONDUCTION DELAY : Confirmed by: Boby Henley 10-Mar-2018 18:48:52
--- NOTE | 2018-03-10 19:41 | PDOC H&P ---
History of Present Illness Admission Date/PCP: 03/10/18 16:45 CAMILO SALDIVAR MD History of Present Illness: MILANA FRANCO is a 67 year old male he has multiple comorbid conditions, he was brought to the emergency room by his for evaluation of loss of consciousness, he has a history of CVA with right-sided paralysis and dysphasia , he recently has had hypokalemia that was persistent most likely from diarrhea that has been ongoing. The said they went to the conf[facility] this morning she noticed that he was pale looking and on the way back on his head slumped and lost consciousness and had episode of twitching almost like a clonic tonic contraction. In the emergency room CT head was done there was no acute pathology, he had MRI of the brain on 10/18/2017 that showed old left frontal craniotomy with broad area of left frontoparietal encephalomalacia, he has a history of atrial fibrillation, and also seizure disorder, when I saw him on the floor this evening he was awake he has indwelling suprapubic catheter no reasonable history could be obtained from this patient because of his dysphasia from the stroke, he has residual expressive dysphasia from the CVA. Past Medical History Cardiac Medical History: Reports: Atrial Fibrillation, Hyperlipidema, Hypertension Pulmonary Medical History: Reports: Chronic Obstructive Pulmonary Disease (COPD) , Pneumonia, Sleep Apnea Neurological Medical History: Reports: Seizures - LAST ONE OVER 1 YR. AGO. Endocrine Medical History: Reports: Diabetes Mellitus Type 2 GI Medical History: Reports: Gastroesophageal Reflux Disease - aspiration Musculoskeltal Medical History: Reports: Arthritis Psychiatric Medical History: Reports: Depression Past Surgical History Past Surgical History: Reports: Orthopedic Surgery - right shoulder Social History Smoking Status: Unknown if Ever Smoked Frequency of Alcohol Use: None Hx Recreational Drug Use: No Hx Prescription Drug Abuse: No Family History Family History: Reviewed & Not Pertinent, CAD, Hypertension Parental Family History Reviewed: Yes Children Family History Reviewed: Yes Sibling(s) Family History Reviewed.: Yes Medication/Allergy Home Medications: Carbidopa/Levodopa [Sinemet 25-100 mg Tablet] 1 tab PO TID 02/24/18 Clonazepam [Klonopin] 0.5 mg PO Q12 02/24/18 Doxazosin Mesylate [Cardura] 8 mg PO DAILY 02/24/18 Furosemide [Lasix 20 mg Tablet] 20 mg PO QHS 02/24/18 Furosemide [Lasix 40 mg Tablet] 40 mg PO TID 02/24/18 Hydrocodone/Acetaminophen [Hydrocodone-Acetamin 5-325 mg] 1 tab PO Q6HP PRN Losartan Potassium [Cozaar 25 mg Tablet] 25 mg PO DAILY 02/24/18 Metoprolol Tartrate [Lopressor 25 mg Tablet] 25 mg PO Q12 02/24/18 Montelukast Sodium [Singulair 10 mg Tablet] 10 mg PO QPM 02/24/18 Oxcarbazepine [Trileptal] 600 mg PO Q8 02/24/18 Oxycodone HCl/Acetaminophen [Endocet 5-325 Tablet] 1 tab PO Q12HP PRN 02/24/18 Potassium Chloride 20 meq PO MEALS 30 Days #90 tablet.er 02/24/18 Ropinirole HCl [Requip] 1 mg PO QHS 02/24/18 Tamsulosin HCl [Flomax 0.4 mg Cap.sr] 0.4 mg PO ACSUPPER 02/24/18 Allergies/Adverse Reactions: Iodinated Contrast- Oral and IV Dye Allergy (Mild, Verified 02/23/18 11:20) Generalized rash Review of Systems ROS unobtainable: Due to mental status Physical Exam Vital Signs: Temp Pulse Resp BP Pulse Ox 97.4 F 15 145/88 H 80 L 03/10/18 13:00 03/10/18 18:01 03/10/18 18:01 03/10/18 18:01 General appearance: PRESENT: no acute distress Eye exam: PRESENT: PERRLA Ear exam: PRESENT: normal external ear exam Neck exam: PRESENT: full ROM Cardiovascular exam: PRESENT: irregular rhythm, RRR, +S1, +S2 Vascular exam: PRESENT: normal capillary refill GI/Abdominal exam: PRESENT: other - Suprapubic catheter Rectal exam: PRESENT: deferred Neurological exam: PRESENT: alert, motor sensory deficit - There is right-sided paralysis/hemiplegia Results Impressions: Chest X-Ray 03/10/18 00:00 IMPRESSION: NO ACUTE RADIOGRAPHIC FINDING IN THE CHEST. Head CT 03/10/18 15:07 IMPRESSION: 1. No acute intracranial findings. 2. Unchanged chronic findings as above. EVIDENCE OF ACUTE STROKE: NO. Assessment & Plan - Diagnosis (1) Epilepsy Qualifiers: Epilepsy type: unspecified Intractability: not intractable Status epilepticus: without status epilepticus Qualified Code(s): G40.909 - Epilepsy , unspecified, not intractable, without status epilepticus Is this a current diagnosis for this admission?: Yes Plan: He has a history of epilepsy, the symptoms described is consistent with seizure disorder, currently on antiseizure medication, we gave a loading dose of Dilantin (2) Chronic kidney disease, stage 3 Is this a current diagnosis for this admission?: Yes (3) Hemiplegia affecting right dominant side Qualifiers: Hemiplegia type: unspecified type Hemiplegia etiology: late effect of cerebrovascular disease Cerebrovascular disease type: nontraumatic subarachnoid hemorrhage Qualified Code(s): I69.051 - Hemiplegia and hemiparesis following nontraumatic subarachnoid hemorrhage affecting right dominant side
[2018-03-10] MEDS ORDERED: ACETAMINOPHEN 325 MG TABLET PO PRN (19:48)
[2018-03-10] MEDS ORDERED: PHENYTOIN SODIUM INJ/PF 250 MG/5 ML SDV IV ONE (20:00)
[2018-03-10] MEDS ORDERED: TAMSULOSIN HCL 0.4 MG CAP.SR.24H PO ONE ×2 (20:05→23:00)
[2018-03-10] MEDS ORDERED: MONTELUKAST SODIUM 10 MG TABLET PO ONE ×2 (20:05→23:00)
[2018-03-10] MEDS ORDERED: ONDANSETRON HCL INJ/PF 4 MG/2 ML SDV ONE (21:18)
[2018-03-10] MEDS ORDERED: ONDANSETRON HCL INJ/PF 4 MG/2 ML SDV IV ONE ×2 (21:30→22:10)
[2018-03-10] MEDS ORDERED: ROPINIROLE HCL 1 MG TABLET ONE (22:41)
[2018-03-10] MEDS ORDERED: FLUTICASONE NASAL SPRAY 50 MCG/SPRY 120 SPRAY/16 GM ONE (22:41)
[2018-03-10] MEDS: FLUTICASONE NASAL SPRAY 50 MCG/SPRY 120 SPRAY/16 GM NASL SCH (22:49)
[2018-03-10] MEDS: CARBIDOPA/LEVODOPA 25-100 MG TABLET PO SCH (22:50)
[2018-03-10] MEDS: ROPINIROLE HCL 1 MG TABLET PO SCH (22:50)
[2018-03-10] MEDS: OXCARBAZEPINE 150 MG TABLET PO SCH (22:50)
[2018-03-10] MEDS: METOPROLOL TARTRATE 25 MG TABLET PO SCH (22:54)
[2018-03-10] MEDS: CLONAZEPAM 1 MG TABLET PO SCH (22:55)
[2018-03-11 06:36] LABS: ABSOLUTE EOSINOPHILS # (AUTO) 0.1 10^3/uL (0.0-0.6); ABSOLUTE LYMPHOCYTES (AUTO) 1.2 10^3/uL (0.5-4.7); ABSOLUTE MONOCYTES (AUTO) 0.5 10^3/uL (0.1-1.4); ABSOLUTE NEUT (AUTO) 6.3 10^3/uL (1.7-8.2); BASOPHILS % (AUTO) 0.5 % (0-2); EOSINOPHILS % (AUTO) 1.8 % (0-6); HEMATOCRIT 35.2 % (37.9-51.0); MEAN CORPUSCULAR HEMOGLOBIN 29.8 pg (27.0-33.4); MEAN CORPUSCULAR HGB CONC 34.1 g/dL (32.0-36.0); MEAN CORPUSCULAR VOLUME 88 fl (80-97); MONOCYTES % (AUTO) 6.1 % (3-13); PLATELET COUNT 178 10^3/uL (150-450); RED BLOOD COUNT 4.03 10^6/uL (4.35-5.55); RED CELL DISTRIBUTION WIDTH 16.2 % (11.5-14.0); SEGMENTED NEUTROPHILS % (AUTO) 76.6 % (42-78); TOTAL CELLS COUNTED % (AUTO) 100 %; WHITE BLOOD COUNT 8.2 10^3/uL (4.0-10.5)
[2018-03-11 07:20] LABS: ANION GAP 13 (5-19); BLOOD UREA NITROGEN 23 mg/dL (7-20); CALCIUM 9.2 mg/dL (8.4-10.2); CARBON DIOXIDE 23 mmol/L (22-30); CHLORIDE 102 mmol/L (98-107); GLUCOSE 116 mg/dL (75-110); POTASSIUM 4.6 mmol/L (3.6-5.0); SODIUM 137.7 mmol/L (137-145)
[2018-03-11] MEDS: FLUTICASONE NASAL SPRAY 50 MCG/SPRY 120 SPRAY/16 GM NASL SCH ×2 (10:40→21:41)
[2018-03-11] MEDS: CARBIDOPA/LEVODOPA 25-100 MG TABLET PO SCH ×2 (10:42→21:41)
[2018-03-11] MEDS: FUROSEMIDE 40 MG TABLET PO SCH (10:43)
[2018-03-11] MEDS: METOPROLOL TARTRATE 25 MG TABLET PO SCH ×2 (10:44→21:43)
[2018-03-11] MEDS: CLONAZEPAM 1 MG TABLET PO SCH ×2 (10:44→21:40)
[2018-03-11] MEDS: LOSARTAN POTASSIUM 25 MG TABLET PO SCH (10:44)
[2018-03-11] MEDS: OXCARBAZEPINE 150 MG TABLET PO SCH ×2 (10:45→21:44)
[2018-03-11] MEDS: ENOXAPARIN SODIUM INJ 40 MG/0.4 ML DISP.SYRIN SUBCUT SCH (10:46)
--- NOTE | 2018-03-11 10:47 | Physician Advisory Note ---
Physician Advisor ProgressNote .: Pursuant to the plan for [facility], I have reviewed the medical record for this patient. Physician Advisor Statement: Very nice documentation of Rt dominant hemiplegia. Please consider documenting, if you agree: 1. "Acute hyponatremia, suspect due to " 2. "Acute Kidney Injury/ARF, likely due to ____; baseline Cr = ___" (1.06? 1.1-1.2?, or ...) 3. Does pt have "Chronic diastolic CHF", or what is underlying dx requiring Lasix? (ECHO earlier this yr = nl EF, ? diast fn, Afib, tr-mild MR/TR) 4. Medical necessity justification - please state each day the reasons pt not appropriate for d/c that day. STatus: Medicare pt, in hosp care x 1MN so far. Attending expecting 2nd MN. Cr not back to baseline yet. Appropriate to change to Inpatient status. Thanks! CK
--- NOTE | 2018-03-11 13:16 | PDOC PROGRESS REPORT ---
Subjective Progress Note for:: 03/11/18 Subjective:: This is a 59-year-old male with the multiple medical problems basically came because syncopal type episodes not sure about seizures activity versus something else patient initial CT of the head was all negative Patient was recently admitted for the same reason Also see outpatients cardiology Dr. Henley and patient also see outpatient neurology Patient is currently denied any chest pain denied any shortness of the breath Recently have a suprapubic catheter in place follow currently urology Patient recently have on and off diarrhea which currently getting better and the patient has since developed C. difficile is also negative Patient's potassium is also stable Reason For Visit: SEIZURE,PERSISTENT HYPOKALEMIA Physical Exam Vital Signs: Temp Pulse Resp BP Pulse Ox 98.2 F 64 16 105/64 100 03/11/18 11:36 03/11/18 11:36 03/11/18 11:36 03/11/18 11:36 03/11/18 11:36 Intake & Output 03/10/18 03/11/18 03/12/18 06:59 06:59 06:59 Intake Total 0 Output Total 300 Balance -300 Weight 85.2 kg General appearance: PRESENT: no acute distress, well-developed, well-nourished Head exam: PRESENT: atraumatic, normocephalic Eye exam: PRESENT: conjunctiva pink, EOMI, PERRLA. ABSENT: scleral icterus Ear exam: PRESENT: normal external ear exam Mouth exam: PRESENT: moist, tongue midline Neck exam: PRESENT: full ROM. ABSENT: carotid bruit, JVD, lymphadenopathy, thyromegaly Respiratory exam: PRESENT: clear to auscultation анна Cardiovascular exam: PRESENT: RRR. ABSENT: diastolic murmur, rubs, systolic murmur Pulses: PRESENT: normal dorsalis pedis pul, +2 pedal pulses bilateral Vascular exam: PRESENT: normal capillary refill GI/Abdominal exam: PRESENT: normal bowel sounds, soft. ABSENT: distended, guarding, mass, organolmegaly, rebound, tenderness Rectal exam: PRESENT: deferred Extremities exam: ABSENT: pedal edema Neurological exam: PRESENT: alert, awake, oriented to person, oriented to place. ABSENT: motor sensory deficit Psychiatric exam: PRESENT: appropriate affect, normal mood. ABSENT: homicidal ideation, suicidal ideation Skin exam: PRESENT: dry, intact, warm. ABSENT: cyanosis, rash Results Laboratory Results: 03/11/18 05:45 03/11/18 05:45 03/11/18 03/11/18 05:45 05:45 WBC 8.2 RBC 4.03 L Hgb 12.0 L Hct 35.2 L MCV 88 MCH 29.8 MCHC 34.1 RDW 16.2 H Plt Count 178 Seg Neutrophils % 76.6 Lymphocytes % 15.0 Monocytes % 6.1 Eosinophils % 1.8 Basophils % 0.5 Absolute Neutrophils 6.3 Absolute Lymphocytes 1.2 Absolute Monocytes 0.5 Absolute Eosinophils 0.1 Absolute Basophils 0.0 Sodium 137.7 Potassium 4.6 Chloride 102 Carbon Dioxide 23 Anion Gap 13 BUN 23 H Creatinine 1.35 H Est GFR ( Amer) > 60 Est GFR (Non-Af Amer) 53 L Glucose 116 H Calcium 9.2 Impressions: Chest X-Ray 03/10/18 00:00 IMPRESSION: NO ACUTE RADIOGRAPHIC FINDING IN THE CHEST. Head CT 03/10/18 15:07 IMPRESSION: 1. No acute intracranial findings. 2. Unchanged chronic findings as above. EVIDENCE OF ACUTE STROKE: NO. Assessment & Plan - Diagnosis (1) Syncope Qualifiers: Syncope type: unspecified Qualified Code(s): R55 - Syncope and collapse Is this a current diagnosis for this admission?: Yes Plan: Unclear etiology will get the MRI of the head Patients follow outpatients neurology Already seen by the cardiology workup done (2) Seizure Is this a current diagnosis for this admission?: Yes Plan: Current medications (3) Cerebrovascular disease Is this a current diagnosis for this admission?: Yes (4) Chronic kidney disease Qualifiers: Chronic kidney disease stage: stage 2 (mild) Qualified Code(s): N18.2 - Chronic kidney disease, stage 2 (mild) Is this a current diagnosis for this admission?: Yes (5) Hemiplegia affecting right dominant side Qualifiers: Hemiplegia type: unspecified type Hemiplegia etiology: late effect of cerebrovascular disease Cerebrovascular disease type: nontraumatic subarachnoid hemorrhage Qualified Code(s): I69.051 - Hemiplegia and hemiparesis following nontraumatic subarachnoid hemorrhage affecting right dominant side Is this a current diagnosis for this admission?: Yes (6) Hypertension Qualifiers: Hypertension type: essential hypertension Qualified Code(s): I10 - Essential (primary) hypertension Is this a current diagnosis for this admission?: Yes (7) Type 2 diabetes mellitus Qualifiers: Diabetes mellitus terminal press operator insulin use: without terminal press operator use Diabetes mellitus complication status: with unspecified complications Qualified Code(s) : E11.8 - Type 2 diabetes mellitus with unspecified complications Is this a current diagnosis for this admission?: Yes - Time Time Spent with patient: 25-34 minutes Medications reviewed and adjusted accordingly: Yes Anticipated discharge: Home Within: within 24 hours - Inpatient Certification Medical Necessity: Need Close Monitoring Due to Risk of Patient Decompensation Post Hospital Care: D/C [facility] Landscape Architect Documentation - Plan Summary Plan Summary: Will get the MRI of the head and also culture urineDiscussed with the at the bedside regarding the patient's current condition and suggest to follow outpatients neurologyNo neurologist available in the hospital
--- NOTE | 2018-03-11 14:57 | RADIOLOGY REPORT (SQ) ---
EXAM DESCRIPTION: MRI HEAD WITHOUT COMPLETED DATE/TIME: 03/11/2018 2:37 pm REASON FOR STUDY: syncoap episode D50.8 OTHER IRON DEFICIENCY ANEMIAS N39.0 URINARY TRACT INFECTI ON, SITE NOT SPECIFIED COMPARISON: MRI brain 10/18/2017 CT brain 03/10/2018 TECHNIQUE: Multiplanar imaging includes non-contrasted T1, T2, FLAIR, and diffusion with ADC map seq uences. Images stored on PACS. LIMITATIONS: Patient would not fit in the head and neck coil. Flex coil was used for imaging. Isac on artifact. FINDINGS: Diffusion-weighted images are degraded by heterogeneous field strength and motion. No amy ss acute infarct on diffusion-weighted images. Patient has had an old left frontal craniotomy with a broad area of encephalomalacia in the left fron howie lobe, 6 by 4.5 cm in size. There is extensive chronic small vessel ischemic change in the hemispheric white matter and mid stephanie. Lacunar infarcts in the left stephanie and right basal ganglia. Globes post cataract surgery. Paranasal sinuses, mastoid air cells grossly clear. IMPRESSION: Limited study. Extensive chronic ischemic change. No acute findings. EVIDENCE OF ACUTE STROKE: NO. TECHNICAL DOCUMENTATION: JOB ID: [id number] [employer]- All Rights Reserved Reading location - IP/workstation name: [email or web address]
[2018-03-11] MEDS ORDERED: TAMSULOSIN HCL 0.4 MG CAP.SR.24H PO SCH (16:00)
[2018-03-11] MEDS ORDERED: MONTELUKAST SODIUM 10 MG TABLET PO SCH (18:00)
[2018-03-11] MEDS: ROPINIROLE HCL 1 MG TABLET PO SCH (21:41)
[2018-03-12 04:42] LABS: ABSOLUTE EOSINOPHILS # (AUTO) 0.2 10^3/uL (0.0-0.6); ABSOLUTE LYMPHOCYTES (AUTO) 1.5 10^3/uL (0.5-4.7); ABSOLUTE MONOCYTES (AUTO) 0.6 10^3/uL (0.1-1.4); ABSOLUTE NEUT (AUTO) 5.5 10^3/uL (1.7-8.2); BASOPHILS % (AUTO) 0.5 % (0-2); EOSINOPHILS % (AUTO) 2.1 % (0-6); HEMATOCRIT 33.8 % (37.9-51.0); HEMOGLOBIN 11.7 g/dL (13.5-17.0); LYMPHOCYTES % (AUTO) 19.3 % (13-45); MEAN CORPUSCULAR HEMOGLOBIN 30.2 pg (27.0-33.4); MEAN CORPUSCULAR HGB CONC 34.6 g/dL (32.0-36.0); MEAN CORPUSCULAR VOLUME 87 fl (80-97); MONOCYTES % (AUTO) 7.3 % (3-13); PLATELET COUNT 170 10^3/uL (150-450); RED BLOOD COUNT 3.88 10^6/uL (4.35-5.55); RED CELL DISTRIBUTION WIDTH 16.5 % (11.5-14.0); SEGMENTED NEUTROPHILS % (AUTO) 70.8 % (42-78); TOTAL CELLS COUNTED % (AUTO) 100 %; WHITE BLOOD COUNT 7.8 10^3/uL (4.0-10.5)
[2018-03-12 04:59] LABS: ANION GAP 13 (5-19); BLOOD UREA NITROGEN 23 mg/dL (7-20); CARBON DIOXIDE 23 mmol/L (22-30); CHLORIDE 100 mmol/L (98-107); GLUCOSE 119 mg/dL (75-110); POTASSIUM 4.2 mmol/L (3.6-5.0)
[2018-03-12] MEDS: LOSARTAN POTASSIUM 25 MG TABLET PO SCH (09:32)
[2018-03-12] MEDS: FLUTICASONE NASAL SPRAY 50 MCG/SPRY 120 SPRAY/16 GM NASL SCH (09:32)
[2018-03-12] MEDS: CLONAZEPAM 1 MG TABLET PO SCH (09:32)
[2018-03-12] MEDS: FUROSEMIDE 40 MG TABLET PO SCH (09:33)
[2018-03-12] MEDS: ENOXAPARIN SODIUM INJ 40 MG/0.4 ML DISP.SYRIN SUBCUT SCH (09:34)
[2018-03-12] MEDS: CARBIDOPA/LEVODOPA 25-100 MG TABLET PO SCH (09:34)
[2018-03-12] MEDS: METOPROLOL TARTRATE 25 MG TABLET PO SCH (09:34)
[2018-03-12] MEDS: OXCARBAZEPINE 150 MG TABLET PO SCH (09:35)
[2018-03-12 12:18] VITALS: BP 111/64
--- NOTE | 2018-03-12 13:05 | PDOC DISCHARGE SUMMARY ---
General - Admit/Disc Date/PCP Admission Date/Primary Care Provider: 03/11/18 15:00 CAMILO SALDIVAR MD Discharge Date: 03/12/18 - Discharge Diagnosis (1) Syncope Is this a current diagnosis for this admission?: Yes Summary: Patient MRI of the head is negative cardiac workup is negative patient had extensive cardiac evaluations done by Dr. Henley when the Holter monitor was all stable possible underlying seizures Patient have appointment to see a neurologist next week (2) Seizure Is this a current diagnosis for this admission?: Yes Summary: Continues to current medications stenosis with activity noticed in the hospitals (3) Cerebrovascular disease Is this a current diagnosis for this admission?: Yes Summary: all stable (4) Chronic kidney disease Is this a current diagnosis for this admission?: Yes Summary: Currently all stable patients follow outpatients Dr. Ayala (5) Hemiplegia affecting right dominant side Is this a current diagnosis for this admission?: Yes (6) Hypertension Is this a current diagnosis for this admission?: Yes Summary: Continues current medication (7) Type 2 diabetes mellitus Is this a current diagnosis for this admission?: Yes Summary: Currently well controlled continues to current medication - Additional Information Discharge Diet: Diabetic Discharge Activity: Activity As Tolerated Home Medications: Carbidopa/Levodopa [Sinemet 25-100 mg Tablet] 1.5 tab PO BID 02/24/18 Clonazepam [Klonopin] 0.5 mg PO Q12 02/24/18 Furosemide [Lasix 40 mg Tablet] 60 mg PO DAILY 02/24/18 Losartan Potassium [Cozaar 25 mg Tablet] 25 mg PO DAILY 02/24/18 Metoprolol Tartrate [Lopressor 25 mg Tablet] 25 mg PO Q12 02/24/18 Montelukast Sodium [Singulair 10 mg Tablet] 10 mg PO QPM 02/24/18 Oxcarbazepine [Trileptal] 900 mg PO Q12 02/24/18 Ropinirole HCl [Requip] 1 mg PO QHS 02/24/18 Tamsulosin HCl [Flomax 0.4 mg Cap.sr] 0.4 mg PO ACSUPPER 02/24/18 Fluticasone Propionate [Flonase Nasal Presho 50 Mcg/Presho 16 gm] 1 spray NASL Q12 03/10/18 History of Present Illness History of Present Illness: MILANA FRANCO is a 67 year old male This is a 67-year-old male's with the multiple medical problems as above admitting in the hospital because of a syncopal episode questionable TIA questionable seizures Hospital Course Hospital Course: This is a 67-year-old male with the multiple medical problems as above admitted for the questionable seizures versus TIA versus syncopal episodes patient initial workup was all negative including a CT of the head and blood work and cardiac workup She underwent for the MRI of the head was negative for any acute findings Patient is otherwise doing well back to the baseline stenosis her activity is not is Very extensive discussions with the patient's and the bedside patient already has seen a neurologist as outpatient have appointment next week to see him for further evaluations possible underlying not controlled seizures Also seen by the cardiology Dr. Henley have extensive workup was done is all stable for the syncopal episode Discharge home with a stable condition with home health and following a one- week in office and follow with the cardiology and neurology Physical Exam Vital Signs: Temp Pulse Resp BP Pulse Ox 98.1 F 87 16 111/64 98 03/12/18 12:00 03/12/18 12:00 03/12/18 12:00 03/12/18 12:00 03/12/18 12:00 Intake & Output 03/11/18 03/12/18 03/13/18 06:59 06:59 06:59 Intake Total 695 Output Total 1000 Balance -305 Weight 86.4 kg General appearance: PRESENT: no acute distress Eye exam: PRESENT: PERRLA Mouth exam: PRESENT: neck supple Respiratory exam: PRESENT: clear to auscultation анна Cardiovascular exam: PRESENT: +S1, +S2 GI/Abdominal exam: PRESENT: normal bowel sounds, soft Additonal comments: Suprapubic catheter is intact Extremities exam: ABSENT: pedal edema Musculoskeletal exam: PRESENT: deformity Neurological exam: PRESENT: alert, awake, oriented to person, oriented to place Psychiatric exam: PRESENT: anxious Skin exam: PRESENT: dry Results Laboratory Results: 03/12/18 04:27 03/12/18 04:27 03/12/18 03/12/18 04:27 04:27 WBC 7.8 RBC 3.88 L Hgb 11.7 L Hct 33.8 L MCV 87 MCH 30.2 MCHC 34.6 RDW 16.5 H Plt Count 170 Seg Neutrophils % 70.8 Lymphocytes % 19.3 Monocytes % 7.3 Eosinophils % 2.1 Basophils % 0.5 Absolute Neutrophils 5.5 Absolute Lymphocytes 1.5 Absolute Monocytes 0.6 Absolute Eosinophils 0.2 Absolute Basophils 0.0 Sodium 136.0 L Potassium 4.2 Chloride 100 Carbon Dioxide 23 Anion Gap 13 BUN 23 H Creatinine 1.40 H Est GFR ( Amer) > 60 Est GFR (Non-Af Amer) 50 L Glucose 119 H Calcium 9.0 Impressions: Chest X-Ray 03/10/18 00:00 IMPRESSION: NO ACUTE RADIOGRAPHIC FINDING IN THE CHEST. Head CT 03/10/18 15:07 IMPRESSION: 1. No acute intracranial findings. 2. Unchanged chronic findings as above. EVIDENCE OF ACUTE STROKE: NO. Head MRI 03/11/18 00:00 IMPRESSION: Limited study. Extensive chronic ischemic change. No acute findings. EVIDENCE OF ACUTE STROKE: NO. Qualifiers - * PATIENT BEING DISCHARGED WITH ANY OF THE FOLLOWING DIAGNOSIS: No VTE patient discharged on overlapping Therapy?: Yes Plan Time Spent: Greater than 30 Minutes - Discussed with the regarding the patient's all the test reports on the current condition and follow-up outpatient patient otherwise stable discharge home with the [facility]
== END 2018-03-12 14:47 | disposition home health service (06) | DRG 101 ==
LOC: ER 12:43 → EH 16:45 → 5 18:41 → OBSVTOIN 03-11 15:00
PROVIDERS: ADMIT Internal Medicine; ATTEND Family Medicine
DX: G40.909 Epilepsy, unspecified, not intractable, without status epilepticus (principal); I69.351 Hemiplegia and hemiparesis following cerebral infarction affecting right dominant side; R55 Syncope and collapse; I48.91 Unspecified atrial fibrillation; I12.9 Hypertensive chronic kidney disease with stage 1 through stage 4 chronic kidney disease, or unspecified chronic kidney disease; E78.5 Hyperlipidemia, unspecified; N18.3 Chronic kidney disease, stage 3 (moderate); E11.22 Type 2 diabetes mellitus with diabetic chronic kidney disease; J44.9 Chronic obstructive pulmonary disease, unspecified; K21.9 Gastro-esophageal reflux disease without esophagitis; M19.90 Unspecified osteoarthritis, unspecified site; F32.9 Major depressive disorder, single episode, unspecified; Z23 Encounter for immunization; I69.321 Dysphasia following cerebral infarction; Z82.49 Family history of ischemic heart disease and other diseases of the circulatory system; Z79.899 Other long term (current) drug therapy; Z91.041 Radiographic dye allergy status
CPT/HCPCS: 36415; 70450; 70551; 71045; 80048; 80053; 80183; 81001; 82550; 82553; 82962; 84484; 85025; 87040; 87086; 87088; 87186; 90471; 90686; 93005; 93010; 96374; 96375; 99285; G0008; G0378; J1165; J1650; J2405; J3490

== ENCOUNTER → 2018-04-08 | Outpatient (CLI) | payer MEDICARE ==
[2018-04-08 14:06] LABS: HEMATOCRIT 33.5 % (37.9-51.0); HEMOGLOBIN 11.8 g/dL (13.5-17.0); MEAN CORPUSCULAR HEMOGLOBIN 31.6 pg (27.0-33.4); MEAN CORPUSCULAR HGB CONC 35.3 g/dL (32.0-36.0); MEAN CORPUSCULAR VOLUME 90 fl (80-97); PLATELET COUNT 199 10^3/uL (150-450); RED BLOOD COUNT 3.74 10^6/uL (4.35-5.55); RED CELL DISTRIBUTION WIDTH 16.8 % (11.5-14.0); WHITE BLOOD COUNT 6.6 10^3/uL (4.0-10.5)
[2018-04-08 14:20] LABS: AMORPHOUS SEDIMENT,URINE TRACE /HPF; APPEARANCE,URINE CLOUDY; BILIRUBIN,URINE NEGATIVE (NEGATIVE); COLOR,URINE YELLOW; GLUCOSE, URINE NEGATIVE (NEGATIVE); KETONES,URINE NEGATIVE (NEGATIVE); LEUKOCYTE ESTERASE,URINE LARGE (NEGATIVE); NITRITE,URINE NEGATIVE (NEGATIVE); PROTEIN,URINE 100 mg/dL (NEGATIVE); URINE SPECIFIC GRAVITY 1.011
[2018-04-08 14:33] LABS: ANION GAP 16 (5-19); BLOOD UREA NITROGEN 13 mg/dL (7-20); CALCIUM 8.9 mg/dL (8.4-10.2); CARBON DIOXIDE 28 mmol/L (22-30); CHLORIDE 97 mmol/L (98-107); GLUCOSE 133 mg/dL (75-110); POTASSIUM 3.2 mmol/L (3.6-5.0); SODIUM 140.7 mmol/L (137-145)
== END ==
LOC: OD 13:16
PROVIDERS: ATTEND Internal Medicine Nephrology
DX: I63.9 Cerebral infarction, unspecified (principal); N18.3 Chronic kidney disease, stage 3 (moderate); D64.9 Anemia, unspecified
CPT/HCPCS: 36415; 80048; 81001; 85027

== ENCOUNTER → 2018-04-30 | Outpatient (CLI) | payer MEDICARE ==
[2018-04-30 12:57] LABS: ANION GAP 13 (5-19); BLOOD UREA NITROGEN 22 mg/dL (7-20); CALCIUM 9.3 mg/dL (8.4-10.2); CARBON DIOXIDE 27 mmol/L (22-30); CHLORIDE 101 mmol/L (98-107); GLUCOSE 132 mg/dL (75-110); POTASSIUM 4.1 mmol/L (3.6-5.0)
== END ==
LOC: OD 11:52
PROVIDERS: ATTEND Internal Medicine Nephrology
DX: I12.9 Hypertensive chronic kidney disease with stage 1 through stage 4 chronic kidney disease, or unspecified chronic kidney disease (principal); N18.3 Chronic kidney disease, stage 3 (moderate); N39.0 Urinary tract infection, site not specified
CPT/HCPCS: 36415; 80048; 83735

== ENCOUNTER → 2018-09-09 | Outpatient (CLI) | payer MEDICARE ==
[2018-09-09 13:45] LABS: HEMATOCRIT 33.6 % (37.9-51.0); HEMOGLOBIN 11.4 g/dL (13.5-17.0); MEAN CORPUSCULAR HGB CONC 33.8 g/dL (32.0-36.0); MEAN CORPUSCULAR VOLUME 89 fl (80-97); PLATELET COUNT 215 10^3/uL (150-450); RED BLOOD COUNT 3.78 10^6/uL (4.35-5.55); RED CELL DISTRIBUTION WIDTH 14.7 % (11.5-14.0); WHITE BLOOD COUNT 9.9 10^3/uL (4.0-10.5)
[2018-09-09 14:09] LABS: ANION GAP 12 (5-19); BLOOD UREA NITROGEN 25 mg/dL (7-20); CALCIUM 9.3 mg/dL (8.4-10.2); CARBON DIOXIDE 24 mmol/L (22-30); CHLORIDE 105 mmol/L (98-107); GLUCOSE 111 mg/dL (75-110); POTASSIUM 3.9 mmol/L (3.6-5.0); SODIUM 140.6 mmol/L (137-145)
== END ==
LOC: OD 13:03
PROVIDERS: ATTEND Internal Medicine Nephrology
DX: I12.9 Hypertensive chronic kidney disease with stage 1 through stage 4 chronic kidney disease, or unspecified chronic kidney disease (principal); N18.3 Chronic kidney disease, stage 3 (moderate); E87.5 Hyperkalemia
CPT/HCPCS: 36415; 80048; 83735; 85027

== ENCOUNTER → 2018-12-11 | Outpatient (CLI) | payer MEDICARE ==
[2018-12-11 14:04] LABS: HEMOGLOBIN 11.4 g/dL (13.5-17.0); MEAN CORPUSCULAR HEMOGLOBIN 29.3 pg (27.0-33.4); MEAN CORPUSCULAR HGB CONC 33.7 g/dL (32.0-36.0); MEAN CORPUSCULAR VOLUME 87 fl (80-97); PLATELET COUNT 177 10^3/uL (150-450); RED CELL DISTRIBUTION WIDTH 16.3 % (11.5-14.0); WHITE BLOOD COUNT 4.9 10^3/uL (4.0-10.5)
[2018-12-11 14:31] LABS: ANION GAP 12 (5-19); BLOOD UREA NITROGEN 22 mg/dL (7-20); CALCIUM 8.5 mg/dL (8.4-10.2); CARBON DIOXIDE 19 mmol/L (22-30); CHLORIDE 108 mmol/L (98-107); GLUCOSE 199 mg/dL (75-110); POTASSIUM 3.5 mmol/L (3.6-5.0)
== END ==
LOC: OD 13:15
PROVIDERS: ATTEND Internal Medicine Nephrology
DX: I12.9 Hypertensive chronic kidney disease with stage 1 through stage 4 chronic kidney disease, or unspecified chronic kidney disease (principal); N18.3 Chronic kidney disease, stage 3 (moderate); E87.5 Hyperkalemia
CPT/HCPCS: 36415; 80048; 83735; 85027

== ENCOUNTER 2019-01-26 20:16 | Inpatient (IN) | payer MEDICARE ==
--- NOTE | 2019-01-26 20:38 | ER Document Report ---
ED Medical Screen (RME) - General Chief Complaint: Abdominal Swelling Stated Complaint: ABDOMINAL SWELLING Time Seen by Provider: 01/26/19 20:30 Primary Care Provider: Angeles PRABHAKAR MD [Primary Care Provider] - Follow up as needed Mode of Arrival: Wheelchair Information source: Relative Notes: 68-year-old male presented to ED for complaint of abdominal pain and distention all day that is now developed in the back pain. states that he has decreased kidney function and is now seeing a insurance consultant. He has a suprapubic catheter. He has a history of kidney problems A. fib of brain bleed stroke COPD sleep apnea and diabetes. He also has high blood pressure and cholesterol. He has had a brain surgery for brain bleed and a rotator cuff surgery. She states she had diarrhea for several months. states he has been confused and a problem with her short-term memory since his stroke. I have greeted and performed a rapid initial assessment of this patient. A comprehensive ED assessment and evaluation of the patient, analysis of test results and completion of medical decision making process will be conducted by an additional ED providers. TRAVEL OUTSIDE OF THE [place] IN LAST 30 DAYS: No - Related Data Allergies/Adverse Reactions: Iodinated Contrast Media Allergy (Mild, Verified 02/23/18 11:20) Generalized rash Past Medical History - Social History Frequency of alcohol use: None Drug Abuse: None Family history: Reviewed & Not Pertinent - Past Medical History Cardiac Medical History: Reports: Hx Atrial Fibrillation, Hx Hypercholesterolemia, Hx Hypertension Denies: Hx Coronary Artery Disease, Hx Heart Attack, Hx Heart Murmur Pulmonary Medical History: Reports: Hx COPD, Hx Pneumonia, Hx Sleep Apnea Denies: Hx Asthma, Hx Bronchitis, Hx Respiratory Failure, Hx Tuberculosis Neurological Medical History: Reports: Hx Cerebrovascular Accident - 2005 WEAKER ON RIGHT SIDE, Hx Seizures - LAST ONE OVER 1 YR. AGO.. Denies: Hx Migraine Endocrine Medical History: Reports: Hx Diabetes Mellitus Type 2 Renal/ Medical History: Reports: Hx Kidney Stones. Denies: Hx Peritoneal Dialysis GI Medical History: Reports: Hx Gastroesophageal Reflux Disease - aspiration. Denies: Hx Hepatitis, Hx Hiatal Hernia, Hx Pancreatitis, Hx Ulcer Musculoskeltal Medical History: Reports Hx Arthritis, Denies Hx Systemic Lupus Erythematosus Psychiatric Medical History: Reports: Hx Depression Traumatic Medical History: Reports: Hx Fractures - right foot. Denies: Hx Gunshot Wound, Hx Pneumothorax, Hx Traumatic Brain Injury Infectious Medical History: Denies: Hx Hepatitis Past Surgical History: Reports: Hx Abdominal Surgery - PEG tube-past, Hx Bowel Surgery - cyst on bladder, Hx Orthopedic Surgery - right shoulder. Denies: Hx Open Heart Surgery, Hx Pacemaker - Immunizations Hx Diphtheria, Pertussis, Tetanus Vaccination: Yes History of Influenza Vaccine for 03/2017 - 08/2017 Season: No Influenza Administration Date for 03/2017 - 08/2017 Season: 04/04/17 Physical Exam - Vital signs Vitals: Temp Pulse Resp BP Pulse Ox 98.1 F 68 20 155/83 H 97 01/26/19 20:21 01/26/19 20:21 01/26/19 20:21 01/26/19 20:21 01/26/19 20:21 Course - Vital Signs Vital signs: Temp Pulse Resp BP Pulse Ox 98.1 F 68 20 155/83 H 97 01/26/19 20:21 01/26/19 20:21 01/26/19 20:21 01/26/19 20:21 01/26/19 20:21 Doctor's Discharge - Discharge Referrals: Angeles PRABHAKAR MD [Primary Care Provider] - Follow up as needed
[2019-01-26 21:06] LABS: ABSOLUTE EOSINOPHILS # (AUTO) 0.3 10^3/uL (0.0-0.6); ABSOLUTE LYMPHOCYTES (AUTO) 1.1 10^3/uL (0.5-4.7); ABSOLUTE MONOCYTES (AUTO) 0.8 10^3/uL (0.1-1.4); ABSOLUTE NEUT (AUTO) 8.2 10^3/uL (1.7-8.2); BASOPHILS % (AUTO) 0.4 % (0-2); EOSINOPHILS % (AUTO) 2.4 % (0-6); HEMATOCRIT 37.8 % (37.9-51.0); HEMOGLOBIN 12.6 g/dL (13.5-17.0); MEAN CORPUSCULAR HEMOGLOBIN 29.5 pg (27.0-33.4); MEAN CORPUSCULAR HGB CONC 33.3 g/dL (32.0-36.0); MEAN CORPUSCULAR VOLUME 89 fl (80-97); MONOCYTES % (AUTO) 7.4 % (3-13); PLATELET COUNT 194 10^3/uL (150-450); RED BLOOD COUNT 4.26 10^6/uL (4.35-5.55); RED CELL DISTRIBUTION WIDTH 16.2 % (11.5-14.0); SEGMENTED NEUTROPHILS % (AUTO) 78.8 % (42-78); TOTAL CELLS COUNTED % (AUTO) 100 %; WHITE BLOOD COUNT 10.4 10^3/uL (4.0-10.5)
[2019-01-26] MEDS ORDERED: ONDANSETRON HCL INJ/PF 4 MG/2 ML SDV IV ONE (21:10)
--- NOTE | 2019-01-26 21:13 | ER Document Report ---
ED GI/ - General Chief Complaint: Abdominal Swelling Stated Complaint: ABDOMINAL SWELLING Time Seen by Provider: 01/26/19 20:30 Mode of Arrival: Wheelchair Notes: Patient is a 68-year-old male that comes emergency department for chief complaint of abdominal pain and swelling. Is also had only loose bowel movements over the past couple of days. Not movements are nonbloody, he reported nausea but denies vomiting, he has not had any fevers. He was complaining of pain in his back earlier but not now. No chest pain, no other complaints. 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 Patient uses motorized wheelchair to get around, he is not ambulatory at all. No other abdominal surgeries reported. is at bedside and gives most of the history. TRAVEL OUTSIDE OF THE [place] IN LAST 30 DAYS: No - Related Data Allergies/Adverse Reactions: Iodinated Contrast Media Allergy (Mild, Verified 02/23/18 11:20) Generalized rash Past Medical History - General Information source: Relative - Social History Smoking Status: Never Smoker Frequency of alcohol use: None Drug Abuse: None Lives with: Spouse/Significant other Family History: Reviewed & Not Pertinent, CAD, Hypertension Patient has suicidal ideation: No Patient has homicidal ideation: No - Past Medical History Cardiac Medical History: Reports: Hx Atrial Fibrillation, Hx Hypercholesterolemia, Hx Hypertension Denies: Hx Coronary Artery Disease, Hx Heart Attack, Hx Heart Murmur Pulmonary Medical History: Reports: Hx COPD, Hx Pneumonia, Hx Sleep Apnea Denies: Hx Asthma, Hx Bronchitis, Hx Respiratory Failure, Hx Tuberculosis Neurological Medical History: Reports: Hx Cerebrovascular Accident - 2005 WEAKER ON RIGHT SIDE, Hx Seizures - LAST ONE OVER 1 YR. AGO.. Denies: Hx Migraine Endocrine Medical History: Reports: Hx Diabetes Mellitus Type 2 Renal/ Medical History: Reports: Hx Kidney Stones. Denies: Hx Peritoneal Dialysis GI Medical History: Reports: Hx Gastroesophageal Reflux Disease - aspiration. Denies: Hx Hepatitis, Hx Hiatal Hernia, Hx Pancreatitis, Hx Ulcer Musculoskeletal Medical History: Reports Hx Arthritis, Denies Hx Systemic Lupus Erythematosus Psychiatric Medical History: Reports: Hx Depression Traumatic Medical History: Reports: Hx Fractures - right foot. Denies: Hx Gunshot Wound, Hx Pneumothorax, Hx Traumatic Brain Injury Infectious Medical History: Denies: Hx Hepatitis Past Surgical History: Reports: Hx Abdominal Surgery - PEG tube-past, Hx Bowel Surgery - cyst on bladder, Hx Orthopedic Surgery - right shoulder. Denies: Hx Open Heart Surgery, Hx Pacemaker - Immunizations Hx Diphtheria, Pertussis, Tetanus Vaccination: Yes Hx Pneumococcal Vaccination: 06/04/11 Review of Systems - Review of Systems Constitutional: No symptoms reported EENT: No symptoms reported Cardiovascular: No symptoms reported Respiratory: No symptoms reported Gastrointestinal: See HPI Genitourinary: No symptoms reported Male Genitourinary: No symptoms reported Musculoskeletal: No symptoms reported Skin: No symptoms reported Hematologic/Lymphatic: No symptoms reported Neurological/Psychological: No symptoms reported Physical Exam - Vital signs Vitals: Temp Pulse Resp BP Pulse Ox 98.1 F 68 20 155/83 H 97 01/26/19 20:21 01/26/19 20:21 01/26/19 20:21 01/26/19 20:21 01/26/19 20:21 - Notes Notes: GENERAL: Alert, interacts well. No acute distress. Patient is nonverbal. HEAD: Normocephalic, atraumatic. EYES: Pupils equal, round, and reactive to light. Extraocular movements intact. ENT: Oral mucosa moist, tongue midline. Oropharynx unremarkable. Airway patent. NECK: Full range of motion. Supple. Trachea midline. LUNGS: Clear to auscultation bilaterally, no wheezes, rales, or rhonchi. No respiratory distress. HEART: Regular rate and rhythm. No murmur ABDOMEN: Extremely distended abdomen which is firm but not notably tender. There is minimal generalized tenderness over the abdomen. A few distant bowel sounds present. Suprapubic catheter in place without any obvious surrounding infection or complication. GENITOURINARY: No swelling, tenderness, or signs of infection. EXTREMITIES: No edema, normal radial and dorsalis pedis pulses bilaterally. No cyanosis. BACK: no cervical, thoracic, lumbar midline tenderness. Marked weakness of the right side which is reportedly chronic. NEUROLOGICAL: Alert and cooperative but nonverbal. SKIN: Warm, dry, normal turgor. No rashes or lesions noted. Course - Re-evaluation Re-evalutation: Patient does not appear to be in distress, however his abdomen is very impressively distended. His abdomen is firm but not rigid. There is only mild generalized tenderness over the area. He is still smiling and well-appearing. Patient is nonverbal. In order to obtain a urine sample because of his abdominal and flank pain is suprapubic catheter was replaced, new urine is still pending. Urine coming out of the new catheter is clear. This was done without incident. CBC nonspecific. Chemistry shows some elevation in creatinine and some hypokalemia, patient frequently has hypokalemia per previous records. He was given IV fluids. CAT scan has much more concerning, shows evidence of sigmoid volvulus. I immediately called general surgeon, Dr. Conway. Dr. Conway evaluated patient at bedside in the CAT scan, he will be performing rigid sigmoidoscopy for decompression of the bowel. He will be performing this at bedside. Afterwards patient will be admitted to the surgical service. P atient and family state agreement with plan. Dr. Blue request patient be given additional IV fluid bolus and potassium. I also placed Rocephin coverage of urine and urine culture was placed. - Vital Signs Vital signs: Temp Pulse Resp BP Pulse Ox 98.0 F 77 17 165/66 H 95 01/27/19 02:21 01/27/19 02:21 01/27/19 02:21 01/27/19 02:21 01/27/19 02:21 - Laboratory Result Diagrams: 01/26/19 21:00 01/26/19 21:00 Laboratory results interpreted by me: 01/26/19 01/26/19 01/27/19 21:00 21:00 00:30 RBC 4.26 L Hgb 12.6 L Hct 37.8 L RDW 16.2 H Lymph % (Auto) 11.0 L Seg Neutrophils % 78.8 H Potassium 3.2 L BUN 21 H Creatinine 1.89 H Est GFR ( Amer) 43 L Est GFR (MDRD) Non-Af 36 L Glucose 128 H AST 15 L Urine Protein >=500 H Urine Blood LARGE H Urine Nitrite POSITIVE H Ur Leukocyte Esterase LARGE H Discharge - Discharge Clinical Impression: Volvulus of sigmoid colon, Abdominal swelling Abdominal pain Qualifiers: Abdominal location: generalized Qualified Code(s): R10.84 - Generalized abdominal pain Condition: Stable Disposition: ADMITTED INPATIENT Admitting Provider: Surgicalist Unit Admitted: Surgical Floor
[2019-01-26 21:23] LABS: ALBUMIN 4.1 g/dL (3.5-5.0); ALKALINE PHOSPHATASE 115 U/L (38-126); ANION GAP 11 (5-19); ASPARTATE AMINO TRANSFERASE 15 U/L (17-59); BILIRUBIN,DIRECT 0.3 mg/dL (0.0-0.4); BILIRUBIN,TOTAL 0.6 mg/dL (0.2-1.3); BLOOD UREA NITROGEN 21 mg/dL (7-20); CALCIUM 8.9 mg/dL (8.4-10.2); CARBON DIOXIDE 27 mmol/L (22-30); CHLORIDE 101 mmol/L (98-107); GLUCOSE 128 mg/dL (75-110); POTASSIUM 3.2 mmol/L (3.6-5.0); TOTAL PROTEIN 6.9 g/dL (6.3-8.2)
[2019-01-26] MEDS ORDERED: NORMAL SALINE 1000 ML 1,000 ML IV ONE (23:00)
--- NOTE | 2019-01-26 23:07 | RADIOLOGY REPORT (SQ) ---
EXAM DESCRIPTION: CT ABDOMEN PELVIS WITHOUT IV CONTRAST COMPLETED DATE/TME: 01/26/2019 22:06 CLINICAL HISTORY: 68 years, Male, sharp flank and abd pain, abd swelling COMPARISON: 10/18/2017 CT TECHNIQUE: 370 Images stored on PACS. All CT scanners at this facility use dose modulation, iterative reconstruction, and/or weight based dosing when appropriate to reduce radiation dose to as low as reasonably achievable (ALARA). [facility]: Dose Right [facility]: CareDose [facility]: Dose Right [facility]: Teradose 4D [facility]: [employer] LIMITATIONS: None. FINDINGS: Limited evaluation of the lung bases shows a small, likely loculated right pleural effusion. Bibasilar pleural thickening. Cardiomegaly. Osseous structures of the abdomen/pelvis are grossly intact. Limited evaluation of the liver, spleen, adrenal glands, pancreas is unremarkable. Bilateral renal cortical thinning and atrophy. Bilateral renal cysts, some of which appear hyperdense. Severe atheromatous change. Contracted gallbladder. There is distention of the sigmoid colon, with a "coffee terrell" shape and narrowing of the distal sigmoid colon. Findings are highly suspicious for sigmoid volvulus. Inflammatory changes near the site of distal narrowing. Large amount of stool in the colon. No free air. Small amount of ascites.. Liquefied stool in the rectal vault. Mariano catheter in urinary bladder.. IMPRESSION: Findings highly suspicious for sigmoid volvulus, as above. Small amount of ascites. No free air. Small right pleural effusion with suspected loculated component. Bibasilar pleural thickening. Cardiomegaly.. TECHNICAL DOCUMENTATION: Quality ID # 436: Final reports with documentation of one or more dose reduction techniques (e.g., Automated exposure control, adjustment of the mA and/or kV according to patient size, use of iterative reconstruction technique) copyright 2010 [employer]- All Rights Reserved
--- NOTE | 2019-01-27 00:39 | PDOC H&P ---
History of Present Illness Admission Date/PCP: CAMILO SALDIVAR MD Patient complains of: Abdominal distention History of Present Illness: MILANA FRANCO is a 68 year old male, with a history of atrial fibrillation on aspirin, stroke in 2004 affecting his right upper and lower extremities as well as his speech and memory, who presents to the emergency room with a 24-hour history of progressive distention of abdominal girth diarrhea and occasional flatus. According to the , the patient is being presenting with progressive distention and abdominal girth since yesterday and this afternoon his abdomen is very tense and distended without pain. He has been passing liquid stools throughout the past 24 hours together with flatus. A CT scan of the abdomen p víctor has been done revealing the presence of a sigmoid volvulus with normal caliber small bowel remaining portion of the colon, very small amount of free fluid in the abdomen no free air. Past Medical History Cardiac Medical History: Reports: Atrial Fibrillation, Hyperlipidema, Hypertension Denies: Coronary Artery Disease, Myocardial Infarction, Heart Murmur Pulmonary Medical History: Reports: Chronic Obstructive Pulmonary Disease (COPD), Pneumonia, Sleep Apnea Denies: Asthma, Bronchitis, Respiratory Failure, Tuberculosis Neurological Medical History: Reports: Seizures - LAST ONE OVER 1 YR. AGO. Denies: Migraine Endocrine Medical History: Reports: Diabetes Mellitus Type 2 GI Medical History: Reports: Gastroesophageal Reflux Disease - aspiration Denies: Hepatitis, Hiatal Hernia Musculoskeltal Medical History: Reports: Arthritis Psychiatric Medical History: Reports: Depression Traumatic Medical History: Denies: Gunshot Wound, Pneumothorax, Traumatic Brain Injury Past Surgical History Past Surgical History: Reports: Orthopedic Surgery - right shoulder Denies: Pacemaker Social History Smoking Status: Never Smoker Frequency of Alcohol Use: None Hx Recreational Drug Use: No Drugs: None Hx Prescription Drug Abuse: No Family History Family History: Reviewed & Not Pertinent, CAD, Hypertension Parental Family History Reviewed: No Children Family History Reviewed: No Sibling(s) Family History Reviewed.: No Medication/Allergy Home Medications: Carbidopa/Levodopa [Sinemet 25-100 mg Tablet] 1.5 tab PO BID 02/24/18 Clonazepam [Klonopin] 0.5 mg PO Q12 02/24/18 Furosemide [Lasix 40 mg Tablet] 60 mg PO DAILY 02/24/18 Losartan Potassium [Cozaar 25 mg Tablet] 25 mg PO DAILY 02/24/18 Metoprolol Tartrate [Lopressor 25 mg Tablet] 25 mg PO Q12 02/24/18 Montelukast Sodium [Singulair 10 mg Tablet] 10 mg PO QPM 02/24/18 Oxcarbazepine [Trileptal] 900 mg PO Q12 02/24/18 Ropinirole HCl [Requip] 1 mg PO QHS 02/24/18 Tamsulosin HCl [Flomax 0.4 mg Cap.sr] 0.4 mg PO ACSUPPER 02/24/18 Fluticasone Propionate [Flonase Nasal Sassafras 50 Mcg/Sassafras 16 gm] 1 spray NASL Q12 03/10/18 Allergies/Adverse Reactions: Iodinated Contrast Media Allergy (Mild, Verified 02/23/18 11:20) Generalized rash Physical Exam Vital Signs: Temp Pulse Resp BP Pulse Ox 98.1 F 68 20 155/83 H 97 01/26/19 20:21 01/26/19 20:21 01/26/19 20:21 01/26/19 20:21 01/26/19 20:21 Intake & Output 01/25/19 01/26/19 01/27/19 06:59 06:59 06:59 Weight 84.232 kg General appearance: PRESENT: no acute distress, thin Head exam: PRESENT: atraumatic, other - Posterior perianal scar as per craniotomy Eye exam: PRESENT: EOMI Mouth exam: PRESENT: moist, neck supple Teeth exam: PRESENT: poor dentation Neck exam: PRESENT: full ROM Respiratory exam: PRESENT: clear to auscultation анна Cardiovascular exam: PRESENT: irregular rhythm GI/Abdominal exam: PRESENT: distended, firm, hypoactive bowel sounds, other - tympanic Rectal exam: PRESENT: deferred Neurological exam: PRESENT: alert, awake, oriented to time, oriented to situation Psychiatric exam: PRESENT: appropriate affect Skin exam: PRESENT: warm Results Laboratory Results: 01/26/19 21:00 01/26/19 21:00 01/26/19 01/26/19 21:00 21:00 WBC 10.4 RBC 4.26 L Hgb 12.6 L Hct 37.8 L MCV 89 MCH 29.5 MCHC 33.3 RDW 16.2 H Plt Count 194 Seg Neutrophils % 78.8 H Sodium 138.6 Potassium 3.2 L Chloride 101 Carbon Dioxide 27 Anion Gap 11 BUN 21 H Creatinine 1.89 H Est GFR ( Amer) 43 L Glucose 128 H Calcium 8.9 Total Bilirubin 0.6 AST 15 L Alkaline Phosphatase 115 Total Protein 6.9 Albumin 4.1 Lipase 37.5 Impressions: Abdomen/Pelvis CT 01/26/19 22:06 IMPRESSION: Findings highly suspicious for sigmoid volvulus, as above. Small amount of ascites. No free air. Small right pleural effusion with suspected loculated component. Bibasilar pleural thickening. Cardiomegaly.. TECHNICAL DOCUMENTATION: Quality ID # 436: Final reports with documentation of one or more dose reduction techniques (e.g., Automated exposure control, adjustment of the mA and/or kV according to patient size, use of iterative reconstruction technique) copyright 2011 [employer]- All Rights Reserved Assessment & Plan - Diagnosis (1) Sigmoid volvulus Is this a current diagnosis for this admission?: Yes - Plan Summary Plan Summary: Assessment: 68-year-old male with atrial fibrillation on aspirin Patient affected by right-sided stroke as well as speech impairment and decreased short-term memory Progressive increase of abdominal girth for the past 24 hours with presence of small amount of diarrhea and flatus CT scan abdomen pelvis is significant for sigmoid volvulus with normal caliber small bowel remaining portion of the colon Blood work reveals normal white blood cell count Elevated BUN and creatinine (21 and 1.8, respectively) significant for prerenal azotemia most likely due to dehydration Plan: Rigid proctosigmoidoscopy in the emergency room to decompress the sigmoid volvulus Rectal tube placement Admission to follow Most likely, the patient will undergo coronary dissection during his hospitalization to prevent recurrence of the sigmoid volvulus Clear liquid diet IVF Hospitalist on consult for medical management Cardiology on consult for preop clearance
[2019-01-27] MEDS ORDERED: NORMAL SALINE 1000 ML 1,000 ML IV PRN (00:41)
[2019-01-27] MEDS ORDERED: ONDANSETRON 4 MG TAB.RAPDIS PO PRN ×2 (00:41→12:30)
[2019-01-27 00:51] LABS: APPEARANCE,URINE SLIGHTLY-CLOUDY; BILIRUBIN,URINE NEGATIVE (NEGATIVE); COLOR,URINE YELLOW; GLUCOSE, URINE NEGATIVE (NEGATIVE); KETONES,URINE NEGATIVE (NEGATIVE); LEUKOCYTE ESTERASE,URINE LARGE (NEGATIVE); NITRITE,URINE POSITIVE (NEGATIVE); PROTEIN,URINE >=500 mg/dL (NEGATIVE); UROBILINOGEN,URINE NEGATIVE mg/dL (<2.0)
[2019-01-27] MEDS ORDERED: NORMAL SALINE 1000 ML 1,000 ML IV ONE (01:22)
[2019-01-27] MEDS ORDERED: CEFTRIAXONE 1 GM/D5W RTU 1 GM/50 ML RTUPB IV ONE (02:06)
[2019-01-27] MEDS: POTASSI CL 20 MEQ/50 ML RIDER 20 MEQ/50 ML RTUPB IV SCH ×2 (03:44→05:54)
[2019-01-27] MEDS ORDERED: METOPROLOL TARTRATE 25 MG TABLET PO ONE (03:45)
[2019-01-27] MEDS ORDERED: CLONAZEPAM 1 MG TABLET PO ONE (03:45)
--- NOTE | 2019-01-27 03:50 | RADIOLOGY REPORT (SQ) ---
CLINICAL HISTORY: f/u sigmoid volvulus decompression, rectal tube in COMPARISON: CT from January 26, 2019. TECHNIQUE: XR ABDOMEN SUPINE AND ERECT WITH CHEST (ABD ACUTE SERIES) 01/27/2019 12:52 AM CDT FINDINGS: There is moderate stool throughout the colon. There are no abnormal radiopaque foreign bodies or abnormal calcifications. Osseous structures are grossly unremarkable. IMPRESSION: Essentially complete resolution
[2019-01-27] MEDS ORDERED: LAMOTRIGINE 100 MG TABLET PO ONE (04:00)
[2019-01-27] MEDS ORDERED: METOPROLOL TARTRATE PF/INJ 5 MG/5 ML SDV IV PRN (05:10)
[2019-01-27] MEDS ORDERED: INSULIN REG, HUMAN 100 UNIT/ML 3 ML VIAL (PYX) SUBCUT PRN (05:10)
[2019-01-27] MEDS ORDERED: HYDRALAZINE HCL INJ/PF 20 MG/1 ML SDV IV PRN (05:10)
--- NOTE | 2019-01-27 05:10 | PDOC CONSULTATION ---
Consultation Consult Date: 01/27/19 Attending physician:: CHI GARLAND Provider Consulted: TIP VAZQUEZ Consult reason:: Multiple medical problems History of Present Illness Admission Date/PCP: 01/27/19 00:42 CAMILO SALDIVAR MD Patient complains of: Abdominal distention History of Present Illness: MILANA FRANCO is a 68 year old male who presented to the emergency room with a 1 day history abdominal distention. The patient communicating through his indicates that he has been experiencing progressive abdominal distention over the last 24 hours. The abdominal distention has been uncomfortable and has been associated with a large volume of flatus being passed and several liquid diarrhea stools also being passed. Despite the passage of flatus and stool patient continues to feel increasingly uncomfortable. The the discomfort is primarily located in the upper abdomen. Patient his relate that he has had similar episodes off and on for a couple of weeks but generally the passage of diarrhea and flatus alleviates the discomfort and he returns to normal without progression such as today. Patient is have not identified any aggravating or ameliorating factors for his abdominal distention. In the ER the patient was found to have a sigmoid volvulus and has been seen and admitted by Dr. Garland who has requested this consultation. Past Medical History Cardiac Medical History: Reports: Atrial Fibrillation, Hyperlipidema, Hypertension Denies: Coronary Artery Disease, Myocardial Infarction, Heart Murmur Pulmonary Medical History: Reports: Chronic Obstructive Pulmonary Disease ( COPD), Pneumonia, Sleep Apnea Denies: Asthma, Bronchitis, Respiratory Failure, Tuberculosis EENT Medical History: Denies: Cataracts, Ears - Hearing aids Neurological Medical History: Reports: Hemorrhagic CVA, Seizures - LAST ONE OVER 1 YR. AGO., Other - Subarachnoid hemorrhage Denies: Ischemic CVA, Migraine Endocrine Medical History: Reports: Diabetes Mellitus Type 2 Denies: Diabetes Mellitus Type 1, Hyperthyroidism, Hypothyroidism Renal/ Medical History: Denies: Chronic Kidney Disease, Nephrolithiasis Malignancy Medical History: Reports: None GI Medical History: Reports: Gastroesophageal Reflux Disease - aspiration Denies: Cirrhosis, Crohn's Disease, Hepatitis, Hiatal Hernia, Ulcerative Colitis Musculoskeltal Medical History: Reports: Arthritis Denies: Gout Skin Medical History: Denies: Eczema, Psoriasis Psychiatric Medical History: Reports: Depression Denies: Alcohol Dependency, Substance Abuse, Tobacco Dependency Traumatic Medical History: Denies: Gunshot Wound, Pneumothorax, Traumatic Brain Injury Hematology: Denies: Anemia, Bleeding Tendencies Infectious Medical History: Reports: None Past Surgical History Past Surgical History: Reports: Orthopedic Surgery - right shoulder Social History Information Source: Patient, Relative Lives with: Spouse/Significant other Smoking Status: Never Smoker Frequency of Alcohol Use: Rare Hx Recreational Drug Use: No Drugs: None Hx Prescription Drug Abuse: No - Advance Directive Resuscitation Status: Full Code Surrogate healthcare decision maker:: Charlotte Franco Family History Family History: CAD, Hypertension. denies: DM, Malignancy Parental Family History Reviewed: Yes Children Family History Reviewed: No Sibling(s) Family History Reviewed.: Yes Medication/Allergy Home Medications: Carbidopa/Levodopa [Sinemet 25-100 mg Tablet] 1.5 tab PO BID 02/24/18 Clonazepam [Klonopin] 0.5 mg PO Q12 02/24/18 Furosemide [Lasix 40 mg Tablet] 60 mg PO DAILY 02/24/18 Losartan Potassium [Cozaar 25 mg Tablet] 25 mg PO DAILY 02/24/18 Metoprolol Tartrate [Lopressor 25 mg Tablet] 25 mg PO Q12 02/24/18 Montelukast Sodium [Singulair 10 mg Tablet] 10 mg PO QPM 02/24/18 Oxcarbazepine [Trileptal] 900 mg PO Q12 02/24/18 Ropinirole HCl [Requip] 1 mg PO QHS 02/24/18 Tamsulosin HCl [Flomax 0.4 mg Cap.sr] 0.4 mg PO ACSUPPER 02/24/18 Fluticasone Propionate [Flonase Nasal Deary 50 Mcg/Deary 16 gm] 1 spray NASL Q12 03/10/18 Allergies/Adverse Reactions: Iodinated Contrast Media Allergy (Mild, Verified 02/23/18 11:20) Generalized rash Review of Systems Constitutional: ABSENT: chills, fever(s) Eyes: ABSENT: visual disturbances, other - Eye pain Ears: ABSENT: hearing changes, other - Ear pain Nose, Mouth, and Throat: ABSENT: mouth pain, sore throat Cardiovascular: ABSENT: chest pain, palpitations Respiratory: ABSENT: cough, dyspnea Gastrointestinal: PRESENT: abdominal pain, diarrhea, other - Increased flatus. ABSENT: constipation, nausea, vomiting Genitourinary: ABSENT: dysuria, hematuria Musculoskeletal: ABSENT: back pain, joint swelling, muscle weakness Integumentary: ABSENT: pruritus, rash Neurological: PRESENT: focal weakness - Chronic right hemiplegia status post CVA. ABSENT: confusion, convulsions, memory loss, syncope Psychiatric: ABSENT: anxiety, depression Endocrine: ABSENT: cold intolerance, heat intolerance Hematologic/Lymphatic: ABSENT: easy bleeding, easy bruising Physical Exam Vital Signs: Temp Pulse Resp BP Pulse Ox 98.0 F 77 17 165/66 H 95 01/27/19 02:21 01/27/19 02:21 01/27/19 02:21 01/27/19 02:21 01/27/19 02:21 Intake & Output 01/25/19 01/26/19 01/27/19 23:59 23:59 23:59 Intake Total 1000 Balance 1000 Weight 84.232 kg General appearance: PRESENT: no acute distress, cooperative Head exam: PRESENT: atraumatic, normocephalic Eye exam: PRESENT: conjunctiva pink. ABSENT: conjunctival injection, scleral icterus Ear exam: PRESENT: normal external ear exam. ABSENT: bleeding, drainage Mouth exam: PRESENT: dry mucosa, neck supple Neck exam: ABSENT: thyromegaly, tracheal deviation Respiratory exam: PRESENT: clear to auscultation анна, symmetrical, unlabored Cardiovascular exam: PRESENT: RRR. ABSENT: clicks, gallop, rubs Pulses: PRESENT: normal radial pulses, normal dorsalis pedis pul Vascular exam: PRESENT: normal capillary refill. ABSENT: pallor GI/Abdominal exam: PRESENT: distended - Moderate gaseous distention with increased tympany percussion, hypoactive bowel sounds, soft, tenderness - Questionable mild tenderness to palpation in the right upper quadrant. Rectal exam: PRESENT: deferred Extremities exam: ABSENT: joint swelling, pedal edema, tenderness Musculoskeletal exam: PRESENT: other - Moderate right hemiplegia noted. ABSENT: deformity, dislocation Neurological exam: PRESENT: alert, oriented to person, oriented to place, orie nted to time, oriented to situation, motor sensory deficit - Moderate right hemiplegia, aphasic - Moderate expressive aphasia. ABSENT: CN II-XII grossly intact - Moderate right hemiplegia Psychiatric exam: PRESENT: appropriate affect, normal mood Skin exam: PRESENT: dry, intact, warm. ABSENT: jaundice, rash, urticaria Results Laboratory Results: 01/26/19 21:00 01/26/19 21:00 01/26/19 01/26/1901/27/19 21:00 21:00 00:30 WBC 10.4 RBC 4.26 L Hgb 12.6 L Hct 37.8 L MCV 89 MCH 29.5 MCHC 33.3 RDW 16.2 H Plt Count 194 Seg Neutrophils % 78.8 H Sodium 138.6 Potassium 3.2 L Chloride 101 Carbon Dioxide 27 Anion Gap 11 BUN 21 H Creatinine 1.89 H Est GFR ( Amer) 43 L Glucose 128 H Calcium 8.9 Total Bilirubin 0.6 AST 15 L Alkaline Phosphatase 115 Total Protein 6.9 Albumin 4.1 Lipase 37.5 Urine Color YELLOW Urine Appearance SLIGHTLY-CLOUDY Urine pH 7.0 Ur Specific [place] 1.010 Urine Protein >=500 H Urine Glucose (UA) NEGATIVE Urine Ketones NEGATIVE Urine Blood LARGE H Urine Nitrite POSITIVE H Ur Leukocyte Esterase LARGE H Urine WBC (Auto) 86 Urine RBC (Auto) >182 Stool for White Cells 01/27/19 00:30 WBC RBC Hgb Hct MCV MCH MCHC RDW Plt Count Seg Neutrophils % Sodium Potassium Chloride Carbon Dioxide Anion Gap BUN Creatinine Est GFR ( Amer) Glucose Calcium Total Bilirubin AST Alkaline Phosphatase Total Protein Albumin Lipase Urine Color Urine Appearance Urine pH Ur Specific [place] Urine Protein Urine Glucose (UA) Urine Ketones Urine Blood Urine Nitrite Ur Leukocyte Esterase Urine WBC (Auto) Urine RBC (Auto) Stool for White Cells NO WBCs SEEN Impressions: Abdomen/Pelvis CT 01/26/19 22:06 IMPRESSION: Findings highly suspicious for sigmoid volvulus, as above. Small amount of ascites. No free air. Small right pleural effusion with suspected loculated component. Bibasilar pleural thickening. Cardiomegaly.. TECHNICAL DOCUMENTATION: Quality ID # 436: Final reports with documentation of one or more dose reduction techniques (e.g., Automated exposure control, adjustment of the mA and/or kV according to patient size, use of iterative reconstruction technique) copyright 2011 [employer]- All Rights Reserved Acute Abdomen Series 01/27/19 00:52 IMPRESSION: Essentially complete resolution Assessment and Plan - Diagnosis (1) Sigmoid volvulus Is this a current diagnosis for this admission?: Yes Plan: Patient's sigmoid volvulus be managed by Dr. Garland. Patient is medically cleared for surgical intervention. (2) Paroxysmal atrial fibrillation Is this a current diagnosis for this admission?: Yes Plan: Patient be monitored throughout his hospital course on telemetry. He will be continued on his usual medications for control of paroxysmal atrial fibrillation and anticoagulation to prevent embolic stroke. (3) Diabetes mellitus type 2 in nonobese Is this a current diagnosis for this admission?: Yes Plan: The patient will be continued on his usual diabetic diet and diabetic medications when he is able to take an oral diet. Before meals and at bedtime Accu-Cheks will be performed with sliding scale insulin used for hyperglycemia and a hypoglycemic protocol in place. Hemoglobin A1c will be obtained to assess the efficacy of his current therapy. (4) Seizure disorder Is this a current diagnosis for this admission?: Yes Plan: The patient will be continued on his usual anticonvulsant medications. Medication levels will be checked as appropriate. (5) Hypertension Qualifiers: Hypertension type: essential hypertension Qualified Code(s): I10 - Essential (primary) hypertension Is this a current diagnosis for this admission?: Yes Plan: Patient will be continued on his usual antihypertensive regimen. His blood pressure be checked frequently throughout his hospital course. If patient is unable to take oral medications IV prn coverage will be provided. (6) Chronic kidney disease, stage 3 Is this a current diagnosis for this admission?: Yes Plan: Patient will be monitored closely for any changes in his renal status. Daily CBCs metabolic profiles and magnesium levels will be obtained. - Time Time Spent with patient: 15-24 minutes Medications reviewed and adjusted accordingly: Yes Anticipated discharge: Home - Inpatient Certification Based on my medical assessment, after consideration of the patient's comorbidities, presenting symptoms, or acuity I expect that the services needed warrant INPATIENT care.: Yes I certify that my determination is in accordance with my understanding of Medicare's requirements for reasonable and necessary INPATIENT services [42 CFR 412.3e].: Yes Medical Necessity: Need Close Monitoring Due to Risk of Patient Decompensation, Need For IV Fluids, Need For Continuous Telemetry Monitoring, Need for Pain Control, Need for Surgery, Risk of Complication if Not Cared For in Hospital
[2019-01-27] MEDS ORDERED: ACETAMINOPHEN 650 MG SUPP.RECT PR PRN (05:16)
[2019-01-27] MEDS: HEPARIN SOD (PORCINE) 5,000 UNIT/ML 1 ML VIAL SUBCUT SCH ×3 (05:45→21:18)
[2019-01-27 06:21] LABS: FREE T3 3.79 pg/mL (2.77-5.27); FREE T4 (FREE THYROXINE) 1.27 ng/dL (0.78-2.19)
--- NOTE | 2019-01-27 07:06 | EKG REPORT ---
SEVERITY:- ABNORMAL ECG - ATRIAL FIBRILLATION, V-RATE 59-97 NONSPECIFIC INTRAVENTRICULAR CONDUCTION DELAY PROLONGED QT. NONSPECIFIC ST-T CHANGES INFERIOR LEADS : Confirmed by: Tomasz Whitaker MD 27-Jan-2019 07:05:46
--- NOTE | 2019-01-27 08:14 | PDOC PROGRESS REPORT ---
Subjective Progress Note for:: 01/27/19 Subjective:: This is a 68-year-old male with multiple medical problem as above admitted for surgical service for the sigmoid volvulus Patient is currently doing well denied any abdominal pain no nausea no vomiting Patient have a rectal tube was placed believe pretty much distention is all resolved today we will wait for the surgical evaluations And have a chronic A. fib currently see a Dr. Henley as outpatient choose to not take any anticoagulations as per cardiology and the patient Patient's otherwise denied any other symptoms Also see Dr. Ayala as outpatient for chronic kidney disease Reason For Visit: SIGMOID VOLVULUS Physical Exam Vital Signs: Temp Pulse Resp BP Pulse Ox 98.0 F 77 17 165/66 H 95 01/27/19 02:25 01/27/19 02:25 01/27/19 02:25 01/27/19 02:25 01/27/19 02:25 Intake & Output 01/26/19 01/27/19 01/28/19 06:59 06:59 06:59 Intake Total 1100 Output Total 600 Balance 500 Weight 89.8 kg General appearance: PRESENT: no acute distress, well-developed, well-nourished Head exam: PRESENT: atraumatic, normocephalic Eye exam: PRESENT: conjunctiva pink, EOMI, PERRLA. ABSENT: scleral icterus Ear exam: PRESENT: normal external ear exam Mouth exam: PRESENT: moist, tongue midline Neck exam: PRESENT: full ROM. ABSENT: carotid bruit, JVD, lymphadenopathy, thyromegaly Cardiovascular exam: PRESENT: RRR. ABSENT: diastolic murmur, rubs, systolic m urmur Pulses: PRESENT: normal dorsalis pedis pul, +2 pedal pulses bilateral Vascular exam: PRESENT: normal capillary refill GI/Abdominal exam: PRESENT: normal bowel sounds, soft. ABSENT: distended, guarding, mass, organolmegaly, rebound, tenderness Rectal exam: PRESENT: deferred Extremities exam: ABSENT: pedal edema Neurological exam: PRESENT: alert, awake, oriented to person, oriented to place, oriented to time. ABSENT: motor sensory deficit Additional comments: Weakness from old stroke is present Psychiatric exam: PRESENT: appropriate affect, normal mood. ABSENT: homicidal ideation, suicidal ideation Skin exam: PRESENT: dry, intact, warm. ABSENT: cyanosis, rash Results Laboratory Results: 01/26/19 21:00 08/25/19 21:00 01/26/19 01/26/19 01/26/19 21:00 21:00 21:00 WBC 10.4 RBC 4.26 L Hgb 12.6 L Hct 37.8 L MCV 89 MCH 29.5 MCHC 33.3 RDW 16.2 H Plt Count 194 Seg Neutrophils % 78.8 H Sodium 138.6 Potassium 3.2 L Chloride 101 Carbon Dioxide 27 Anion Gap 11 BUN 21 H Creatinine 1.89 H Est GFR ( Amer) 43 L Glucose 128 H Calcium 8.9 Total Bilirubin 0.6 AST 15 L Alkaline Phosphatase 115 Total Protein 6.9 Albumin 4.1 Lipase 37.5 Free T4 1.27 Free T3 pg/mL 3.79 Urine Color Urine Appearance Urine pH Ur Specific [place] Urine Protein Urine Glucose (UA) Urine Ketones Urine Blood Urine Nitrite Ur Leukocyte Esterase Urine WBC (Auto) Urine RBC (Auto) Stool for White Cells 01/27/19 01/27/19 00:30 00:30 WBC RBC Hgb Hct MCV MCH MCHC RDW Plt Count Seg Neutrophils % Sodium Potassium Chloride Carbon Dioxide Anion Gap BUN Creatinine Est GFR ( Amer) Glucose Calcium Total Bilirubin AST Alkaline Phosphatase Total Protein Albumin Lipase Free T4 Free T3 pg/mL Urine Color YELLOW Urine Appearance SLIGHTLY-CLOUDY Urine pH 7.0 Ur Specific [place] 1.010 Urine Protein >=500 H Urine Glucose (UA) NEGATIVE Urine Ketones NEGATIVE Urine Blood LARGE H Urine Nitrite POSITIVE H Ur Leukocyte Esterase LARGE H Urine WBC (Auto) 86 Urine RBC (Auto) >182 Stool for White Cells NO WBCs SEEN Impressions: Abdomen/Pelvis CT 01/26/19 22:06 IMPRESSION: Findings highly suspicious for sigmoid volvulus, as above. Small amount of ascites. No free air. Small right pleural effusion with suspected loculated component. Bibasilar pleural thickening. Cardiomegaly.. TECHNICAL DOCUMENTATION: Quality ID # 436: Final reports with documentation of one or more dose reduction techniques (e.g., Automated exposure control, adjustment of the mA and/or kV according to patient size, use of iterative reconstruction technique) copyright 2011 [employer]- All Rights Reserved Acute Abdomen Series 01/27/19 00:52 IMPRESSION: Essentially complete resolution Assessment & Plan - Diagnosis (1) Abdominal swelling Is this a current diagnosis for this admission?: Yes Plan: Currently all resolving (2) Diabetes mellitus type 2 in nonobese Is this a current diagnosis for this admission?: Yes Plan: Continues to sliding scale with [facility] protocol (3) Paroxysmal atrial fibrillation Is this a current diagnosis for this admission?: Yes Plan: Continues to beta-jennifer and aspirin we will consult the cardiology put the patient on the Lovenox (4) Sigmoid volvulus Is this a current diagnosis for this admission?: Yes Plan: Follow-up with the surgery (5) Cerebrovascular disease Is this a current diagnosis for this admission?: Yes Plan: Continues to aspirin and statin (6) Chronic kidney disease, stage 3 Is this a current diagnosis for this admission?: Yes Plan: Continues to IV fluid (7) Epilepsy Qualifiers: Epilepsy type: unspecified Intractability: not intractable Status epilepticus: without status epilepticus Qualified Code(s): G40.909 - Epilepsy, unspecified, not intractable, without status epilepticus Is this a current diagnosis for this admission?: Yes Plan: Continues to seizures medications Patient n.p.o. 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 Is this a current diagnosis for this admission?: Yes (9) Hypertension Qualifiers: Hypertension type: essential hypertension Qualified Code(s): I10 - Essential (primary) hypertension Is this a current diagnosis for this admission?: Yes Plan: Currently all stable (10) Hypokalemia Is this a current diagnosis for this admission?: Yes Plan: Replace the potassiums - Time Time Spent with patient: 25-34 minutes Medications reviewed and adjusted accordingly: Yes Anticipated discharge: Home Within: Other - Plan Summary Plan Summary: Discussed with the on the bedside we will consult the cardiology before the procedure continues to monitor the patient's kidney functions
[2019-01-27 09:24] LABS: ANION GAP 7 (5-19); BLOOD UREA NITROGEN 17 mg/dL (7-20); CARBON DIOXIDE 27 mmol/L (22-30); CHLORIDE 105 mmol/L (98-107); GLUCOSE 111 mg/dL (75-110); POTASSIUM 3.4 mmol/L (3.6-5.0)
--- NOTE | 2019-01-27 09:49 | PDOC PROGRESS REPORT ---
Subjective Progress Note for:: 01/27/19 Subjective:: Patient was admitted with severe abdominal distention due to sigmoid volvulus. Patient is planned to have sigmoid colon resection followed by possible colostomy. I been asked to clear patient's from cardiac standpoint. Patient on questioning denied any chest pain. Patient does not speak but cannot communicate with the patient. at bedside. Patient denies any shortness of breath. Patient has history of atrial fibrillation. Reason For Visit: SIGMOID VOLVULUS Physical Exam Vital Signs: Temp Pulse Resp BP Pulse Ox 98.0 F 77 17 165/66 H 95 01/27/19 02:25 01/27/19 02:25 01/27/19 02:25 01/27/19 02:25 01/27/19 02:25 Intake & Output 01/26/19 01/27/19 01/28/19 06:59 06:59 06:59 Intake Total 1100 Output Total 600 Balance 500 Weight 89.8 kg Exam: GENERAL: well-nourished and in no acute distress. Alert and oriented x3 HEAD: Atraumatic, normocephalic. EYES: LINDSEY, sclera anicteric, conjunctiva are normal. ENT: Moist mucous membranes. No oral ulcerations or bleeding gums noted. No obvious ear, nose or throat abnormalities noted. NECK: supple without lymphadenopathy. Trachea is central. No cervical or axillary lymphadenopathy noted. Carotids are 2+, JVD WNL LUNGS: Breath sounds clear bilaterally. No wheezes rales or rhonchi noted. No significant dullness noted on percussion. CHEST: Palpation of the chest wall shows no significant chest wall tenderness. HEART: [place] [employer], No PSH, 1/6 ELIZA aortic area, 1/6 gutiérrez systolic murmur mitral area, no rubs, no gallops. ABDOMEN: Soft, no significant tenderness appreciated, normoactive bowel sounds. No guarding, no rebound. No rigidity noted . No masses appreciated. EXTREMITIES: Pedal pulses are 1-2+, no calf tenderness noted. No clubbing or cyanosis. negative pedal edema noted NEUROLOGICAL: Findings of previous right hemiplegia and left-sided CVA.. PSYCH: Normal mood, normal affect. Judgment and insight within normal limits. SKIN: No significant ecchymosis, skin is noted to be warm. MUSCULOSKELETAL EXAM: No significant acute joint swelling noted. Results Laboratory Results: 01/26/19 21:00 01/27/19 08:33 01/26/19 01/26/19 01/26/19 21:00 21:00 21:00 WBC 10.4 RBC 4.26 L Hgb 12.6 L Hct 37.8 L MCV 89 MCH 29.5 MCHC 33.3 RDW 16.2 H Plt Count 194 Seg Neutrophils % 78.8 H Sodium 138.6 Potassium 3.2 L Chloride 101 Carbon Dioxide 27 Anion Gap 11 BUN 21 H Creatinine 1.89 H Est GFR ( Amer) 43 L Glucose 128 H Calcium 8.9 Total Bilirubin 0.6 AST 15 L Alkaline Phosphatase 115 Total Protein 6.9 Albumin 4.1 Lipase 37.5 Free T4 1.27 Free T3 pg/mL 3.79 Urine Color Urine Appearance Urine pH Ur Specific [place] Urine Protein Urine Glucose (UA) Urine Ketones Urine Blood Urine Nitrite Ur Leukocyte Esterase Urine WBC (Auto) Urine RBC (Auto) Stool for White Cells 01/27/19 01/27/19 01/27/19 00:30 00:30 08:33 WBC RBC Hgb Hct MCV MCH MCHC RDW Plt Count Seg Neutrophils % Sodium 139.3 Potassium 3.4 L Chloride 105 Carbon Dioxide 27 Anion Gap 7 BUN 17 Creatinine 1.68 H Est GFR ( Amer) 49 L Glucose 111 H Calcium 8.0 L Total Bilirubin AST Alkaline Phosphatase Total Protein Albumin Lipase Free T4 Free T3 pg/mL Urine Color YELLOW Urine Appearance SLIGHTLY-CLOUDY Urine pH 7.0 Ur Specific [place] 1.010 Urine Protein >=500 H Urine Glucose (UA) NEGATIVE Urine Ketones NEGATIVE Urine Blood LARGE H Urine Nitrite POSITIVE H Ur Leukocyte Esterase LARGE H Urine WBC (Auto) 86 Urine RBC (Auto) >182 Stool for White Cells NO WBCs SEEN EKG Comments: Atrial fibrillation without any acute ST-T wave changes. Impressions: Abdomen/Pelvis CT 01/26/19 22:06 IMPRESSION: Findings highly suspicious for sigmoid volvulus, as above. Small amount of ascites. No free air. Small right pleural effusion with suspected loculated component. Bibasilar pleural thickening. Cardiomegaly.. TECHNICAL DOCUMENTATION: Quality ID # 436: Final reports with documentation of one or more dose reduction techniques (e.g., Automated exposure control, adjustment of the mA and/or kV according to patient size, use of iterative reconstruction technique) copyright 2011 [employer]- All Rights Reserved Acute Abdomen Series 01/27/19 00:52 IMPRESSION: Essentially complete resolution Assessment & Plan - Diagnosis (1) Preoperative cardiovascular examination Is this a current diagnosis for this admission?: Yes (2) Sigmoid volvulus Is this a current diagnosis for this admission?: Yes (4) Cerebrovascular disease Is this a current diagnosis for this admission?: Yes (5) Chronic kidney disease Qualifiers: Chronic kidney disease stage: stage 3 (moderate) Qualified Code(s): N18.3 - Chronic kidney disease, stage 3 (moderate) Is this a current diagnosis for this admission?: Yes (6) Hypertension Qualifiers: Hypertension type: essential hypertension Qualified Code(s): I10 - Essential (primary) hypertension Is this a current diagnosis for this admission?: Yes (7) Type 2 diabetes mellitus Qualifiers: Diabetes mellitus snf insulin use: without snf use Diabetes mellitus complication status: with other specified complication Qualified Code(s): E11.69 - Type 2 diabetes mellitus with other specified complication Is this a current diagnosis for this admission?: Yes - Notes Notes: Patient with acute sigmoid volvulus which has been decompressed. Patient in need for surgery. Currently seems stable from cardiac standpoint with atrial fibrillation. Patient does have chronic kidney disease, diabetes, hypertension. At this point, have ordered a echocardiogram. Last echocardiogram approximatel y 1 year ago had shown borderline depressed LVEF but without any significant valvular abnormalities. Feel that there are no contraindication to proceeding with surgery although perioperative risk is somewhat on the higher than average side because of atrial fibrillation, chronic kidney disease, patient being bedbound. Recommend DVT prophylaxis. It seems patient was not on any chronic anticoagula tion because of history of subarachnoid hemorrhage. Could use intravenous Cardizem and or intravenous beta-jennifer for rate control in case patient has elevated heart rate from afib during the perioperative period. Once allowed p.o., all his home medication can be resumed. Patient has multiple other problems which are being well taken care of by the director of primary and are under good control. As usual I thank Dr. Price very much for the kind referral. ADD: 2D Echo now shows normal LVEF, Mild MR and Mild Pulm HTN Discussed with Dr. Barfield. - Time Time with patient: Greater than 35 minutes Medications reviewed and adjusted accordingly: Yes
[2019-01-27] MEDS: FAMOTIDINE INJ/PF 20 MG/2 ML SDV IV SCH ×2 (11:44→21:16)
[2019-01-27] MEDS: METOPROLOL SUCCINATE 25 MG TAB.SR.24H PO SCH ×2 (11:45→21:16)
[2019-01-27] MEDS: LEVETIRACETAM 500 MG/NACL-ISO 500 MG/100 ML RTUPB IV SCH ×2 (11:46→21:28)
[2019-01-27] MEDS ORDERED: POTASSIUM CHLORIDE 20 MEQ/50 ML RTU IV ONE (16:30)
--- NOTE | 2019-01-27 18:04 | PDOC PROGRESS REPORT ---
Subjective Progress Note for:: 01/27/19 Subjective:: Patient seen earlier today; not taking much n.p.o. Mariano catheter, suprapubic, draining; rectal drain minimal output. Reason For Visit: SIGMOID VOLVULUS Physical Exam Vital Signs: Temp Pulse Resp BP Pulse Ox 98.0 F 77 17 165/66 H 95 01/27/19 02:25 01/27/19 02:25 01/27/19 02:25 01/27/19 02:25 01/27/19 02:25 Intake & Output 01/26/19 01/27/19 01/28/19 06:59 06:59 06:59 Intake Total 1100 968 Output Total 600 270 Balance 500 698 Weight 89.8 kg General appearance: PRESENT: no acute distress, other - Patient smiling. GI/Abdominal exam: PRESENT: other - Abdomen is soft, no peritoneal signs no rigidity. Results Laboratory Results: 01/26/19 21:00 01/27/19 08:33 01/26/19 01/26/19 01/26/19 21:00 21:00 21:00 WBC 10.4 RBC 4.26 L Hgb 12.6 L Hct 37.8 L MCV 89 MCH 29.5 MCHC 33.3 RDW 16.2 H Plt Count 194 Seg Neutrophils % 78.8 H Sodium 138.6 Potassium 3.2 L Chloride 101 Carbon Dioxide 27 Anion Gap 11 BUN 21 H Creatinine 1.89 H Est GFR ( Amer) 43 L Glucose 128 H Calcium 8.9 Total Bilirubin 0.6 AST 15 L Alkaline Phosphatase 115 Total Protein 6.9 Albumin 4.1 Lipase 37.5 Free T4 1.27 Free T3 pg/mL 3.79 Urine Color Urine Appearance Urine pH Ur Specific [place] Urine Protein Urine Glucose (UA) Urine Ketones Urine Blood Urine Nitrite Ur Leukocyte Esterase Urine WBC (Auto) Urine RBC (Auto) Stool for White Cells 01/27/19 01/27/19 01/27/19 00:30 00:30 08:33 WBC RBC Hgb Hct MCV MCH MCHC RDW Plt Count Seg Neutrophils % Sodium 139.3 Potassium 3.4 L Chloride 105 Carbon Dioxide 27 Anion Gap 7 BUN 17 Creatinine 1.68 H Est GFR ( Amer) 49 L Glucose 111 H Calcium 8.0 L Total Bilirubin AST Alkaline Phosphatase Total Protein Albumin Lipase Free T4 Free T3 pg/mL Urine Color YELLOW Urine Appearance SLIGHTLY-CLOUDY Urine pH 7.0 Ur Specific [place] 1.010 Urine Protein >=500 H Urine Glucose (UA) NEGATIVE Urine Ketones NEGATIVE Urine Blood LARGE H Urine Nitrite POSITIVE H Ur Leukocyte Esterase LARGE H Urine WBC (Auto) 86 Urine RBC (Auto) >182 Stool for White Cells NO WBCs SEEN Impressions: Abdomen/Pelvis CT 01/26/19 22:06 IMPRESSION: Findings highly suspicious for sigmoid volvulus, as above. Small amount of ascites. No free air. Small right pleural effusion with suspected loculated component. Bibasilar pleural thickening. Cardiomegaly.. TECHNICAL DOCUMENTATION: Quality ID # 436: Final reports with documentation of one or more dose reduction techniques (e.g., Automated exposure control, adjustment of the mA and/or kV according to patient size, use of iterative reconstruction technique) copyright 2011 [employer]- All Rights Reserved Acute Abdomen Series 01/27/19 00:52 IMPRESSION: Essentially complete resolution Assessment & Plan - Diagnosis (1) Sigmoid volvulus Is this a current diagnosis for this admission?: Yes Plan: Impression: Patient clinically improved after endoscopic decompression yesterday. Patient bedridden, and he and who is very attentive, agreed to diverting colostomy in conjunction with sigmoid colectomy which is been discussed by Dr. Wells yesterday and today. Her graph Recommendations: 1. We will keep patient n.p.o., on IV fluids and plan for interval laparoscopic, possible open sigmoid colectomy, diverting colostomy. Risk benefits alternatives of planned procedure explained the patient and his including bleeding, infection, cardiovascular collapse and . 2. I did speak with Dr. Henley, patient's avionics integration engineer who is assessed the situation currently and believes the patient is at mild to moderate risk for perioperative cardiovascular complications. Patient is not on a blood thinner. (2) Parkinson's disease Is this a current diagnosis for this admission?: Yes (3) Bedridden Is this a current diagnosis for this admission?: Yes (4) Cerebrovascular disease Is this a current diagnosis for this admission?: Yes
[2019-01-27] MEDS: LAMOTRIGINE 100 MG TABLET PO SCH (20:30)
[2019-01-27] MEDS: CARBIDOPA/LEVODOPA 25-100 MG TABLET PO SCH (21:16)
[2019-01-27] MEDS: CLONAZEPAM 1 MG TABLET PO SCH (21:16)
[2019-01-27] MEDS: OXYBUTYNIN CHLORIDE 5 MG TABLET PO SCH (21:17)
[2019-01-27] MEDS ORDERED: METOPROLOL TARTRATE 25 MG TABLET PO SCH (22:00)
[2019-01-27] MEDS ORDERED: (PENDING PHARMACY ID) (Clonazepam [Klonopin] 0.5 MG) PO SCH (22:00)
[2019-01-27] MEDS ORDERED: METOPROLOL TARTRATE 50 MG TABLET PO SCH (22:00)
--- NOTE | 2019-01-27 23:30 | XCELERA REPORT ---
[address] [address] Transthoracic Echocardiogram Report Name: MILANA FRANCO Age: 68 yrs Gender: Male : 1950 Patient Status: Inpatient Patient Location: [address] [place], [place] [address]A Study Date: 01/27/2019 09:43 AM Height: 70 in Weight: 197 lb BSA: 2.1 m2 Procedure: A complete two-dimensional transthoracic echocardiogram was performed (2D, M-mode, spectral and color flow Doppler). The study was technically adequate with some images being suboptimal in quality. Reason For Study: preop clearance Ordering Physician: CAMILO SALDIVAR Performed By: Stacy Phoenix Interpretation Summary LV diastolic function could not be adequately assessed due to atrial fibrilation. The left ventricular ejection fraction is normal. The left ventricle is grossly normal size. There is mild concentric left ventricular hypertrophy. Not all wall segments were well visualized. Mild mid anterior septal hypokinesia suspected The right ventricular systolic function is normal. The left atrium is mildly dilated. The right atrium is normal in size There is a mild amount of mitral regurgitation There is no mitral valve stenosis. No aortic regurgitation is present. There is no aortic valve stenosis There is a mild amount of tricuspid regurgitation Best estimated right ventricular systolic pressure is elevated at 30-40mmHg. There is mild pulmonary hypertension by echo The aortic root is not well visualized but is probably normal size. The inferior vena cava was not well visualized Minimal pericardial effusion. MMode/2D Measurements & Calculations RVDd: 3.3 cm LVIDd: 5.4 cm FS: 26.9 % Ao root diam: 3.3 cm IVSd: 1.0 cm LVIDs: 4.0 cm EDV(Teich): 143.8 ml Ao root area: 8.5 cm2 LVPWd: 1.0 cm ESV(Teich): 69.0 ml EF(Teich): 52.0 % Doppler Measurements & Calculations MV E max crissy: MV dec slope: Ao V2 max: LV V1 max P.8 cm/sec 791.1 cm/sec2 117.5 cm/sec 2.7 mmHg MV A max crissy: MV dec time: 0.15 sec Ao max PG: LV V1 max: 46.0 cm/sec 5.5 mmHg 81.4 cm/sec MV E/A: 2.6 PA V2 max: TR max crissy: 92.9 cm/sec 284.9 cm/sec PA max P.5 mmHg TR max P.5 mmHg Left Ventricle The left ventricle is grossly normal size. There is mild concentric left ventricular hypertrophy. The left ventricular ejection fraction is normal. LV diastolic function could not be adequately assessed due to atrial fibrilation. Not all wall segments were well visualized. Mild mid anterior septal hypokinesia suspected. Right Ventricle The right ventricle is grossly normal size. There is normal right ventricular wall thickness. The right ventricular systolic function is normal. Atria The right atrium is normal in size. The left atrium is mildly dilated. Interarterial septum not well visualized and not well dopplered. Cannot comment on ASD/PFO presence. Mitral Valve The mitral valve leaflets are sclerotic, but show no functional abnormalities. There is no mitral valve stenosis. There is a mild amount of mitral regurgitation. Aortic Valve The aortic valve is grossly normal. There is no aortic valve stenosis. No aortic regurgitation is present. Tricuspid Valve The tricuspid valve is not well visualized, but is grossly normal. There is no tricuspid stenosis. There is a mild amount of tricuspid regurgitation. Best estimated right ventricular systolic pressure is elevated at 30-40mmHg. There is mild pulmonary hypertension by echo. Pulmonic Valve The pulmonic valve is not well visualized. Great Vessels The aortic root is not well visualized but is probably normal size. The inferior vena cava was not well visualized. Effusions Minimal pericardial effusion. : CAMILO SALDIVAR > Boby Henley
[2019-01-28] MEDS: HEPARIN SOD (PORCINE) 5,000 UNIT/ML 1 ML VIAL SUBCUT SCH ×3 (05:27→22:17)
[2019-01-28] MEDS: CARBIDOPA/LEVODOPA 25-100 MG TABLET PO SCH ×3 (06:18→22:14)
[2019-01-28] MEDS: LAMOTRIGINE 100 MG TABLET PO SCH ×2 (06:18→18:27)
[2019-01-28] MEDS: NORMAL SALINE 1000 ML 1,000 ML IV PRN (06:22)
[2019-01-28 06:45] LABS: ABSOLUTE EOSINOPHILS # (AUTO) 0.2 10^3/uL (0.0-0.6); ABSOLUTE MONOCYTES (AUTO) 0.4 10^3/uL (0.1-1.4); BASOPHILS % (AUTO) 0.8 % (0-2); EOSINOPHILS % (AUTO) 4.1 % (0-6); HEMATOCRIT 31.2 % (37.9-51.0); HEMOGLOBIN 10.6 g/dL (13.5-17.0); LYMPHOCYTES % (AUTO) 21.6 % (13-45); MEAN CORPUSCULAR HGB CONC 34.1 g/dL (32.0-36.0); MEAN CORPUSCULAR VOLUME 88 fl (80-97); MONOCYTES % (AUTO) 8.2 % (3-13); PLATELET COUNT 127 10^3/uL (150-450); RED BLOOD COUNT 3.55 10^6/uL (4.35-5.55); RED CELL DISTRIBUTION WIDTH 15.8 % (11.5-14.0); SEGMENTED NEUTROPHILS % (AUTO) 65.3 % (42-78); TOTAL CELLS COUNTED % (AUTO) 100 %; WHITE BLOOD COUNT 4.7 10^3/uL (4.0-10.5)
--- NOTE | 2019-01-28 07:00 | EKG REPORT ---
SEVERITY:- ABNORMAL ECG - ATRIAL FIBRILLATION, V-RATE 51-74 NONSPECIFIC INTRAVENTRICULAR CONDUCTION DELAY : Confirmed by: Tomasz Whitaker MD 28-Jan-2019 06:59:08
[2019-01-28 07:09] LABS: ANION GAP 7 (5-19); BLOOD UREA NITROGEN 15 mg/dL (7-20); CALCIUM 8.1 mg/dL (8.4-10.2); CARBON DIOXIDE 27 mmol/L (22-30); CHLORIDE 106 mmol/L (98-107); GLUCOSE 81 mg/dL (75-110); POTASSIUM 3.7 mmol/L (3.6-5.0)
--- NOTE | 2019-01-28 08:16 | PDOC PROGRESS REPORT ---
Subjective Progress Note for:: 01/28/19 Subjective:: Patient is currently doing fair Patient is scheduled for the surgery by the laparoscopic and possible colostomy bagDue to the sigmoid volvulus Patient seen by the toolroom clerk currently stable for the surgery Patient is currently getting IV Keppra and will change the p.o. Lamictal IV and PRN IV medications for the blood pressure and heart rate Discussed with the and the bedside regarding the patient's current conditions low to moderate risk for the surgery due to the multiple medical issues the Understand very well Reason For Visit: SIGMOID VOLVULUS Physical Exam Vital Signs: Temp Pulse Resp BP Pulse Ox 97.5 F 71 17 155/80 H 97 01/27/19 22:00 01/27/19 22:00 01/27/19 22:00 01/27/19 22:00 01/27/19 22:00 Intake & Output 01/27/19 01/28/19 01/29/19 06:59 06:59 06:59 Intake Total 1100 2168 Output Total 600 270 Balance 500 1898 Weight 89.8 kg General appearance: PRESENT: no acute distress, well-developed, well-nourished Head exam: PRESENT: atraumatic, normocephalic Eye exam: PRESENT: conjunctiva pink, EOMI, PERRLA. ABSENT: scleral icterus Ear exam: PRESENT: normal external ear exam Mouth exam: PRESENT: moist, tongue midline Neck exam: PRESENT: full ROM. ABSENT: carotid bruit, JVD, lymphadenopathy, thyromegaly Respiratory exam: PRESENT: clear to auscultation анна Cardiovascular exam: PRESENT: RRR. ABSENT: diastolic murmur, rubs, systolic murmur Pulses: PRESENT: normal dorsalis pedis pul, +2 pedal pulses bilateral Vascular exam: PRESENT: normal capillary refill GI/Abdominal exam: PRESENT: normal bowel sounds, soft. ABSENT: distended, guarding, mass, organolmegaly, rebound, tenderness Rectal exam: PRESENT: deferred Neurological exam: PRESENT: alert, awake, oriented to person. ABSENT: motor sensory deficit Psychiatric exam: PRESENT: appropriate affect, normal mood. ABSENT: homicidal ideation, suicidal ideation Skin exam: PRESENT: dry, intact, warm. ABSENT: cyanosis, rash Results Laboratory Results: 01/28/19 05:54 01/28/19 05:54 01/27/19 01/28/19 01/28/19 08:33 05:54 05:54 WBC 4.7 RBC 3.55 L Hgb 10.6 L Hct 31.2 L MCV 88 MCH 30.0 MCHC 34.1 RDW 15.8 H Plt Count 127 L Seg Neutrophils % 65.3 Sodium 139.3 139.9 Potassium 3.4 L 3.7 Chloride 105 106 Carbon Dioxide 27 27 Anion Gap 7 7 BUN 17 15 Creatinine 1.68 H 1.62 H Est GFR ( Amer) 49 L 51 L Glucose 111 H 81 Calcium 8.0 L 8.1 L Magnesium 1.7 TSH 01/28/19 05:54 WBC RBC Hgb Hct MCV MCH MCHC RDW Plt Count Seg Neutrophils % Sodium Potassium Chloride Carbon Dioxide Anion Gap BUN Creatinine Est GFR ( Amer) Glucose Calcium Magnesium TSH 1.04 Impressions: Abdomen/Pelvis CT 01/26/19 22:06 IMPRESSION: Findings highly suspicious for sigmoid volvulus, as above. Small amount of ascites. No free air. Small right pleural effusion with suspected loculated component. Bibasilar pleural thickening. Cardiomegaly.. TECHNICAL DOCUMENTATION: Quality ID # 436: Final reports with documentation of one or more dose reduction techniques (e.g., Automated exposure control, adjustment of the mA and/or kV according to patient size, use of iterative reconstruction technique) copyright 2011 [employer]- All Rights Reserved Acute Abdomen Series 01/27/19 00:52 IMPRESSION: Essentially complete resolution Assessment & Plan - Diagnosis (1) Abdominal swelling Is this a current diagnosis for this admission?: Yes Plan: Due to the volvulus currently going for the surgery (2) Diabetes mellitus type 2 in nonobese Is this a current diagnosis for this admission?: Yes Plan: Continues to sliding scale per [facility] protocol (3) Paroxysmal atrial fibrillation Is this a current diagnosis for this admission?: Yes Plan: Currently all stable use the PRN beta-jennifer follow with the cardiology (4) Sigmoid volvulus Is this a current diagnosis for this admission?: Yes Plan: Currently scheduled for the laparoscopic surgery (5) Cerebrovascular disease Is this a current diagnosis for this admission?: Yes Plan: Continues to aspirin and statin (6) Chronic kidney disease, stage 3 Is this a current diagnosis for this admission?: Yes Plan: Continues to IV fluid (7) Epilepsy Qualifiers: Epilepsy type: unspecified Intractability: not intractable Status epilepticus: without status epilepticus Qualified Code(s): G40.909 - Epilepsy, unspecified, not intractable, without status epilepticus Is this a current diagnosis for this admission?: Yes Plan: Continues to IV Keppra will change to Lamictal IV (8) Hemiplegia affecting right dominant side Qualifiers: Hemiplegia type: unspecified type Hemiplegia etiology: late effect of cerebrovascular disease Cerebrovascular disease type: nontraumatic subarachnoid hemorrhage Qualified Code(s): I69.051 - 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 PRN beta-jennifer and hydralazine (10) Hypokalemia Is this a current diagnosis for this admission?: Yes Plan: Currently all stable - Time Time Spent with patient: 15-24 minutes Medications reviewed and adjusted accordingly: Yes Anticipated discharge: Home Within: Other - Plan Summary Plan Summary: Discussed with the nursing staff today regarding all medications discussed with the cardiology discussed with the surgery and discussed with the patient's regarding the patient's current conditions
[2019-01-28] MEDS ORDERED: PROPOFOL INJ 200 MG/20 ML VIAL IV ONE ×2 (08:58→09:12)
[2019-01-28] MEDS ORDERED: MIDAZOLAM 2 MG/2 ML INJ ONE (08:58)
[2019-01-28] MEDS ORDERED: FENTANYL CITRATE INJ/PF 250 MCG/5 ML AMPULE ONE (08:58)
[2019-01-28] MEDS ORDERED: ONDANSETRON HCL INJ/PF 4 MG/2 ML SDV ONE (08:58)
[2019-01-28] MEDS ORDERED: SUGAMMADEX SODIUM 200 MG/2 ML SDV IV ONE (09:12)
[2019-01-28] MEDS ORDERED: CEFAZOLIN INJ 1 GM VIAL ONE (09:23)
[2019-01-28] MEDS ORDERED: (PENDING PHARMACY ID) (Oxybutynin Chloride [Oxybutynin Chloride Er] 10 MG) PO SCH (10:00)
[2019-01-28] MEDS ORDERED: (PENDING PHARMACY ID) (Escitalopram Oxalate [Lexapro] 10 MG) PO SCH (10:00)
[2019-01-28] MEDS ORDERED: FENTANYL CITRATE INJ/PF 100 MCG/2 ML AMPUL IV PRN ×3 (10:43)
--- NOTE | 2019-01-28 11:31 | Operative Report ---
Nonrecallable Operative Report DATE OF SURGERY: 01/28/19 PREOPERATIVE DIAGNOSIS: Sigmoid volvulus POSTOPERATIVE DIAGNOSIS: Sigmoid volvulus OPERATION: Sigmoid colectomy with end colostomy SURGEON: MITUL PAYNE ANESTHESIA: GA TISSUE REMOVED OR ALTERED: Sigmoid colon COMPLICATIONS: None ESTIMATED BLOOD LOSS: 10 cc INTRAOPERATIVE FINDINGS: Redundant sigmoid colon PROCEDURE: Patient was brought to the operating when awake alert in stable condition placed in the operative table supine position induced under general anesthesia intubated the abdomen was prepped and draped in usual sterile manner for the procedure and infraumbilical 8 cm incision was made with a 15 blade dissection was carried down through subtenons tissue with Bovie cautery the midline fascia was then opened with Bovie cautery upon opening the midline fascia we identified the sigmoid colon and easily was pulled into the wound it was markedly redundant we palpated the rectal tube that had been previously placed and noted the sigmoid rectal junction we then created a window behind the colon with Bovie cautery and then divided the colon with one firing of the Endo DON stapler with a blue load we then divided the mesentery with the LigaSure device to continue that cephalad we mobilized the proximal descending colon with Bovie cautery dividing away from the white line of Toldt. Once this was done in the colon easily came into the wound we then examined the anterior peritoneum and noted that hemostasis was intact and closed the fascia with a interrupted 0 Vicryl sutures and the skin was closed with standard skin clips placed. We then turned attention to the left abdominal wall and created a skin defect with Bovie cautery circumferentially carried our dissection down through skin subcutaneous tissue and fat with the Bovie cautery to identify the rectus fascia which was opened in a stellate fashion and we pulled the colon through. We then closed the skin incision in the midline incision and appeared to mature the colostomy we divided the redundant colon off the descending colon using a Srikanth clamp on the specimen side and dividing it with Bovie cautery handled the hemostasis with the LigaSure device and then we matured the colostomy onto the anterior abdominal skin with interrupted 3-0 Vicryl sutures was it was matured a sterile colostomy appliance was applied which completed the procedure estimated blood loss was less than 25 cc sponge needle counts were correct x2 the patient was awakened in the operating transferred recovery in stable condition Monika hillman was present for the entire case for help with wound retraction wound closure Sponge needle counts were correct x2 at the termination of the procedure
[2019-01-28] MEDS: FENTANYL CITRATE INJ/PF 100 MCG/2 ML AMPUL ONE ×5 (12:04→13:40)
[2019-01-28] MEDS: OXYBUTYNIN CHLORIDE 5 MG TABLET PO SCH ×2 (15:45→22:08)
[2019-01-28] MEDS: LOSARTAN POTASSIUM 25 MG TABLET PO SCH (15:45)
[2019-01-28] MEDS: AMLODIPINE BESYLATE 2.5 MG TABLET PO SCH (15:46)
[2019-01-28] MEDS: ATORVASTATIN CALCIUM 10 MG TABLET PO SCH (15:46)
[2019-01-28] MEDS: ESCITALOPRAM OXALATE 10 MG TABLET PO SCH (15:46)
[2019-01-28] MEDS: CLONAZEPAM 1 MG TABLET PO SCH ×2 (15:46→22:14)
[2019-01-28] MEDS: FUROSEMIDE 40 MG TABLET PO SCH (15:46)
[2019-01-28] MEDS: METOPROLOL SUCCINATE 25 MG TAB.SR.24H PO SCH ×2 (15:47→22:14)
[2019-01-28] MEDS: MORPHINE SULFATE 10 MG/ML INJ IV PRN (16:30)
[2019-01-28] MEDS: LEVETIRACETAM 500 MG/NACL-ISO 500 MG/100 ML RTUPB IV SCH (16:37)
[2019-01-28] MEDS: FAMOTIDINE INJ/PF 20 MG/2 ML SDV IV SCH ×2 (16:41→22:21)
--- NOTE | 2019-01-28 19:10 | PDOC PROGRESS REPORT ---
Subjective Progress Note for:: 01/28/19 Subjective:: Patient was admitted with severe abdominal distention due to sigmoid volvulus. 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 Patient on questioning denied any chest pain. Patient does not speak but cannot communicate with the patient. at bedside. Patient denies any shortness of breath. Patient has history of atrial fibrillation. Reason For Visit: SIGMOID VOLVULUS Physical Exam Vital Signs: Temp Pulse Resp BP Pulse Ox 97.5 F 104 H 18 177/80 H 99 01/28/19 15:21 01/28/19 15:21 01/28/19 15:21 01/28/19 15:21 01/28/19 15:21 Intake & Output 01/27/19 01/28/19 01/29/19 06:59 06:59 06:59 Intake Total 1100 2168 2000 Output Total 600 270 600 Balance 500 1898 1400 Weight 89.8 kg Exam: GENERAL: well-nourished and in no acute distress. Alert and oriented x3 HEAD: Atraumatic, normocephalic. EYES: [place], sclera anicteric, conjunctiva are normal. ENT: Moist mucous membranes. No oral ulcerations or bleeding gums noted. No obvious ear, nose or throat abnormalities noted. NECK: supple without lymphadenopathy. Trachea is central. No cervical or axillary lymphadenopathy noted. Carotids are 2+, JVD WNL LUNGS: Breath sounds clear bilaterally. No wheezes rales or rhonchi noted. No significant dullness noted on percussion. CHEST: Palpation of the chest wall shows no significant chest wall tenderness. HEART: [place] [employer], No PSH, 1/6 ELIZA aortic area, 1/6 gutiérrez systolic murmur mitral area, no rubs, no gallops. ABDOMEN: Soft, Status post sigmoid colectomy and placement of colostomy. EXTREMITIES: Pedal pulses are 1-2+, no calf tenderness noted. No clubbing or cyanosis. negative pedal edema noted NEUROLOGICAL: Right-sided hemiparesis noted.. PSYCH: Normal mood, normal affect. Judgment and insight within normal limits. SKIN: No significant ecchymosis, skin is noted to be warm. MUSCULOSKELETAL EXAM: No significant acute joint swelling noted. Results Laboratory Results: 01/28/19 05:54 01/28/19 05:54 0801/28/19 01/28/19 05:54 05:54 05:54 WBC 4.7 RBC 3.55 L Hgb 10.6 L Hct 31.2 L MCV 88 MCH 30.0 MCHC 34.1 RDW 15.8 H Plt Count 127 L Seg Neutrophils % 65.3 Sodium 139.9 Potassium 3.7 Chloride 106 Carbon Dioxide 27 Anion Gap 7 BUN 15 Creatinine 1.62 H Est GFR ( Amer) 51 L Glucose 81 Calcium 8.1 L Magnesium 1.7 TSH 1.04 EKG Comments: Telemetry shows atrial fibrillation with controlled to somewhat rapid ventricular response Impressions: Abdomen/Pelvis CT 01/26/19 22:06 IMPRESSION: Findings highly suspicious for sigmoid volvulus, as above. Small amount of ascites. No free air. Small right pleural effusion with suspected loculated component. Bibasilar pleural thickening. Cardiomegaly.. TECHNICAL DOCUMENTATION: Quality ID # 436: Final reports with documentation of one or more dose reduction techniques (e.g., Automated exposure control, adjustment of the mA and/or kV according to patient size, use of iterative reconstruction technique) copyright 2011 [employer]- All Rights Reserved Acute Abdomen Series 01/27/19 00:52 IMPRESSION: Essentially complete resolution Assessment & Plan - Diagnosis (1) Sigmoid volvulus Is this a current diagnosis for this admission?: Yes (3) Cerebrovascular disease Is this a current diagnosis for this admission?: Yes (4) Chronic kidney disease Qualifiers: Chronic kidney disease stage: stage 3 (moderate) Qualified Code(s): N18.3 - Chronic kidney disease, stage 3 (moderate) Is this a current diagnosis for this admission?: Yes (5) Hypertension Qualifiers: Hypertension type: essential hypertension Qualified Code(s): I10 - Essential (primary) hypertension Is this a current diagnosis for this admission?: Yes (6) Type 2 diabetes mellitus Qualifiers: Diabetes mellitus chcf insulin use: without joint terminal attack controller use Diabetes mellitus complication status: with other specified complication Qualified Code(s): E11.69 - Type 2 diabetes mellitus with other specified complication Is this a current diagnosis for this admission?: Yes - Notes Notes: Patient seen postop. He is noted to have problems with high blood pressure and also elevated heart rate. Wrote orders for IV Lopressor 5 mg q. one hour as needed. Could also use Cardizem drip if needed. Patient otherwise stable. Wrote orders for sequential compression device both lower extremities to prevent DVT. Patient at bedside. Patient will benefit from incentive spirometry. That order was written. - Time Time with patient: Greater than 35 minutes Medications reviewed and adjusted accordingly: Yes
[2019-01-28] MEDS: METOPROLOL TARTRATE PF/INJ 5 MG/5 ML SDV IV PRN (20:13)
[2019-01-28] MEDS: CEFEPIME 1 GM/D5W RTU 1 GM/50 ML RTUPB IV SCH (22:17)
[2019-01-29] MEDS: LEVETIRACETAM 500 MG/NACL-ISO 500 MG/100 ML RTUPB IV SCH ×3 (01:20→21:41)
[2019-01-29] MEDS: METOPROLOL TARTRATE PF/INJ 5 MG/5 ML SDV IV PRN (04:29)
[2019-01-29] MEDS: MORPHINE SULFATE 10 MG/ML INJ IV PRN ×4 (04:38→17:55)
[2019-01-29] MEDS: CARBIDOPA/LEVODOPA 25-100 MG TABLET PO SCH ×3 (06:02→21:53)
[2019-01-29] MEDS: LAMOTRIGINE 100 MG TABLET PO SCH ×2 (06:02→17:56)
[2019-01-29] MEDS: HEPARIN SOD (PORCINE) 5,000 UNIT/ML 1 ML VIAL SUBCUT SCH ×3 (06:02→21:21)
[2019-01-29 06:04] LABS: ABSOLUTE LYMPHOCYTES (AUTO) 0.8 10^3/uL (0.5-4.7); ABSOLUTE MONOCYTES (AUTO) 0.9 10^3/uL (0.1-1.4); ABSOLUTE NEUT (AUTO) 6.8 10^3/uL (1.7-8.2); BASOPHILS % (AUTO) 0.4 % (0-2); EOSINOPHILS % (AUTO) 0.3 % (0-6); HEMATOCRIT 31.1 % (37.9-51.0); HEMOGLOBIN 10.5 g/dL (13.5-17.0); LYMPHOCYTES % (AUTO) 9.4 % (13-45); MEAN CORPUSCULAR HEMOGLOBIN 29.7 pg (27.0-33.4); MEAN CORPUSCULAR HGB CONC 33.9 g/dL (32.0-36.0); MEAN CORPUSCULAR VOLUME 88 fl (80-97); MONOCYTES % (AUTO) 10.1 % (3-13); PLATELET COUNT 143 10^3/uL (150-450); RED BLOOD COUNT 3.55 10^6/uL (4.35-5.55); RED CELL DISTRIBUTION WIDTH 15.9 % (11.5-14.0); SEGMENTED NEUTROPHILS % (AUTO) 79.8 % (42-78); TOTAL CELLS COUNTED % (AUTO) 100 %; WHITE BLOOD COUNT 8.5 10^3/uL (4.0-10.5)
[2019-01-29 06:22] LABS: ANION GAP 8 (5-19); BLOOD UREA NITROGEN 16 mg/dL (7-20); CALCIUM 8.2 mg/dL (8.4-10.2); CARBON DIOXIDE 25 mmol/L (22-30); CHLORIDE 107 mmol/L (98-107); GLUCOSE 122 mg/dL (75-110); POTASSIUM 3.7 mmol/L (3.6-5.0)
[2019-01-29 06:59] LABS: APPEARANCE,URINE CLEAR; BILIRUBIN,URINE NEGATIVE (NEGATIVE); COLOR,URINE YELLOW; GLUCOSE, URINE 50 mg/dL (NEGATIVE); KETONES,URINE TRACE mg/dL (NEGATIVE); LEUKOCYTE ESTERASE,URINE MODERATE (NEGATIVE); NITRITE,URINE NEGATIVE (NEGATIVE); PROTEIN,URINE >=500 mg/dL (NEGATIVE); URINE SPECIFIC GRAVITY 1.012; UROBILINOGEN,URINE NEGATIVE mg/dL (<2.0)
[2019-01-29] MEDS ORDERED: DEXTROSE 40% GEL 15 GM TUBE PO PRN ×2 (09:42)
[2019-01-29] MEDS ORDERED: DEXTROSE 50%-WATER 25 GM/50 ML DISP.SYRIN IV PRN ×2 (09:42)
[2019-01-29] MEDS ORDERED: GLUCAGON,HUMAN RECOMB 1 MG INJ SUBCUT PRN (09:42)
[2019-01-29] MEDS ORDERED: CLONIDINE 0.1 MG/24 HR PATCH.TDWK TD SCH (10:00)
[2019-01-29] MEDS: NORMAL SALINE 1000 ML 1,000 ML IV PRN (10:02)
[2019-01-29] MEDS: LOSARTAN POTASSIUM 25 MG TABLET PO SCH (10:02)
[2019-01-29] MEDS: CEFEPIME 1 GM/D5W RTU 1 GM/50 ML RTUPB IV SCH ×2 (10:02→21:43)
[2019-01-29] MEDS: FAMOTIDINE INJ/PF 20 MG/2 ML SDV IV SCH ×2 (10:02→21:53)
[2019-01-29] MEDS: METOPROLOL SUCCINATE 25 MG TAB.SR.24H PO SCH ×2 (10:03→21:52)
[2019-01-29] MEDS: AMLODIPINE BESYLATE 2.5 MG TABLET PO SCH (10:03)
[2019-01-29] MEDS: CLONAZEPAM 1 MG TABLET PO SCH ×2 (10:04→21:52)
[2019-01-29] MEDS: ATORVASTATIN CALCIUM 10 MG TABLET PO SCH (10:04)
[2019-01-29] MEDS: FUROSEMIDE 40 MG TABLET PO SCH (10:04)
[2019-01-29] MEDS: ESCITALOPRAM OXALATE 10 MG TABLET PO SCH (10:04)
[2019-01-29] MEDS: OXYBUTYNIN CHLORIDE 5 MG TABLET PO SCH ×2 (10:04→21:52)
--- NOTE | 2019-01-29 10:37 | PDOC PROGRESS REPORT ---
Subjective Progress Note for:: 01/29/19 Reason For Visit: SIGMOID VOLVULUS Physical Exam Vital Signs: Temp Pulse Resp BP Pulse Ox 98.0 F 113 H 18 161/104 H 93 01/29/19 08:26 01/29/19 08:26 01/29/19 08:26 01/29/19 08:26 01/29/19 08:26 Intake & Output 01/28/19 01/29/19 01/30/19 06:59 06:59 06:59 Intake Total 2168 3150 Output Total 270 1600 Balance 1898 1550 Weight 88.1 kg Results Laboratory Results: 01/29/19 05:35 01/29/19 05:35 01/29/19 01/29/19 01/29/19 05:35 05:35 06:40 WBC 8.5 RBC 3.55 L Hgb 10.5 L Hct 31.1 L MCV 88 MCH 29.7 MCHC 33.9 RDW 15.9 H Plt Count 143 L Seg Neutrophils % 79.8 H Sodium 139.6 Potassium 3.7 Chloride 107 Carbon Dioxide 25 Anion Gap 8 BUN 16 Creatinine 1.65 H Est GFR ( Amer) 50 L Glucose 122 H Calcium 8.2 L Magnesium 1.5 L Urine Color YELLOW Urine Appearance CLEAR Urine pH 6.0 Ur Specific [place] 1.012 Urine Protein >=500 H Urine Glucose (UA) 50 H Urine Ketones TRACE H Urine Blood SMALL H Urine Nitrite NEGATIVE Ur Leukocyte Esterase MODERATE H Urine WBC (Auto) 35 Urine RBC (Auto) 4 01/27/19 00:30 Stool - Stool - Final 01/27/19 00:30 Suprapubic Catheter Urine Culture - Final Escherichia Coli Impressions: Abdomen/Pelvis CT 01/26/19 22:06 IMPRESSION: Findings highly suspicious for sigmoid volvulus, as above. Small amount of ascites. No free air. Small right pleural effusion with suspected loculated component. Bibasilar pleural thickening. Cardiomegaly.. TECHNICAL DOCUMENTATION: Quality ID # 436: Final reports with documentation of one or more dose reduction techniques (e.g., Automated exposure control, adjustment of the mA and/or kV according to patient size, use of iterative reconstruction technique) copyright 2011 [employer]- All Rights Reserved Acute Abdomen Series 01/27/19 00:52 IMPRESSION: Essentially complete resolution Assessment & Plan - Diagnosis (1) Sigmoid volvulus Is this a current diagnosis for this admission?: Yes - Plan Summary Plan Summary: 68-year-old male status post sigmoid colectomy with colostomy placement for a sigmoid volvulus. He is postoperative day #1. The patient denies any nausea or vomiting. His is at bedside to assist with the recent history. His midline incision is healing well. He has no drainage on the dressing. The left lower quadrant colostomy is pink and slightly edematous. There is no flatus or stool production yet. Okay for oral meds. Okay for ice chips and popsicles. Awaiting return of bowel function.
--- NOTE | 2019-01-29 11:56 | PDOC PROGRESS REPORT ---
Subjective Progress Note for:: 01/29/19 Subjective:: Patient is currently doing well status post Colectomy and colostomy Patient is currently n.p.o. Since seen by the cardiology put up as needed IV beta-jennifer for heart rate and blood pressures Patient is currently on IV Keppra for the seizures Patient is denied any chest pain to than any shortness of the breath Reason For Visit: SIGMOID VOLVULUS Physical Exam Vital Signs: Temp Pulse Resp BP Pulse Ox 98.0 F 113 H 18 161/104 H 93 01/29/19 08:26 01/29/19 08:26 01/29/19 08:26 01/29/19 08:26 01/29/19 08:26 Intake & Output 01/28/19 01/29/19 01/30/19 06:59 06:59 06:59 Intake Total 2168 3150 Output Total 270 1600 Balance 1898 1550 Weight 88.1 kg General appearance: PRESENT: no acute distress, well-developed, well-nourished Head exam: PRESENT: atraumatic, normocephalic Eye exam: PRESENT: conjunctiva pink, EOMI, PERRLA. ABSENT: scleral icterus Ear exam: PRESENT: normal external ear exam Mouth exam: PRESENT: moist, tongue midline Neck exam: PRESENT: full ROM. ABSENT: carotid bruit, JVD, lymphadenopathy, thyromegaly Respiratory exam: PRESENT: clear to auscultation анна Cardiovascular exam: PRESENT: irregular rhythm. ABSENT: diastolic murmur, rubs, systolic murmur Pulses: PRESENT: normal dorsalis pedis pul, +2 pedal pulses bilateral Vascular exam: PRESENT: normal capillary refill GI/Abdominal exam: PRESENT: normal bowel sounds, soft. ABSENT: distended, guarding, mass, organolmegaly, rebound, tenderness Additonal comments: Colostomy bag is present Rectal exam: PRESENT: deferred Neurological exam: PRESENT: alert, awake, oriented to person, oriented to place, oriented to time, oriented to situation. ABSENT: motor sensory deficit Psychiatric exam: PRESENT: appropriate affect, normal mood. ABSENT: homicidal ideation, suicidal ideation Skin exam: PRESENT: dry, intact, warm. ABSENT: cyanosis, rash Results Laboratory Results: 01/29/19 05:35 01/29/19 05:35 01/29/19 01/29/19 01/29/19 05:35 05:35 06:40 WBC 8.5 RBC 3.55 L Hgb 10.5 L Hct 31.1 L MCV 88 MCH 29.7 MCHC 33.9 RDW 15.9 H Plt Count 143 L Seg Neutrophils % 79.8 H Sodium 139.6 Potassium 3.7 Chloride 107 Carbon Dioxide 25 Anion Gap 8 BUN 16 Creatinine 1.65 H Est GFR ( Amer) 50 L Glucose 122 H Calcium 8.2 L Magnesium 1.5 L Urine Color YELLOW Urine Appearance CLEAR Urine pH 6.0 Ur Specific [place] 1.012 Urine Protein >=500 H Urine Glucose (UA) 50 H Urine Ketones TRACE H Urine Blood SMALL H Urine Nitrite NEGATIVE Ur Leukocyte Esterase MODERATE H Urine WBC (Auto) 35 Urine RBC (Auto) 4 01/27/19 00:30 Stool - Stool - Final 01/27/19 00:30 Suprapubic Catheter Urine Culture - Final Escherichia Coli Impressions: Abdomen/Pelvis CT 01/26/19 22:06 IMPRESSION: Findings highly suspicious for sigmoid volvulus, as above. Small amount of ascites. No free air. Small right pleural effusion with suspected loculated component. Bibasilar pleural thickening. Cardiomegaly.. TECHNICAL DOCUMENTATION: Quality ID # 436: Final reports with documentation of one or more dose reduction techniques (e.g., Automated exposure control, adjustment of the mA and/or kV according to patient size, use of iterative reconstruction technique) copyright 2011 [employer]- All Rights Reserved Acute Abdomen Series 01/27/19 00:52 IMPRESSION: Essentially complete resolution Assessment & Plan - Diagnosis (1) Abdominal swelling Is this a current diagnosis for this admission?: Yes Plan: Status post surgery (2) Diabetes mellitus type 2 in nonobese Is this a current diagnosis for this admission?: Yes Plan: Continues to sliding scale per [facility] protocol (3) Paroxysmal atrial fibrillation Is this a current diagnosis for this admission?: Yes Plan: Currently follow with cardiology continues to IV as needed beta-jennifer if he needed we can put in a Cardizem drips (4) Sigmoid volvulus Is this a current diagnosis for this admission?: Yes Plan: Status post colectomy and colostomy postop day #1 (5) Cerebrovascular disease Is this a current diagnosis for this admission?: Yes (6) Chronic kidney disease, stage 3 Is this a current diagnosis for this admission?: Yes Plan: Continues to IV fluid (7) Epilepsy Qualifiers: Epilepsy type: unspecified Intractability: not intractable Status epilepticus: without status epilepticus Qualified Code(s): G40.909 - Epilepsy, unspecified, not intractable, without status epilepticus Is this a current diagnosis for this admission?: Yes Plan: Continues to IV Keppra will change to Lamictal IV (8) Hemiplegia affecting right dominant side Qualifiers: Hemiplegia type: unspecified type Hemiplegia etiology: late effect of cerebrovascular disease Cerebrovascular disease type: nontraumatic subarachnoid hemorrhage Qualified Code(s): I69.051 - 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 coli urinary tract infection Is this a current diagnosis for this admission?: Yes Plan: Continues to IV cefepime - Time Time Spent with patient: 15-24 minutes Medications reviewed and adjusted accordingly: Yes Anticipated discharge: Home, Home with Homehealth Within: Other - Plan Summary Plan Summary: Continues to current medical management Discuss with the and the bedside regarding the patient's current conditions
[2019-01-30] MEDS: HEPARIN SOD (PORCINE) 5,000 UNIT/ML 1 ML VIAL SUBCUT SCH ×3 (05:14→21:37)
[2019-01-30] MEDS: LAMOTRIGINE 100 MG TABLET PO SCH ×2 (05:21→17:15)
[2019-01-30] MEDS: CARBIDOPA/LEVODOPA 25-100 MG TABLET PO SCH ×3 (05:22→21:35)
[2019-01-30 06:36] LABS: ABSOLUTE EOSINOPHILS # (AUTO) 0.1 10^3/uL (0.0-0.6); ABSOLUTE LYMPHOCYTES (AUTO) 0.7 10^3/uL (0.5-4.7); ABSOLUTE MONOCYTES (AUTO) 0.7 10^3/uL (0.1-1.4); ABSOLUTE NEUT (AUTO) 6.4 10^3/uL (1.7-8.2); BASOPHILS % (AUTO) 0.3 % (0-2); EOSINOPHILS % (AUTO) 1.4 % (0-6); HEMATOCRIT 31.5 % (37.9-51.0); HEMOGLOBIN 10.7 g/dL (13.5-17.0); LYMPHOCYTES % (AUTO) 8.8 % (13-45); MEAN CORPUSCULAR HEMOGLOBIN 29.9 pg (27.0-33.4); MEAN CORPUSCULAR HGB CONC 33.9 g/dL (32.0-36.0); MEAN CORPUSCULAR VOLUME 88 fl (80-97); MONOCYTES % (AUTO) 9.2 % (3-13); PLATELET COUNT 138 10^3/uL (150-450); RED BLOOD COUNT 3.57 10^6/uL (4.35-5.55); SEGMENTED NEUTROPHILS % (AUTO) 80.3 % (42-78); TOTAL CELLS COUNTED % (AUTO) 100 %
[2019-01-30 07:00] LABS: ANION GAP 11 (5-19); BLOOD UREA NITROGEN 17 mg/dL (7-20); CALCIUM 8.2 mg/dL (8.4-10.2); CARBON DIOXIDE 23 mmol/L (22-30); CHLORIDE 105 mmol/L (98-107); GLUCOSE 97 mg/dL (75-110); POTASSIUM 3.6 mmol/L (3.6-5.0)
[2019-01-30] MEDS: MORPHINE SULFATE 10 MG/ML INJ IV PRN (08:14)
[2019-01-30] MEDS ORDERED: MAGNESIUM SULFATE/D5W 1 GM/100 ML RTUPB IV ONE (08:41)
--- NOTE | 2019-01-30 08:44 | PDOC PROGRESS REPORT ---
Subjective Progress Note for:: 01/30/19 Subjective:: Patient is currently doing fair Still n.p.o. per surgery Patient's blood pressure medication adjusted by the cardiology yesterday put on a clonidine patch Patient's denied any chest pain to than any shortness of the breath Discussed with the on the bedside no other concerned Reason For Visit: SIGMOID VOLVULUS Physical Exam Vital Signs: Temp Pulse Resp BP Pulse Ox 97.7 F 105 H 16 142/90 H 96 01/30/19 07:30 01/30/19 07:30 01/30/19 07:30 01/30/19 07:30 01/30/19 07:30 Intake & Output 01/29/19 01/30/19 01/31/19 06:59 06:59 06:59 Intake Total 3150 850 Output Total 1600 3000 Balance 1550 -2150 Weight 88.1 kg 86.8 kg General appearance: PRESENT: no acute distress, well-developed, well-nourished Head exam: PRESENT: atraumatic, normocephalic Eye exam: PRESENT: conjunctiva pink, EOMI, PERRLA. ABSENT: scleral icterus Ear exam: PRESENT: normal external ear exam Mouth exam: PRESENT: moist, tongue midline Neck exam: PRESENT: full ROM. ABSENT: carotid bruit, JVD, lymphadenopathy, thyromegaly Respiratory exam: PRESENT: clear to auscultation анна Cardiovascular exam: PRESENT: RRR. ABSENT: diastolic murmur, rubs, systolic murmur Pulses: PRESENT: normal dorsalis pedis pul, +2 pedal pulses bilateral Vascular exam: PRESENT: normal capillary refill GI/Abdominal exam: PRESENT: soft. ABSENT: distended, guarding, mass, organolmegaly, rebound, tenderness Additonal comments: Colostomy bag is working with some mild bloody seen Rectal exam: PRESENT: deferred Neurological exam: PRESENT: alert, awake, oriented to person, oriented to place, oriented to time, oriented to situation. ABSENT: motor sensory deficit Psychiatric exam: PRESENT: appropriate affect, normal mood. ABSENT: homicidal ideation, suicidal ideation Skin exam: PRESENT: dry, intact, warm. ABSENT: cyanosis, rash Results Laboratory Results: 01/30/19 05:30 01/30/19 05:30 01/30/19 01/30/19 05:30 05:30 WBC 8.0 RBC 3.57 L Hgb 10.7 L Hct 31.5 L MCV 88 MCH 29.9 MCHC 33.9 RDW 16.0 H Plt Count 138 L Seg Neutrophils % 80.3 H Sodium 138.8 Potassium 3.6 Chloride 105 Carbon Dioxide 23 Anion Gap 11 BUN 17 Creatinine 1.61 H Est GFR ( Amer) 52 L Glucose 97 Calcium 8.2 L Magnesium 1.5 L 01/27/19 00:30 Stool - Stool - Final 01/27/19 00:30 Suprapubic Catheter Urine Culture - Final Escherichia Coli Impressions: Abdomen/Pelvis CT 01/26/19 22:06 IMPRESSION: Findings highly suspicious for sigmoid volvulus, as above. Small amount of ascites. No free air. Small right pleural effusion with suspected loculated component. Bibasilar pleural thickening. Cardiomegaly.. TECHNICAL DOCUMENTATION: Quality ID # [id number]: Final reports with documentation of one or more dose reduction techniques (e.g., Automated exposure control, adjustment of the mA and/or kV according to patient size, use of iterative reconstruction technique) copyright 2011 [employer]- All Rights Reserved Acute Abdomen Series 01/27/19 00:52 IMPRESSION: Essentially complete resolution Assessment & Plan - Diagnosis (1) Abdominal swelling Is this a current diagnosis for this admission?: Yes Plan: Status post surgery currently doing well (2) Diabetes mellitus type 2 in nonobese Is this a current diagnosis for this admission?: Yes Plan: Continues to sliding scale per [facility] protocol (3) Paroxysmal atrial fibrillation Is this a current diagnosis for this admission?: Yes Plan: Currently follow with cardiology continues to IV as needed beta-jennifer if he needed we can put in a Cardizem drips (4) Sigmoid volvulus Is this a current diagnosis for this admission?: Yes Plan: Status post surgery (5) Cerebrovascular disease Is this a current diagnosis for this admission?: Yes Plan: Continues to aspirin and statin (6) Chronic kidney disease, stage 3 Is this a current diagnosis for this admission?: Yes Plan: Continues to IV fluid (7) Epilepsy Qualifiers: Epilepsy type: unspecified Intractability: not intractable Status epilepticus: without status epilepticus Qualified Code(s): G40.909 - Epilepsy, unspecified, not intractable, without status epilepticus Is this a current diagnosis for this admission?: Yes Plan: Continues to IV Keppra will change to Lamictal IV (8) Hemiplegia affecting right dominant side Qualifiers: Hemiplegia type: unspecified type Hemiplegia etiology: late effect of cerebrovascular disease Cerebrovascular disease type: nontraumatic subarachnoid hemorrhage Qualified Code(s): I69.051 - Hemiplegia and h emiparesis following nontraumatic subarachnoid hemorrhage affecting right dominant side Is this a current diagnosis for this admission?: Yes (9) Hypertension Qualifiers: Hypertension type: essential hypertension Qualified Code(s): I10 - Essential (primary) hypertension Is this a current diagnosis for this admission?: Yes Plan: While patient n.p.o. PRN beta-jennifer and hydralazine (10) Hypokalemia Is this a current diagnosis for this admission?: Yes (11) E. coli urinary tract infection Is this a current diagnosis for this admission?: Yes Plan: Continues to IV cefepime - Time Time Spent with patient: 15-24 minutes Medications reviewed and adjusted accordingly: Yes Anticipated discharge: Home with Homehealth Within: Other - Plan Summary Plan Summary: Replace the magnesium's
[2019-01-30] MEDS: CLONAZEPAM 1 MG TABLET PO SCH ×2 (09:01→21:36)
[2019-01-30] MEDS: AMLODIPINE BESYLATE 2.5 MG TABLET PO SCH (09:01)
[2019-01-30] MEDS: FUROSEMIDE 40 MG TABLET PO SCH (09:01)
[2019-01-30] MEDS: LEVETIRACETAM 500 MG/NACL-ISO 500 MG/100 ML RTUPB IV SCH ×2 (09:01→21:38)
[2019-01-30] MEDS: FAMOTIDINE INJ/PF 20 MG/2 ML SDV IV SCH ×2 (09:01→21:38)
[2019-01-30] MEDS: METOPROLOL SUCCINATE 25 MG TAB.SR.24H PO SCH ×2 (09:01→21:35)
[2019-01-30] MEDS: ATORVASTATIN CALCIUM 10 MG TABLET PO SCH (09:01)
[2019-01-30] MEDS: ESCITALOPRAM OXALATE 10 MG TABLET PO SCH (09:01)
[2019-01-30] MEDS: LOSARTAN POTASSIUM 25 MG TABLET PO SCH (09:02)
[2019-01-30] MEDS: OXYBUTYNIN CHLORIDE 5 MG TABLET PO SCH ×2 (09:02→21:35)
--- NOTE | 2019-01-30 09:37 | PDOC PROGRESS REPORT ---
Subjective Progress Note for:: 01/30/19 Subjective:: no pains. at bedside Reason For Visit: SIGMOID VOLVULUS Physical Exam Vital Signs: Temp Pulse Resp BP Pulse Ox 97.7 F 105 H 16 142/90 H 96 01/30/19 07:30 01/30/19 07:30 01/30/19 07:30 01/30/19 07:30 01/30/19 07:30 Intake & Output 01/29/19 01/30/19 01/31/19 06:59 06:59 06:59 Intake Total 3150 850 Output Total 1600 3000 Balance 1550 -2150 Weight 88.1 kg 86.8 kg Exam: colostomy viable with small amount of dark liquid and gas. Results Laboratory Results: 01/30/19 05:30 01/30/19 05:30 01/30/19 01/30/19 05:30 05:30 WBC 8.0 RBC 3.57 L Hgb 10.7 L Hct 31.5 L MCV 88 MCH 29.9 MCHC 33.9 RDW 16.0 H Plt Count 138 L Seg Neutrophils % 80.3 H Sodium 138.8 Potassium 3.6 Chloride 105 Carbon Dioxide 23 Anion Gap 11 BUN 17 Creatinine 1.61 H Est GFR ( Amer) 52 L Glucose 97 Calcium 8.2 L Magnesium 1.5 L 01/27/19 00:30 Stool - Stool - Final 01/27/19 00:30 Stool - Stool Stool Culture - Final NO SALMONELLA, SHIGELLA, CAMPYLOBACTER, OR E.COLI 0157 RECOVERED. NEGATIVE FOR SHIGA TOXINS 1&2. 01/27/19 00:30 Suprapubic Catheter Urine Culture - Final Escherichia Coli Impressions: Abdomen/Pelvis CT 01/26/19 22:06 IMPRESSION: Findings highly suspicious for sigmoid volvulus, as above. Small amount of ascites. No free air. Small right pleural effusion with suspected loculated component. Bibasilar pleural thickening. Cardiomegaly.. TECHNICAL DOCUMENTATION: Quality ID # [id number]: Final reports with documentation of one or more dose reduction techniques (e.g., Automated exposure control, adjustment of the mA and/or kV according to patient size, use of iterative reconstruction technique) copyright 2011 [employer]- All Rights Reserved Acute Abdomen Series 01/27/19 00:52 IMPRESSION: Essentially complete resolution Assessment & Plan - Diagnosis (1) Sigmoid volvulus Is this a current diagnosis for this admission?: Yes - Time Time Spent with patient: 15-24 minutes - Inpatient Certification Medical Necessity: Need For IV Fluids, Need for IV Antibiotics - Plan Summary Plan Summary: POD # 2 Sigmoid colon resection with end sigmoid colostomy. Pathology: no tumor, with focal ischemia compatible with volvulus. Colostomy starting to function. Start po slowly with sips of water and ice chips today. Continue IV Fluids
[2019-01-30] MEDS: CEFEPIME 1 GM/D5W RTU 1 GM/50 ML RTUPB IV SCH ×2 (10:49→21:35)
[2019-01-30] MEDS: NORMAL SALINE 1000 ML 1,000 ML IV PRN (17:17)
[2019-01-31] MEDS: HEPARIN SOD (PORCINE) 5,000 UNIT/ML 1 ML VIAL SUBCUT SCH ×3 (05:23→22:39)
[2019-01-31] MEDS: NORMAL SALINE 1000 ML 1,000 ML IV PRN (05:39)
[2019-01-31] MEDS: CARBIDOPA/LEVODOPA 25-100 MG TABLET PO SCH ×3 (05:40→23:19)
[2019-01-31] MEDS: LAMOTRIGINE 100 MG TABLET PO SCH ×2 (05:40→17:10)
[2019-01-31 06:40] LABS: ABSOLUTE EOSINOPHILS # (AUTO) 0.3 10^3/uL (0.0-0.6); ABSOLUTE LYMPHOCYTES (AUTO) 0.7 10^3/uL (0.5-4.7); ABSOLUTE MONOCYTES (AUTO) 0.6 10^3/uL (0.1-1.4); ABSOLUTE NEUT (AUTO) 4.6 10^3/uL (1.7-8.2); BASOPHILS % (AUTO) 0.4 % (0-2); EOSINOPHILS % (AUTO) 4.6 % (0-6); HEMATOCRIT 30.3 % (37.9-51.0); HEMOGLOBIN 10.3 g/dL (13.5-17.0); LYMPHOCYTES % (AUTO) 11.5 % (13-45); MEAN CORPUSCULAR HEMOGLOBIN 29.8 pg (27.0-33.4); MEAN CORPUSCULAR HGB CONC 33.9 g/dL (32.0-36.0); MEAN CORPUSCULAR VOLUME 88 fl (80-97); MONOCYTES % (AUTO) 8.9 % (3-13); PLATELET COUNT 128 10^3/uL (150-450); RED BLOOD COUNT 3.45 10^6/uL (4.35-5.55); RED CELL DISTRIBUTION WIDTH 15.4 % (11.5-14.0); SEGMENTED NEUTROPHILS % (AUTO) 74.6 % (42-78); TOTAL CELLS COUNTED % (AUTO) 100 %; WHITE BLOOD COUNT 6.2 10^3/uL (4.0-10.5)
[2019-01-31 07:05] LABS: ANION GAP 10 (5-19); BLOOD UREA NITROGEN 16 mg/dL (7-20); CALCIUM 8.2 mg/dL (8.4-10.2); CARBON DIOXIDE 24 mmol/L (22-30); CHLORIDE 106 mmol/L (98-107); GLUCOSE 85 mg/dL (75-110); POTASSIUM 3.2 mmol/L (3.6-5.0)
--- NOTE | 2019-01-31 09:08 | PDOC PROGRESS REPORT ---
Subjective Progress Note for:: 01/31/19 Subjective:: Patient is currently doing well Denied any chest pain to than any shortness of the breath Patient's potassium is low Is currently on ice chips per surgery Reason For Visit: SIGMOID VOLVULUS Physical Exam Vital Signs: Temp Pulse Resp BP Pulse Ox 98.1 F 80 15 151/88 H 97 01/30/19 23:35 01/30/19 23:35 01/30/19 23:35 01/30/19 23:35 01/30/19 23:35 Intake & Output 01/30/19 01/31/19 02/01/19 06:59 06:59 06:59 Intake Total 850 1778 Output Total 3000 1600 Balance -2150 178 Weight 86.8 kg 89.5 kg General appearance: PRESENT: no acute distress, well-developed, well-nourished Head exam: PRESENT: atraumatic, normocephalic Eye exam: PRESENT: conjunctiva pink, EOMI, PERRLA. ABSENT: scleral icterus Ear exam: PRESENT: normal external ear exam Mouth exam: PRESENT: moist, tongue midline Neck exam: PRESENT: full ROM. ABSENT: carotid bruit, JVD, lymphadenopathy, thyromegaly Respiratory exam: PRESENT: clear to auscultation анна Cardiovascular exam: PRESENT: RRR. ABSENT: diastolic murmur, rubs, systolic murmur Pulses: PRESENT: normal dorsalis pedis pul, +2 pedal pulses bilateral Vascular exam: PRESENT: normal capillary refill GI/Abdominal exam: PRESENT: soft. ABSENT: distended, guarding, mass, organolmegaly, rebound, tenderness Additonal comments: Colostomy bag is present Rectal exam: PRESENT: deferred Neurological exam: PRESENT: alert, awake, oriented to person, oriented to place. ABSENT: motor sensory deficit Psychiatric exam: PRESENT: appropriate affect, normal mood. ABSENT: homicidal ideation, suicidal ideation Skin exam: PRESENT: dry, intact, warm. ABSENT: cyanosis, rash Results Laboratory Results: 01/31/19 06:18 01/31/19 06:18 01/31/19 01/31/19 06:18 06:18 WBC 6.2 RBC 3.45 L Hgb 10.3 L Hct 30.3 L MCV 88 MCH 29.8 MCHC 33.9 RDW 15.4 H Plt Count 128 L Seg Neutrophils % 74.6 Sodium 139.7 Potassium 3.2 L Chloride 106 Carbon Dioxide 24 Anion Gap 10 BUN 16 Creatinine 1.57 H Est GFR ( Amer) 53 L Glucose 85 Calcium 8.2 L 01/27/19 00:30 Stool - Stool - Final 01/27/19 00:30 Stool - Stool Stool Culture - Final NO SALMONELLA, SHIGELLA, CAMPYLOBACTER, OR E.COLI 0157 RECOVERED. NEGATIVE FOR SHIGA TOXINS 1&2. Impressions: Abdomen/Pelvis CT 01/26/19 22:06 IMPRESSION: Findings highly suspicious for sigmoid volvulus, as above. Small amount of ascites. No free air. Small right pleural effusion with suspected loculated component. Bibasilar pleural thickening. Cardiomegaly.. TECHNICAL DOCUMENTATION: Quality ID # 436: Final reports with documentation of one or more dose reduction techniques (e.g., Automated exposure control, adjustment of the mA and/or kV according to patient size, use of iterative reconstruction technique) copyright 2011 [employer]- All Rights Reserved Acute Abdomen Series 01/27/19 00:52 IMPRESSION: Essentially complete resolution Assessment & Plan - Diagnosis (1) Abdominal swelling Is this a current diagnosis for this admission?: Yes Plan: Status post surgery currently doing well (2) Diabetes mellitus type 2 in nonobese Is this a current diagnosis for this admission?: Yes Plan: Continues to sliding scale per [facility] protocol (3) Paroxysmal atrial fibrillation Is this a current diagnosis for this admission?: Yes Plan: Currently follow with cardiology continues to IV as needed beta-jennifer if he needed we can put in a Cardizem drips (4) Sigmoid volvulus Is this a current diagnosis for this admission?: Yes Plan: Status post surgery (5) Cerebrovascular disease Is this a current diagnosis for this admission?: Yes Plan: Continues to aspirin and statin (6) Chronic kidney disease, stage 3 Is this a current diagnosis for this admission?: Yes Plan: Continues to IV fluid (7) Epilepsy Qualifiers: Epilepsy type: unspecified Intractability: not intractable Status epilepticus: without status epilepticus Qualified Code(s): G40.909 - Epilepsy, unspecified, not intractable, without status epilepticus Is this a current diagnosis for this admission?: Yes Plan: Continues to IV Keppra will change to Lamictal IV (8) Hemiplegia affecting right dominant side Qualifiers: Hemiplegia type: unspecified type Hemiplegia etiology: late effect of cerebrovascular disease Cerebrovascular disease type: nontraumatic subarachnoid hemorrhage Qualified Code(s): I69.051 - 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 PRN beta-jennifer and hydralazine (10) Hypokalemia Is this a current diagnosis for this admission?: Yes Plan: Currently all stable (11) E. coli urinary tract infection Is this a current diagnosis for this admission?: Yes Plan: Continues to IV cefepime - Time Time Spent with patient: 15-24 minutes Medications reviewed and adjusted accordingly: Yes Anticipated discharge: Home with Homehealth Within: Other - Plan Summary Plan Summary: Continues to current medications
[2019-01-31] MEDS: LOSARTAN POTASSIUM 25 MG TABLET PO SCH (09:22)
[2019-01-31] MEDS: OXYBUTYNIN CHLORIDE 5 MG TABLET PO SCH ×2 (09:23→22:39)
[2019-01-31] MEDS: METOPROLOL SUCCINATE 25 MG TAB.SR.24H PO SCH ×2 (09:23→22:38)
[2019-01-31] MEDS: ESCITALOPRAM OXALATE 10 MG TABLET PO SCH (09:24)
[2019-01-31] MEDS: FUROSEMIDE 40 MG TABLET PO SCH (09:25)
[2019-01-31] MEDS: CLONAZEPAM 1 MG TABLET PO SCH ×2 (09:25→22:38)
[2019-01-31] MEDS: ATORVASTATIN CALCIUM 10 MG TABLET PO SCH (09:26)
[2019-01-31] MEDS: FAMOTIDINE INJ/PF 20 MG/2 ML SDV IV SCH ×2 (09:26→22:38)
[2019-01-31] MEDS: CEFEPIME 1 GM/D5W RTU 1 GM/50 ML RTUPB IV SCH ×2 (09:28→22:39)
[2019-01-31] MEDS: AMLODIPINE BESYLATE 2.5 MG TABLET PO SCH (09:32)
--- NOTE | 2019-01-31 10:18 | PDOC PROGRESS REPORT ---
Subjective Progress Note for:: 01/31/19 Subjective:: feels better Reason For Visit: SIGMOID VOLVULUS Physical Exam Vital Signs: Temp Pulse Resp BP Pulse Ox 97.3 F 93 18 157/82 H 97 01/31/19 07:56 01/31/19 07:56 01/31/19 07:56 01/31/19 07:56 01/31/19 07:56 Intake & Output 01/30/19 01/31/19 02/01/19 06:59 06:59 06:59 Intake Total 850 1778 296 Output Total 3000 1600 Balance -2150 178 296 Weight 86.8 kg 89.5 kg Exam: colostomy starting to function well Abdomen is soft and non tender Dressings remain intact and dry Results Laboratory Results: 01/31/19 06:18 01/31/19 06:18 01/31/19 01/31/19 06:18 06:18 WBC 6.2 RBC 3.45 L Hgb 10.3 L Hct 30.3 L MCV 88 MCH 29.8 MCHC 33.9 RDW 15.4 H Plt Count 128 L Seg Neutrophils % 74.6 Sodium 139.7 Potassium 3.2 L Chloride 106 Carbon Dioxide 24 Anion Gap 10 BUN 16 Creatinine 1.57 H Est GFR ( Amer) 53 L Glucose 85 Calcium 8.2 L 01/27/19 00:30 Stool - Stool - Final 01/27/19 00:30 Stool - Stool Stool Culture - Final NO SALMONELLA, SHIGELLA, CAMPYLOBACTER, OR E.COLI 0157 RECOVERED. NEGATIVE FOR SHIGA TOXINS 1&2. Impressions: Abdomen/Pelvis CT 01/26/19 22:06 IMPRESSION: Findings highly suspicious for sigmoid volvulus, as above. Small amount of ascites. No free air. Small right pleural effusion with suspected loculated component. Bibasilar pleural thickening. Cardiomegaly.. TECHNICAL DOCUMENTATION: Quality ID # 436: Final reports with documentation of one or more dose reduction techniques (e.g., Automated exposure control, adjustment of the mA and/or kV according to patient size, use of iterative reconstruction technique) copyright 2011 [employer]- All Rights Reserved Acute Abdomen Series 01/27/19 00:52 IMPRESSION: Essentially complete resolution Assessment & Plan - Diagnosis (1) Sigmoid volvulus Is this a current diagnosis for this admission?: Yes - Time Time Spent with patient: 15-24 minutes - Inpatient Certification Medical Necessity: Need For IV Fluids - Plan Summary Plan Summary: Start clears and advance as tolerated wants parient to go home instead of skilled care. She feels she will be able to take care of patient, just needs instructions for colostomy care
[2019-01-31] MEDS: LEVETIRACETAM 500 MG/NACL-ISO 500 MG/100 ML RTUPB IV SCH ×2 (10:36→23:20)
[2019-01-31] MEDS: POTASSI CL 20 MEQ/50 ML RIDER 20 MEQ/50 ML RTUPB IV SCH ×2 (12:12→14:34)
[2019-01-31] MEDS ORDERED: NORMAL SALINE 1000 ML 1,000 ML IV PRN (16:55)
[2019-01-31] MEDS: ACETAMINOPHEN 325 MG TABLET PO PRN (17:10)
[2019-02-01] MEDS: HEPARIN SOD (PORCINE) 5,000 UNIT/ML 1 ML VIAL SUBCUT SCH ×3 (05:41→22:10)
[2019-02-01] MEDS: CARBIDOPA/LEVODOPA 25-100 MG TABLET PO SCH ×3 (05:45→22:10)
[2019-02-01] MEDS: LAMOTRIGINE 100 MG TABLET PO SCH ×2 (05:51→17:47)
[2019-02-01 06:16] LABS: ABSOLUTE EOSINOPHILS # (AUTO) 0.3 10^3/uL (0.0-0.6); ABSOLUTE LYMPHOCYTES (AUTO) 0.7 10^3/uL (0.5-4.7); ABSOLUTE MONOCYTES (AUTO) 0.5 10^3/uL (0.1-1.4); ABSOLUTE NEUT (AUTO) 4.3 10^3/uL (1.7-8.2); BASOPHILS % (AUTO) 0.5 % (0-2); EOSINOPHILS % (AUTO) 5.7 % (0-6); HEMATOCRIT 29.1 % (37.9-51.0); HEMOGLOBIN 10.1 g/dL (13.5-17.0); LYMPHOCYTES % (AUTO) 11.9 % (13-45); MEAN CORPUSCULAR HEMOGLOBIN 30.1 pg (27.0-33.4); MEAN CORPUSCULAR HGB CONC 34.7 g/dL (32.0-36.0); MEAN CORPUSCULAR VOLUME 87 fl (80-97); MONOCYTES % (AUTO) 8.3 % (3-13); PLATELET COUNT 149 10^3/uL (150-450); RED BLOOD COUNT 3.35 10^6/uL (4.35-5.55); RED CELL DISTRIBUTION WIDTH 15.2 % (11.5-14.0); SEGMENTED NEUTROPHILS % (AUTO) 73.6 % (42-78); TOTAL CELLS COUNTED % (AUTO) 100 %; WHITE BLOOD COUNT 5.8 10^3/uL (4.0-10.5)
[2019-02-01 06:32] LABS: ANION GAP 11 (5-19); BLOOD UREA NITROGEN 15 mg/dL (7-20); CALCIUM 8.1 mg/dL (8.4-10.2); CARBON DIOXIDE 24 mmol/L (22-30); CHLORIDE 103 mmol/L (98-107); GLUCOSE 100 mg/dL (75-110); POTASSIUM 3.1 mmol/L (3.6-5.0)
[2019-02-01] MEDS ORDERED: POTASSIUM CHLORIDE 20 MEQ PACKET PO ONE (09:00)
--- NOTE | 2019-02-01 10:43 | PDOC PROGRESS REPORT ---
Subjective Progress Note for:: 02/01/19 Subjective:: Patient is currently doing well Patient is denied any chest pain to than any shortness of the breath Patient seen by the general surgery advance the diet Reason For Visit: SIGMOID VOLVULUS Physical Exam Vital Signs: Temp Pulse Resp BP Pulse Ox 97.6 F 82 16 164/95 H 100 02/01/19 07:57 02/01/19 07:57 02/01/19 07:57 02/01/19 07:57 02/01/19 07:57 Intake & Output 01/31/19 02/01/19 02/02/19 06:59 06:59 06:59 Intake Total 1778 1486 Output Total 1600 2400 Balance 178 -914 Weight 89.5 kg 89 kg General appearance: PRESENT: no acute distress, well-developed, well-nourished Head exam: PRESENT: atraumatic, normocephalic Eye exam: PRESENT: conjunctiva pink, EOMI, PERRLA. ABSENT: scleral icterus Ear exam: PRESENT: normal external ear exam Mouth exam: PRESENT: moist, tongue midline Neck exam: PRESENT: full ROM. ABSENT: carotid bruit, JVD, lymphadenopathy, thyromegaly Respiratory exam: PRESENT: clear to auscultation анна Cardiovascular exam: PRESENT: RRR. ABSENT: diastolic murmur, rubs, systolic murmur Pulses: PRESENT: normal dorsalis pedis pul, +2 pedal pulses bilateral Vascular exam: PRESENT: normal capillary refill GI/Abdominal exam: PRESENT: normal bowel sounds, soft. ABSENT: distended, guarding, mass, organolmegaly, rebound, tenderness Additonal comments: An ostomy bag is present Rectal exam: PRESENT: deferred Neurological exam: PRESENT: alert, awake, oriented to person, oriented to place, oriented to time, oriented to situation. ABSENT: motor sensory deficit Psychiatric exam: PRESENT: appropriate affect, normal mood. ABSENT: homicidal ideation, suicidal ideation Skin exam: PRESENT: dry, intact, warm. ABSENT: cyanosis, rash Results Laboratory Results: 02/01/19 05:48 02/01/19 05:48 02/01/19 02/01/19 05:48 05:48 WBC 5.8 RBC 3.35 L Hgb 10.1 L Hct 29.1 L MCV 87 MCH 30.1 MCHC 34.7 RDW 15.2 H Plt Count 149 L Seg Neutrophils % 73.6 Sodium 137.5 Potassium 3.1 L Chloride 103 Carbon Dioxide 24 Anion Gap 11 BUN 15 Creatinine 1.40 H Est GFR ( Amer) > 60 Glucose 100 Calcium 8.1 L Impressions: Abdomen/Pelvis CT 01/26/19 22:06 IMPRESSION: Findings highly suspicious for sigmoid volvulus, as above. Small amount of ascites. No free air. Small right pleural effusion with suspected loculated component. Bibasilar pleural thickening. Cardiomegaly.. TECHNICAL DOCUMENTATION: Quality ID # 436: Final reports with documentation of one or more dose reduction techniques (e.g., Automated exposure control, adjustment of the mA and/or kV according to patient size, use of iterative reconstruction technique) copyright 2011 [employer]- All Rights Reserved Acute Abdomen Series 01/27/19 00:52 IMPRESSION: Essentially complete resolution Assessment & Plan - Diagnosis (1) Abdominal swelling Is this a current diagnosis for this admission?: Yes Plan: Status post surgery currently doing well (2) Diabetes mellitus type 2 in nonobese Is this a current diagnosis for this admission?: Yes Plan: Continues to sliding scale per [facility] protocol (3) Paroxysmal atrial fibrillation Is this a current diagnosis for this admission?: Yes Plan: Currently follow with cardiology continues to IV as needed beta-jennifer if he needed we can put in a Cardizem drips (4) Sigmoid volvulus Is this a current diagnosis for this admission?: Yes Plan: Status post surgery (5) Cerebrovascular disease Is this a current diagnosis for this admission?: Yes Plan: Continues to aspirin and statin (6) Chronic kidney disease, stage 3 Is this a current diagnosis for this admission?: Yes Plan: Continues to IV fluid (7) Epilepsy Qualifiers: Epilepsy type: unspecified Intractability: not intractable Status epilepticus: without status epilepticus Qualified Code(s): G40.909 - Epilepsy, unspecified, not intractable, without status epilepticus Is this a current diagnosis for this admission?: Yes Plan: I will restart the Lamictal and discontinues the Keppra IV (8) Hemiplegia affecting right dominant side Qualifiers: Hemiplegia type: unspecified type Hemiplegia etiology: late effect of cerebrovascular disease Cerebrovascular disease type: nontraumatic subarachnoid hemorrhage Qualified Code(s): I69.051 - 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 PRN beta-jennifer and hydralazine (10) Hypokalemia Is this a current diagnosis for this admission?: Yes Plan: Currently all stable (11) E. coli urinary tract infection Is this a current diagnosis for this admission?: Yes Plan: Continues to IV cefepime - Time Time Spent with patient: 15-24 minutes Medications reviewed and adjusted accordingly: Yes Anticipated discharge: Home Within: Other - Plan Summary Plan Summary: Advance the diet continues to current medications discussed with the
--- NOTE | 2019-02-01 11:01 | PDOC PROGRESS REPORT ---
Subjective Progress Note for:: 02/01/19 Reason For Visit: SIGMOID VOLVULUS Patient is postop day 4 status post laparoscopic sigmoid colectomy, diverting colostomy, doing well, tolerating liquid diet. Physical Exam Vital Signs: Temp Pulse Resp BP Pulse Ox 97.6 F 82 16 164/95 H 100 02/01/19 07:57 02/01/19 07:57 02/01/19 07:57 02/01/19 07:57 02/01/19 07:57 Intake & Output 01/31/19 02/01/19 02/02/19 06:59 06:59 06:59 Intake Total 1778 1486 Output Total 1600 2400 Balance 178 -914 Weight 89.5 kg 89 kg General appearance: PRESENT: no acute distress, other - Breathing under positive pressure mask GI/Abdominal exam: PRESENT: other - Abdomen is soft; operative dressing removed, sam intact; ostomy pink, minimal edema. There is bloody liquid drainage in the bag. Results Laboratory Results: 02/01/19 05:48 02/01/19 05:48 02/01/19 02/01/19 05:48 05:48 WBC 5.8 RBC 3.35 L Hgb 10.1 L Hct 29.1 L MCV 87 MCH 30.1 MCHC 34.7 RDW 15.2 H Plt Count 149 L Seg Neutrophils % 73.6 Sodium 137.5 Potassium 3.1 L Chloride 103 Carbon Dioxide 24 Anion Gap 11 BUN 15 Creatinine 1.40 H Est GFR ( Amer) > 60 Glucose 100 Calcium 8.1 L Impressions: Abdomen/Pelvis CT 01/26/19 22:06 IMPRESSION: Findings highly suspicious for sigmoid volvulus, as above. Small amount of ascites. No free air. Small right pleural effusion with suspected loculated component. Bibasilar pleural thickening. Cardiomegaly.. TECHNICAL DOCUMENTATION: Quality ID # 436: Final reports with documentation of one or more dose reduction techniques (e.g., Automated exposure control, adjustment of the mA and/or kV according to patient size, use of iterative reconstruction technique) copyright 2011 [employer]- All Rights Reserved Acute Abdomen Series 01/27/19 00:52 IMPRESSION: Essentially complete resolution Assessment & Plan - Diagnosis (1) Sigmoid volvulus Is this a current diagnosis for this admission?: Yes Plan: Impression: Postoperative day 4 status post laparoscopic sigmoid colectomy, colostomy, doing reasonably well considering multiple chronic medical problems, tolerating a diet: Bloody ostomy output, with hemoglobin stable at 10.1. Recommendations: 1. Will advance diet as tolerated 2. Educate patient and family on ostomy management supplies etc. 3. Patient on cefepime for urinary tract infection being managed by Dr. Price 4. Transition IV antiseizure medication to p.o. 5. Hopefully patient can be discharged home in the next 48 hours. (2) Parkinson's disease Is this a current diagnosis for this admission?: Yes (3) Bedridden Is this a current diagnosis for this admission?: Yes (4) Cerebrovascular disease Is this a current diagnosis for this admission?: Yes
[2019-02-01] MEDS: FAMOTIDINE INJ/PF 20 MG/2 ML SDV IV SCH ×2 (11:15→23:05)
[2019-02-01] MEDS: CEFEPIME 1 GM/D5W RTU 1 GM/50 ML RTUPB IV SCH ×2 (11:15→23:05)
[2019-02-01] MEDS: ATORVASTATIN CALCIUM 10 MG TABLET PO SCH (11:16)
[2019-02-01] MEDS: AMLODIPINE BESYLATE 2.5 MG TABLET PO SCH (11:16)
[2019-02-01] MEDS: ESCITALOPRAM OXALATE 10 MG TABLET PO SCH (11:16)
[2019-02-01] MEDS: FUROSEMIDE 40 MG TABLET PO SCH (11:16)
[2019-02-01] MEDS: LOSARTAN POTASSIUM 25 MG TABLET PO SCH (11:17)
[2019-02-01] MEDS: CLONAZEPAM 1 MG TABLET PO SCH ×2 (11:17→22:09)
[2019-02-01] MEDS: OXYBUTYNIN CHLORIDE 5 MG TABLET PO SCH ×2 (11:17→22:09)
[2019-02-01] MEDS: METOPROLOL SUCCINATE 25 MG TAB.SR.24H PO SCH ×2 (11:17→22:09)
[2019-02-01] MEDS: LEVETIRACETAM 500 MG/NACL-ISO 500 MG/100 ML RTUPB IV SCH (12:00)
[2019-02-01] MEDS: ACETAMINOPHEN 325 MG TABLET PO PRN (15:10)
[2019-02-01] MEDS: DOCUSATE SODIUM 100 MG CAPSULE PO SCH (17:47)
[2019-02-02] MEDS: HEPARIN SOD (PORCINE) 5,000 UNIT/ML 1 ML VIAL SUBCUT SCH ×3 (06:29→21:07)
[2019-02-02] MEDS: CARBIDOPA/LEVODOPA 25-100 MG TABLET PO SCH ×3 (06:30→21:09)
[2019-02-02] MEDS: LAMOTRIGINE 100 MG TABLET PO SCH ×2 (06:31→17:12)
[2019-02-02] MEDS: CHOLECALCIFEROL (D3) 1,000 UNIT (25 MCG) TABLET PO SCH (09:27)
[2019-02-02] MEDS: METOPROLOL SUCCINATE 25 MG TAB.SR.24H PO SCH ×2 (09:27→21:08)
[2019-02-02] MEDS: DOCUSATE SODIUM 100 MG CAPSULE PO SCH ×2 (09:27→17:12)
[2019-02-02] MEDS: LOSARTAN POTASSIUM 25 MG TABLET PO SCH (09:27)
[2019-02-02] MEDS: ATORVASTATIN CALCIUM 10 MG TABLET PO SCH (09:27)
[2019-02-02] MEDS: ESCITALOPRAM OXALATE 10 MG TABLET PO SCH (09:27)
[2019-02-02] MEDS: AMLODIPINE BESYLATE 2.5 MG TABLET PO SCH (09:28)
[2019-02-02] MEDS: CEFEPIME 1 GM/D5W RTU 1 GM/50 ML RTUPB IV SCH ×2 (09:28→21:11)
[2019-02-02] MEDS: FUROSEMIDE 40 MG TABLET PO SCH (09:28)
[2019-02-02] MEDS: CLONAZEPAM 1 MG TABLET PO SCH ×2 (09:28→21:08)
[2019-02-02] MEDS: ASCORBIC ACID 500 MG TABLET PO SCH (09:28)
[2019-02-02] MEDS: CYANOCOBALAMIN (VITAMIN B-12) 1,000 MCG TABLET PO SCH (09:28)
[2019-02-02] MEDS: OXYBUTYNIN CHLORIDE 5 MG TABLET PO SCH ×2 (09:28→21:08)
[2019-02-02] MEDS: FAMOTIDINE INJ/PF 20 MG/2 ML SDV IV SCH ×2 (09:28→21:07)
--- NOTE | 2019-02-02 09:54 | PDOC PROGRESS REPORT ---
Subjective Progress Note for:: 02/02/19 Subjective:: Patient doing well, tolerating diet, now having gas and stool in ostomy. Reason For Visit: SIGMOID VOLVULUS Physical Exam Vital Signs: Temp Pulse Resp BP Pulse Ox 98.0 F 70 15 148/78 H 99 02/02/19 03:50 02/02/19 07:00 02/02/19 03:50 02/02/19 03:50 02/02/19 03:50 Intake & Output 02/01/19 02/02/19 02/03/19 06:59 06:59 06:59 Intake Total 1486 1670 Output Total 2400 3150 Balance -914 -1480 Weight 89 kg 75.1 kg General appearance: PRESENT: no acute distress GI/Abdominal exam: PRESENT: other - Completely benign abdomen; no peritoneal signs no rigidity. Ostomy appliance in place with gas and stool in bag Results Laboratory Results: 02/01/19 05:48 02/01/19 05:48 Impressions: Abdomen/Pelvis CT 01/26/19 22:06 IMPRESSION: Findings highly suspicious for sigmoid volvulus, as above. Small amount of ascites. No free air. Small right pleural effusion with suspected loculated component. Bibasilar pleural thickening. Cardiomegaly.. TECHNICAL DOCUMENTATION: Quality ID # [id number]: Final reports with documentation of one or more dose reduction techniques (e.g., Automated exposure control, adjustment of the mA and/or kV according to patient size, use of iterative reconstruction technique) copyright 2011 [employer]- All Rights Reserved Acute Abdomen Series 01/27/19 00:52 IMPRESSION: Essentially complete resolution Assessment & Plan - Diagnosis (1) Sigmoid volvulus Is this a current diagnosis for this admission?: Yes Plan: Impression: Patient doing well now 5 days status post laparoscopic sigmoid colectomy, colostomy by Dr. Woodward. No postoperative complications. Tolerating a diet and having reliable colostomy output Recommendations: 1. Continue family education with ostomy care. 2. Medical management per Dr. Price 3. Anticipate discharge home tomorrow to patient's home (2) Parkinson's disease Is this a current diagnosis for this admission?: Yes (3) Bedridden Is this a current diagnosis for this admission?: Yes (4) Cerebrovascular disease Is this a current diagnosis for this admission?: Yes
[2019-02-02] MEDS ORDERED: (PENDING PHARMACY ID) (Cholecalciferol (Vitamin D3) [Vitamin D3] 1,000 UNIT) PO SCH (10:00)
--- NOTE | 2019-02-02 10:41 | PDOC PROGRESS REPORT ---
Subjective Progress Note for:: 02/02/19 Subjective:: Patient is currently doing much better Denied any chest pain denied any shortness of the breath Discussed with the surgery all stable hopefully discharge tomorrow Reason For Visit: SIGMOID VOLVULUS Physical Exam Vital Signs: Temp Pulse Resp BP Pulse Ox 98.0 F 70 15 148/78 H 99 02/02/19 03:50 02/02/19 07:00 02/02/19 03:50 02/02/19 03:50 02/02/19 03:50 Intake & Output 02/01/19 02/02/19 02/03/19 06:59 06:59 06:59 Intake Total 1486 1670 Output Total 2400 3150 Balance -914 -1480 Weight 89 kg 75.1 kg General appearance: PRESENT: no acute distress, well-developed, well-nourished Head exam: PRESENT: atraumatic, normocephalic Eye exam: PRESENT: conjunctiva pink, EOMI, PERRLA. ABSENT: scleral icterus Ear exam: PRESENT: normal external ear exam Mouth exam: PRESENT: moist, tongue midline Neck exam: PRESENT: full ROM. ABSENT: carotid bruit, JVD, lymphadenopathy, thyromegaly Respiratory exam: PRESENT: clear to auscultation анна Cardiovascular exam: PRESENT: RRR. ABSENT: diastolic murmur, rubs, systolic murmur Pulses: PRESENT: normal dorsalis pedis pul, +2 pedal pulses bilateral Vascular exam: PRESENT: normal capillary refill GI/Abdominal exam: PRESENT: normal bowel sounds, soft. ABSENT: distended, guarding, mass, organolmegaly, rebound, tenderness Additonal comments: Colostomy bag is working Rectal exam: PRESENT: deferred Neurological exam: PRESENT: alert, awake, oriented to person, oriented to place, oriented to time, oriented to situation. ABSENT: motor sensory deficit Psychiatric exam: PRESENT: appropriate affect, normal mood. ABSENT: homicidal ideation, suicidal ideation Skin exam: PRESENT: dry, intact, warm. ABSENT: cyanosis, rash Results Laboratory Results: 02/01/19 05:48 02/01/19 05:48 Impressions: Abdomen/Pelvis CT 01/26/19 22:06 IMPRESSION: Findings highly suspicious for sigmoid volvulus, as above. Small amount of ascites. No free air. Small right pleural effusion with suspected loculated component. Bibasilar pleural thickening. Cardiomegaly.. TECHNICAL DOCUMENTATION: Quality ID # [id number]: Final reports with documentation of one or more dose reduction techniques (e.g., Automated exposure control, adjustment of the mA and/or kV according to patient size, use of iterative reconstruction technique) copyright 2011 [employer]- All Rights Reserved Acute Abdomen Series 01/27/19 00:52 IMPRESSION: Essentially complete resolution Assessment & Plan - Diagnosis (1) Abdominal swelling Is this a current diagnosis for this admission?: Yes Plan: Status post surgery currently doing well (2) Diabetes mellitus type 2 in nonobese Is this a current diagnosis for this admission?: Yes Plan: Continues to sliding scale per [facility] protocol (3) Paroxysmal atrial fibrillation Is this a current diagnosis for this admission?: Yes Plan: Currently follow with cardiology continues to IV as needed beta-jennifer if he ne eded we can put in a Cardizem drips (4) Sigmoid volvulus Is this a current diagnosis for this admission?: Yes Plan: Status post surgery (5) Cerebrovascular disease Is this a current diagnosis for this admission?: Yes Plan: Continues to aspirin and statin (6) Chronic kidney disease, stage 3 Is this a current diagnosis for this admission?: Yes Plan: Continues to IV fluid (7) Epilepsy Qualifiers: Epilepsy type: unspecified Intractability: not intractable Status epilepticus: without status epilepticus Qualified Code(s): G40.909 - Epilepsy, unspecified, not intractable, without status epilepticus Is this a current diagnosis for this admission?: Yes Plan: I will restart the Lamictal and discontinues the Keppra IV (8) Hemiplegia affecting right dominant side Qualifiers: Hemiplegia type: unspecified type Hemiplegia etiology: late effect of cerebrovascular disease Cerebrovascular disease type: nontraumatic s ubarachnoid hemorrhage Qualified Code(s): I69.051 - 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 PRN beta-jennifer and hydralazine (10) Hypokalemia Is this a current diagnosis for this admission?: Yes Plan: Currently all stable (11) E. coli urinary tract infection Is this a current diagnosis for this admission?: Yes Plan: We will start the patient on a Keflex 500 twice daily for 5 days on the discharge - Time Time Spent with patient: 25-34 minutes Medications reviewed and adjusted accordingly: Yes Anticipated discharge: Home, Home with Homehealth Within: Other - Plan Summary Plan Summary: If the patient remains stable discharge home with all current home medications and a Keflex 500 twice daily for 5 more days
[2019-02-02 11:26] LABS: ANION GAP 10 (5-19); BLOOD UREA NITROGEN 18 mg/dL (7-20); CALCIUM 8.3 mg/dL (8.4-10.2); CARBON DIOXIDE 26 mmol/L (22-30); CHLORIDE 100 mmol/L (98-107); GLUCOSE 137 mg/dL (75-110); POTASSIUM 3.5 mmol/L (3.6-5.0)
[2019-02-02] MEDS ORDERED: POTASSIUM CHLORIDE 10 MEQ CAPSULE.ER PO ONE (14:00)
--- NOTE | 2019-02-02 19:28 | PDOC PROGRESS REPORT ---
Subjective Progress Note for:: 01/29/19 Subjective:: Patient was admitted with severe abdominal distention due to sigmoid volvulus. 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 Patient on questioning denied any chest pain. Patient does not speak but cannot communicate with the patient. at bedside. Patient denies any shortness of breath. Patient has history of atrial fibrillation. Reason For Visit: SIGMOID VOLVULUS Physical Exam Vital Signs: Temp Pulse Resp BP Pulse Ox 97.7 F 105 H 16 142/90 H 96 01/30/19 07:30 01/30/19 07:30 01/30/19 07:30 01/30/19 07:30 01/30/19 07:30 Intake & Output 01/29/19 01/30/19 01/31/19 06:59 06:59 06:59 Intake Total 3150 850 Output Total 1600 3000 Balance 1550 -2150 Weight 88.1 kg 86.8 kg Exam: GENERAL: well-nourished and in no acute distress. Alert and oriented x3 HEAD: Atraumatic, normocephalic. EYES: LINDSEY, sclera anicteric, conjunctiva are normal. ENT: Moist mucous membranes. No oral ulcerations or bleeding gums noted. No obvious ear, nose or throat abnormalities noted. NECK: supple without lymphadenopathy. Trachea is central. No cervical or axillary lymphadenopathy noted. Carotids are 2+, JVD WNL LUNGS: Breath sounds clear bilaterally. No wheezes rales or rhonchi noted. No significant dullness noted on percussion. CHEST: Palpation of the chest wall shows no significant chest wall tenderness. 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 ABDOMEN: Soft, status post surgery with colostomy bag being noted. No guarding, no rebound. No rigidity noted . No masses appreciated. EXTREMITIES: Pedal pulses are 1-2+, no calf tenderness noted. No clubbing or cyanosis. negative pedal edema noted NEUROLOGICAL: Focused neurological exam showed no significant neurologic deficit. Normal speech, no focal weakness appreciated. PSYCH: Normal mood, normal affect. Judgment and insight within normal limits. SKIN: No significant ecchymosis, skin is noted to be warm. MUSCULOSKELETAL EXAM: No significant acute joint swelling noted. Results Laboratory Results: 01/30/19 05:30 01/30/19 05:30 01/30/19 01/30/19 05:30 05:30 WBC 8.0 RBC 3.57 L Hgb 10.7 L Hct 31.5 L MCV 88 MCH 29.9 MCHC 33.9 RDW 16.0 H Plt Count 138 L Seg Neutrophils % 80.3 H Sodium 138.8 Potassium 3.6 Chloride 105 Carbon Dioxide 23 Anion Gap 11 BUN 17 Creatinine 1.61 H Est GFR ( Amer) 52 L Glucose 97 Calcium 8.2 L Magnesium 1.5 L 01/27/19 00:30 Stool - Stool - Final 01/27/19 00:30 Suprapubic Catheter Urine Culture - Final Escherichia Coli EKG Comments: Shows atrial fibrillation with controlled ventricular response Impressions: Abdomen/Pelvis CT 01/26/19 22:06 IMPRESSION: Findings highly suspicious for sigmoid volvulus, as above. Small amount of ascites. No free air. Small right pleural effusion with suspected loculated component. Bibasilar pleural thickening. Cardiomegaly.. TECHNICAL DOCUMENTATION: Quality ID # [id number]: Final reports with documentation of one or more dose reduction techniques (e.g., Automated exposure control, adjustment of the mA and/or kV according to patient size, use of iterative reconstruction technique) copyright 2011 [employer]- All Rights Reserved Acute Abdomen Series 01/27/19 00:52 IMPRESSION: Essentially complete resolution Assessment & Plan - Diagnosis (1) Sigmoid volvulus Is this a current diagnosis for this admission?: Yes (3) Cerebrovascular disease Is this a current diagnosis for this admission?: Yes (4) Chronic kidney disease Qualifiers: Chronic kidney disease stage: stage 3 (moderate) Qualified Code(s): N18.3 - Chronic kidney disease, stage 3 (moderate) Is this a current diagnosis for this admission?: Yes (5) Hypertension Qualifiers: Hypertension type: essential hypertension Qualified Code(s): I10 - Essential (primary) hypertension Is this a current diagnosis for this admission?: Yes (6) Type 2 diabetes mellitus Qualifiers: Diabetes mellitus terminal computer operator insulin use: without terminal computer operator use Diabetes mellitus complication status: with other specified complication Qualified Code(s): E11.69 - Type 2 diabetes mellitus with other specified complication Is this a current diagnosis for this admission?: Yes - Notes Notes: Patient seen postop. Noted to be generally stable but he is noted to have problems with high blood pressure and also elevated heart rate. Wrote orders f or IV Lopressor 5 mg q. one hour as needed. Have added clonidine TTS patch. Today had written orders for incentive spirometry and also intermittent pneumatic compression devices. Patient otherwise stable. Wrote orders for sequential compression device both lower extremities to prevent DVT. Patient at bedside. - Time Time with patient: Greater than 35 minutes - More than 50% of the time spent coordinating care, discussing management plans with involved caregivers. Management plans discussed with involved personnels. Medical decision making was of moderate to high complexity, patient's has multiple comorbidities. Medications reviewed and adjusted accordingly: Yes
--- NOTE | 2019-02-02 19:30 | PDOC PROGRESS REPORT ---
Subjective Progress Note for:: 01/30/19 Subjective:: Patient was admitted with severe abdominal distention due to sigmoid volvulus. 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 Patient on questioning denied any chest pain. Patient does not speak but cannot communicate with the patient. at bedside. Patient denies any shortness of breath. Patient has history of atrial fibrillation. Patient still having problems with elevated blood pressure and also intermittently increased heart rate but overall generally stable. Reason For Visit: SIGMOID VOLVULUS Physical Exam Vital Signs: Temp Pulse Resp BP Pulse Ox 97.7 F 105 H 16 142/90 H 96 01/30/19 07:30 01/30/19 07:30 01/30/19 07:30 01/30/19 07:30 01/30/19 07:30 Intake & Output 01/29/19 01/30/19 01/31/19 06:59 06:59 06:59 Intake Total 3150 850 Output Total 1600 3000 Balance 1550 -2150 Weight 88.1 kg 86.8 kg Exam: GENERAL: well-nourished and in no acute distress. Alert and oriented x3 HEAD: Atraumatic, normocephalic. EYES: LINDSEY, sclera anicteric, conjunctiva are normal. ENT: Moist mucous membranes. No oral ulcerations or bleeding gums noted. No obvious ear, nose or throat abnormalities noted. NECK: supple without lymphadenopathy. Trachea is central. No cervical or axillary lymphadenopathy noted. Carotids are 2+, JVD WNL LUNGS: Breath sounds clear bilaterally. No wheezes rales or rhonchi noted. No significant dullness noted on percussion. CHEST: Palpation of the chest wall shows no significant chest wall tenderness. 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 ABDOMEN: Soft, status post colostomy. Status post sigmoid valvulectomy. No guarding, no rebound. No rigidity noted . No masses appreciated. EXTREMITIES: Pedal pulses are 1-2+, no calf tenderness noted. No clubbing or cyanosis. negative pedal edema noted NEUROLOGICAL: Focused neurological exam showed no significant neurologic deficit. Normal speech, no focal weakness appreciated. PSYCH: Normal mood, normal affect. Judgment and insight within normal limits. SKIN: No significant ecchymosis, skin is noted to be warm. MUSCULOSKELETAL EXAM: No significant acute joint swelling noted. Results Laboratory Results: 01/30/19 05:30 01/30/19 05:30 01/30/19 01/30/19 05:30 05:30 WBC 8.0 RBC 3.57 L Hgb 10.7 L Hct 31.5 L MCV 88 MCH 29.9 MCHC 33.9 RDW 16.0 H Plt Count 138 L Seg Neutrophils % 80.3 H Sodium 138.8 Potassium 3.6 Chloride 105 Carbon Dioxide 23 Anion Gap 11 BUN 17 Creatinine 1.61 H Est GFR ( Amer) 52 L Glucose 97 Calcium 8.2 L Magnesium 1.5 L 01/27/19 00:30 Stool - Stool - Final 01/27/19 00:30 Suprapubic Catheter Urine Culture - Final Escherichia Coli EKG Comments: Atrial fibrillation with relatively controlled heart rate response. Impressions: Abdomen/Pelvis CT 01/26/19 22:06 IMPRESSION: Findings highly suspicious for sigmoid volvulus, as above. Small amount of ascites. No free air. Small right pleural effusion with suspected loculated component. Bibasilar pleural thickening. Cardiomegaly.. TECHNICAL DOCUMENTATION: Quality ID # 436: Final reports with documentation of one or more dose reduction techniques (e.g., Automated exposure control, adjustment of the mA and/or kV according to patient size, use of iterative reconstruction technique) copyright 2011 [employer]- All Rights Reserved Acute Abdomen Series 01/27/19 00:52 IMPRESSION: Essentially complete resolution Assessment & Plan - Diagnosis (1) Sigmoid volvulus Is this a current diagnosis for this admission?: Yes (3) Cerebrovascular disease Is this a current diagnosis for this admission?: Yes (4) Chronic kidney disease Qualifiers: Chronic kidney disease stage: stage 3 (moderate) Qualified Code(s): N18.3 - Chronic kidney disease, stage 3 (moderate) Is this a current diagnosis for this admission?: Yes (5) Hypertension Qualifiers: Hypertension type: essential hypertension Qualified Code(s): I10 - Essential (primary) hypertension Is this a current diagnosis for this admission?: Yes (6) Type 2 diabetes mellitus Qualifiers: Diabetes mellitus keno terminal operator insulin use: without assisted use Diabetes mellitus complication status: with other specified complication Qualified Code(s): E11.69 - Type 2 diabetes mellitus with other specified complication Is this a current diagnosis for this admission?: Yes - Notes Notes: Patient seen postop. He is noted to have problems with high blood pressure and also elevated heart rate. Patient placed on regular dose metoprolol. Patient also placed on Norvasc. Patient continuing with clonidine patch. Blood pressure and heart rate under reasonable control. Patient otherwise stable. Continue with sequential compression device both lower extremities to prevent DVT. Patient at bedside. Continue with incentive spirometry. Patient family informed that I will be out of town but will be available for phone consultation. - Time Time with patient: Greater than 35 minutes - More than 50% of the time spent coordinating care, discussing management plans with involved caregivers. Management plans discussed with involved personnels. Medical decision making was of moderate to high complexity, patient's has multiple comorbidities. Medications reviewed and adjusted accordingly: Yes
--- NOTE | 2019-02-02 19:47 | PDOC PROGRESS REPORT ---
Subjective Progress Note for:: 02/02/19 Subjective:: Patient was admitted with severe abdominal distention due to sigmoid volvulus. 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 Patient on questioning denied any chest pain. Patient does not speak but cannot communicate with the patient. at bedside. Patient denies any shortness of breath. Patient has history of atrial fibrillation. Patient still having some problems with blood pressure control but patient's , who is also a nurse th inks that once he goes home, and gets his regular medication, it will get adjusted better. Reason For Visit: SIGMOID VOLVULUS Physical Exam Vital Signs: Temp Pulse Resp BP Pulse Ox 98.0 F 84 15 148/78 H 99 02/02/19 03:50 02/02/19 13:18 02/02/19 03:50 02/02/19 03:50 02/02/19 03:50 Intake & Output 02/01/19 02/02/19 02/03/19 06:59 06:59 06:59 Intake Total 1486 1670 830 Output Total 2400 3150 1200 Balance -914 -1480 -370 Weight 89 kg 75.1 kg Exam: GENERAL: well-nourished and in no acute distress. Alert and oriented x3 HEAD: Atraumatic, normocephalic. EYES: LINDSEY, sclera anicteric, conjunctiva are normal. ENT: Moist mucous membranes. No oral ulcerations or bleeding gums noted. No obvious ear, nose or throat abnormalities noted. NECK: supple without lymphadenopathy. Trachea is central. No cervical or axillary lymphadenopathy noted. Carotids are 2+, JVD WNL LUNGS: Breath sounds clear bilaterally. No wheezes rales or rhonchi noted. No significant dullness noted on percussion. CHEST: Palpation of the chest wall shows no significant chest wall tenderness. 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 ABDOMEN: Soft, colostomy bag and colostomy noted, normoactive bowel sounds. No guarding, no rebound. No rigidity noted . No masses appreciated. EXTREMITIES: Pedal pulses are 1-2+, no calf tenderness noted. No clubbing or cyanosis. negative pedal edema noted NEUROLOGICAL: Focused neurological exam showed no significant neurologic deficit. Normal speech, no focal weakness appreciated. PSYCH: Normal mood, normal affect. Judgment and insight within normal limits. SKIN: No significant ecchymosis, skin is noted to be warm. MUSCULOSKELETAL EXAM: No significant acute joint swelling noted. Results Laboratory Results: 02/01/19 05:48 02/02/19 10:52 02/02/19 10:52 Sodium 136.1 L Potassium 3.5 L Chloride 100 Carbon Dioxide 26 Anion Gap 10 BUN 18 Creatinine 1.59 H Est GFR ( Amer) 52 L Glucose 137 H Calcium 8.3 L EKG Comments: Telemetry shows atrial fibrillation with controlled ventricular response Impressions: Abdomen/Pelvis CT 01/26/19 22:06 IMPRESSION: Findings highly suspicious for sigmoid volvulus, as above. Small amount of ascites. No free air. Small right pleural effusion with suspected loculated component. Bibasilar pleural thickening. Cardiomegaly.. TECHNICAL DOCUMENTATION: Quality ID # 436: Final reports with documentation of one or more dose reduction techniques (e.g., Automated exposure control, adjustment of the mA and/or kV according to patient size, use of iterative reconstruction technique) copyright 2011 [employer]- All Rights Reserved Acute Abdomen Series 01/27/19 00:52 IMPRESSION: Essentially complete resolution Assessment & Plan - Diagnosis (1) Sigmoid volvulus Is this a current diagnosis for this admission?: Yes (2) Sigmoid volvulus Is this a current diagnosis for this admission?: Yes (3) Cerebrovascular disease Is this a current diagnosis for this admission?: Yes (4) Chronic kidney disease Qualifiers: Chronic kidney disease stage: stage 3 (moderate) Qualified Code(s): N18.3 - Chronic kidney disease, stage 3 (moderate) Is this a current diagnosis for this admission?: Yes (5) Hypertension Qualifiers: Hypertension type: essential hypertension Qualified Code(s): I10 - Essential (primary) hypertension Is this a current diagnosis for this admission?: Yes (6) Type 2 diabetes mellitus Qualifiers: Diabetes mellitus meterman insulin use: without half-way use Diabetes mellitus complication status: with other specified complication Qualified Code(s): E11.69 - Type 2 diabetes mellitus with other specified complication Is this a current diagnosis for this admission?: Yes - Notes Notes: Patient noted to be generally very stable from cardiac standpoint. I am told by patient's that patient is expected to be discharged tomorrow. Recommend resuming all home medications for this patient. - Time Time with patient: 15-25 minutes Medications reviewed and adjusted accordingly: Yes
[2019-02-03] MEDS: CARBIDOPA/LEVODOPA 25-100 MG TABLET PO SCH (06:35)
[2019-02-03] MEDS: HEPARIN SOD (PORCINE) 5,000 UNIT/ML 1 ML VIAL SUBCUT SCH (06:35)
[2019-02-03] MEDS: LAMOTRIGINE 100 MG TABLET PO SCH (06:35)
--- NOTE | 2019-02-03 10:38 | PDOC DISCHARGE SUMMARY ---
General - Admit/Disc Date/PCP Admission Date/Primary Care Provider: 01/27/19 00:42 CAMILO SALDIVAR MD Discharge Date: 02/03/19 - Discharge Diagnosis (1) Abdominal swelling Is this a current diagnosis for this admission?: Yes Summary: Status post volvulus surgery (2) Diabetes mellitus type 2 in nonobese Is this a current diagnosis for this admission?: Yes Summary: Currently all stable currently under diet control (3) Paroxysmal atrial fibrillation Is this a current diagnosis for this admission?: Yes Summary: Patient suggested to not go for an anticoagulation currently on aspirin (4) Sigmoid volvulus Is this a current diagnosis for this admission?: Yes Summary: Status post colostomy currently follow with the surgery (5) Cerebrovascular disease Is this a current diagnosis for this admission?: Yes (6) Chronic kidney disease, stage 3 Is this a current diagnosis for this admission?: Yes (7) Epilepsy Is this a current diagnosis for this admission?: Yes Summary: Currently all stable (8) Hemiplegia affecting right dominant side Is this a current diagnosis for this admission?: Yes (9) Hypertension Is this a current diagnosis for this admission?: Yes (10) Hypokalemia Is this a current diagnosis for this admission?: Yes Summary: Currently all resolving (11) E. coli urinary tract infection Is this a current diagnosis for this admission?: Yes Summary: to p.oAmaury Keflex - Additional Information Resuscitation Status: CONTINUED DNR WITH THE EXCEPTION OF ONE ROUND OF ACLS. Discharge Diet: Diabetic Discharge Activity: Activity As Tolerated Prescriptions: Cephalexin Monohydrate [Keflex 500 mg Capsule] 500 mg PO BID #10 capsule Metoprolol Succinate [Toprol Xl 25 mg Tab.sr] 25 mg PO Q12 #60 tab.sr.24h Home Medications: Carbidopa/Levodopa [Sinemet 25-100 mg Tablet] 1.5 tab PO TID 02/24/18 Clonazepam [Klonopin] 0.5 mg PO Q12 02/24/18 Furosemide [Lasix 40 mg Tablet] 40 mg PO DAILY 02/24/18 Losartan Potassium [Cozaar 25 mg Tablet] 25 mg PO DAILY 02/24/18 Amlodipine Besylate [Norvasc 2.5 mg Tablet] 2.5 mg PO DAILY 01/27/19 Ascorbic Acid [Vitamin C 500 mg Tablet] 500 mg PO DAILY 01/27/19 Atorvastatin Calcium [Lipitor 10 mg Tablet] 10 mg PO DAILY 01/27/19 Cholecalciferol (Vitamin D3) [Vitamin D3] 1,000 unit PO DAILY 01/27/19 Cyanocobalamin (Vitamin B-12) [B-12] 1,000 mcg PO DAILY 01/27/19 Escitalopram Oxalate [Lexapro] 10 mg PO DAILY 01/27/19 Lamotrigine [Lamictal] 100 mg PO BID 01/27/19 Oxybutynin Chloride [Oxybutynin Chloride ER] 10 mg PO DAILY 01/27/19 Cephalexin Monohydrate [Keflex 500 mg Capsule] 500 mg PO BID #10 capsule 02/03 Metoprolol Succinate [Toprol Xl 25 mg Tab.sr] 25 mg PO Q12 #60 tab.sr.24h 02/03/19 History of Present Illness History of Present Illness: MILANA FRANCO is a 68 year old male Admitting the surgical service for the abdominal pain distention some find the volvulus Hospital Course Hospital Course: This is a 68-year-old male with a significant medical problem as above admitting in the hospital for the volvulus patient underwent for the surgery and a colostomy Patient's response very well with the surgical standpoint doing well and surgical standpoint patient is cleared to go home Patient also seen by Dr. Henley bucket hooker all stable Patient is back to the baseline's p.o. intake is fair and patient is currently taking all home medications Discussed with the wants to take home with the home health all make arrangement Physical Exam Vital Signs: Temp Pulse Resp BP Pulse Ox 97.5 F 63 17 142/80 H 98 02/03/19 07:32 02/03/19 07:32 02/03/19 07:32 02/03/19 07:32 02/03/19 07:32 Intake & Output 02/02/19 02/03/19 02/04/19 06:59 06:59 06:59 Intake Total 1670 880 Output Total 3150 2000 Balance -1480 -1120 Weight 75.1 kg 75.9 kg General appearance: PRESENT: no acute distress, well-developed, well-nourished Head exam: PRESENT: atraumatic, normocephalic Eye exam: PRESENT: conjunctiva pink, EOMI, PERRLA. ABSENT: scleral icterus Ear exam: PRESENT: normal external ear exam Mouth exam: PRESENT: moist, tongue midline Neck exam: PRESENT: full ROM. ABSENT: carotid bruit, JVD, lymphadenopathy, thyromegaly Respiratory exam: PRESENT: clear to auscultation анна Cardiovascular exam: PRESENT: RRR. ABSENT: diastolic murmur, rubs, systolic murmur Pulses: PRESENT: normal dorsalis pedis pul, +2 pedal pulses bilateral Vascular exam: PRESENT: normal capillary refill GI/Abdominal exam: PRESENT: normal bowel sounds, soft. ABSENT: distended, guarding, mass, organolmegaly, rebound, tenderness Additonal comments: Ostomy and suprapubic catheter is present Rectal exam: PRESENT: deferred Neurological exam: PRESENT: alert, awake, oriented to person, oriented to place, oriented to time. ABSENT: motor sensory deficit Psychiatric exam: PRESENT: appropriate affect, normal mood. ABSENT: homicidal ideation, suicidal ideation Skin exam: PRESENT: dry, intact, warm. ABSENT: cyanosis, rash Results Laboratory Results: 02/01/19 05:48 02/02/19 10:52 02/02/19 10:52 Sodium 136.1 L Potassium 3.5 L Chloride 100 Carbon Dioxide 26 Anion Gap 10 BUN 18 Creatinine 1.59 H Est GFR ( Amer) 52 L Glucose 137 H Calcium 8.3 L Impressions: Abdomen/Pelvis CT 01/26/19 22:06 IMPRESSION: Findings highly suspicious for sigmoid volvulus, as above. Small amount of ascites. No free air. Small right pleural effusion with suspected loculated component. Bibasilar pleural thickening. Cardiomegaly.. TECHNICAL DOCUMENTATION: Quality ID # 436: Final reports with documentation of one or more dose reduction techniques (e.g., Automated exposure control, adjustment of the mA and/or kV according to patient size, use of iterative reconstruction technique) copyright 2011 [employer]- All Rights Reserved Acute Abdomen Series 01/27/19 00:52 IMPRESSION: Essentially complete resolution Qualifiers - * PATIENT BEING DISCHARGED WITH ANY OF THE FOLLOWING DIAGNOSIS: No Acute Heart Failure - Is this a Heart Failure Patient?: No Plan Time Spent: Greater than 30 Minutes - Discharge home with the stable conditions
[2019-02-03] MEDS: OXYBUTYNIN CHLORIDE 5 MG TABLET PO SCH (11:09)
[2019-02-03] MEDS: FAMOTIDINE INJ/PF 20 MG/2 ML SDV IV SCH (11:09)
[2019-02-03] MEDS: ATORVASTATIN CALCIUM 10 MG TABLET PO SCH (11:09)
[2019-02-03] MEDS: DOCUSATE SODIUM 100 MG CAPSULE PO SCH (11:10)
[2019-02-03] MEDS: ESCITALOPRAM OXALATE 10 MG TABLET PO SCH (11:11)
[2019-02-03] MEDS: CHOLECALCIFEROL (D3) 1,000 UNIT (25 MCG) TABLET PO SCH (11:11)
[2019-02-03] MEDS: CYANOCOBALAMIN (VITAMIN B-12) 1,000 MCG TABLET PO SCH (11:13)
--- NOTE | 2019-02-03 11:30 | PDOC PROGRESS REPORT ---
Subjective Progress Note for:: 02/03/19 Subjective:: Patient feels comfortable Reason For Visit: SIGMOID VOLVULUS Physical Exam Vital Signs: Temp Pulse Resp BP Pulse Ox 97.5 F 63 17 142/80 H 98 02/03/19 07:32 02/03/19 07:32 02/03/19 07:32 02/03/19 07:32 02/03/19 07:32 Intake & Output 02/02/19 02/03/19 02/04/19 06:59 06:59 06:59 Intake Total 1670 880 Output Total 3150 2000 Balance -1480 -1120 Weight 75.1 kg 75.9 kg General appearance: PRESENT: no acute distress Respiratory exam: PRESENT: clear to auscultation анна Cardiovascular exam: PRESENT: RRR GI/Abdominal exam: PRESENT: normal bowel sounds, soft, other - Midline incision clean, dry, and intact with surgical sam in place; colostomy pink with gas and stools in the colostomy bag Results Laboratory Results: 02/01/19 05:48 02/02/19 10:52 02/02/19 10:52 Sodium 136.1 L Potassium 3.5 L Chloride 100 Carbon Dioxide 26 Anion Gap 10 BUN 18 Creatinine 1.59 H Est GFR ( Amer) 52 L Glucose 137 H Calcium 8.3 L Impressions: Abdomen/Pelvis CT 01/26/19 22:06 IMPRESSION: Findings highly suspicious for sigmoid volvulus, as above. Small amount of ascites. No free air. Small right pleural effusion with suspected loculated component. Bibasilar pleural thickening. Cardiomegaly.. TECHNICAL DOCUMENTATION: Quality ID # [id number]: Final reports with documentation of one or more dose reduction techniques (e.g., Automated exposure control, adjustment of the mA and/or kV according to patient size, use of iterative reconstruction technique) copyright 2011 [employer]- All Rights Reserved Acute Abdomen Series 01/27/19 00:52 IMPRESSION: Essentially complete resolution Assessment & Plan - Diagnosis (1) Sigmoid volvulus Is this a current diagnosis for this admission?: Yes - Plan Summary Plan Summary: Assessment: Postoperative day #6 following sigmoid colectomy with end colostomy Patient doing well Patient tolerating p.o. well Physical exam unremarkable Colostomy pink with stools and gas in the colostomy bag Plan: Discharge to home today with ambulance Follow-up with Dr. Woodward in 2 weeks Sponge bath only No wound care needed Routine colostomy bag care Resume home medications
[2019-02-03] MEDS: FUROSEMIDE 40 MG TABLET PO SCH (12:16)
[2019-02-03] MEDS: CLONAZEPAM 1 MG TABLET PO SCH (12:16)
[2019-02-03] MEDS: LOSARTAN POTASSIUM 25 MG TABLET PO SCH (12:17)
[2019-02-03] MEDS: CEFEPIME 1 GM/D5W RTU 1 GM/50 ML RTUPB IV SCH (12:20)
[2019-02-03] MEDS: ASCORBIC ACID 500 MG TABLET PO SCH (12:22)
[2019-02-03] MEDS: METOPROLOL SUCCINATE 25 MG TAB.SR.24H PO SCH (12:22)
[2019-02-03] MEDS: AMLODIPINE BESYLATE 2.5 MG TABLET PO SCH (12:23)
[2019-02-03 12:56] VITALS: BP 164/95
== END 2019-02-03 13:15 | disposition home or self-care (01) | DRG 330 ==
LOC: ER 20:16 → EH 01-27 00:42 → 4N 01-27 02:15 → 3S 01-28 15:28
PROVIDERS: ADMIT Surgery; ATTEND Surgery
PROC: 0D1N0Z4 Bypass Sigmoid Colon to Cutaneous, Open Approach (ICD-10-PCS; 2019-01-28)
PROC: 0DTN0ZZ Resection of Sigmoid Colon, Open Approach (ICD-10-PCS; principal; 2019-01-28 09:00)
DX: K56.2 Volvulus (principal); N39.0 Urinary tract infection, site not specified; I69.051 Hemiplegia and hemiparesis following nontraumatic subarachnoid hemorrhage affecting right dominant side; I48.0 Paroxysmal atrial fibrillation; E11.22 Type 2 diabetes mellitus with diabetic chronic kidney disease; N18.3 Chronic kidney disease, stage 3 (moderate); I12.9 Hypertensive chronic kidney disease with stage 1 through stage 4 chronic kidney disease, or unspecified chronic kidney disease; G40.909 Epilepsy, unspecified, not intractable, without status epilepticus; E87.6 Hypokalemia; B96.20 Unspecified Escherichia coli [E. coli] as the cause of diseases classified elsewhere; E78.5 Hyperlipidemia, unspecified; J44.9 Chronic obstructive pulmonary disease, unspecified; K21.9 Gastro-esophageal reflux disease without esophagitis; F32.9 Major depressive disorder, single episode, unspecified; G20 Parkinson's disease; E78.00 Pure hypercholesterolemia, unspecified; Z79.899 Other long term (current) drug therapy; Z91.041 Radiographic dye allergy status; Z74.01 Bed confinement status
CPT/HCPCS: 36415; 74022; 74176; 80048; 80053; 81001; 82962; 83036; 83690; 83735; 840; 84439; 84443; 84481; 85025; 87045; 87086; 87088; 87186; 87205; 87493; 88307; 89055; 93005; 93010; 93306; 94799; 96361; 96374; 99285; J0690; J0692; J0696; J1644; J1953; J2250; J2270; J2405; J2704; J3010; J3475; J3480; J3490; J7030; S0028

== ENCOUNTER → 2019-04-14 | Outpatient (CLI) | payer MEDICARE ==
[2019-04-14 13:03] LABS: ABSOLUTE EOSINOPHILS # (AUTO) 0.2 10^3/uL (0.0-0.6); ABSOLUTE LYMPHOCYTES (AUTO) 0.8 10^3/uL (0.5-4.7); ABSOLUTE MONOCYTES (AUTO) 0.5 10^3/uL (0.1-1.4); ABSOLUTE NEUT (AUTO) 6.2 10^3/uL (1.7-8.2); BASOPHILS % (AUTO) 0.5 % (0-2); HEMATOCRIT 35.2 % (37.9-51.0); HEMOGLOBIN 11.9 g/dL (13.5-17.0); LYMPHOCYTES % (AUTO) 10.5 % (13-45); MEAN CORPUSCULAR HEMOGLOBIN 29.8 pg (27.0-33.4); MEAN CORPUSCULAR HGB CONC 33.9 g/dL (32.0-36.0); MEAN CORPUSCULAR VOLUME 88 fl (80-97); MONOCYTES % (AUTO) 6.2 % (3-13); PLATELET COUNT 181 10^3/uL (150-450); RED CELL DISTRIBUTION WIDTH 15.3 % (11.5-14.0); SEGMENTED NEUTROPHILS % (AUTO) 80.8 % (42-78); TOTAL CELLS COUNTED % (AUTO) 100 %; WHITE BLOOD COUNT 7.7 10^3/uL (4.0-10.5)
[2019-04-14 13:26] LABS: ALBUMIN 4.2 g/dL (3.5-5.0); ANION GAP 14 (5-19); BLOOD UREA NITROGEN 27 mg/dL (7-20); CALCIUM 9.1 mg/dL (8.4-10.2); CARBON DIOXIDE 22 mmol/L (22-30); CHLORIDE 104 mmol/L (98-107); GLUCOSE 97 mg/dL (75-110); PHOSPHORUS 4.7 mg/dL (2.5-4.5); POTASSIUM 3.9 mmol/L (3.6-5.0)
== END ==
LOC: OD 11:34
PROVIDERS: ATTEND Internal Medicine Nephrology
DX: I12.9 Hypertensive chronic kidney disease with stage 1 through stage 4 chronic kidney disease, or unspecified chronic kidney disease (principal); N18.3 Chronic kidney disease, stage 3 (moderate); E87.5 Hyperkalemia
CPT/HCPCS: 36415; 80069; 85025

== ENCOUNTER 2019-10-18 10:22 | Emergency (ER) | payer MEDICARE ==
--- NOTE | 2019-10-18 10:43 | ER Document Report ---
ED General - General Chief Complaint: Problem with Urinary Catheter Stated Complaint: URINARY ISSUE Time Seen by Provider: 10/18/19 10:30 Primary Care Provider: CAMILO SALDIVAR MD [Primary Care Provider] - Follow up as needed TRAVEL OUTSIDE OF THE [place] IN LAST 30 DAYS: No - HPI Notes: Chief complaint: Dislodged suprapubic catheter HPI: 68-year-old male followed by Dr. Saldivar who has a colostomy and a suprapubic catheter. said when he awakened this morning his suprapubic catheter apparently had been pulled out overnight. No other complaints. They are here for catheter replacement. - Related Data Allergies/Adverse Reactions: phenytoin [From Dilantin] Allergy (Severe, Verified 01/28/19 10:44) Anaphylaxis Iodinated Contrast Media Allergy (Mild, Verified 02/23/18 11:20) Generalized rash Past Medical History - General Information source: Patient, Relative, Emergency Med Personnel, [facility], [facility] Records - Social History Smoking Status: Never Smoker Frequency of alcohol use: None Drug Abuse: None Family History: CAD, Hypertension. denies: DM, Malignancy Patient has homicidal ideation: No - Past Medical History Cardiac Medical History: Reports: Hx Atrial Fibrillation, Hx Hypercholesterolemia, Hx Hypertension Denies: Hx Coronary Artery Disease, Hx Heart Attack, Hx Heart Murmur Pulmonary Medical History: Reports: Hx COPD, Hx Pneumonia, Hx Sleep Apnea Denies: Hx Asthma, Hx Bronchitis, Hx Respiratory Failure, Hx Tuberculosis Neurological Medical History: Reports: Hx Cerebrovascular Accident - 2005 WEAKER ON RIGHT SIDE, Hx Seizures - LAST ONE OVER 1 YR. AGO., Hx Parkinson's Disease. Denies: Hx Migraine Endocrine Medical History: Reports: Hx Diabetes Mellitus Type 2. Denies: Hx Diabetes Mellitus Type 1, Hx Hyperthyroidism, Hx Hypothyroidism Renal/ Medical History: Reports: Hx Kidney Stones. Denies: Hx Peritoneal Dialysis Malignancy Medical History: GI Medical History: Reports: Hx Gastroesophageal Reflux Disease - aspiration. Denies: Hx Cirrhosis, Hx Crohn's Disease, Hx Hepatitis, Hx Hiatal Hernia, Hx Pancreatitis, Hx Ulcer, Hx Ulcerative Colitis Musculoskeletal Medical History: Reports Hx Arthritis, Denies Hx Gout, Denies Hx Systemic Lupus Erythematosus Skin Medical History: Denies Hx Eczema, Denies Hx Psoriasis Psychiatric Medical History: Reports: Hx Depression Traumatic Medical History: Reports: Hx Fractures - right foot. Denies: Hx Gunshot Wound, Hx Pneumothorax, Hx Traumatic Brain Injury Infectious Medical History: Denies: Hx Hepatitis Past Surgical History: Reports: Hx Abdominal Surgery - PEG tube-past, Hx Bowel Surgery - cyst on bladder, Hx Orthopedic Surgery - right shoulder. Denies: Hx Open Heart Surgery, Hx Pacemaker - Immunizations Hx Diphtheria, Pertussis, Tetanus Vaccination: Yes Hx Pneumococcal Vaccination: 06/04/11 Review of Systems - Review of Systems Notes: Constitutional: Negative for fever. HENT: Negative for sore throat. Eyes: Negative for visual changes. Cardiovascular: Negative for chest pain. Respiratory: Negative for shortness of breath. Gastrointestinal: Negative for abdominal pain, vomiting or diarrhea. Genitourinary: As per HPI. Musculoskeletal: Negative for back pain. Skin: Negative for rash. Neurological: Negative for headaches, weakness or numbness. 10 point ROS negative except as marked above and in HPI. Physical Exam - Vital signs Vitals: Temp 98.0 F 10/18/19 10:24 - Notes Notes: GENERAL: Male patient approximately stated age appearing in no acute distress. SKIN: Good turgor no rashes. HEAD: Normocephalic atraumatic. EYES: PERRLA. EOMI. Conjunctivae and sclerae clear. NECK: Supple. No masses or thyromegaly. No adenopathy. Carotids 2+ without bruits. No JVD. BACK: Symmetrical without tenderness. CHEST: Respirations unlabored. Breath sounds clear and symmetrical. HEART: Regular rhythm. No murmur gallop or rub. ABDOMEN: Colostomy left upper quadrant. Suprapubic ostium is clear with absence of suprapubic catheter. No redness or drainage. Soft nontender without masses, organomegaly or rebound. Bowel sounds normally active. No bruits. EXTREMITIES: No edema. No calf tenderness. Cap refill less than 1.5 seconds. Dorsalis pedis and posterior tibial pulses 3+ and symmetrical. NEUROLOGICAL: Alert and oriented x3. Nonfocal. PSYCHIATRIC: Appropriate affect. Course - Re-evaluation Re-evalutation: 10/18/19 10:42 Suprapubic catheter replaced by nursing staff without complications. - Vital Signs Vital signs: Temp Pulse Resp BP Pulse Ox 98.0 F 64 16 179/79 H 100 10/18/19 10:26 10/18/19 10:26 10/18/19 10:26 10/18/19 10:26 10/18/19 10:26 Discharge - Discharge Clinical Impression: Suprapubic catheter replacement Condition: Stable Disposition: HOME, SELF-CARE Additional Instructions: Return here as needed for any new or worsening problems. Otherwise follow-up with your primary care physician as previously arranged. Referrals: CAMILO SALDIVAR MD [Primary Care Provider] - Follow up as needed
[2019-10-18 12:05] VITALS: BP 169/74
== END 2019-10-18 12:20 | disposition home or self-care (01) ==
LOC: ER 10:22
DX: T83.098A Other mechanical complication of other urinary catheter, initial encounter (principal); Z93.3 Colostomy status; Z88.8 Allergy status to other drugs, medicaments and biological substances; I48.91 Unspecified atrial fibrillation; I10 Essential (primary) hypertension; J44.9 Chronic obstructive pulmonary disease, unspecified; E11.9 Type 2 diabetes mellitus without complications
CPT/HCPCS: 99283